=== PATIENT | male | born 1950 | race Caucasian/White ===

== ENCOUNTER → 2017-03-18 07:59 | Outpatient (CLI) | payer OTHER, MEDICARE, SELFPAY ==
[2017-03-18 08:57] LABS: Hemoglobin A1C 7.2 % (0.0-7.0)
[2017-03-18 09:33] LABS: Alanine Aminotransferase 34 U/L (12-78); Albumin/Globulin Ratio 1.6 (1.1-1.8); Alkaline Phosphatase 95 U/L (46-116); Anion Gap 11.9 mEq/L (5-15); Aspartate Amino Transferase 22 U/L (15-37); Bilirubin,Total 0.7 mg/dL (0.2-1.0); Blood Urea Nitrogen 16 mg/dL (7-18); Calcium 8.8 mg/dL (8.5-10.1); Carbon Dioxide 32 mmol/L (21.0-32.0); Chloride 103 mmol/L (98-107); Chol/HDL Ratio 2.4 (1-3.5); Cholesterol 122 mg/dL (140-200); Creatinine,Serum 0.88 mg/dL (0.70-1.30); Estimated Glomerular Filt Rate 86 ml/min (>60); GFR (African American) 105 ML/MIN (>60); Globulin 2.5 gm/dl (1.3-3.2); Glucose 163 mg/dL (74-106); HDL Cholesterol 51 mg/dL (27-67); LDL Cholesterol 60 mg/dL (0-130); Sodium 144 mmol/L (136-145); Total Protein,Serum 6.5 gm/dL (6.4-8.2); Triglycerides 56 mg/dL (30-200); VLDL Cholesterol 11 mg/dL (0-40)
[2017-03-18 09:39] LABS: Potassium 2.9 mmoL/L (3.5-5.1)
[2017-03-19 19:25] LABS: Microalbumin, Urine 32.2 ug/mL (Not Estab.)
== END ==
PROVIDERS: PCP Internal Medicine; Visit Provider Internal Medicine
DX: E11.9 Type 2 diabetes mellitus without complications (principal); I10 Essential (primary) hypertension
CPT/HCPCS: 36415; 80053; 80061; 82043; 83036

== ENCOUNTER → 2017-03-31 16:26 | Outpatient (CLI) | payer OTHER, MEDICARE, SELFPAY ==
[2017-03-31 17:26] LABS: Anion Gap 12.3 mEq/L (5-15); Blood Urea Nitrogen 20 mg/dL (7-18); Carbon Dioxide 31 mmol/L (21.0-32.0); Chloride 101 mmol/L (98-107); Creatinine,Serum 1.11 mg/dL (0.70-1.30); Estimated Glomerular Filt Rate 66 ml/min (>60); GFR (African American) 80 ML/MIN (>60); Glucose 156 mg/dL (74-106); Potassium 3.3 mmoL/L (3.5-5.1); Sodium 141 mmol/L (136-145)
== END ==
PROVIDERS: PCP Internal Medicine; Visit Provider Internal Medicine
DX: E87.6 Hypokalemia (principal)
CPT/HCPCS: 36415; 80048

== ENCOUNTER → 2017-06-27 16:52 | Outpatient (REF) | payer OTHER, MEDICARE, SELFPAY ==
[2017-06-27 18:49] LABS: Potassium 2.8 mmoL/L (3.5-5.1)
== END ==
LOC: LAB 16:52
PROVIDERS: Visit Provider Internal Medicine
DX: E87.6 Hypokalemia (principal)
CPT/HCPCS: 84132

== ENCOUNTER → 2017-07-27 16:29 | Outpatient (REF) | payer OTHER, MEDICARE, SELFPAY ==
[2017-07-27 19:09] LABS: Anion Gap 16.9 mEq/L (5-15); Blood Urea Nitrogen 22 mg/dL (7-18); Calcium 9.7 mg/dL (8.5-10.1); Carbon Dioxide 26 mmol/L (21.0-32.0); Chloride 103 mmol/L (98-107); Estimated Glomerular Filt Rate 55 ml/min (>60); GFR (African American) 67 ML/MIN (>60); Glucose 189 mg/dL (74-106); Potassium 4.9 mmoL/L (3.5-5.1); Sodium 141 mmol/L (136-145)
== END ==
LOC: LAB 16:29
PROVIDERS: Visit Provider Internal Medicine
DX: E87.6 Hypokalemia (principal)
CPT/HCPCS: 80048

== ENCOUNTER → 2019-01-03 10:47 | Outpatient (CLI) | payer MEDICARE, SELFPAY | PROVIDERS: PCP Internal Medicine; Visit Provider Internal Medicine | DX: R55 Syncope and collapse (principal) | CPT/HCPCS: 93225; 93226 ==

== ENCOUNTER → 2020-11-10 14:18 | Outpatient (CLI) | payer MEDICARE, SELFPAY ==
[2020-11-10 15:07] LABS: Hemoglobin A1C 7.5 % (4.0-6.0)
[2020-11-10 15:55] LABS: Alanine Aminotransferase 16 U/L (12-78); Albumin Level 4.2 g/dl (3.5-5.0); Alkaline Phosphatase 71 U/L (38-126); Anion Gap 14.2 mEq/L (5-15); Aspartate Amino Transferase 24 U/L (17-59); Bilirubin,Total 0.9 mg/dl (0.2-1.3); Blood Urea Nitrogen 21 mg/dl (9-20); Calcium 9.1 mg/dl (8.4-10.2); Carbon Dioxide 26 mmol/L (22.0-30.0); Chloride 104 mmol/L (98-107); Chol/HDL Ratio 2.7 (1-3.5); Cholesterol 104 mg/dl (140-200); Estimated Glomerular Filt Rate 55 ml/min (>60); GFR (African American) 66 ML/MIN (>60); Globulin 2.1 g/dL (1.3-3.2); Glucose 139 mg/dl (74-100); HDL Cholesterol 38 mg/dl (40-60); Potassium 5.2 mmoL/L (3.5-5.1); Sodium 139 mmol/L (136-145); Total Protein,Serum 6.3 g/dl (6.3-8.2); Triglycerides 85 mg/dl (30-150); VLDL Cholesterol 17 mg/dL (0-40)
[2020-11-10 16:06] LABS: Direct LDL Cholesterol 51.86 mg/dL (100-129)
[2020-11-10 16:25] LABS: Prostate Specific Ag, Diagnost 1.77 ng/ml (0.0-4.0)
== END ==
PROVIDERS: Visit Provider Internal Medicine
DX: E11.9 Type 2 diabetes mellitus without complications (principal); E78.5 Hyperlipidemia, unspecified; M17.0 Bilateral primary osteoarthritis of knee; R35.0 Frequency of micturition
CPT/HCPCS: 80053; 80061; 83036; 84153

== ENCOUNTER → 2021-03-02 10:09 | Outpatient (CLI) | payer MEDICARE, SELFPAY ==
[2021-03-02 11:22] LABS: Chloride 101 mmol/L (98-107)
[2021-03-02 11:23] LABS: Potassium 4.6 mmoL/L (3.5-5.1); Sodium 136 mmol/L (136-145)
[2021-03-02 11:26] LABS: Anion Gap 11.6 mEq/L (5-15); Blood Urea Nitrogen 24 mg/dl (9-20); Calcium 9.4 mg/dl (8.4-10.2); Carbon Dioxide 28 mmol/L (22.0-30.0); Estimated Glomerular Filt Rate 54 ml/min (>60); GFR (African American) 66 ML/MIN (>60); Glucose 178 mg/dl (74-100)
[2021-03-02 13:04] LABS: Hemoglobin A1C 8.6 % (4.0-6.0)
== END ==
PROVIDERS: Visit Provider Internal Medicine
DX: E11.42 Type 2 diabetes mellitus with diabetic polyneuropathy (principal); I10 Essential (primary) hypertension
CPT/HCPCS: 36415; 80048; 83036

== ENCOUNTER → 2021-06-01 13:09 | Outpatient (CLI) | payer MEDICARE, SELFPAY ==
[2021-06-01 14:31] LABS: Hemoglobin A1C 8.6 % (4.0-6.0)
[2021-06-01 14:47] LABS: Alanine Aminotransferase 22 U/L (12-78); Albumin/Globulin Ratio 1.8 (1.1-1.8); Alkaline Phosphatase 75 U/L (38-126); Anion Gap 12.9 mEq/L (5-15); Aspartate Amino Transferase 27 U/L (17-59); Bilirubin,Total 0.7 mg/dl (0.2-1.3); Blood Urea Nitrogen 21 mg/dl (9-20); Calcium 8.9 mg/dl (8.4-10.2); Carbon Dioxide 26 mmol/L (22.0-30.0); Chloride 105 mmol/L (98-107); Chol/HDL Ratio 3.8 (1-3.5); Cholesterol 145 mg/dl (140-200); Estimated Glomerular Filt Rate 60 ml/min (>60); GFR (African American) 72 ML/MIN (>60); Globulin 2.2 g/dL (1.3-3.2); Glucose 186 mg/dl (74-100); HDL Cholesterol 38 mg/dl (40-60); Potassium 4.9 mmoL/L (3.5-5.1); Sodium 139 mmol/L (136-145); Total Protein,Serum 6.2 g/dl (6.3-8.2); Triglycerides 112 mg/dl (30-150); VLDL Cholesterol 22 mg/dL (0-40)
[2021-06-01 14:58] LABS: Direct LDL Cholesterol 73.37 mg/dL (100-129)
== END ==
PROVIDERS: PCP Internal Medicine; Visit Provider Internal Medicine
DX: E11.42 Type 2 diabetes mellitus with diabetic polyneuropathy (principal); I10 Essential (primary) hypertension; E78.5 Hyperlipidemia, unspecified; G47.33 Obstructive sleep apnea (adult) (pediatric)
CPT/HCPCS: 80053; 80061; 83036

== ENCOUNTER → 2021-09-30 14:46 | Outpatient (CLI) | payer MEDICARE, SELFPAY ==
--- NOTE | 2021-09-30 14:59 | ECG_ITS ---
APPROVED REPORT Exam: Resting ECG HR:82 bpm ECG Measurements Heart Rate 82 AXES NM 316 P 81 QRSd 94 QRS 54 QT 386 T 50 QTc 425 Conclusion ELECTRONIC ATRIAL PACEMAKER LOW QRS VOLTAGE IN PRECORDIAL LEADS [QRS DEFLECTION < 1.0 mV IN CHEST LEADS] ABNORMAL RHYTHM ECG Electronically signed by : Barrett Devlin MD 10/05/2021 12:09:42
== END ==
PROVIDERS: PCP Internal Medicine; Visit Provider Internal Medicine
DX: E11.42 Type 2 diabetes mellitus with diabetic polyneuropathy (principal); I10 Essential (primary) hypertension; G47.33 Obstructive sleep apnea (adult) (pediatric); Z95.0 Presence of cardiac pacemaker
CPT/HCPCS: 93005

== ENCOUNTER → 2021-12-22 12:21 | Outpatient (CLI) | payer MEDICARE, SELFPAY ==
[2021-12-22 15:33] LABS: Basophils # 0.1 K/mm3 (0-0.2); Basophils % 1.1 % (0.1-2.0); Eosinophils # 0.2 K/mm3 (0.0-0.4); Eosinophils % 2.8 % (0.1-12.0); Hematocrit 47.5 % (42.0-52.0); Lymphocytes # 1.5 K/mm3 (0.7-4.5); Mean Corpuscular HGB Conc 31.6 g/dL (31.8-35.4); Mean Corpuscular Hemoglobin 30.8 pg (27.0-31.2); Mean Corpuscular Volume 97.5 fl (80-94); Monocytes # 0.3 K/mm3 (0.1-1.0); Monocytes % 4.5 % (1.7-9.3); Neutrophils # 5.1 K/mm3 (1.8-7.8); Neutrophils % 70.6 % (37.0-80.0); Platelet Count 225 K/mm3 (142-424); Red Blood Count 4.87 M/mm3 (4.60-6.20); Red Cell Distribution Width 13.3 % (11.5-17.5); White Blood Count 7.2 K/mm3 (4.8-10.8)
[2021-12-22 16:31] LABS: Alanine Aminotransferase 20 U/L (12-78); Albumin Level 4.5 g/dl (3.5-5.0); Alkaline Phosphatase 119 U/L (38-126); Anion Gap 17.8 mEq/L (5-15); Aspartate Amino Transferase 30 U/L (17-59); Bilirubin,Total 0.7 mg/dl (0.2-1.3); Blood Urea Nitrogen 26 mg/dl (9-20); Calcium 9.6 mg/dl (8.4-10.2); Carbon Dioxide 26 mmol/L (22.0-30.0); Chloride 98 mmol/L (98-107); Cholesterol 159 mg/dl (140-200); Estimated Glomerular Filt Rate 54 ml/min (>60); GFR (African American) 66 ML/MIN (>60); Globulin 2.3 g/dL (1.3-3.2); Glucose 170 mg/dl (74-100); HDL Cholesterol 40 mg/dl (40-60); Potassium 4.8 mmoL/L (3.5-5.1); Sodium 137 mmol/L (136-145); Total Protein,Serum 6.8 g/dl (6.3-8.2); Triglycerides 177 mg/dl (30-150); VLDL Cholesterol 35 mg/dL (0-40)
[2021-12-22 16:53] LABS: Direct LDL Cholesterol 77.47 mg/dL (100-129)
[2021-12-22 17:01] LABS: Prostate Specific Ag Screen 1.3 ng/ml (0.0-4.0)
[2021-12-22 18:27] LABS: Hemoglobin A1C 8.3 % (4.0-6.0)
== END ==
PROVIDERS: PCP Internal Medicine; Visit Provider Internal Medicine
DX: I49.5 Sick sinus syndrome (principal); E11.9 Type 2 diabetes mellitus without complications; I10 Essential (primary) hypertension; E78.5 Hyperlipidemia, unspecified; Z95.0 Presence of cardiac pacemaker; Z12.5 Encounter for screening for malignant neoplasm of prostate
CPT/HCPCS: 80053; 80061; 83036; 85025; G0103

== ENCOUNTER → 2022-07-05 15:00 | Outpatient (CLI) | payer MEDICARE, SELFPAY ==
[2022-07-05 16:23] LABS: Creatinine,Urine Random 45 mg/dL (Not Estab.)
[2022-07-05 16:25] LABS: Microalbumin < 6.000 mg/L (0-16.7)
[2022-07-05 16:27] LABS: Hemoglobin A1C 8.4 % (4.0-6.0)
[2022-07-05 17:05] LABS: Alanine Aminotransferase 23 U/L (12-78); Albumin Level 4.1 g/dl (3.5-5.0); Albumin/Globulin Ratio 1.9 (1.1-1.8); Alkaline Phosphatase 94 U/L (38-126); Aspartate Amino Transferase 29 U/L (17-59); Bilirubin,Total 0.6 mg/dl (0.2-1.3); Blood Urea Nitrogen 23 mg/dl (9-20); Calcium 8.8 mg/dl (8.4-10.2); Carbon Dioxide 28 mmol/L (22.0-30.0); Chloride 97 mmol/L (98-107); Chol/HDL Ratio 3.5 (1-3.5); Cholesterol 132 mg/dl (140-200); Estimated Glomerular Filt Rate 60 ml/min (>60); GFR (African American) 72 ML/MIN (>60); Globulin 2.2 g/dL (1.3-3.2); Glucose 157 mg/dl (74-100); HDL Cholesterol 38 mg/dl (40-60); Sodium 138 mmol/L (136-145); Total Protein,Serum 6.3 g/dl (6.3-8.2); Triglycerides 186 mg/dl (30-150); VLDL Cholesterol 37 mg/dL (0-40)
[2022-07-05 17:16] LABS: Direct LDL Cholesterol 67.26 mg/dL (100-129)
== END ==
PROVIDERS: PCP Internal Medicine; Visit Provider Internal Medicine
DX: E11.42 Type 2 diabetes mellitus with diabetic polyneuropathy (principal); E78.5 Hyperlipidemia, unspecified; I10 Essential (primary) hypertension; M17.0 Bilateral primary osteoarthritis of knee; G47.33 Obstructive sleep apnea (adult) (pediatric); Z85.820 Personal history of malignant melanoma of skin
CPT/HCPCS: 80053; 80061; 82043; 82570; 83036

== ENCOUNTER → 2023-01-10 13:50 | Outpatient (CLI) | payer MEDICARE, SELFPAY ==
[2023-01-10 14:36] LABS: Basophils % 0.4 % (0.1-2.0); Eosinophils # 0.3 K/mm3 (0.0-0.4); Eosinophils % 3.2 % (0.1-12.0); Hematocrit 47.4 % (42.0-52.0); Hemoglobin 15.8 g/dL (14.1-18.0); Lymphocytes # 1.5 K/mm3 (0.7-4.5); Lymphocytes % 18.9 % (10-50); Mean Corpuscular HGB Conc 33.3 g/dL (31.8-35.4); Mean Corpuscular Hemoglobin 32.1 pg (27.0-31.2); Mean Corpuscular Volume 96.6 fl (80-94); Monocytes # 0.3 K/mm3 (0.1-1.0); Monocytes % 4.2 % (1.7-9.3); Neutrophils # 5.6 K/mm3 (1.8-7.8); Neutrophils % 73.2 % (37.0-80.0); Platelet Count 190 K/mm3 (142-424); Red Cell Distribution Width 13.9 % (11.5-17.5); White Blood Count 7.7 K/mm3 (4.8-10.8)
[2023-01-10 15:07] LABS: Hemoglobin A1C 8.4 % (4.0-6.0)
[2023-01-10 15:34] LABS: Alanine Aminotransferase 24 U/L (12-78); Albumin Level 4.5 g/dl (3.5-5.0); Albumin/Globulin Ratio 1.9 (1.1-1.8); Alkaline Phosphatase 91 U/L (38-126); Anion Gap 14.6 mEq/L (5-15); Aspartate Amino Transferase 33 U/L (17-59); Bilirubin,Total 0.6 mg/dl (0.2-1.3); Blood Urea Nitrogen 22 mg/dl (9-20); Calcium 9.1 mg/dl (8.4-10.2); Carbon Dioxide 27 mmol/L (22.0-30.0); Chloride 98 mmol/L (98-107); Cholesterol 143 mg/dl (140-200); Estimated Glomerular Filt Rate 59 ml/min (>60); GFR (African American) 72 ML/MIN (>60); Globulin 2.4 g/dL (1.3-3.2); Glucose 167 mg/dl (74-100); HDL Cholesterol 36 mg/dl (40-60); Potassium 4.6 mmoL/L (3.5-5.1); Sodium 135 mmol/L (136-145); Total Protein,Serum 6.9 g/dl (6.3-8.2); Triglycerides 153 mg/dl (30-150); VLDL Cholesterol 31 mg/dL (0-40)
[2023-01-10 16:04] LABS: Prostate Specific Ag Screen 1.1 ng/ml (0.0-4.0)
== END ==
PROVIDERS: PCP Internal Medicine; Visit Provider Internal Medicine
DX: I10 Essential (primary) hypertension (principal); I49.5 Sick sinus syndrome; E11.9 Type 2 diabetes mellitus without complications; E78.5 Hyperlipidemia, unspecified; G47.33 Obstructive sleep apnea (adult) (pediatric); M17.0 Bilateral primary osteoarthritis of knee; Z95.0 Presence of cardiac pacemaker; Z12.5 Encounter for screening for malignant neoplasm of prostate
CPT/HCPCS: 80053; 80061; 83036; 85025; G0103

== ENCOUNTER 2023-07-12 13:11 | Outpatient (CLI) | payer MEDICARE, SELFPAY ==
[2023-07-12 15:26] LABS: Alanine Aminotransferase 24 U/L (12-78); Albumin Level 4.5 g/dl (3.5-5.0); Alkaline Phosphatase 101 U/L (38-126); Anion Gap 18.6 mEq/L (5-15); Aspartate Amino Transferase 27 U/L (17-59); Bilirubin,Total 1.2 mg/dl (0.2-1.3); Blood Urea Nitrogen 18 mg/dl (9-20); Calcium 9.7 mg/dl (8.4-10.2); Carbon Dioxide 27 mmol/L (22.0-30.0); Chloride 95 mmol/L (98-107); Chol/HDL Ratio 3.2 (1-3.5); Cholesterol 124 mg/dl (140-200); Estimated Glomerular Filt Rate 59 ml/min (>60); GFR (African American) 72 ML/MIN (>60); Globulin 2.3 g/dL (1.3-3.2); Glucose 137 mg/dl (74-100); HDL Cholesterol 39 mg/dl (40-60); Potassium 4.6 mmoL/L (3.5-5.1); Sodium 136 mmol/L (136-145); Total Protein,Serum 6.8 g/dl (6.3-8.2); Triglycerides 169 mg/dl (30-150); VLDL Cholesterol 34 mg/dL (0-40)
[2023-07-12 15:37] LABS: Direct LDL Cholesterol 59.47 mg/dL (100-129)
[2023-07-12 16:44] LABS: Hemoglobin A1C 7.8 % (4.0-6.0)
== END 2023-07-12 23:59 | disposition home or self-care (01) ==
LOC: LAB.DROPOF 13:12
PROVIDERS: PCP Internal Medicine; Visit Provider Internal Medicine
DX: E11.9 Type 2 diabetes mellitus without complications (principal); I10 Essential (primary) hypertension; E78.5 Hyperlipidemia, unspecified; I49.5 Sick sinus syndrome; N41.0 Acute prostatitis; G47.33 Obstructive sleep apnea (adult) (pediatric); Z95.0 Presence of cardiac pacemaker; Z85.820 Personal history of malignant melanoma of skin; Z79.84 Long term (current) use of oral hypoglycemic drugs
CPT/HCPCS: 80053; 80061; 83036; 87086

== ENCOUNTER 2023-07-22 06:48 | Outpatient (CLI) | payer MEDICARE, SELFPAY ==
--- NOTE | 2023-07-22 07:00 | CT_ITS ---
FINAL REPORT TECHNIQUE: Axial CT images were performed from the lung apices through the upper abdomen. Coronal reformats were submitted. This study was performed with techniques to keep radiation doses as low as reasonably achievable (ALARA). Individualized dose reduction techniques using automated exposure control or adjustment of mA and/or kV according to the patient's size were employed. CLINICAL HISTORY: BACK/NECK PAIN, HX OF MELANOMA FINDINGS: There is no axillary adenopathy. Left subclavian pacer is identified. There is presumed prominent pericardial recess in the upper mediastinum versus a cyst. There is no evidence of adenopathy. Heart size is normal. There is no pericardial or pleural effusion. Limited images of the upper abdomen are unremarkable. There is a calcified granuloma in the right upper lobe. There is mild bibasilar atelectasis or scar. Left lower lobe nodule measures 8 mm, may represent a granuloma versus metastases. Several other less than 5 mm nodules are identified. IMPRESSION: Left lower lobe nodule, may represent granuloma versus metastases. Recommend PET-CT or three-month follow-up chest CT. Reviewed, Interpreted and Dictated by Pedro Bryson III, MD Transcribed by Melida Roberts Authenticated and . [facility]
--- NOTE | 2023-07-22 07:00 | CT_ITS ---
FINAL REPORT TECHNIQUE: Thin section axial CT images with coronal and sagittal reformats were performed through the neck. This study was performed with techniques to keep radiation doses as low as reasonably achievable (ALARA). Individualized dose reduction techniques using automated exposure control or adjustment of mA and/or kV according to the patient''s size were employed. CLINICAL HISTORY: BACK/NECK PAIN, HX MELANOMA FINDINGS: No adenopathy or mass lesion is present . Salivary glands are normal. Larynx is unremarkable. There is mild mucosal thickening in the right maxillary sinus. There are bilateral thyroid masses measuring 2.3 cm on the right and 2.3 cm on the left. There are mild and moderate degenerative changes in the cervical spine. IMPRESSION: Bilateral thyroid nodules. Recommend thyroid ultrasound to further evaluate. Reviewed, Interpreted and Dictated by Pedro Bryson III, MD Transcribed by Melida Roberts Authenticated and . [facility]
== END 2023-07-22 23:59 | disposition home or self-care (01) ==
LOC: RAD 06:50
PROVIDERS: PCP Internal Medicine; Visit Provider Internal Medicine
DX: M54.2 Cervicalgia (principal); M54.9 Dorsalgia, unspecified; Z85.820 Personal history of malignant melanoma of skin
CPT/HCPCS: 70490; 71250

== ENCOUNTER 2023-08-01 10:37 | Outpatient (CLI) | payer MEDICARE, SELFPAY ==
--- NOTE | 2023-08-01 10:41 | US_ITS ---
FINAL REPORT CLINICAL HISTORY: 2 thyroid masses 2.[address] scan of the neck COMPARISON: None FINDINGS: THYROID ULTRASOUND: The right lobe of the thyroid gland measures 5.7 cm in length. The left lobe of the thyroid measures 5.2 cm in length. These measurements are consistent with moderate thyromegaly. There is a dominant hypoechoic right lobe mass measuring 41 x 24 x 19 mm in size, solid, hypoechoic, a TI-RADS category 4 nodule. There is a large left thyroid lobe mass, measuring 32 x 23 x 15 mm in size, solid, hypo and isoechoic. This also is a TI-RADS category 4 nodule. There are small colloid cysts in the inferior left lobe. IMPRESSION: Bilateral dominant nodules as described above, both category 4 nodules. Recommend bilateral fine-needle aspiration of these 2 nodules for further evaluation. Reviewed, Interpreted and Dictated by Kelsey Vila MD Transcribed by Kandy Orantes Authenticated and [facility]
== END 2023-08-01 23:59 | disposition home or self-care (01) ==
LOC: RAD 10:38
PROVIDERS: PCP Internal Medicine; Visit Provider Internal Medicine
DX: E07.9 Disorder of thyroid, unspecified (principal)
CPT/HCPCS: 76536

== ENCOUNTER 2023-09-16 07:32 | Outpatient (CLI) | payer MEDICARE, SELFPAY ==
--- NOTE | 2023-09-16 07:32 | US_ITS ---
FINAL REPORT CLINICAL HISTORY: BILATERAL THYROID NODULES -- BILATERAL THYROID FNA -- MARCO A ANDREW FINDINGS: Ultrasound guided thyroid biopsy. HISTORY: Thyroid mass. PROCEDURE: After informed consent was obtained and a time-out was performed, the patient was prepped and draped in usual sterile fashion over the anterior neck. Utilizing local anesthesia and sterile technique with a 25-gauge needle, access to the bilateral thyroid lesions was obtained. Four passes were made of both right and left thyroid lobe nodules. The patient received no conscious sedation. The patient tolerated procedure well and left the department in good condition. IMPRESSION: Status post ultrasound guided biopsy of bilateral thyroid nodules without immediate complication. Films reviewed , interpreted and dictated by Dr. Villarreal. Transcribed by Marco A Munoz PA-C. Reviewed, Interpreted and Dictated by Fred Villarreal MD Transcribed by LORRIE Angeles Authenticated and [facility]
== END 2023-09-16 23:59 | disposition home or self-care (01) ==
LOC: RAD 07:32
PROVIDERS: PCP Internal Medicine; Visit Provider Nurse Practitioner
DX: E04.2 Nontoxic multinodular goiter (principal)
CPT/HCPCS: 10005

== ENCOUNTER 2023-11-10 09:55 | Outpatient (CLI) | payer MEDICARE, SELFPAY ==
--- NOTE | 2023-11-10 10:00 | CT_ITS ---
FINAL REPORT TECHNIQUE: TECHNIQUE: Axial CT without contrast This study was performed with techniques to keep radiation doses as low as reasonably achievable, (ALARA). Individualized dose reduction techniques using automated exposure control or adjustment of mA and/or kV according to the patient's size were employed. CLINICAL HISTORY: 3-month follow-up on lung nodule on right COMPARISON: 07/22/2023 FINDINGS: CT CHEST without contrast FINDINGS: No acute lung disease is present . There is a stable 8 mm nodule in the left lower lobe best seen on image #57. There are at least 2 small 3 mm or less in size nodules in the lung gutierrez. No pleural or pericardial effusion is seen . No adenopathy or mass lesion is otherwise present . IMPRESSION: Stable 8 mm nodule left lower lobe as described. Recommend a 6-month follow-up chest CT for further evaluation. Reviewed, Interpreted and Dictated by Kelsey Vila MD Transcribed by Kandy Orantes Authenticated and [facility]
== END 2023-11-10 23:59 | disposition home or self-care (01) ==
LOC: RAD 09:58
PROVIDERS: PCP Internal Medicine; Visit Provider Internal Medicine
DX: R91.8 Other nonspecific abnormal finding of lung field (principal)
CPT/HCPCS: 71250

== ENCOUNTER 2024-01-25 14:46 | Outpatient (CLI) | payer MEDICARE, SELFPAY ==
[2024-01-25 13:40] LABS: Basophils # 0.1 K/mm3 (0-0.2); Basophils % 0.9 % (0.1-2.0); Eosinophils # 0.2 K/mm3 (0.0-0.4); Eosinophils % 3.1 % (0.1-12.0); Hemoglobin 14.6 g/dL (14.1-18.0); Lymphocytes # 1.4 K/mm3 (0.7-4.5); Lymphocytes % 21.6 % (10-50); Mean Corpuscular HGB Conc 33.9 g/dL (31.8-35.4); Mean Corpuscular Hemoglobin 32.5 pg (27.0-31.2); Mean Corpuscular Volume 95.8 fl (80-94); Mean Platelet Volume 8.6 fl (7.4-10.4); Monocytes # 0.3 K/mm3 (0.1-1.0); Monocytes % 5.2 % (1.7-9.3); Neutrophils # 4.3 K/mm3 (1.8-7.8); Neutrophils % 69.2 % (37.0-80.0); Platelet Count 198 K/mm3 (142-424); Red Blood Count 4.49 M/mm3 (4.60-6.20); Red Cell Distribution Width 13.7 % (11.5-17.5); White Blood Count 6.3 K/mm3 (4.8-10.8)
[2024-01-25 14:42] LABS: Chloride 103 mmol/L (98-107); Sodium 133 mmol/L (136-145)
[2024-01-25 14:43] LABS: Potassium 4.5 mmoL/L (3.5-5.1)
[2024-01-25 14:45] LABS: Alanine Aminotransferase 24 U/L (12-78); Alkaline Phosphatase 98 U/L (38-126); Anion Gap 7.5 mEq/L (5-15); Aspartate Amino Transferase 34 U/L (17-59); Bilirubin,Total 0.8 mg/dl (0.2-1.3); Blood Urea Nitrogen 25 mg/dl (9-20); Carbon Dioxide 27 mmol/L (22.0-30.0); Estimated Glomerular Filt Rate 59 ml/min (>60); GFR (African American) 72 ML/MIN (>60)
[2024-01-25 14:46] LABS: Calcium 9.2 mg/dl (8.4-10.2); Glucose 153 mg/dl (74-100)
[2024-01-25 15:07] LABS: Creatinine,Urine Random 41 mg/dL (Not Estab.)
[2024-01-25 15:10] LABS: Microalbumin/Creatinine Ratio 22.9
[2024-01-25 16:16] LABS: Prostate Specific Ag Screen 1.1 ng/ml (0.0-4.0)
[2024-01-25 18:06] LABS: Hemoglobin A1C 8.6 % (4.0-6.0)
== END 2024-01-25 23:59 | disposition home or self-care (01) ==
LOC: LAB.DROPOF 14:47
PROVIDERS: PCP Internal Medicine; Visit Provider Internal Medicine
DX: E11.42 Type 2 diabetes mellitus with diabetic polyneuropathy (principal); I10 Essential (primary) hypertension; E78.5 Hyperlipidemia, unspecified; Z12.5 Encounter for screening for malignant neoplasm of prostate
CPT/HCPCS: 80053; 82043; 82570; 83036; 85025; G0103

== ENCOUNTER 2024-08-07 13:07 | Outpatient (CLI) | payer MEDICARE, SELFPAY ==
--- OUTSIDE RECORDS SUMMARY | 2024-05-25 07:00 | XMS_ITS | Encounter Summary ---
Author Organization [employer] Address [address] [place] [address] Care Team Providers Care Railway Traction Line Worker Name Role Phone Barrett Devlin MD Primary Care Provider [phone] Mary Kiran CONTRACTS INTERN Unavailable [phone] Reason for Visit * Reason Comments Pacemaker /ICD Home Monitoring Encounter Details Date Type Department Care Team (Late st Contact Info) Description 05/25/2024 7:00 AM EDT Clinical Support [facility] Electrophysiology [address] [place], [place] [id number] [place] [address] [place] [address] [address] [place] [address] Encounter for checking and testing of cardiac pacemaker pulse generator (battery) (Primary Dx); Atrial fibrillation, persistent (HCC); Presence of cardiac pacemaker Social History Tobacco Use Types Packs/Day Years Used Date Smoking Tobacco: Former Cigarettes Passive Smoke Exposure: Past Smokeless Tobacco: Never Alcohol Use Standard Drinks/Week Comments Not Currently 0 (1 standard drink = 0.6 oz pur e alcohol) Housing Stability Vital Sign Answer Yazan e Recorded In the last 12 months, was t here a time when you were not able to pay the mortgage or rent on time? No 01/26/2022 Number of Places Lived in the Last Year Not on f ile 01/26/2022 In the last 12 months, was t here a time when you did not have a steady place to sleep or slept in a [place] (including now)? No 01/26/2022 Interpersonal Safety Answer Date Record ed Family or friends hurt you Not on file 02/24 Family or friends insult you Not on file 12/2023 Family or friends threaten you Not on file 0 02/24/2023 Family or friends scream or curse at you Not on file 02/24/2023 Housing Stability Answer Date Recorded Living situation today Not on file Living situation problems Not on file 2023 Family and Community Support Answer Yazan e Recorded Help with Day to Day Activities Not on file 02/24/2023 Feeling Lonely or Isolated Not on file 02/24 Educational Attainment Answer Date Harry rded Speak language other than Tunisian at home Not on file 02/24/2023 Want help with school or training Not on file 02/24/2023 Depression Answer Date Recorded PHQ-2 Risk Not on file 02/24/2023 Disabilities Answer Date Recorded Difficulty concentrating Not on file 024 Difficulty doing errands alone Not on file 0 02/24/2023 Substance Use Answer Date Recorded Used prescription meds for non-medical reasons N ot on file 02/24/2023 Used illegal drugs past 12 months Not on file 02/24/2023 Sex and Gender Information Value Date Recorded Sex Assigned at Not on file Legal Sex Male 6:49 PM CDT Gender Identity Not on file Sexual Orientation Not on file Occupation Industry Job Start Date Job End Date Retired Not on file Not on file Not on file documented as of this encounter Plan of Treatment Not on file documented as of this encounter Visit Diagnoses Diagnosis Encounter for checking and testing of cardiac pacemaker pulse generator (battery)- Primary Atrial fibrillation, persistent (HCC) Presence of cardiac pacemaker Cardiac pacemaker in situ documented in this encounter Care Teams Railway Traction Line Worker Relationship Specialty Start Date End Date Barrett Devlin MD [address] [place] [address] PCP - General General Internal Medicine 12/29/21 Mary Kiran, CONTRACTS INTERN [address] [facility] [address] [place] [address] Cardiology 08/23/23 documented as of this encounter
[2024-08-07 12:55] LABS: Creatinine,Urine Random 53 mg/dL (Not Estab.)
[2024-08-07 12:56] LABS: Microalbumin < 6.000 mg/L (0-16.7)
[2024-08-07 13:09] LABS: Hemoglobin A1C 10.9 % (4.0-6.0)
--- OUTSIDE RECORDS SUMMARY | 2024-08-07 13:13 | XMS_ITS | Encounter Summary ---
Author Organization [employer] Address [address] [place] [address] Care Team Providers Care Chute Man Name Role Phone Barrett Devlin MD Primary Care Provider [phone] Mary Kiran APRN Unavailable [phone] Encounter Details Date Type Department Care Team (Late st Contact Info) Description 12/01/2020 Transcribed Document [facility] [place] [address] [place] [address] ProviderAlejandrina MD [address] [place] [address] Social History Tobacco Use Types Packs/Day Years Used Date Smoking Tobacco: Never Assessed Sex and Gender Information Value Date Recorded Sex Assigned at Not on file Legal Sex Male 6:49 PM CDT Gender Identity Not on file Sexual Orientation Not on file documented as of this encounter Miscellaneous Notes * Cerner Conversion Note - Alejandrina ProviderMD - 12/01/2020 1:26 PM CDT Admission History, Adult Entered On: 12/01/2020 15:49 EDT Performed On: 12/01/2020 13:26 EDT by Hayder Patterson Lpn Advance Directive Patient has Advance Directive *Q : Yes, Advance Directive not with the patient Advance Directive Type : Living will Copy Advance Directive Verified/on Chart : No Advance Directive Comment : Pt states he has a living will but does not have it with him to be verified Hayder Patterson Lpn - 12/01/2020 15:42 EDT Anesthesia/Transfusion History Family History of Anesthesia Reaction : No prior transfusion(s) Transfusion History : Prior anesthesia without reaction Family History of Anesthesia Reaction : None Yesenia Mary Singletary - 12/01/2020 15:42 EDT Functional Assessment Living Situation : Home Persons Assisting Patient at Home : Spouse Current Home Treatments : CPAP Hayder Patterson Lpn - 12/01/2020 15:42 EDT General Info Legal Guardian : No Support Person/Pt Rep Name : Tonie radford, spouse Support Person/Pt Rep Contact Information : [phone] Want Family/Rep/Phys Notified of Admit : No Emergency Contact #1 : Tonie Radford Emergency Contact #1 Emergency Contact #1 Relationship : Emergency Contact #2 : Hannah Sumner Emergency Contact #2 Emergency Contact #2 Relationship : Daughter Information Obtained From : Patient Primary Language : Slovenian Preferred Communication Mode : Verbal Communication Barrier : None Homoeopath Needed : No Hayder Patterson Lpn - 12/01/2020 15:42 EDT Fall Risk Scales ABCs Fall Injury Risk Identification : Coagulation ABC Fall Injury Risk : Moderate to high injury risk Injury Moderate to High Risk Interventions : Specialty low bed, Supervise toileting as indicated JEFFERY Hx Falls Immediate/Within 3 Months : No Jeffery Secondary Diagnosis : Yes JEFFERY Use of Ambulatory Aid : None JEFFERY IV Therapy or IV Access : Yes Jeffery Gait/Transferring : Normal, bedrest, immobile Jeffery Mental Status : Oriented to own ability Jeffery Fall Risk Score : 35 JEFFERY Fall Scale Risk Level : 25-45 Medium Risk [place] Fall Interventions : Adequate lighting, Assistive devices within reach, Bed in low position, Call device within reach, Fall prevention handout/education per facility policy, Hourly comfort/safety rounds, Non-slip footwear, Personal items within reach, Reinforced to call for assistance before getting out of bed, Room free of clutter/spills, Upper side-rails up, Wheels locked, Wires/Cords secured Fall Moderate to High Risk Interventions : Supervise toileting as indicated, Transport methods appropriate to patient Hayder Patterson Lpn - 12/01/2020 15:42 EDT Fall Risk Education Grid Alarms : Verbalizes understanding Assistive Equipment Use : Verbalizes understanding Bed Height/Stabilization : Verbalizes understanding Call light use : Verbalizes understanding Door Open : Verbalizes understanding Environmental Management : Verbalizes understanding Eyeglasses Use : Verbalizes understanding Fall Community Resources : Verbalizes understanding Fall Contract/Letter : Verbalizes understanding Fall Prevention in the Home : Verbalizes understanding Fall Prevention Protocol : Verbalizes understanding Hearing Aid Use : Verbalizes understanding Home Risk Assessment : Verbalizes understanding Need Constant Observation : Verbalizes understanding Night Light Use : Verbalizes understanding Nonskid Footwear Use : Verbalizes understanding Notification of Staff When Leaving : Verbalizes understanding Orthostatic Hypotension Precautions : Verbalizes understanding Personal Article Availability : Verbalizes understanding Prevention Responsibility Family : Verbalizes understanding Prevention Responsibility Patient : Verbalizes understanding Risk Alert Methods : Verbalizes understanding Risk Factors : Verbalizes understanding Safety Aids : Verbalizes understanding Siderails use/risks : Verbalizes understanding Special Assistive Devices : Verbalizes understanding Staff Responsiveness : Verbalizes understanding Symptom Identification & Action Plan *Q : Verbalizes understanding Symptom Reporting : Verbalizes understanding Toileting Schedule : Verbalizes understanding Transfer/Mobility Techniques : Verbalizes understanding Urinal/Bedpan Availability : Verbalizes understanding Wait for Assistance : Verbalizes understanding Wheelchair Safety : Verbalizes understanding Hayder Patterson Lpn - 12/01/2020 15:42 EDT Fall Risk Scale Calc Temp : 0 Hayder Patterson Lpn - 12/01/2020 15:42 EDT Health Histories Smoking Status : Former smoker, quit more than 30 days ago Smokeless Tobacco Status : Never Implant/Device Type, Money Market Dealer and Model : Pacemaker Medtronic Hayder Patterson Lpn - 12/01/2020 15:42 EDT Social History (As Of: 12/01/2020 15:49:48 EDT) Tobacco: Never (less than 100 in lifetime) Smoking Status. (Last Updated: 02/12/2019 09:23:29 EST by Cintia Roblero RN-TRAVELER) Alcohol: Alcohol Use History Yes. Use in Last 12 Months: Yes. Alcohol Use Frequency Monthly. (Last Updated: 02/12/2019 09:23:49 EST by Cintia Roblero RN-TRAVELER) Alcohol Use History Yes. Date/Time of Last Drink: Last week. Use in Last 12 Months: Yes. (Last Updated: 12/01/2020 15:46:38 EDT by Hayder Patterson Lpn) Substance Abuse: Drug Use Hx: No. Use in Last 12 Months: No. (Last Updated: 02/12/2019 09:23:54 EST by Cintia Roblero RN-TRAVELER) Nutrition/Health: Diabetic (Last Updated: 02/12/2019 09:23:59 EST by Cintia Roblero RN-TRAVELER) Exercise: Exercise duration: 8. Exercise frequency: 3-4 times/week. Exercise type: Walking. (Last Updated: 02/12/2019 09:24:16 EST by Cintia Roblero RN-TRAVELER) Home/Environment: Lives with Spouse. Home equipment: CPAP/BiPAP, Glucose monitoring. (Last Updated: 02/12/2019 09:24:28 EST by Cintia Roblero RN-TRAVELER) Employment/School: Employed (Last Updated: 02/12/2019 09:24:31 EST by Cintia Roblero RN-TRAVELER) Sexual: Sexually active: Yes. (Last Updated: 02/12/2019 09:24:39 EST by Cintia Roblero RN-TRAVELER) Other: n/a (Last Updated: 02/12/2019 09:24:48 EST by Cintia Roblero RN-TRAVELER) Height and Weight, Clinical Dosing Height Source : Stated Height Entry Format : [place] Height, Feet : 6 ft(Converted to: 183 cm, 72 Inch) Height, Inches : 0 Inch(Converted to: 0 ft 0 Inch, 0.00 cm) Clinical Height : 182.88 cm Weight Source : Bed scale Weight Entry Format : [place] Clinical Dosing Weight : 111.95 kg Weight, Pounds : 246.3 lb Body Surface Area (BSA) : 2.33 m2 Body Mass Index : 33.5 kg/m2 (HI) [place] Body Weight : 77 kg Hayder Patterson Lpn - 12/01/2020 15:42 EDT Infectious Disease History Does patient have symptoms of COVID-19? : No Has the Patient Been Tested for COVID-19 in the last 14 days? : No, Patient stated Does the Patient state known exposure to a COVID-19 positive case in the last 14 days? : No Patient Vaccinated for COVID-19 : Fully vaccinated Hayder Patterson Lpn - 12/01/2020 15:42 EDT Infectious Disease Risk Screening Grid Cough < 2 wks of unknown origin : NO Cough > 2 weeks : NO Blood in Sputum : NO Fever or self-reported Fever : NO Rash of unknown origin : NO Headache : NO Stiff neck : NO Night Sweats : NO Unexplained Weight Loss : NO Diarrhea (3 episode per day) : NO Hayder Patterson Lpn - 12/01/2020 15:42 EDT Physical contact outside [place] in the last 30 days : No Hospitalized in Foreign Country : No Infectious Disease History : Chicken pox/Shingles INF Disease TB Screening Calc : 0 INF Disease Recent Travel Calc : 0 Hayder Patterson Lpn - 12/01/2020 15:42 EDT Influenza Vaccine Asmt, Adult Previous Vaccines from Immunization Schedule : Previous Vaccines and Immunizations pneumococcal 13-valent vaccine: 0.5 mL (02/10/19 11:34:00) Influenza Immunization, Current Season : Yes Influenza Immunization Date : 11/10/2020 EDT Hayder Patterson Lpn - 12/01/2020 15:42 EDT Pneumococcal Vaccine Previous Vaccines from Immunization Schedule : Previous Vaccines and Immunizations pneumococcal 13-valent vaccine: 0.5 mL (02/10/19 11:34:00) Pneumonia Immunization Received : Yes Pneumonia Immunization Comment : 2 years ago Hayder Patterson Lpn - 12/01/2020 15:42 EDT Order Details Order Detail : N/A Patient Needs Meds Crushed/Liquid : No Hayder Patterson Lpn - 12/01/2020 15:42 EDT Nutrition History Adaptive Feeding Equipment : Diabetic Eating Poorly Due to Decreased Appetite : No Unplanned Weight Loss in Past 3-6 Months : No Malnutrition Screening Tool Total(mal) : 0 Malnutrition Screening Tool Risk Level : Patient not at risk Hayder Patterson Lpn - 12/01/2020 15:42 EDT [place] Suicide Severity Rating Scale (C-SSRS) CSSRS Past Month Wish to be : No CSSRS Past Month Suicidal Thoughts : No CSSRS Lifetime Suicide Behavior : No Suicide Severity Rating Score : 0 Suicide Severity Rating : No Additional Care Required at this time Hayder Patterson Lpn - 12/01/2020 15:42 EDT Psychosocial History Currently in Unsafe Situation : No Hayder Patterson Lpn - 12/01/2020 15:42 EDT Sleep Apnea Risk Assmt BiPAP/CPAP Ordered for Home Use : Yes Hx of Obstructive Sleep Apnea Diagnosis : Yes BiPAP/CPAP Used at Home : Yes Age over 50 Years Old : Yes Gender Male : Yes Hayder PattersonMary - 12/01/2020 15:42 EDT Valuables and Belongings Valuables and Belongings : Clothing, Personal devices, Personal items, Respiratory devices Clothing : Common streetwear Clothing Disposition : With patient Personal Device Disposition : With patient Personal Devices : Glasses Personal Items : Cell phone Personal Items Disposition : With patient Respiratory Devices : CPAP Respiratory Device Disposition : With patient Hayder Patterson Lpn - 12/01/2020 15:42 EDT Electronically signed by [facility], [facility] Conversion Patient Ombudsperson Cerner at 06/03/2022 1:07 PM CDT documented in this encounter Plan of Treatment Not on file documented as of this encounter Visit Diagnoses Not on filedocumented in this encounter Care Teams Chute Man Relationship Specialty Start Date End Date Barrett Devlin MD [address] [place] [address] PCP - General General Internal Medicine 12/29/21 Mary Kiran, ENTRY LEVEL SOFTWARE ENGINEER [address] [facility] [address] [place] [address] Cardiology 08/23/23 documented as of this encounter
--- OUTSIDE RECORDS SUMMARY | 2024-08-07 13:13 | XMS_ITS | Encounter Summary ---
Author Organization [employer] Address [address] [place] [address] Care Team Providers Care Printing Shop Supervisor Name Role Phone Barrett Devlin MD Primary Care Provider [phone] Mary Kiran INTEL RECRUITER Unavailable [phone] Encounter Details Date Type Department Care Team (Late st Contact Info) Description 03/27/2019 Transcribed Document [facility] [place] Family Medicine [address] [place] [address] ProviderAlejandrina MD [address] [place] [address] Social History Tobacco Use Types Packs/Day Years Used Date Smoking Tobacco: Never Assessed Sex and Gender Information Value Date Recorded Sex Assigned at Not on file Legal Sex Male 6:49 PM CDT Gender Identity Not on file Sexual Orientation Not on file documented as of this encounter Miscellaneous Notes * Cerner Conversion Note - Alejandrina ProviderMD - 03/27/2019 11:46 AM SCHOOL GUARD Nursing Discharge Summary Entered On: 03/27/2019 11:46 EST Performed On: 03/27/2019 11:46 EST by LAMAR DOWNS, sql analyst Documentation Discharge Date/Time : 03/27/2019 12:52 EST LAMAR DOWNS, RN - 03/27/2019 12:52 EST Patient Disposition, General : Discharge Discharge To : Home with ambulatory/outpatient follow-up Mode Of Departure, General Discharge : Private vehicle Accompanied By, Discharge : Spouse IV Discontinued : Yes Personal Belongings With Patient : Yes Prescriptions Given to Patient : No Discharge Instructions Reviewed With, Opportunity For Questions Given : Patient, Spouse Teaching Method : Demonstration, Explanation Teaching Evaluation : Returns demonstration, Verbalizes understanding LAMAR DOWNS RN - 03/27/2019 11:46 EST Electronically signed by [facility] Conversion Cooling Pipe Inspector Cerner at 06/03/2022 12:50 PM CDT documented in this encounter Plan of Treatment Not on file documented as of this encounter Visit Diagnoses Not on filedocumented in this encounter Care Teams Printing Shop Supervisor Relationship Specialty Start Date End Date Barrett Devlin MD [address] [facility] [address] [place] [address] PCP - General General Internal Medicine 12/29/21 Mary Kiran, INTEL RECRUITER [address] [facility] [address] [place] [address] Cardiology 08/23/23 documented as of this encounter
--- OUTSIDE RECORDS SUMMARY | 2024-08-07 13:13 | XMS_ITS | Encounter Summary ---
Author Organization [employer] Address [address] [place] [address] Care Team Providers Care Blueprint Maker Name Role Phone Barrett Devlin MD Primary Care Provider [phone] Mary Kiran CIGARETTE FILTER INSPECTOR Unavailable [phone] Encounter Details Date Type Department Care Team (Late st Contact Info) Description 03/27/2019 Transcribed Document [facility] [place] Family Medicine [address] [place] [address] Alejandrina Turk MD [address] [place], [place] [address] Social History Tobacco Use Types Packs/Day Years Used Date Smoking Tobacco: Never Assessed Sex and Gender Information Value Date Recorded Sex Assigned at Not on file Legal Sex Male 6:49 PM CDT Gender Identity Not on file Sexual Orientation Not on file documented as of this encounter Miscellaneous Notes * Cerner Conversion Note - Alejandrina Turk MD - 03/27/2019 11:46 AM WILDLIFE BIOSTATION RESEARCH ECOLOGIST Patient Education Materials Follows: Moderate Conscious Sedation, Adult, Care After These instructions provide you with information about caring for yourself after your procedure. Your health care provider may also give you more specific instructions. Your treatment has been planned according to current medical practices, but problems sometimes occur. Call your health care provider if you have any problems or questions after your procedure. What can I expect after the procedure? After your procedure, it is common: ??? To feel sleepy for several hours. ??? To feel clumsy and have poor balance for several hours. ??? To have poor judgment for several hours. ??? To vomit if you eat too soon. Follow these instructions at home: For at least 24 hours after the procedure: ??? Do not: ? Participate in activities where you could fall or become injured. ? Drive. ? Use heavy machinery. ? Drink alcohol. ? Take sleeping pills or medicines that cause drowsiness. ? Make important decisions or sign legal documents. ? Take care of children on your own. ??? Rest. Eating and drinking ??? Follow the diet recommended by your health care provider. ??? If you vomit: ? Drink water, juice, or soup when you can drink without vomiting. ? Make sure you have little or no nausea before eating solid foods. General instructions ??? Have a responsible adult stay with you until you are awake and alert. ??? Take ruki-uag-mlpqntt and prescription medicines only as told by your health care provider. ??? If you smoke, do not smoke without supervision. ??? Keep all follow-up visits as told by your health care provider. This is important. Contact a health care provider if: ??? You keep feeling nauseous or you keep vomiting. ??? You feel light-headed. ??? You develop a rash. ??? You have a fever. Get help right away if: ??? You have trouble breathing. This information is not intended to replace advice given to you by your health care provider. Make sure you discuss any questions you have with your health care provider. Document Released: 11/21/2013 Document Revised: 07/05/2016 Document Reviewed: 05/22/2016 Dakim Interactive Patient Education ? 2019 [employer] Pacemaker Implantation, Adult, Care After This sheet gives you information about how to care for yourself after your procedure. Your health care provider may also give you more specific instructions. If you have problems or questions, contact your health care provider. What can I expect after the procedure? After the procedure, it is common to have: ??? Mild pain. ??? Slight bruising. ??? Some swelling over the incision. ??? A slight bump over the skin where the device was placed. Sometimes, it is possible to feel the device under the skin. This is normal. Follow these instructions at home: Medicines ??? Take vood-xur-qsicazh and prescription medicines only as told by your health care provider. ??? If you were prescribed an antibiotic medicine, take it as told by your health care provider. Do not stop taking the antibiotic even if you start to feel better. Wound care ??? Do not remove the bandage on your chest until directed to do so by your health care provider. ??? After your bandage is removed, you may see pieces of tape called skin adhesive strips over the area where the cut was made (incision site). Let them fall off on their own. ??? Check the incision site every day to make sure it is not infected, bleeding, or starting to pull apart. ??? Do not use lotions or ointments near the incision site unless directed to do so. ??? Keep the incision area clean and dry for 2?3 days after the procedure or as directed by your health care provider. It takes several weeks for the incision site to completely heal. ??? Do not take baths, swim, or use a hot tub for 7?10 days or as otherwise directed by your health care provider. Activity ??? Do not drive or use heavy machinery while taking prescription pain medicine. ??? Do not drive for 24 hours if you were given a medicine to help you relax (sedative). ??? Check with your health care provider before you start to drive or play sports. ??? Avoid sudden jerking, pulling, or chopping movements that pull your upper arm far away from your body. Avoid these movements for at least 6 weeks or as long as told by your health care provider. ??? Do not lift your upper arm above your shoulders for at least 6 weeks or as long as told by your health care provider. This means no tennis, golf, or swimming. ??? You may go back to work when your health care provider says it is okay. Pacemaker care ??? You may be shown how to transfer data from your pacemaker through the phone to your health care provider. ??? Always let all health care providers know about your pacemaker before you have any medical procedures or tests. ??? Wear a medical ID bracelet or necklace stating that you have a pacemaker. Carry a pacemaker ID card with you at all times. ??? Your pacemaker battery will last for 5?15 years. Routine checks by your health care provider will let the health care provider know when the battery is starting to run down. The pacemaker will need to be replaced when the battery starts to run down. ??? Do not use amateur radio equipment or electric welding torches. Other electrical devices are safe to use, including power tools, lawn mowers, and speakers. If you are unsure of whether something is safe to use, ask your health care provider. ??? When using your cell phone, hold it to the ear opposite the pacemaker. Do not leave your cell phone in a pocket over the pacemaker. ??? Avoid places or objects that have a strong electric or magnetic field, including: ? Airport security rivers. When at the airport, let officials know that you have a pacemaker. ? Power plants. ? Large electrical generators. ? Radiofrequency transmission towers, such as cell phone and radio towers. General instructions ??? Weigh yourself every day. If you suddenly gain weight, fluid may be building up in your body. ??? Keep all follow-up visits as told by your health care provider. This is important. Contact a health care provider if: ??? You gain weight suddenly. ??? Your legs or feet swell. ??? It feels like your heart is fluttering or skipping beats (heart palpitations). ??? You have chills or a fever. ??? You have more redness, swelling, or pain around your incisions. ??? You have more fluid or blood coming from your incisions. ??? Your incisions feel warm to the touch. ??? You have pus or a bad smell coming from your incisions. Get help right away if: ??? You have chest pain. ??? You have trouble breathing or are short of breath. ??? You become extremely tired. ??? You are light-headed or you faint. This information is not intended to replace advice given to you by your health care provider. Make sure you discuss any questions you have with your health care provider. Document Released: 08/20/2005 Document Revised: 11/12/2016 Document Reviewed: 11/12/2016 Dakim Interactive Patient Education ? 2019 [employer] documented in this encounter Plan of Treatment Not on file documented as of this encounter Visit Diagnoses Not on filedocumented in this encounter Care Teams Blueprint Maker Relationship Specialty Start Date End Date Barrett Devlin MD [address] [place] [address] PCP - General General Internal Medicine 12/29/21 Mary Kiran, CIGARETTE FILTER INSPECTOR [address] [facility] [address] [place] [address] Cardiology 08/23/23 documented as of this encounter
--- OUTSIDE RECORDS SUMMARY | 2024-08-07 13:13 | XMS_ITS | Encounter Summary ---
Author Organization [id number] Address [address] [place] [address] Care Team Providers Care Currency Examiner Name Role Phone Barrett Devlin MD Primary Care Provider [phone] Mary Kiran PLANT SCIENTIST Unavailable [phone] Encounter Details Date Type Department Care Team (Late st Contact Info) Description 02/16/2019 Transcribed Document [facility] [place] Family Medicine [facility] [place] [address] Alejandrina Turk MD [address] [place] [address] Social History Tobacco Use Types Packs/Day Years Used Date Smoking Tobacco: Never Assessed Sex and Gender Information Value Date Recorded Sex Assigned at Not on file Legal Sex Male 6:49 PM CDT Gender Identity Not on file Sexual Orientation Not on file documented as of this encounter Miscellaneous Notes * Cerner Conversion Note - Alejandrina Turk MD - 02/16/2019 12:04 PM MEDICAL REVIEW COORDINATOR Patient Education Materials Follows: Pacemaker Implantation, Adult, Care After This sheet [...] these instructions at home: Medicines ??? Take qoli-alq-kpfoiaz and prescription medicines only as told by [...] 08/20/2005 Document Revised: 11/12/2016 Document Reviewed: 11/12/2016 [employer]Lenet Interactive Patient Education ? 2019 [employer] Emergency Medicine Atrial Fibrillation Atrial fibrillation is a type of heartbeat that is irregular or fast (rapid). If you have this condition, your heart keeps quivering in a weird (chaotic) way. This condition can make it so your heart cannot pump blood normally. Having this condition gives a person more risk for stroke, heart failure, and other heart problems. There are different types of atrial fibrillation. Talk with your doctor to learn about the type that you have. Follow these instructions at home: ??? Take yvwo-osw-sotydbi and prescription medicines only as told by your doctor. ??? If your doctor prescribed a blood-thinning medicine, take it exactly as told. Taking too much of it can cause bleeding. If you do not take enough of it, you will not have the protection that you need against stroke and other problems. ??? Do not use any tobacco products. These include cigarettes, chewing tobacco, and e-cigarettes. If you need help quitting, ask your doctor. ??? If you have apnea (obstructive sleep apnea), manage it as told by your doctor. ??? Do not drink alcohol. ??? Do not drink beverages that have caffeine. These include coffee, soda, and tea. ??? Maintain a healthy weight. Do not use diet pills unless your doctor says they are safe for you. Diet pills may make heart problems worse. ??? Follow diet instructions as told by your doctor. ??? Exercise regularly as told by your doctor. ??? Keep all follow-up visits as told by your doctor. This is important. Contact a doctor if: ??? You notice a change in the speed, rhythm, or strength of your heartbeat. ??? You are taking a blood-thinning medicine and you notice more bruising. ??? You get tired more easily when you move or exercise. Get help right away if: ??? You have pain in your chest or your belly (abdomen). ??? You have sweating or weakness. ??? You feel sick to your stomach (nauseous). ??? You notice blood in your throw up (vomit), poop (stool), or pee (urine). ??? You are short of breath. ??? You suddenly have swollen feet and ankles. ??? You feel dizzy. ??? Your suddenly get weak or numb in your face, arms, or legs, especially if it happens on one side of your body. ??? You have trouble talking, trouble understanding, or both. ??? Your face or your eyelid droops on one side. These symptoms may be an emergency. Do not wait to see if the symptoms will go away. Get medical help right away. Call your local emergency services (911 in the [place] Do not drive yourself to the hospital. This information is not intended to replace advice given to you by your health care provider. Make sure you discuss any questions you have with your health care provider. Document Released: 11/09/2008 Document Revised: 07/08/2016 Document Reviewed: 05/28/2015 ElseLenet Interactive Patient Education ? 2019 [employer]. documented in this encounter Plan of Treatment Not on file documented as of this encounter Visit Diagnoses Not on filedocumented in this encounter Care Teams Currency Examiner Relationship Specialty Start Date End Date Barrett Devlin MD [address] [place] [address] PCP - General General Internal Medicine 12/29/21 Mary Kiran, MARIBEL [address] [facility] [address] [place] [address] Cardiology 08/23/23 documented as of this encounter
--- OUTSIDE RECORDS SUMMARY | 2024-08-07 13:13 | XMS_ITS | Encounter Summary ---
Author Organization [employer] Address [address] [place] [address] Care Team Providers Care Bullet Swaging Machine Operator Name Role Phone Barrett Devlin MD Primary Care Provider [phone] Mary Kiran TEST RIDER Unavailable [phone] Encounter Details Date Type Department Care Team (Late st Contact Info) Description 03/27/2019 Transcribed Document [facility] [place] Family Medicine [address] [place] [address] ProviderAlejandrina MD [address] [place], [place] [address] Social History Tobacco Use Types Packs/Day Years Used Date Smoking Tobacco: Never Assessed Sex and Gender Information Value Date Recorded Sex Assigned at Not on file Legal Sex Male 6:49 PM CDT Gender Identity Not on file Sexual Orientation Not on file documented as of this encounter Miscellaneous Notes * Cerner Conversion Note - Historical ProviderMD - 03/27/2019 12:54 PM STUDENT DEAN Event Note Entered On: 03/27/2019 12:55 EST Performed On: 03/27/2019 12:54 EST by LAMAR DOWNS, RN Event Note Event Date/Time : 03/27/2019 12:52 EST Description of Event : pt dischaged home in stable condition, pt verbalized understanding of discharge teaching LAMAR DOWNS, RN - 03/27/2019 12:54 EST Electronically signed by Teja [facility] Conversion Display Card Writer Cerner at 06/03/2022 12:58 PM CDT documented in this encounter Plan of Treatment Not on file documented as of this encounter Visit Diagnoses Not on filedocumented in this encounter Care Teams Bullet Swaging Machine Operator Relationship Specialty Start Date End Date Barrett Devlin MD [address] [place] [address] PCP - General General Internal Medicine 12/29/21 Mary Kiran, TEST RIDER [address] [facility] [address] [place] [address] Cardiology 08/23/23 documented as of this encounter
--- OUTSIDE RECORDS SUMMARY | 2024-08-07 13:13 | XMS_ITS | Encounter Summary ---
Author Organization [employer] Address [address] [place] [address] Care Team Providers Care Rn Acute Care Name Role Phone Barrett Devlin MD Primary Care Provider [phone] Mary Kiran FABRIC DESIGNER Unavailable [phone] Encounter Details Date Type Department Care Team (Late st Contact Info) Description 02/16/2019 Transcribed Document [facility] [place] [address] [place] [address] ProviderAlejandrina MD [address] [place], [place] [address] Social History Tobacco Use Types Packs/Day Years Used Date Smoking Tobacco: Never Assessed Sex and Gender Information Value Date Recorded Sex Assigned at Not on file Legal Sex Male 6:49 PM CDT Gender Identity Not on file Sexual Orientation Not on file documented as of this encounter Miscellaneous Notes * Cerner Conversion Note - Alejandrina ProviderMD - 02/16/2019 5:00 AM ENVELOPE FOLDING MACHINE OPERATOR Chart Check - Review Order Profile Entered On: 02/16/2019 3:58 EST Performed On: 02/16/2019 5:00 EST by KRYSTLE JO RN Chart Check Powerplans Initiated/Discontinued as Appropriate : Yes All Active Orders Reviewed : Yes KRYSTLE JO RN - 02/16/2019 3:58 EST documented in this encounter Plan of Treatment Not on file documented as of this encounter Visit Diagnoses Not on filedocumented in this encounter Care Teams Rn Acute Care Relationship Specialty Start Date End Date Barrett Devlin MD [address] [place] [address] PCP - General General Internal Medicine 12/29/21 Mary Kiran, FABRIC DESIGNER [address] [facility] [address] [place] [address] Cardiology 08/23/23 documented as of this encounter
--- OUTSIDE RECORDS SUMMARY | 2024-08-07 13:13 | XMS_ITS | Encounter Summary ---
Author Organization [employer] Address [address] [place] [address] Care Team Providers Care Patient Care Specialist Name Role Phone Barrett Devlin MD Primary Care Provider Mary Kiran GEODETIC SURVEYOR TECHNOLOGIST Unavailable [phone] Encounter Details Date Type Department Care Team (Late st Contact Info) Description 02/16/2019 Transcribed Document [facility] [place] [address] [place] [address] ProviderAlejandrina MD [address] [place], [place] [address] Social History Tobacco Use Types Packs/Day Years Used Date Smoking Tobacco: Never Assessed Sex and Gender Information Value Date Recorded Sex Assigned at Not on file Legal Sex Male 6:49 PM CDT Gender Identity Not on file Sexual Orientation Not on file documented as of this encounter Miscellaneous Notes * Cerner Conversion Note - Alejandrina ProviderMD - 02/16/2019 2:00 AM HAND GLASS CUTTER Yardage Control Operator Forming Details Entered On: 02/16/2019 1:37 EST Performed On: 02/16/2019 2:00 EST by KRYSTLE JO RN Order Details Transport Mode Order Detail : Wheelchair Isolation Precautions Order Detail : Standard Precautions Order Detail : N/A IV Order Detail : 1 Oxygen Order Detail : 0 Nurse Collect Order Detail : 0 Lift/Transfer : Independent Central Line Order Detail : No Room Service : Appropriate Arterial Line : No KRYSTLE JO RN - 02/16/2019 1:37 EST Electronically signed by Teja [facility] Conversion Physician Coding Specialist Cerner at 06/03/2022 12:29 PM CDT documented in this encounter Plan of Treatment Not on file documented as of this encounter Visit Diagnoses Not on filedocumented in this encounter Care Teams Patient Care Specialist Relationship Specialty Start Date End Date Barrett Devlin MD [address] [place] [address] PCP - General General Internal Medicine 12/29/21 Mary Kiran, GEODETIC SURVEYOR TECHNOLOGIST [address] [facility] [address] [place] [address] Cardiology 08/23/23 documented as of this encounter
--- OUTSIDE RECORDS SUMMARY | 2024-08-07 13:13 | XMS_ITS | Encounter Summary ---
Author Organization [employer] Address [address] [place] [address] Care Team Providers Care Rail Splitter Name Role Phone Barrett Devlin MD Primary Care Provider [phone] Mary Kiran RECEIVING TANK OPERATOR Unavailable [phone] Encounter Details Date Type Department Care Team (Late st Contact Info) Description 12/01/2020 Transcribed Document [facility] [place] Family Medicine [address] [place] [address] ProviderAlejandrina MD [address] [place], [place] [address] Social History Tobacco Use Types Packs/Day Years Used Date Smoking Tobacco: Never Assessed Sex and Gender Information Value Date Recorded Sex Assigned at Not on file Legal Sex Male 6:49 PM CDT Gender Identity Not on file Sexual Orientation Not on file documented as of this encounter Miscellaneous Notes * Cerner Conversion Note - Alejandrina ProviderMD - 12/01/2020 1:26 PM CDT Meds to Bed Enrollment Entered On: 2020 11:41 EDT Performed On: 12/01/2020 13:26 EDT by Karson Patel Stack Attendant Cert Lead Meds to Bed Enrollment Patient Enrollment Decision: : Yes/enroll in meds to bed program Karson Patel Stack Attendant Cert Lead - 2020 11:41 EDT documented in this encounter Plan of Treatment Not on file documented as of this encounter Visit Diagnoses Not on filedocumented in this encounter Care Teams Rail Splitter Relationship Specialty Start Date End Date Barrett Devlin MD [address] [place] [address] PCP - General General Internal Medicine 12/29/21 Mary Kiran, RECEIVING TANK OPERATOR [address] [facility] [address] [place] [address] Cardiology 08/23/23 documented as of this encounter
--- OUTSIDE RECORDS SUMMARY | 2024-08-07 13:13 | XMS_ITS | Encounter Summary ---
Author Organization [facility] Address [address] [place] [address] Care Team Providers Care Tapper Shank Name Role Phone Barrett Devlin MD Primary Care Provider [phone] Mary Kiran JAVA APPLICATION ENGINEER Unavailable [phone] Encounter Details Date Type Department Care Team (Late st Contact Info) Description 03/27/2019 Transcribed Document [facility] [place] [address] [place] [address] ProviderAlejandrina MD [address] [place] [address] Social History Tobacco Use Types Packs/Day Years Used Date Smoking Tobacco: Never Assessed Sex and Gender Information Value Date Recorded Sex Assigned at Not on file Legal Sex Male 6:49 PM CDT Gender Identity Not on file Sexual Orientation Not on file documented as of this encounter Miscellaneous Notes * Cerner Conversion Note - Alejandrina ProviderMD - 03/27/2019 7:53 AM SYSTEM SUPPORT ANALYST Pre Procedure Adult Entered On: 03/27/2019 7:57 EST Performed On: 03/27/2019 7:53 EST by LAMAR DOWNS, RN Height and Weight, Clinical Dosing Height Source : Stated Height Entry Format : Jay Height, Feet : 6 ft(Converted to: 183 cm, 72 Inch) Height, Inches : 0 Inch(Converted to: 0 ft 0 Inch, 0.00 cm) Clinical Height : 182.88 cm Weight Source : Standing scale Weight Entry Format : Jay Clinical Dosing Weight : 102.73 kg Weight, Pounds : 226 lb Body Surface Area (BSA) : 2.25 m2 Body Mass Index : 30.7 kg/m2 (HI) Vestal Body Weight : 77 kg LAMAR DOWNS RN - 03/27/2019 7:53 EST Health Histories Smoking Status : Never (less than 100 in lifetime; none in last 30 days) Smokeless Tobacco Status : Never LAMAR DOWNS RN - 03/27/2019 7:53 EST Social History (As Of: 03/27/2019 07:57:45 EST) Tobacco: Never (less than 100 in lifetime) Smoking Status. (Last Updated: 02/12/2019 09:23:29 EST by Cintia Roblero RN-TRAVELER) Alcohol: Alcohol Use History Yes. Use in Last 12 Months: Yes. Alcohol Use Frequency Monthly. (Last Updated: 02/12/2019 09:23:49 EST by Cintia Roblero RN-TRAVELER) Substance Abuse: Drug Use Hx: No. Use [...] 02/12/2019 09:24:48 EST by Cintia Roblero RN-TRAVELER) Infectious Disease History Physical contact outside [place] in the last 30 days : No, Unable to obtain Infectious Disease History : Chicken pox/Shingles Tuberculosis Symptoms : None LAMAR DOWNS RN - 03/27/2019 7:53 EST Anesthesia/Transfusion History Family History of Anesthesia Reaction : No prior transfusion(s) Blood Transfusion Acceptable to Patient : Yes Transfusion History : Prior anesthesia without reaction Family History of Anesthesia Reaction : None LAMAR DOWNS RN - 03/27/2019 7:53 EST Functional Assessment Living Situation : Home Patient Lives With : Spouse Current Home Treatments : CPAP LAMAR DOWNS RN - 03/27/2019 7:53 EST [place] Suicide Severity Rating Scale (C-SSRS) CSSRS Past Month Wish to be : No CSSRS Past Month Suicidal Thoughts : No CSSRS Lifetime Suicide Behavior : No Suicide Severity Rating Score : 0 Suicide Severity Rating : No Additional Care Required at this time LAMAR DOWNS RN - 03/27/2019 7:53 EST Psychosocial History Currently in Unsafe Situation : No LAMAR DOWNS RN - 03/27/2019 7:53 EST Advance Directive Patient has Advance Directive *Q : Yes, Advance Directive not with the patient Advance Directive Type : Living will Copy Advance Directive Verified/on Chart : No LAMAR DOWNS RN - 03/27/2019 7:53 EST Teaching/Learning Assessment Barriers To Learning : None evident Individuals Taught : Patient, Spouse Readiness to Learn : Cooperative Baseline Knowledge of Topic : Limited Readiness to Learn : Demonstration, Explanation Learning Style Preferences Patient : None Learning Style Preferences Family : None LAMAR DOWNS RN - 03/27/2019 7:53 EST Education Topics, Periop Preadmission Perioperative Education Grid Arrival Time/Place : Verbalizes understanding, Returns demonstration CAUTI : Verbalizes understanding, Returns demonstration Central Lines : Verbalizes understanding, Returns demonstration CHG Preoperative Bathing/Cloths : Verbalizes understanding, Returns demonstration Falls : Verbalizes understanding, Returns demonstration Incentive Spirometry : Verbalizes understanding, Returns demonstration Infection Control : Verbalizes understanding, Returns demonstration IV's : Verbalizes understanding, Returns demonstration NPO Status/Directions : Verbalizes understanding, Returns demonstration Pain Management : Verbalizes understanding, Returns demonstration Postoperative Care Preparations : Verbalizes understanding, Returns demonstration Preprocedure Preparations : Verbalizes understanding, Returns demonstration Preprocedure Tests/Labs : Verbalizes understanding, Returns demonstration Remove Body Piercings : Verbalizes understanding, Returns demonstration Responsible Adult : Verbalizes understanding, Returns demonstration Take/Hold Medications Pre-Procedure : Verbalizes understanding, Returns demonstration Other : Verbalizes understanding, Returns demonstration LAMAR DOWNS RN - 03/27/2019 7:53 EST General Info Arrived From : Home Mode of Arrival on Unit : Ambulatory Legal Guardian : Spouse Legal Guardian : No Support Person/Pt Rep Name : Tonie radford, spouse Support Person/Pt Rep Contact Information : [phone] Want Family/Rep/Phys Notified of Admit : No Emergency Contact #1 : see above Emergency Contact #1 Phone Number : na Emergency Contact #1 Relationship : na Emergency Contact #2 : none Emergency Contact #2 Phone Number : na Emergency Contact #2 Relationship : na Primary Language : Mohawk Preferred Communication Mode : Verbal Communication Barrier : None LAMAR DOWNS RN - 03/27/2019 7:53 EST Vital Measurements Temperature Source : Temporal artery scanning Temperature Mode : Fahrenheit Temperature, Fahrenheit : 98.2 Deg F Clinical Temperature, C : 36.8 Deg C Peripheral Pulse Rate : 78 bpm Systolic Blood Pressure : 177 mmHg (HI) Diastolic Blood Pressure : 95 mmHg (HI) Oxygen Saturation : 96 % Oxygen Therapy Mode : Room air LAMAR DOWNS RN - 03/27/2019 7:53 EST Sleep Apnea Risk Assmt BiPAP/CPAP Ordered for Home Use : Yes Hx of Obstructive Sleep Apnea Diagnosis : Yes BiPAP/CPAP Used at Home : Yes Age over 50 Years Old : Yes Gender Male : Yes LAMAR DOWNS RN - 03/27/2019 7:53 EST Edis Scale Edis Sensory Perception : No impairment Edis Moisture : Rarely moist Edis Activity : Walks occasionally Edis Mobility : No limitation Edis Nutrition : Adequate Edis Friction and Shear : No apparent problem Edis Score : 21 LAMAR DOWNS RN - 03/27/2019 7:53 EST Oxygen Therapy Oxygen Therapy Mode : Room air LAMAR DOWNS RN - 03/27/2019 7:53 EST Pain Assessment Pain Assessment : Initial assessment Pain Scale Used : 0-10 Scale LAMAR DOWNS RN - 03/27/2019 7:53 EST Fall Risk Scales ABCs Fall Injury Risk Identification : Coagulation ABC Fall Injury Risk : Moderate to high injury risk JEFFERY Hx Falls Immediate/Within 3 Months : No Jeffery Secondary Diagnosis : Yes JEFFERY Use of Ambulatory Aid : None JEFFERY IV Therapy or IV Access : Yes Jeffery Gait/Transferring : Normal, bedrest, immobile Jeffery Mental Status : Oriented to own ability Jeffery Fall Risk Score : 35 JEFFERY Fall Scale Risk Level : 25-45 Medium Risk Holder Fall Interventions : Adequate lighting, Bed in low position, Call device within reach, Hourly comfort/safety rounds, Non-slip footwear, Personal items within reach, Room free of clutter/spills, Wheels locked, Wires/Cords secured LAMAR DOWNS, RN - 03/27/2019 7:53 EST Valuables and Belongings Valuables and Belongings : Clothing, Jewelry, Personal items, No comfort items, No personal devices, No assistive devices, No respiratory devices, No medications Clothing : Common streetwear Clothing Disposition : Bedside Jewelry : Ring Jewelry Disposition : With patient, Declines to send to security/safe Personal Items : Cell phone, Wallet Personal Items Disposition : Bedside, With family, Declines to send to security/safe Belongings Sent Home With : spouse , Tonie Linds Disposition Comment : pt denies having any valuables that need locked in hospital safe LAMAR DOWNS, RN - 03/27/2019 7:53 EST Pain Scale Intensity : 0 LAMAR DOWNS, RN - 03/27/2019 7:53 EST Image 4 - Images currently included in the form version of this document have not been included in the text rendition version of the form. documented in this encounter Plan of Treatment Not on file documented as of this encounter Visit Diagnoses Not on filedocumented in this encounter Care Teams Tapper Shank Relationship Specialty Start Date End Date Barrett Devlin MD [address] [place] [address] PCP - General General Internal Medicine 12/29/21 Mary Kiran, JAVA APPLICATION ENGINEER [address] [facility] [address] [place] [address] Cardiology 08/23/23 documented as of this encounter
--- OUTSIDE RECORDS SUMMARY | 2024-08-07 13:13 | XMS_ITS | Referral Summary ---
Author Organization [employer] [facility] Address [address] [place] [address] Care Team Providers Care Social Worker Clinical Name Role Phone Barrett Devlin MD Primary Care Provider [phone] Mary Kiran INCIDENT RESPONSE SPECIALIST Unavailable [phone] Encounters Date Type Department Care Team Description 05/25/2024 7:00 AM EDT Clinical Support [facility] Electrophysiology [address] [place] [id number] Chencho Matson MD Encounter for checking and testing of cardiac pacemaker pulse generator (battery) (Primary Dx); Atrial fibrillation, persistent (HCC); Presence of cardiac pacemaker from Last 3 Months Allergies No known active allergies Medications cloNIDine HCL (CATAPRES) 0.2 MG tabletIndications: Benign essential hypertension Take 1 tablet (0.2 mg total) by mouth 2 (two) times daily Take 1 tab in the am, 2 tabs at bedtime. 1 Active lisinopriL (PRINIVIL,ZESTRIL) 20 MG tabletIndications: Benign essential hypertension Take 1 tablet (20 mg total) by mouth 2 (two) times daily. 1 Active lovastatin (MEVACOR) 40 MG tabletIndications: Mixed hyperlipidemia Take 1 tablet (40 mg total) by mouth nightly. 1 Active multivitamin per tabletIndications: Encounter for general adult medical examination without abnormal findings Take 1 tablet by mouth daily. Active spironolactone (ALDACTONE) 25 MG tabletIndications: Benign essential hypertension Take 1 tablet (25 mg total) by mouth daily. Active metFORMIN (GLUCOPHAGE) 500 MG tabletIndications: Type 2 diabetes mellitus without complication, without long-term current use of insulin (HCC) Take 1 tablet (500 mg total) by mouth 2 (two) times daily with breakfast and dinner . Active dwsaemg-dsar-gchcv -oreg-capryl 100 mg-150 mg- 50 mg-150 mg CapIndications:Enc ounter for general adult medical examination without abnormal findings Take 1 capsule by mouth. Active metoprolol tartrate (LOPRESSOR) 100 MG tabletIndications: Essential (primary) hypertension TAKE ONE TABLET BY MOUTH TWICE DAILY 180 tablet 3 3 Active Farxiga 10 mg tablet Take 1 tablet (10 mg total) by mouth daily. 4 Active Rybelsus 7 mg tab Take 1 tablet by mouth daily. 4 Active cinnamon bark 500 mg capsule Take 500 mg by mouth daily. Active aspirin 81 MG EC tablet Take 1 tablet (81 mg total) by mouth daily. Active dofetilide (Tikosyn) 500 MCG capsuleIndications :Paroxysmal atrial fibrillation (HCC),Atrial flutter, unspecified type (HCC) Take 1 capsule (500 mcg total) by mouth 2 (two) times daily. 180 capsule 3 5 Active apixaban (Eliquis) 5 mg tab tabletIndications: Paroxysmal atrial fibrillation (HCC),Unspecified atrial flutter (HCC) Take 1 tablet (5 mg total) by mouth 2 (two) times daily. 180 tablet 3 5 Active Active Problems Problem Noted Date Diagnosed Date Encounter for checking and t esting of cardiac pacemaker pulse generator (battery) 03/17/2024 Coronary artery disease invo lving [place] coronary artery of [place] heart without angina pectoris 03/02/2024 Benign essential hypertension 01/26/2022 History of obstructive sleep apnea 01/26/2022 Low vitamin B12 level 01/26/2022 Type 2 diabetes mellitus 01/26/2022 Atrial fibrillation, persistent 12/11/2020 Hyperlipidemia 11/04/2020 nursing home (current) use of anticoagulants 2020 Presence of cardiac pacemaker 11/04/2020 Erectile dysfunction 08/30/2019 Resolved Problems Problem Noted Date Diagnosed Date Resolved Date Bradycardia 01/26/2022 06/13/2023 Encounter for general adult medical examination without abnormal findings 01/26/2022 H/O syncope 01/26/2022 06/13/2023 Hyperlipidemia 01/26/2022 01/26/2022 Atrial flutter 11/04/2020 06/13/2023 Social History Tobacco Use Types Packs/Day Years Used Date Smoking Tobacco: Former Cigarettes Passive Smoke Exposure: Past Smokeless Tobacco: Never Tobacco Cessation:Counseling Given: Not Answered Alcohol Use Standard Drinks/Week Comments Not Currently [...] place to sleep or slept in a prison (including now)? No 01/26/2022 Interpersonal Safety Answer [...] Date Harry rded Speak language other than Latvian at home Not on file 02/24/2023 Want [...] file Not on file Not on file Last Filed Vital Signs Vital Sign Reading Time Taken Comments Blood Pressure 122/86 03/01/2024 9:26 AM EST Pulse 78 03/01/2024 9:26 AM EST Temperature - - Respiratory Rate - - Oxygen Saturation 98% 02/03/2023 1:58 PM EST Inhaled Oxygen Concentration - - Weight 99.6 kg (219 lb 9.6 oz) 03/01/2024 9:26 A M EST Height 182.9 cm (6') 03/01/2024 9:26 AM EST Body Mass Index 29.78 03/01/2024 9:26 AM EST Plan of Treatment Not on file Medical Devices Implanted Type Area Special Delivery Messenger Device Identifier Shelf Expiration Date Model / Serial / Lot Pacemaker / Medtronic Implanted:02/15 (Quantity not on file) Pacemakers [employer] SALOME XT DR SALAZAR / [id number] / Insurance [facility] [place] Care Teams Social Worker Clinical Relationship Specialty Start Date End Date Barrett Devlin MD [address] [place] [address] PCP - General General Internal Medicine 12/29/21 Mary Kiran, INCIDENT RESPONSE SPECIALIST [address] [facility] [address] [place] [address] Cardiology 08/23/23
--- OUTSIDE RECORDS SUMMARY | 2024-08-07 13:13 | XMS_ITS | Encounter Summary ---
Author Organization [employer] [facility] Address [address] [place] [address] Care Team Providers Care Uke Driver Name Role Phone Barrett Devlin MD Primary Care Provider [phone] Mary Kiran OILSEED MEAT PRESSER Unavailable [phone] Encounter Details Date Type Department Care Team (Late st Contact Info) Description 02/16/[address] [facility] [place] [address] [place] [address] ProviderAlejandrina MD [address] [place] [address] Social History Tobacco Use Types Packs/Day Years Used Date Smoking Tobacco: Never Assessed Sex and Gender Information Value Date Recorded Sex Assigned at Not on file Legal Sex Male 6:49 PM CDT Gender Identity Not on file Sexual Orientation Not on file documented as of this encounter Miscellaneous Notes * Cerner Conversion Note - Alejandrina ProviderMD - 02/16/2019 10:34 AM ASSOCIATE BIOLOGICAL SALES Final Discharge Planning Entered On: 02/16/2019 10:39 EST Performed On: 02/16/2019 10:34 EST by SAMANTHA IRVING, Training And Development Professional Final Discharge Planning Discharge Arrangements : Patient Post-Acute Information Patient Name: ESAU RADFORD Gender: Male : 48 Age: 68 Years No Post-Acute Placement(s) Listed No Post-Acute Service(s) Listed No [place] Referral(s) Listed Important Medicare Message Reviewed With : Patient Important Medicare Message Reviewed D/T : 02/16/2019 10:02 EST Transportation Needs : Family/Friend Is Patient Ready for Discharge? : Yes Physician Notified Patient is Ready for Discharge? : Yes Discharge To Care Management : Home/Residential/Fpc or Self Care -01 SAMANTHA IRVING, Training And Development Professional - 02/16/2019 10:34 EST Final Narrative Note Final Narrative Note : Covering today for D/C planning. Pt had PPM placed yesterday, ready for D/c home today. 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 Sp[facility] will transport[facility] Pt D/C home w/ spouse today. SAMANTHA IRVING, Training And Development Professional - 02/16/2019 10:34 EST Electronically signed by Teja, [facility] Conversion Squeak Rattle And Leak Repairer Cerner at 06/03/2022 12:42 PM CDT documented in this encounter Plan of Treatment Not on file documented as of this encounter Visit Diagnoses Not on filedocumented in this encounter Care Teams Uke Driver Relationship Specialty Start Date End Date Barrett Devlin MD [address] [place] [address] PCP - General General Internal Medicine 12/29/21 Mary Kiran, OILSEED MEAT PRESSER [address] [facility] [address] [place] [address] Cardiology 08/23/23 documented as of this encounter
--- OUTSIDE RECORDS SUMMARY | 2024-08-07 13:13 | XMS_ITS | Encounter Summary ---
Author Organization [facility] [facility] Address [address] [place] [address] Care Team Providers Care Chief Customer Officer Name Role Phone Barrett Devlin MD Primary Care Provider [phone] Mary Kiran POLYSOMNOGRAPHIC TECHNICIAN Unavailable [phone] Encounter Details Date Type Department Care Team (Late st Contact Info) Description 12/01/2020 Transcribed Document [facility] [place] [address] [place] [address] ProviderAlejandrina MD [address] [place] [address] Social History Tobacco Use Types Packs/Day Years Used Date Smoking Tobacco: Never Assessed Sex and Gender Information Value Date Recorded Sex Assigned at Not on file Legal Sex Male 6:49 PM CDT Gender Identity Not on file Sexual Orientation Not on file documented as of this encounter Miscellaneous Notes * Cerner Conversion Note - Alejandrina ProviderMD - 12/01/2020 3:09 PM CDT Pain Assessment Entered On: 12/03/2020 23:31 EDT Performed On: 12/03/2020 21:47 EDT by Marilee Soto Rn-Traveler Intervention Information: oxyCODONE Performed by Marilee Soto Rn-Traveler on 12/03/2020 20:47:00 EDT oxyCODONE,5mg Oral,Pain (Moderate 4-6) Pain Assessment Pain Assessment : Follow-up assessment Pain Scale Goal : 3 Pain Scale Used : 0-10 Scale Marilee Soto Rn-Traveler - 12/03/2020 23:31 EDT Pain Scale Intensity : 4 Marilee Soto Rn-Traveler - 12/03/2020 23:31 EDT Image 4 - Images currently included in the form version of this document have not been included in the text rendition version of the form. Electronically signed by Teja [facility] Conversion Ultrasound Technologist Cerner at 06/03/2022 1:06 PM CDT documented in this encounter Plan of Treatment Not on file documented as of this encounter Visit Diagnoses Not on filedocumented in this encounter Care Teams Chief Customer Officer Relationship Specialty Start Date End Date Barrett Devlin MD [address] [place] [address] PCP - General General Internal Medicine 12/29/21 Mary Kiran, POLYSOMNOGRAPHIC TECHNICIAN [address] [facility] [address] [place] [address] Cardiology 08/23/23 documented as of this encounter
--- OUTSIDE RECORDS SUMMARY | 2024-08-07 13:13 | XMS_ITS | Encounter Summary ---
Author Organization [employer] [facility] Address [address] [place] [address] Care Team Providers Care Spanish Teacher Name Role Phone Barrett Devlin MD Primary Care Provider [phone] Mary Kiran MANPOWER DEVELOPMENT SPECIALIST Unavailable [phone] Encounter Details Date Type Department Care Team (Late st Contact Info) Description 02/15/2019 Transcribed Document [facility] [place] [address] [place] [address] ProviderAlejandrina MD [address] [place], [place] [id number] Social History Tobacco Use Types Packs/Day Years Used Date Smoking Tobacco: Never Assessed Sex and Gender Information Value Date Recorded Sex Assigned at Not on file Legal Sex Male 6:49 PM CDT Gender Identity Not on file Sexual Orientation Not on file documented as of this encounter Miscellaneous Notes * Cerner Conversion Note - Alejandrina ProviderMD - 02/15/2019 5:00 AM ASSISTANT PURCHASING MANAGER Chart Check - Review Order Profile Entered On: 02/15/2019 3:34 EST Performed On: 02/15/2019 5:00 EST by KRYSTLE JO RN Chart Check Powerplans Initiated/Discontinued as Appropriate : Yes All Active Orders Reviewed : Yes KRYSTLE JO RN - 02/15/2019 3:33 EST documented in this encounter Plan of Treatment Not on file documented as of this encounter Visit Diagnoses Not on filedocumented in this encounter Care Teams Spanish Teacher Relationship Specialty Start Date End Date Barrett Devlin MD [address] [place] [address] PCP - General General Internal Medicine 12/29/21 Mary Kiran, MANPOWER DEVELOPMENT SPECIALIST [address] [facility] [address] [place] [address] Cardiology 08/23/23 documented as of this encounter
--- OUTSIDE RECORDS SUMMARY | 2024-08-07 13:13 | XMS_ITS | Encounter Summary ---
Author Organization [employer] [facility] Address [address] [place] [address] Care Team Providers Care Tie Tamper Name Role Phone Barrett Devlin MD Primary Care Provider [phone] Mary Kiran SENIOR LABORATORY TECHNICIAN Unavailable [phone] Encounter Details Date Type Department Care Team (Late st Contact Info) Description 02/16/2019 Transcribed Document [facility] [place] [address] [place] [address] ProviderAlejandrina MD [address] [place], [place] [address] Social History Tobacco Use Types Packs/Day Years Used Date Smoking Tobacco: Never Assessed Sex and Gender Information Value Date Recorded Sex Assigned at Not on file Legal Sex Male 6:49 PM CDT Gender Identity Not on file Sexual Orientation Not on file documented as of this encounter Miscellaneous Notes * Cerner Conversion Note - Historical ProviderMD - 02/16/2019 12:05 PM POWER SHOVEL OPERATOR Stroke/Warfarin Instructions Entered On: 02/16/2019 12:05 EST Performed On: 02/16/2019 12:05 EST by Cuca Franco RN Stroke/Warfarin Instructions Stroke/TIA Discharge Ins : N/A Warfarin Discharge Ins : N/A Cuca Franco RN - 02/16/2019 12:05 EST documented in this encounter Plan of Treatment Not on file documented as of this encounter Visit Diagnoses Not on filedocumented in this encounter Care Teams Tie Tamper Relationship Specialty Start Date End Date Barrett Devlin MD [address] [place] [address] PCP - General General Internal Medicine 12/29/21 Mary Kiran, SENIOR LABORATORY TECHNICIAN [address] [facility] [address] [place] [address] Cardiology 08/23/23 documented as of this encounter
--- OUTSIDE RECORDS SUMMARY | 2024-08-07 13:13 | XMS_ITS | Encounter Summary ---
Author Organization [employer] Address [address] [place] [address] Care Team Providers Care Transcribing Machine Operator Name Role Phone Barrett Devlin MD Primary Care Provider [phone] Mary Kiran APRN Unavailable [phone] Encounter Details Date Type Department Care Team (Late st Contact Info) Description 12/01/2020 Transcribed Document [facility] [place] [address] [place] [address] ProviderAlejandrina MD [address] [place] [address] Social History Tobacco Use Types Packs/Day Years Used Date Smoking Tobacco: Never Assessed Sex and Gender Information Value Date Recorded Sex Assigned at Not on file Legal Sex Male 6:49 PM CDT Gender Identity Not on file Sexual Orientation Not on file documented as of this encounter Miscellaneous Notes * Cerner Conversion Note - Alejandrina Turk MD - 12/01/2020 2:55 PM CDT Patient: ESAU RADFORD Age: 69 Years Sex: Male : 1950 Chief Complaint Shortens of breath Primary Care Provider BARRETT DEVLIN MD History of Present Illness This is a 69 YO male with past medical history of HTN, HLD, DMII, History of A fib S/P cardioversion, on Eliquis, S/P pacemaker, he was admitted for initiation of Takyon. He reports he have History of A fib, S/P cardioversion in the past, on Eliquis, he said he have on and off shortness of breath, palpations, denies chest pain, or dizziness. Review of Systems Constitutional: [No fevers, chills, sweats] Eye: [No recent visual problems, eye discharge, eye pain, redness] HEENT: [No ear pain, nasal congestion, sore throat, voice changes] Respiratory: [No cough, pain on breathing, sputum production] Cardiovascular: [No Chest pain, palpitations, syncope, shortness of breath while laying flat] Gastrointestinal: [No nausea, vomiting, diarrhea, constipation] Genitourinary: [No hematuria, dysuria, incontinence] Juan/Lymph: [Negative for bruising tendency, swollen lymph glands, nosebleeds, history of anticoagulation] Endocrine: [Negative for excessive thirst, excessive hunger, excessive urination, heat or cold intolerance] Musculoskeletal: [No back pain, neck pain, joint pain, muscle pain, decreased range of motion] Integumentary: [No rash, pruritus, abrasions, lesions] Neurologic: [No weakness, numbness, frequent headaches, tremors, blackouts] Psychiatric: [No anxiety, depression, mood changes, hallucinations] Vital Signs T: 35.9 ??C HR: 78 RR: 18 BP: 184/133 SpO2: 96% HT: 182.88 cm WT: 111.95 kg BMI: 33.5 Oxygen Settings (Last) Oxygen Therapy Mode: Room air (12/01/20 18:27:00) Physical Exam General: [Alert and oriented, well nourished, no acute distress]. Neurologic: [Awake, alert, and oriented X3, CN II-XII intact]. Eye: [EOMI, normal conjuctiva]. HENT: [Normocephalic, clear tympanic membranes, normal hearing, moist oral mucosa, no scleral icterus, no sinus tenderness]. Neck: [Supple, non-tender, no carotid bruits, no JVD, no lymphadenopathy]. Lungs: [Clear to auscultation and percussion, non-labored respiration]. Heart: [Normal rate, regular rhythm, no murmur, gallop or edema]. Abdomen: [Soft, non-tender, non-distended, normal bowel sounds, no masses]. Musculoskeletal: [Normal range of motion and strength, no tenderness or swelling]. Skin: [Skin is warm, dry and pink, no rashes or lesions]. Psychiatric: [Cooperative, appropriate mood and affect]. Assessment/Plan #A Fib Telemetry Monitoring keep potassium > 4, magnesium >2 Tikosyn per EP cardiology Eliquis for DVT prophylaxis #DMII hold oral hypoglycemic agents SSI Monitor #Hypokalemia replace KCL check in am #Hypomagnesemia Replace mag Sulphate IV check in am #HTN IV hydrazine PRN Monitor DVT prophylaxis Eliquis Full code Labs, PMH, medications reviewed Discussed with patient, RN Time spent 55 min Disposition: start Tikosyn Dictated using Xockets Speech Recognition software - unidentified line installer trolley errors may be present. VTE Prophylaxis - Medical Apixaban 5 mg, Oral, Tab, [id number], Routine, Start 12/01/20 15:00:00 EDT, 12/01/20 14:21:00 EDT (CLARE MORA) Problem List/Past Medical History Ongoing Atrial fibrillation Bradycardia H/O syncope History of obstructive sleep apnea HTN - Hypertension Hyperlipidemia Low vitamin B12 level Type 2 diabetes mellitus Historical No qualifying data Procedure/Surgical History INSERT PACE. DUAL CK IN CHEST SUBCU/FASCIA, OPEN (02/15/2019), INSERTION OF PACEMAKER LEAD INTO R VENTRICLE, PERC APPROACH (02/15/2019), INSERTION OF PACEMAKER LEAD INTO RIGHT ATRIUM, PERC APPROACH (02/15/2019), INTRODUCTION OF SERUM/TOX/VACCINE INTO MUSCLE, PERC APPROACH (02/15/2019), INTRODUCTION OF INFLUENZA VACCINE INTO MUSCLE, PERC APPROACH (02/10/2019), FLUOROSCOPY OF LEFT HEART USING LOW OSMOLAR CONTRAST (02/08/2019), FLUOROSCOPY OF MULT COR ART USING L OSM CONTRAST (02/08/2019), MEASURE OF CARDIAC SAMPL & PRESSURE, L HEART, PERC APPROACH (02/08/2019), APPENDECTOMY, cardiac catheterization without pci, colonoscopy, excision melanoma, Hernia repair, pacemaker implant. Home Medications (13) Active aspirin 81 mg oral delayed release tablet 81 mg = 1 Tab, Oral, Daily cloNIDine 0.2 mg, Oral, TID Eliquis 5 mg oral tablet 5 mg = 1 Tab, Oral, BID Invokana 300 mg oral tablet 300 mg = 1 Tab, Oral, Daily Klor-Con 10 mEq oral tablet, extended release 10 mEq = 1 Tab, Oral, BID labetalol 100 mg, Oral, Daily lisinopril 40 mg oral tablet 40 mg = 1 Tab, Oral, BID lovastatin 40 mg, Oral, At Bedtime metFORMIN 1000 mg oral tablet 2,000 mg = 2 Tab, Oral, BID Metoprolol Tartrate 25 mg oral tablet 25 mg = 1 Tab, Oral, BID multivitamin , Daily sildenafil 20 mg oral tablet 60 mg = 3 Tab, PRN, Oral, Daily spironolactone 25 mg oral tablet 25 mg = 1 Tab, Oral, Daily Allergies No Known Medication Allergies Social History Alcohol Alcohol Use History Yes. Date/Time of Last Drink: Last week. Use in Last 12 Months: Yes. Alcohol Use History Yes. Use in Last 12 Months: Yes. Alcohol Use Frequency Monthly. Employment/School Employed Exercise Exercise duration: 8. Exercise frequency: 3-4 times/week. Exercise type: Walking. Home/Environment Lives with Spouse. Home equipment: CPAP/BiPAP, Glucose monitoring. Nutrition/Health Diabetic Other n/a Sexual Sexually active: Yes. Substance Abuse Drug Use Hx: No. Use in Last 12 Months: No. Tobacco Never (less than 100 in lifetime) Smoking Status. Family History Family history reviewed, no family history of CAD Lab Results Test Name Test Result Date/Time Sodium Level 145 mmol/L 12/01/2020 13:53 EDT Potassium Level 3.4 mmol/L (Low) 12/01/2020 13:53 EDT Chloride Level 116 mmol/L (High) 12/01/2020 13:53 EDT Carbon Dioxide Level 22 mmol/L 12/01/2020 13:53 EDT Anion Gap 10 12/01/2020 13:53 EDT Glucose Level 135 mg/dL (High) 12/01/2020 13:53 EDT Blood Urea Nitrogen 18 mg/dL 12/01/2020 13:53 EDT Creatinine Level 1.20 mg/dL 12/01/2020 13:53 EDT eGFR >60 mL/min/1.73m2 12/01/2020 13:53 EDT eGFR NonAfrican 60 mL/min/1.73m2 12/01/2020 13:53 EDT Bun/Creatinine 15.0 12/01/2020 13:53 EDT Calcium Level 7.3 mg/dL (Low) 12/01/2020 13:53 EDT Magnesium Level 1.6 mg/dL 12/01/2020 13:53 EDT Device Comment 1 Notified Nurse RBV 12/01/2020 16:25 EDT Glucose POC2 120 mg/dL (High) 12/01/2020 16:25 EDT Additional Documentation Code Status Start: 12/01/20 14:39:00 EDT, Full Code, Continuous Order Electronically signed by Interface, [facility] Conversion Construction Helper Cerner at 06/03/2022 1:11 PM CDT documented in this encounter Plan of Treatment Not on file documented as of this encounter Visit Diagnoses Not on filedocumented in this encounter Care Teams Transcribing Machine Operator Relationship Specialty Start Date End Date Barrett Devlin MD [address] [place] [address] PCP - General General Internal Medicine 12/29/21 Mary Kiran, PRODUCTION PLANNER [address] [facility] [address] [place] [address] Cardiology 08/23/23 documented as of this encounter
--- OUTSIDE RECORDS SUMMARY | 2024-08-07 13:13 | XMS_ITS | Encounter Summary ---
Author Organization [employer] Address [address] [place] [address] Care Team Providers Care Pantomimist Name Role Phone Barrett Devlin MD Primary Care Provider [phone] Mary Kiran ELECTRICIAN TELEPHONE Unavailable [phone] Encounter Details Date Type Department Care Team (Late st Contact Info) Description 02/15/2019 Transcribed Document [facility] [place] [address] [place] [address] ProviderAlejandrina MD [address] [place] [address] Social History Tobacco Use Types Packs/Day Years Used Date Smoking Tobacco: Never Assessed Sex and Gender Information Value Date Recorded Sex Assigned at Not on file Legal Sex Male 6:49 PM CDT Gender Identity Not on file Sexual Orientation Not on file documented as of this encounter Miscellaneous Notes * Cerner Conversion Note - Alejandrina Turk MD - 02/15/2019 12:24 PM MARKETING AUTOMATION SPECIALIST Patient: ESAU RADFORD Age: 68 years Sex: Male : 1950 Associated Diagnoses: None Author: JULIO C ROBLERO MD-CAR CARDIOLOGY NOTE: The patient underwent successful uncomplicated implantation of Medtronic MRI safe DDDR pacemaker. He is to be followed in Dr. Bonner's office but will have a wound check with me in 1-2 weeks. From pacemaker standpoint, may be discharged any time if chest x-ray okay. Would recommend waiting 2-3 days before restarting Eliquis.Thank you for asking me to assist in this patient's care. documented in this encounter Plan of Treatment Not on file documented as of this encounter Visit Diagnoses Not on filedocumented in this encounter Care Teams Pantomimist Relationship Specialty Start Date End Date Barrett Devlin MD [address] [place] [address] PCP - General General Internal Medicine 12/29/21 Mary Kiran, ELECTRICIAN TELEPHONE [address] [facility] [address] [place] [address] Cardiology 08/23/23 documented as of this encounter
--- OUTSIDE RECORDS SUMMARY | 2024-08-07 13:13 | XMS_ITS | Encounter Summary ---
Author Organization [employer] Address [address] [place] [address] Care Team Providers Care Store Sales Consultant Name Role Phone Barrett Devlin MD Primary Care Provider [phone] Mary Kiran APRN Unavailable [phone] Encounter Details Date Type Department Care Team (Late st Contact Info) Description 12/01/2020 Transcribed Document [facility] [place] [facility] [place] [address] ProviderAlejandrina MD [address] [place] [address] Social History Tobacco Use Types Packs/Day Years Used Date Smoking Tobacco: Never Assessed Sex and Gender Information Value Date Recorded Sex Assigned at Not on file Legal Sex Male 6:49 PM CDT Gender Identity Not on file Sexual Orientation Not on file documented as of this encounter Miscellaneous Notes * Cerner Conversion Note - Alejandrina Turk MD - 12/01/2020 1:38 PM CDT Patient: ESAU RADFORD Age: 69 years Sex: Male : 1950 Associated Diagnoses: None Author: CLARE MORA MD-CAR Basic Information PCP: Barrett Devlin Pipe Maker: Bill Solis NP Chief Complaint TIKOSYN admission for Atrial fibrillation History of Present Illness 69-year-old gentleman with PMH significant for SSS with Medtronic PPM in situ, chronic OAC with Eliquis, HTN, HLD, DM type II and ED. The patient was seen by Bill Solis recently when PPM interrogation showed that the patient was in atrial tach/atrial fibrillation 63% of the time which was noted to be a significant increase from the previous interrogation. Metoprolol was increased from 12.5 to 25 mg twice daily and the patient was sent for EP consultation today. His story started in 2018 where he passed out and got the pacemaker implanted by Dr. Meneses. No passing out since that time. However he has been in A. fib since end of March 2020. He cannot do much on exertion and his say that he takes more naps than before. Patient presented 09/09/2020 following DCCV on 08/13/2020. Patient states he feels much better since cardioversion, no sleepiness. has no complaints today. Patient admitted today for TIKOSYN initiation to begin tonight and plan for EPS/atrial flutter ablation on Tuesday12/03/2020. Review of Systems Constitutional: Negative except as documented in history of present illness. Eye: Negative except as documented in history of present illness. Ear/Nose/Mouth/Throat: Negative except as documented in history of present illness. Respiratory: Negative except as documented in history of present illness. Cardiovascular: Negative except as documented in history of present illness. Gastrointestinal: Negative except as documented in history of present illness. Genitourinary: Negative except as documented in history of present illness. Hematology/Lymphatics: Negative except as documented in history of present illness. Endocrine: Negative except as documented in history of present illness. Immunologic: Negative except as documented in history of present illness. Musculoskeletal: Negative except as documented in history of present illness. Integumentary: Negative except as documented in history of present illness. Neurologic: Negative except as documented in history of present illness. Psychiatric: Negative except as documented in history of present illness. Health Status Allergies (1) Active Reaction No Known Medication Allergies None Documented Home Medications (13) Active aspirin 81 mg oral delayed release tablet 81 mg = 1 Tab, Oral, Daily cloNIDine 0.2 mg, Oral, TID Eliquis 5 mg oral tablet 5 mg = 1 Tab, Oral, BID Invokana 300 mg oral tablet 300 mg = 1 Tab, Oral, Daily Klor-Con 10 mEq oral tablet, extended release 20 mEq = 2 Tab, Oral, BID labetalol 100 mg, Oral, [...] 25 mg = 1 Tab, Oral, Daily Allergies: Allergic Reactions (Selected) No Known Medication Allergies, Allergies (1) Active Reaction No Known Medication Allergies None Documented Current medications: (Selected) Inpatient Medications Ordered Tikosyn: 500 mcg, Oral, BID Documented Medications Documented Eliquis 5 mg oral tablet: 1 Tab, Oral, BID, 60 Tab, 0 Refill(s) Invokana 300 mg oral tablet: 1 Tab, Oral, Daily, 0 Refill(s) Klor-Con 10 mEq oral tablet, extended release: 2 Tab, Oral, BID, 0 Refill(s) Metoprolol Tartrate 25 mg oral tablet: 1 Tab, Oral, BID, 90 Tab, 0 Refill(s) aspirin 81 mg oral delayed release tablet: 1 Tab, Oral, Daily, 30 Tab, 0 Refill(s) cloNIDine: 0.2 mg, Oral, TID, 0 Refill(s) labetalol: 100 mg, Oral, Daily, 0 Refill(s) lisinopril 40 mg oral tablet: 1 Tab, Oral, BID, 0 Refill(s) lovastatin: 40 mg, Oral, At Bedtime, 0 Refill(s) metFORMIN 1000 mg oral tablet: 2 Tab, Oral, BID, 0 Refill(s) multivitamin: Daily, 0 Refill(s) sildenafil 20 mg oral tablet: 3 Tab, Oral, Daily, use as directed, PRN: Other (See Comment) spironolactone 25 mg oral tablet: 1 Tab, Oral, Daily, 30 Tab, 0 Refill(s), Medications (1) Active Scheduled: (1) dofetilide 500 mcg cap 500 mcg 1 Cap, Oral, BID Continuous: (0) PRN: (0) Problem list: All Problems Atrial fibrillation / SNOMED CT 15096121 / Confirmed Bradycardia / SNOMED CT 72899262 / Confirmed Low vitamin B12 level / SNOMED CT 652631933 / Confirmed History of obstructive sleep apnea / IMO 30708276 / Confirmed H/O syncope / SNOMED CT 5436067257 / Confirmed HTN - Hypertension / SNOMED CT 4716359423 / Confirmed Hyperlipidemia / SNOMED CT 36718537 / Confirmed Type 2 diabetes mellitus / SNOMED CT 354860453 / Confirmed, Active Problems (8) Atrial fibrillation Bradycardia H/O syncope History of obstructive sleep apnea HTN - Hypertension Hyperlipidemia Low vitamin B12 level Type 2 diabetes mellitus Histories No education data available. Social & Psychosocial Habits Alcohol 02/12/2019 Alcohol Use History, Social Habits Yes Alcohol Use in Last Twelve Months Yes Alcohol Use Frequency Monthly Employment/School 02/12/2019 Status: Employed Exercise 02/12/2019 Duration (average number of minutes): 8 Times per week: 3-4 times/week Exercise type: Walking Home/Environment 02/12/2019 Lives with: Spouse Home equipment: CPAP/BiPAP, Glucose monitoring Nutrition/Health 02/12/2019 Type of diet: Diabetic Other 02/12/2019 Name: n/a Sexual 02/12/2019 Sexually active: Yes Substance Abuse 02/12/2019 Recreational Drug Use History No Recreational Drug Use Last 12 Months No Tobacco 02/12/2019 Smoking Status Never (less than 100 in l Past Medical History: Active Atrial fibrillation (34063313) HTN - Hypertension (9685152813) Type 2 diabetes mellitus (873358454) Family History: No family history items have been selected or recorded., No family history of sudden cardiac Procedure history: APPENDECTOMY (37970). Hernia repair. cardiac catheterization without pci. pacemaker implant. colonoscopy. excision melanoma. Social History Social & Psychosocial Habits Alcohol 02/12/2019 Alcohol Use History, Social Habits Yes Alcohol Use in Last Twelve Months Yes Alcohol Use Frequency Monthly Employment/School 02/12/2019 Status: Employed Exercise 02/12/2019 Duration (average number of minutes): 8 Times per week: 3-4 times/week Exercise type: Walking Home/Environment 02/12/2019 Lives with: Spouse Home equipment: CPAP/BiPAP, Glucose monitoring Nutrition/Health 02/12/2019 Type of diet: Diabetic Other 02/12/2019 Name: n/a Sexual 02/12/2019 Sexually active: Yes Substance Abuse 02/12/2019 Recreational Drug Use History No Recreational Drug Use Last 12 Months No Tobacco 02/12/2019 Smoking Status Never (less than 100 in l . Physical Examination VS/Measurements No qualifying data available General: Alert and oriented. Eye: Pupils are equal, round and reactive to light. HENT: Normocephalic. Neck: Supple, Non-tender, No carotid bruit, No jugular venous distention. Respiratory: Lungs are clear to auscultation, Respirations are non-labored. Cardiovascular: No murmur, Good pulses equal in all extremities, Heart rate irregularly irregular. Jugular Veins: Not distended. Gastrointestinal: Soft, Non-tender, Non-distended, Normal bowel sounds. Musculoskeletal: Normal range of motion. Integumentary: Warm, Dry, Cornell. Neurologic: Alert, Oriented. Psychiatric: Cooperative, Appropriate mood & affect. Review / Management No qualifying data available Telemetry/ECG I personally reviewed the last 24 hour telemetry that show atrial fibrillation Cardiac echo 07/29/2020 Impression: Normal sized left ventricle. Mild left ventricular hypertrophy. Visually estimated ejection fraction 55% +/- 5%. Abnormal strain pattern. Restrictive filling pattern consistent with severely increased LV filling pressure (Grade III Diastolic dysfunction). Abnormal left atrial volume index 36.29 ml/m2. Abnormal right atrial size. Mild to moderate mitral regurgitation. Mildly dilated aortic root. 3.9 cm No masses or thrombi are seen. Measurements Summary: LVEDd: 3.61 cm LVESd: 2.51 cm IVSEd: 1.24 cm AO Root:3.14 cm LVPWd: 1.26 cm Results review: No qualifying data available. Impression and Plan IMPRESSION: *Atrial fibrillation - CHADS VASC -3 *hx SSS s/p PPM (MEDTRONIC) *HTN *DM II *HLD PLAN: Labs and telemetry will be reviewed. Recommend keeping K+>4.0 and Magnesium >2.0. We along with pharmacy will manage his TIKOSYN and Eliquis dosing. We have asked [facility] physician group (Dr. Kayla Devlin) to admit for all medical management. If any questions regarding cardiac medications arise please do not hesitate to call us. Our plan is to initiate TIKOSYN this evening and plan for a EPS/Atrial flutter ablation on Tuesday12/03/2020. documented in this encounter Plan of Treatment Not on file documented as of this encounter Visit Diagnoses Not on filedocumented in this encounter Care Teams Store Sales Consultant Relationship Specialty Start Date End Date Barrett Devlin MD [address] [place] [address] PCP - General General Internal Medicine 12/29/21 Mary Kiran, PECAN HULLER [address] [facility] [address] [place] [address] Cardiology 08/23/23 documented as of this encounter
--- OUTSIDE RECORDS SUMMARY | 2024-08-07 13:13 | XMS_ITS | Encounter Summary ---
Author Organization [employer] Address [address] [place] [address] Care Team Providers Care Learning And Development Coordinator Name Role Phone Barrett Devlin MD Primary Care Provider Mary Kiran SPECIAL EVENTS DRIVER Unavailable [phone] Encounter Details Date Type Department Care Team (Late st Contact Info) Description 02/16/2019 Transcribed Document [facility] [place] [address] [place] [address] ProviderAlejandrina MD [address] [place] [address] Social History Tobacco Use Types Packs/Day Years Used Date Smoking Tobacco: Never Assessed Sex and Gender Information Value Date Recorded Sex Assigned at Not on file Legal Sex Male 6:49 PM CDT Gender Identity Not on file Sexual Orientation Not on file documented as of this encounter Miscellaneous Notes * Cerner Conversion Note - Alejandrina ProviderMD - 02/16/2019 12:05 PM OFFICE SWEEPER Nursing Discharge Summary Entered On: 02/16/2019 12:06 EST Performed On: 02/16/2019 12:05 EST by Cuca Franco RN Discharge Documentation Discharge Date/Time : 02/16/2019 12:05 EST Patient Disposition, General : Discharge Discharge To : Home with ambulatory/outpatient follow-up Accompanied By, Discharge : Spouse IV Discontinued : Yes Medications Given to Patient : Yes Personal Belongings With Patient : Yes Pt's Own Supply of Medications Returned : Yes Cuca Franco RN - 02/16/2019 12:05 EST documented in this encounter Plan of Treatment Not on file documented as of this encounter Visit Diagnoses Not on filedocumented in this encounter Care Teams Learning And Development Coordinator Relationship Specialty Start Date End Date Barrett Devlin MD [address] [place] [address] PCP - General General Internal Medicine 12/29/21 Mary Kiran, SPECIAL EVENTS DRIVER [address] [facility] [address] [place] [address] Cardiology 08/23/23 documented as of this encounter
--- OUTSIDE RECORDS SUMMARY | 2024-08-07 13:13 | XMS_ITS | Encounter Summary ---
Author Organization [employer] Address [address] [place] [address] Care Team Providers Care Cloud Engineer Name Role Phone Barrett Devlin MD Primary Care Provider [phone] Mary Kiran TARPER Unavailable [phone] Encounter Details Date Type Department Care Team (Late st Contact Info) Description 02/15/2019 Transcribed Document [facility] [place] [facility] [place] [address] ProviderAlejandrina MD [address] [place] [address] Social History Tobacco Use Types Packs/Day Years Used Date Smoking Tobacco: Never Assessed Sex and Gender Information Value Date Recorded Sex Assigned at Not on file Legal Sex Male 6:49 PM CDT Gender Identity Not on file Sexual Orientation Not on file documented as of this encounter Miscellaneous Notes * Cerner Conversion Note - Alejandrina ProviderMD - 02/15/2019 10:26 AM EDUCATIONAL/DEVELOPMENT ASSISTANT On Going Discharge Planning Entered On: 02/15/2019 10:51 EST Performed On: 02/15/2019 10:26 EST by INEZ LYN, RN-Customs Appraiser ED Care Management Progress Note Discharge Arrangements : Patient Post-Acute Information Patient Name: ESAU RADFORD Gender: Male : [birth year] Age: 68 Years No Post-Acute Placement(s) Listed No Post-Acute Service(s) Listed No [place] Referral(s) Listed INEZ LYN, RN-Customs Appraiser ED - 02/15/2019 10:26 EST Narrative Progress Note Narrative Progress Note : Discussed with BS RN, Laura and pt is going for PPM placment today with EPS. CM met with pt briefly as he was leaving floor with procedure to inform him that CM was still following for DCP. PT is amb independently per BS RN. No anticipated CM needs at this time, but CM will cont to follow. Historical Progress Note : CM met w/pt @ BS. He lives home w/, works PT @ [employer]. uses CPAP nightly. informed him of CM services. Will continue to follow MORGAN CHOW, RN-Customs Appraiser - 02/13/19 12:06:29 INEZ LYN, RN-Customs Appraiser ED - 02/15/2019 10:26 EST Electronically signed by Teja, [facility] Conversion Pottery Machine Operator Cerner at 06/03/2022 12:41 PM CDT documented in this encounter Plan of Treatment Not on file documented as of this encounter Visit Diagnoses Not on filedocumented in this encounter Care Teams Cloud Engineer Relationship Specialty Start Date End Date Barrett Devlin MD [address] [place] [address] PCP - General General Internal Medicine 12/29/21 Mary Kiran, TARPER [address] [facility] [address] [place] [address] Cardiology 08/23/23 documented as of this encounter
--- OUTSIDE RECORDS SUMMARY | 2024-08-07 13:13 | XMS_ITS | Encounter Summary ---
Author Organization [employer] Address [address] [place] [address] Care Team Providers Care Pairer Substandard Name Role Phone Barrett Devlin MD Primary Care Provider [phone] Mary Kiran APRN Unavailable [phone] Encounter Details Date Type Department Care Team (Late st Contact Info) Description 12/01/2020 Transcribed Document [facility] [address] [place] [address] ProviderAlejandrina MD [address] [place], [place] [address] Social History Tobacco Use Types Packs/Day Years Used Date Smoking Tobacco: Never Assessed Sex and Gender Information Value Date Recorded Sex Assigned at Not on file Legal Sex Male 6:49 PM CDT Gender Identity Not on file Sexual Orientation Not on file documented as of this encounter Miscellaneous Notes * Cerner Conversion Note - Historical ProviderMD - 12/01/2020 1:32 PM CDT Primer Charger Details Entered On: 12/01/2020 15:52 EDT Performed On: 12/01/2020 13:32 EDT by Hayder Patterson Lpn Order Details Order Detail : N/A Patient Needs Meds Crushed/Liquid : No Hayder Patterson Lpn - 12/01/2020 15:52 EDT documented in this encounter Plan of Treatment Not on file documented as of this encounter Visit Diagnoses Not on filedocumented in this encounter Care Teams Pairer Substandard Relationship Specialty Start Date End Date Barrett Devlin MD [address] [place] [address] PCP - General General Internal Medicine 12/29/21 Mary Kiran, ROUTEMAN [address] [facility] [address] [place] [address] Cardiology 08/23/23 documented as of this encounter
--- OUTSIDE RECORDS SUMMARY | 2024-08-07 13:13 | XMS_ITS | Encounter Summary ---
Author Organization [employer] Address [address] [place] [address] Care Team Providers Care Milk Pickup Driver Name Role Phone Barrett Devlin MD Primary Care Provider [phone] Mary Kiran OFFICE MANAGER EXECUTIVE ASSISTANT Unavailable [phone] Encounter Details Date Type Department Care Team (Late st Contact Info) Description 03/27/2019 Transcribed Document [place] Family [facility] [place] [address] ProviderAlejandrina MD [address] [place] [address] Social History Tobacco Use Types Packs/Day Years Used Date Smoking Tobacco: Never Assessed Sex and Gender Information Value Date Recorded Sex Assigned at Not on file Legal Sex Male 6:49 PM CDT Gender Identity Not on file Sexual Orientation Not on file documented as of this encounter Miscellaneous Notes * Cerner Conversion Note - Alejandrina Turk MD - 03/27/2019 12:27 PM ADVISORY SERVICES ASSOCIATE [facility] [address] [place] [id number] AMY ESAU P :1950 Visit Time:03/27/2019 Your Visit Summary Your Care Team Admitting Physician - CAROLIN HARRELL MD-CAR Attending Physician - CAROLIN HARRELL MD-CAR Primary Care Physician - BARRETT DEVLIN (REF), -INT Referring Physician - CAROLIN HARRELL MD-CAR Your Diagnosis Atrial pacemaker lead displacement, Displacement of cardiac electrode, initial encounter, Displacement of cardiac electrode, initial encounter Discharge Vitals Temperature 36.8 ??C Heart Rate (Monitored) 72 Respiratory Rate 20 Blood Pressure 176/92 What to do next Instructions From Your Care Team Follow a heart healthy and low sodium diet. Minimize use of left arm and no heavy lifting of more than 10lbs for the next 7 days. Aqua-carie dressing info sheet given to patient. Monitor chest site for any signs or symptoms of infection, if noted, call your doctor. Monitor chest site for any signs of bleeding, if noted apply manual pressure to chest site, if bleeding persists seek medical attention. Resume Eliquis on 03-28-2019 if no bleeding or hematoma noted at site. Follow-Up Appointments Follow Up with JULIO C ROBLERO When 04/05/2019 02:45 PM EST Comments Return for wound check with [employer] check. May restart Eliquis in 03/28/19 if no bleeding or swelling Where: [address] [employer] [address] [facility] (1) Medications What How Much When Instructions Next Dose cloNIDine 0.1 Milligram(s) Oral Three Times A Day 03-27-19 apixaban (Eliquis 5 mg oral tablet) 1 Tablet(s) Oral Two Times A Day 03-28-19 aspirin (aspirin 81 mg oral delayed release tablet) 1 Tablet(s) Oral Every Day canagliflozin (Invokana 300 mg oral tablet) 1 Tablet(s) Oral Every Day cyanocobalamin (Vitamin B12 1000 mcg oral tablet) 1 Tablet(s) Oral Every Day labetalol 100 Milligram(s) Oral Every Day lisinopril (lisinopril 40 mg oral tablet) 1 Tablet(s) Oral Every Day lovastatin 20 Milligram(s) Oral At Bedtime metFORMIN (metFORMIN 1000 mg oral tablet) 1 Tablet(s) Oral Two Times A Day metoprolol (Metoprolol Tartrate 25 mg oral tablet) 0.5 Tablet(s) Oral Two Times A Day sildenafil (sildenafil 20 mg oral tablet) 3 Tablet(s) Oral Every Day as needed for Other (See Comment) use as directed spironolactone (spironolactone 25 mg oral tablet) 1 Tablet(s) Oral Every Day Take your medications faithfully. Do NOT skip medication. Do NOT stop taking medications without the direction of a physician. Carry a list of your medications with you at all times, and take this medication list with you to your first follow up visit. Report any side effects. Avoid herbal remedies unless discussed with your physician. As part of your treatment plan, your physician may have prescribed a limited course of a controlled substance. This medication may be given to help people with moderate or severe pain or for other medical conditions, but there are risks involved with treatment. Common side effects may include nausea, constipation, drowsiness, sweating, itching, dry mouth, and rash. More serious side effects may include cognitive and motor impairment, like problems with thinking, concentrating, alertness, and movement (e.g. slowed reflexes), and driving and operating heavy machinery can be dangerous. It is important for you to talk to your physician if you have these side effects or questions. These controlled substances can produce physical dependence and be habit-forming if taken for an extended period of time, which means that the body has gotten used to them and may experience withdrawal symptoms if they are abruptly stopped. Withdrawal symptoms can include runny nose, sweating, goose bumps, diarrhea, abdominal cramping, rapid heartbeat, difficulty sleeping, and nervousness. Please dispose of unused and medications per your retail pharmacy guidance. Allergies No Known Medication Allergies Immunizations This Visit No Immunizations Found Education Materials Moderate Conscious Sedation, Adult, Care After These [...] you are awake and alert. ??? Take [id number] and prescription medicines only as told by [...] 11/21/2013 Document Revised: 07/05/2016 Document Reviewed: 05/22/2016 [employer] Interactive Patient Education ?? 2019 [employer] Pacemaker Implantation, Adult, Care After This [...] these instructions at home: Medicines ??? Take [id number] and prescription medicines only as told by [...] the incision area clean and dry for 2???3 days after the procedure or as directed by your health care provider. It takes several weeks for the incision site to completely heal. ??? Do not take baths, swim, or use a hot tub for 7???10 days or as otherwise directed by your [...] ??? Your pacemaker battery will last for 5???15 years. Routine checks by your health care [...] 08/20/2005 Document Revised: 11/12/2016 Document Reviewed: 11/12/2016 [employer] Interactive Patient Education ?? 2019 [employer] Emergency Awareness and Preventative Care STROKE is an EMERGENCY Every Minute Counts Act FAST and Check for these signs: FACE Does the face look uneven? ARM Does one arm drift down? SPEECH Does their speech sound strange? TIME Call at any sign of stroke Stroke Risk Factors Atrial Fibrillation (irregular heartbeat) Diabetes Family history of stroke Heart Disease Heavy alcohol use High Blood Pressure High Cholesterol Physical inactivity and obesity Smoking Cigarette Smoking The facts are clear, cigarette smoking will shorten your life. Smoking can cause many illnesses along the way. As a healthcare provider, we recommend that you stop smoking. Assistance with quitting is available by contacting 9-645-WPCNNOW. This is a free resource providing counseling, support, and referral. Or you may contact your personal physician. National Suicide Prevention Lifeline: The National Suicide Prevention Lifeline is a national network of local crisis centers that provides free and confidential emotional support to people in suicidal crisis or emotional distress 24 hours a day, 7 days a week. Don't Wait! Stop a Heart Attack Before it Starts What is a heart attack? A heart attack is damage or to a part of the heart from severely decreased or lack of blood flow to the heart. Over time, arteries can become narrow from the buildup of fat and cholesterol, which is called plaque. The plaque can rupture causing a blood clot to form. When the blood clot forms, the artery can become severely narrowed or completely blocked, causing a heart attack. Heart attack is the leading cause of in the [place]. 85% of muscle damage occurs within the first 2 hours. Delay in the recognition of heart attack symptoms increases the chances of . Know the early symptoms of a heart attack: Nausea Feeling of fullness in chest Jaw Pain Pain that travels down one or both arms Fatigue/being tired Anxiety Back Pain Chest pressure, squeezing, or discomfort Shortness of breath Sweating, or a cold sweat Feeling of impending doom There are unusual signs of a heart attack, too! Women, the elderly, and diabetics may present with atypical symptoms: Fainting/dizziness Weakness Confusion Risk Factors for a Heart Attack Some heart disease risk factors, such as age and family history, cannot be changed. Others, like smoking and lack of exercise, can be changed. Smoking High Cholesterol High Blood Pressure Family History Obesity Age Gender (Males are at higher risk) Lack of Exercise Diabetes Diet Stress Excessive Alcohol Intake If you or someone you know is experiencing the signs and symptoms of a heart attack, DON???T DELAY. Call immediately and seek help. If someone collapses, perform CPR! Do not attempt to drive if you are having symptoms of heart attack. Hands-Only CPR Why Hands-Only CPR? Hands-Only CPR has been shown to be as effective as conventional CPR for cardiac arrests that occur outside of a hospital. Survival depends on immediately receiving CPR from someone nearby. How do you perform Hands-Only CPR? There are two easy steps: Call 9-1-1 if you see a teen or adult collapse Push hard and fast in the center of the chest at a beat of 100 beats per minute. Save a life! 4 WAYS TO GET AHEAD OF SEPSIS SEPSIS is a MEDICAL EMERGENCY. Time matters! Infections put you and your family at risk for a life-threatening condition called sepsis. Sepsis is the body's extreme response to an infection. It is life-threatening, and without timely treatment, sepsis can rapidly lead to tissue damage, organ failure, and . Sepsis happens when an infection you already have-in your skin, lungs, urinary tract or somewhere else-triggers a chain reaction throughout your body. 1 PREVENT INFECTIONS Take good care of chronic conditions. Talk to your doctor about getting the recommended vaccines. 2 PRACTICE GOOD HYGIENE Wash your hands frequently. Keep cuts or open sores clean and covered until they are healed. 3 KNOW THE SYMPTOMS Confusion or disorientation Shortness of breath High heart rate Fever, shivering, or feeling very cold Extreme pain or discomfort Clammy or sweaty skin 4 ACT FAST Get medical care IMMEDIATELY if you suspect sepsis or if you have an infection that is not getting better or is getting worse. To learn more about sepsis and how to prevent infections, visit www.cdc.gov/sepsis. Test Results Laboratory or Other Results This Visit (last charted value for your 03/27/2019 visit) Hematology 03/27/2019 7:34 AM Platelet Count: 284 K/uL -- Normal range between ( 163 and 369 ) Patient Name:ESAU RADFORD I have received and understand this information and was given the opportunity to ask questions. Patient/Technology Applications Teacher Name: Patient/Technology Applications Teacher Signature: Relationship to Patient: Clinician/Hospital Technology Applications Teacher Signature: Date: Electronically signed by Teja, [facility] Conversion Dull Coat Mill Operator Cerner at 06/03/2022 1:14 PM CDT documented in this encounter Plan of Treatment Not on file documented as of this encounter Visit Diagnoses Not on filedocumented in this encounter Care Teams Milk Pickup Driver Relationship Specialty Start Date End Date Barrett Devlin MD [address] [place] [address] PCP - General General Internal Medicine 12/29/21 Mary Kiran APRN [address] [facility] [address] [place] [address] Cardiology 08/23/23 documented as of this encounter
--- OUTSIDE RECORDS SUMMARY | 2024-08-07 13:13 | XMS_ITS | Encounter Summary ---
Author Organization [employer] Address [address] [place] [address] Care Team Providers Care Liner Checker Name Role Phone Barrett Devlin MD Primary Care Provider [phone] Mary Kiran CELL COVERER Unavailable [phone] Encounter Details Date Type Department Care Team (Late st Contact Info) Description 03/27/2019 Transcribed Document [facility] [place] Family [facility] [place] [address] Alejandrina Turk MD [address] [place] [address] Social History Tobacco Use Types Packs/Day Years Used Date Smoking Tobacco: Never Assessed Sex and Gender Information Value Date Recorded Sex Assigned at Not on file Legal Sex Male 6:49 PM CDT Gender Identity Not on file Sexual Orientation Not on file documented as of this encounter Miscellaneous Notes * Cerner Conversion Note - Alejandrina Turk MD - 03/27/2019 11:31 AM HEALTH CLUB MANAGER DATE OF PROCEDURE: 03/27/2019 SURGEON: Herbert Meneses MD PROCEDURE PERFORMED: Revision of atrial lead. PRE-PROCEDURE DIAGNOSIS: Sick sinus syndrome. POST-PROCEDURE DIAGNOSIS: Sick sinus syndrome. INDICATIONS: The patient was previously implanted Medtronic MRI safe DDDR pacemaker. Atrial activity was noted to be nonfunctional. Fluoroscopy revealed displacement of the atrial lead. PROCEDURE IN DETAIL: After obtaining informed consent, patient was prepped and draped in usual sterile fashion. Under 1% local Xylocaine anesthesia, incision was made over the prior site. Utilizing blunt and sharp dissection, the atrial lead was freed. Fluoroscopically repositioned with good parameters. The lead was then sutured in place. Antibiotic wash administered. Device was placed back in the pocket, which was closed with a deep layer of silk and two layers of 4-0 Vicryl, the last layer of subcuticular. Dermal adhesive was then applied along with an Aquacel patch. Adverse events, none. No significant blood loss. IMPLANT DATA: The revised lead had P-wave sensing of 1.6 mV, impedance of 380 ohms, capture threshold 1.2 V at 0.5 milliseconds. It was noted prior to the lead revision that the patient was in atrial fibrillation alternating with flutter. Pacing was applied, which restored normal sinus rhythm. Needle and sponge count correct. Adverse events, none. Fluoroscopy at the end of procedure revealed good lead position. /[id number] Herbert Meneses MD JCS/AQ / JCS / MODL /[id number] CC: MD Herbert Cummings MD Electronically signed by [facility] Conversion Repairer Typewriter Cerner at 06/03/2022 1:15 PM CDT documented in this encounter Plan of Treatment Not on file documented as of this encounter Visit Diagnoses Not on filedocumented in this encounter Care Teams Liner Checker Relationship Specialty Start Date End Date Barrett Devlin MD [address] [place] [address] PCP - General General Internal Medicine 12/29/21 Mary Kiran, CELL COVERER [address] [facility] [address] [place] [address] Cardiology 08/23/23 documented as of this encounter
--- OUTSIDE RECORDS SUMMARY | 2024-08-07 13:13 | XMS_ITS | Encounter Summary ---
Author Organization [employer] Address [address] [place] [address] Care Team Providers Care Musical Instrument Supervisor Name Role Phone Barrett Devlin MD Primary Care Provider [phone] Mary Kiran APRN Unavailable [phone] Encounter Details Date Type Department Care Team (Late st Contact Info) Description 12/01/2020 Transcribed Document [facility] [place] Family Medicine [address] [place] [address] ProviderAlejandrina MD [address] [place] [address] Social History Tobacco Use Types Packs/Day Years Used Date Smoking Tobacco: Never Assessed Sex and Gender Information Value Date Recorded Sex Assigned at Not on file Legal Sex Male 6:49 PM CDT Gender Identity Not on file Sexual Orientation Not on file documented as of this encounter Miscellaneous Notes * Cerner Conversion Note - Alejandrina ProviderMD - 12/01/2020 1:36 PM CDT Consult Phone Call Documentation Entered On: 2020 8:27 EDT Performed On: 12/01/2020 13:36 EDT by Jc Brooke Phone Call for Consults Consult Phone Call/Page Attempt : First call Consult Reason : tikosyn admission Physician Requesting Consult : CLARE MORA MD-CAR Physician Requested for Consult : SHU VARELA MD Consult, Additional Information : Spoke with Dr. Walton on 2020 @0823 Jc Brooke - 2020 8:26 EDT Electronically signed by Aniket Lezama Conversion Acute Care Certified Nursing Assistant Cerner at 06/03/2022 1:02 PM CDT documented in this encounter Plan of Treatment Not on file documented as of this encounter Visit Diagnoses Not on filedocumented in this encounter Care Teams Musical Instrument Supervisor Relationship Specialty Start Date End Date Barrett Devlin MD [address] [place] [address] PCP - General General Internal Medicine 12/29/21 Mary Kiran, POST SPLITTER [address] [facility] [address] [place] [address] Cardiology 08/23/23 documented as of this encounter
--- OUTSIDE RECORDS SUMMARY | 2024-08-07 13:13 | XMS_ITS | Encounter Summary ---
Author Organization [employer] i[employer] Address [address] [place] [address] Care Team Providers Care Quarryman Name Role Phone Barrett Devlin MD Primary Care Provider [phone] Mary Kiran SOLICITOR PATENT Unavailable [phone] Encounter Details Date Type Department Care Team (Late st Contact Info) Description 02/16/2019 Transcribed Document [facility] [place] Family Medicine [address] [place] [address] ProviderAlejandrina MD [address] [place] [address] Social History Tobacco Use Types Packs/Day Years Used Date Smoking Tobacco: Never Assessed Sex and Gender Information Value Date Recorded Sex Assigned at Not on file Legal Sex Male 6:49 PM CDT Gender Identity Not on file Sexual Orientation Not on file documented as of this encounter Miscellaneous Notes * Cerner Conversion Note - Alejandrina Turk MD - 02/16/2019 12:06 PM ASSET PROTECTION GREETER [facility] [address] [id number] ESAU RADFORD :1950 Visit Time:02/12/2019 Your Visit Summary Your Care Team Admitting Physician - HUBER CORRAL MD PHY, UNKNOWN JUAN C LLANES MD ZOHARY, YASSER, MD-FAM Attending Physician - HUBER CORRAL MD WALKER, FOREST, MD ZOHARY, YASSER, MD-FAM Primary Care Physician - BARRETT DEVLIN (REF)MD-INT Referring Physician - HUBER CORRAL MD WALKER, FOREST, MD Your Diagnosis Arrhythmia Syncope, Syncope and collapse, Syncope and collapse Syncope/Near syncope, Syncope/Near syncope Discharge Vitals Heart Rate 75 What to do next Instructions From Your Care Team Please STOP taking these home medications: 1. Diltiazem 2. 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 Where: [address] [facility] [address] [place] [id number] [facility] (1) Medications What How Much When Instructions Next Dose apixaban (Eliquis 5 mg oral tablet) 1 Tablet(s) Oral Two Times A Day restart on 2019 atorvastatin (Lipitor 10 mg oral tablet) 0.5 Tablet(s) Oral Every Day cloNIDine (clonidine 0.1 mg oral tablet) 1 Tablet(s) Oral Three Times A Day Pickup at [facility] [place] [place] cyanocobalamin (Vitamin B12 1000 mcg oral tablet) 1 Tablet(s) Oral Every Day metoprolol (Metoprolol Tartrate 25 mg oral tablet) 0.5 Tablet(s) Oral Two Times A Day aspirin (aspirin 81 mg oral delayed release tablet) 1 Tablet(s) Oral Every Day canagliflozin (Invokana 300 mg oral tablet) 1 Tablet(s) Oral Every Day lisinopril (lisinopril 40 mg oral tablet) 1 Tablet(s) Oral Every Day metFORMIN (metFORMIN 1000 mg oral tablet) 1 Tablet(s) Oral Two Times A Day sildenafil (sildenafil 20 mg oral tablet) 3 Tablet(s) Oral Every Day as needed for Other (See Comment) use as directed spironolactone (spironolactone 25 mg oral tablet) 1 Tablet(s) Oral Every Day Pharmacy Information [facility] [place]: [address] [place] [address] [place] [phone] Take your medications faithfully. Do NOT skip [...] This Visit No Immunizations Found Education Materials Pacemaker Implantation, Adult, Care After This sheet [...] these instructions at home: Medicines ??? Take xnpj-pfm-dxqlxza and prescription medicines only as told by [...] 08/20/2005 Document Revised: 11/12/2016 Document Reviewed: 11/12/2016 [employer] Patient Education ?? 2019 [employer] Atrial Fibrillation Atrial fibrillation is a type [...] Follow these instructions at home: ??? Take wbqc-ddw-kxebcql and prescription medicines only as told by [...] 11/09/2008 Document Revised: 07/08/2016 Document Reviewed: 05/28/2015 [employer] Interactive Patient Education ?? 2019 [employer]. Emergency Awareness and Preventative Care STROKE is [...] Assistance with quitting is available by contacting 3-137-YGWB-NOW. This is a free resource providing counseling, [...] CPR? There are two easy steps: Call if you see a teen or adult [...] This Visit (last charted value for your 02/12/2019 visit) Hematology 02/16/2019 4:50 AM WBC: 5.5 K/uL -- Normal range between ( 3.6 and 9.5 ) RBC: 4.60 Million/uL -- Normal range between ( 4.20 and 5.70 ) Hct: 43.0 % -- Normal range between ( 40.1 and 51.0 ) Hgb: 14.2 g/dL -- Normal range between ( 13.5 and 17.3 ) Platelet Count: 170 K/uL -- Normal range between ( 163 and 369 ) MCH: 30.9 pg -- Normal range between ( 25.6 and 32.2 ) MCHC: 33.0 Gram/dL -- Normal range between ( 32.2 and 36.5 ) MCV: 93.5 fL -- Normal range between ( 79.0 and 94.8 ) Slide Review: No Eos %: 2.0 % -- Normal range between ( 0.0 and 7.0 ) [place] #: 0.67 K/uL -- Normal range between ( 0.16 and 1.00 ) Eos #: 0.11 x10(3)/uL -- Normal range between ( 0.00 and 0.80 ) [place] %: 12.1 % -- Normal range between ( 3.0 and 9.0 ) Baso %: 0.4 % -- Normal range between ( 0.0 and 1.5 ) Baso #: 0.02 x10(3)/uL -- Normal range between ( 0.00 and 0.20 ) RDW: 12.6 % -- Normal range between ( 11.7 and 14.9 ) Neut %: 60.1 % -- Normal range between ( 34.0 and 71.0 ) Neut #: 3.33 K/uL -- Normal range between ( 1.56 and 6.13 ) Lymph %: 25.0 % -- Normal range between ( 19.3 and 53.1 ) Lymph #: 1.38 x10(3)/uL -- Normal range between ( 1.00 and 3.90 ) MPV: 10.6 fL -- Normal range between ( 9.4 and 12.4 ) IG#: 0.02 x10(3)/uL -- Normal range between ( 0.00 and 0.05 ) IG%: 0.40 % -- Normal range between ( 0.00 and 0.60 ) General Chemistry 02/16/2019 10:44 AM Glucose POC2: 176 mg/dL -- Normal range between ( 70 and 110 ) Device Comment 1: Device Comment 1 02/13/2019 5:19 AM Creatinine Level: 1.20 mg/dL -- Normal range between ( 0.70 and 1.30 ) Sodium Level: 136 mmol/L -- Normal range between ( 136 and 146 ) Potassium Level: 4.1 mmol/L -- Normal range between ( 3.5 and 5.1 ) Chloride Level: 105 mmol/L -- Normal range between ( 102 and 112 ) Carbon Dioxide Level: 21 mmol/L -- Normal range between ( 21 and 32 ) Anion Gap: 14 -- Normal range between ( 9 and 20 ) Bun/Creatinine: 18.3 -- Normal range between ( 8.0 and 20.0 ) Calcium Level: 8.8 mg/dL -- Normal range between ( 8.4 and 10.1 ) eGFR : >60 mL/min/1.73m2 eGFR NonAfrican: 60 mL/min/1.73m2 Glucose Level: 147 mg/dL -- Normal range between ( 74 and 106 ) Blood Urea Nitrogen: 22 mg/dL -- Normal range between ( 7 and 22 ) 02/12/2019 3:52 AM Bilirubin Total: 0.2 mg/dL -- Normal range between ( 0.2 and 1.2 ) A/G Ratio: 1.0 -- Normal range between ( 1.1 and 2.5 ) ALT: 23 Units/Liter -- Normal range between ( 16 and 61 ) AST: 22 Units/Liter -- Normal range between ( 5 and 37 ) Globulin: 3.5 Gram/dL -- Normal range between ( 1.5 and 4.5 ) Alk Phos: 104 Units/Liter -- Normal range between ( 27 and 136 ) Protein Total: 7.0 Gram/dL -- Normal range between ( 6.4 and 8.2 ) Albumin Level: 3.5 Gram/dL -- Normal range between ( 3.4 and 5.0 ) Lipase Level: 96 Units/Liter -- Normal range between ( 73 and 393 ) Cardiac Specific Markers 02/12/2019 3:52 AM Troponin I Ultra: <0.015 ng/mL -- Normal range between ( 0.015 and 0.045 ) Coagulation 02/16/2019 4:50 AM PTT Heparin: 31.0 Second(s) -- Normal range between ( 50.0 and 75.0 ) 02/12/2019 3:33 PM PTT: 60.1 Second(s) -- Normal range between ( 24.0 and 34.0 ) 02/12/2019 6:57 AM INR: 1.0 -- Normal range between ( 0.9 and 1.1 ) PT: 10.6 Second(s) -- Normal range between ( 9.6 and 12.0 ) Computed Tomography 02/12/2019 3:[address] Head WO: CT Head WO Diagnostic Radiology 02/15/2019 12:06 PM CR Chest 1 Vw Portable: CR Chest 1 Vw Portable Patient Name:ESAU RADFORD I have received and understand this information and was given the opportunity to ask questions. Patient/Squirrel Man Name: Patient/Squirrel Man Signature: Relationship to Patient: Clinician/Hospital Squirrel Man Signature: Date: Electronically signed by Teja, [facility] Conversion Rfid Strategist Cerner at 06/03/2022 12:11 PM CDT documented in this encounter Plan of Treatment Not on file documented as of this encounter Visit Diagnoses Not on filedocumented in this encounter Care Teams Quarryman Relationship Specialty Start Date End Date Barrett Devlin MD [address] [place] [address] PCP - General General Internal Medicine 12/29/21 Mary Kiran, SOLICITOR PATENT [address] [facility] [address] [place] [address] Cardiology 08/23/23 documented as of this encounter
--- OUTSIDE RECORDS SUMMARY | 2024-08-07 13:13 | XMS_ITS | Clinical Summary ---
Author Organization [employer] Address [address] [place] [address] Care Team Providers Care Post Office Manager Name Role Phone Barrett Devlin MD Primary Care Provider Mary Kiran PAINTING INSTRUCTOR Unavailable [phone] Allergies No known active allergies Medications cloNIDine [...] daily with breakfast and dinner . Active irmlfum-budb-qsnvs -oreg-capryl 100 mg-150 mg- 50 mg-150 mg [...] (battery) 03/17/2024 Coronary artery disease invo lving alatna coronary artery of alat[place] heart without angina pectoris 03/02/2024 Benign essential hypertension 01/26/2022 History of obstructive sleep apnea 01/26/2022 Low vitamin B12 level 01/26/2022 Type 2 diabetes mellitus 01/26/2022 Atrial fibrillation, persistent 12/11/2020 Hyperlipidemia 11/04/2020 terminal gauger (current) use of anticoagulants 2020 Presence of cardiac pacemaker 11/04/2020 Erectile dysfunction 08/30/2019 Resolved Problems Problem Noted Date Diagnosed Date Resolved Date Bradycardia 01/26/2022 06/13/2023 Encounter for general adult medical examination without abnormal findings 01/26/2022 H/O syncope 01/26/2022 06/13/2023 Hyperlipidemia 01/26/2022 01/26/2022 Atrial flutter 11/04/2020 06/13/2023 Encounters Date Type Department Care Team Description 05/25/2024 7:00 AM EDT Clinical Support [facility] Electrophysiology [address] [place] [address] Chencho Matson MD Encounter for checking and testing of cardiac pacemaker pulse generator (battery) (Primary Dx); Atrial fibrillation, persistent (HCC); Presence of cardiac pacemaker from Last 3 Months Family History Medical History Relation Name Comments No Known Problem Father No Known Problem Mother Relation Name Status Comments Father Mother Social History Tobacco Use Types Packs/Day Years [...] place to sleep or slept in a fdc (including now)? No 01/26/2022 Interpersonal Safety Answer [...] Date Harry rded Speak language other than Spanish at home Not on file 02/24/2023 Want [...] 03/01/2024 9:26 AM EST Plan of Treatment Health Maintenance Due Date Last Done Comments CT Colonography 1950 Colonoscopy 1950 Colorectal Cancer Screening 1950 Diabetic Kidney Health Evalu ation (KED) 1950 FOBT/FIT 1950 Fit-DNA (Cologuard) 1950 Sigmoidoscopy 1950 Diabetic Eye Exam 12/03/1959 Diabetic foot exam 12/03/1959 Depression Screening (12+) 1961 Hepatitis C Screening 12/03/1967 DTAP/TDAP/TD VACCINES (1 - Tdap) 1968 Shingles Vaccine (Zoster) (1 of 2) 12/03/1999 Respiratory Syncytial Virus (RSV) Adult or (1 - Risk 60-74 years 1-dose series) 2009 Abdominal Aortic Aneurysm (A AA) Screen 2014 Pneumococcal 50+ years (2 of 2 - PPSV23) 04/07/2019 02/10/2019 Hemoglobin A1C 01/26/2022 COVID-19 VACCINE ( - season) 2023 03/13/2021, 04/25/2020, 03/28/2020 Falls Risk Screening 02/15/2024 Medicare Initial AWV [id number] 02/15/2024 Tobacco Cessation Counseling and Screening (12+) 04/03/2025 04/03/2024 Influenza Vaccine Completed 01/25/2024 Medical Devices Implanted Type Area Siding Coreboard Inspector Device Identifier Shelf Expiration Date Model / Serial / Lot Pacemaker / Medtronic Implanted:02/15 (Quantity not on file) Pacemakers [employer]TRONIC SALOME XT DR SALAZAR / [id number] / Insurance [facility] [employer] Accelerator O MAP Care Teams Post Office Manager Relationship Specialty Start Date End Date Barrett Devlin MD [address] [place] [address] PCP - General General Internal Medicine 12/29/21 Mary Kiran, PAINTING INSTRUCTOR [address] [facility] [address] [place] [address] Cardiology 08/23/23
--- OUTSIDE RECORDS SUMMARY | 2024-08-07 13:13 | XMS_ITS | Encounter Summary ---
Author Organization [employer] Address [address] [place] [address] Care Team Providers Care Pss Delivery Professional Name Role Phone Barrett Devlin MD Primary Care Provider Mary Kiran COTTON GINNER Unavailable [phone] Encounter Details Date Type Department Care Team (Late st Contact Info) Description 02/15/2019 Transcribed Document [facility] [place] [address] [place] [address] ProviderAlejandrina MD [address] [place], [place] [address] Social History Tobacco Use Types Packs/Day Years Used Date Smoking Tobacco: Never Assessed Sex and Gender Information Value Date Recorded Sex Assigned at Not on file Legal Sex Male 6:49 PM CDT Gender Identity Not on file Sexual Orientation Not on file documented as of this encounter Miscellaneous Notes * Cerner Conversion Note - Alejandrina ProviderMD - 02/15/2019 2:00 AM HARNESS FITTER Business Services Sales Agent Details Entered On: 02/15/2019 0:49 EST Performed On: 02/15/2019 2:00 EST by KRYSTLE JO RN Order Details Transport Mode Order Detail : Wheelchair Isolation Precautions Order Detail : Standard Precautions Order Detail : N/A IV Order Detail : 1 Oxygen Order Detail : 0 Nurse Collect Order Detail : 0 Lift/Transfer : Independent Central Line Order Detail : No Room Service : Appropriate Arterial Line : No KRYSTLE JO RN - 02/15/2019 0:49 EST Electronically signed by Teja [facility] Conversion Laundry Manager Cerner at 06/03/2022 12:43 PM CDT documented in this encounter Plan of Treatment Not on file documented as of this encounter Visit Diagnoses Not on filedocumented in this encounter Care Teams Pss Delivery Professional Relationship Specialty Start Date End Date Barrett Devlin MD [address] [place] [address] PCP - General General Internal Medicine 12/29/21 Mary Kiran, COTTON GINNER [address] [facility] [address] [place] [address] Cardiology 08/23/23 documented as of this encounter
--- OUTSIDE RECORDS SUMMARY | 2024-08-07 13:14 | XMS_ITS | Encounter Summary ---
Author Organization [employer] Address [address] [place] [address] Care Team Providers Care Interior Specialist Name Role Phone Barrett Devlin MD Primary Care Provider [phone] Mary Kiran SAMPLE CUTTER Unavailable [phone] Encounter Details Date Type Department Care Team (Late st Contact Info) Description 12/04/2020 Transcribed Document [facility] [place] Medicine [address] [place] [address] ProviderAlejandrina MD [address] [place] [address] Social History Tobacco Use Types Packs/Day Years Used Date Smoking Tobacco: Never Assessed Sex and Gender Information Value Date Recorded Sex Assigned at Not on file Legal Sex Male 6:49 PM CDT Gender Identity Not on file Sexual Orientation Not on file documented as of this encounter Miscellaneous Notes * Cerner Conversion Note - Alejandrina ProviderMD - 12/04/2020 5:00 AM CDT Chart Check - Review Order Profile Entered On: 12/04/2020 4:46 EDT Performed On: 12/04/2020 5:00 EDT by Marilee Soto Rn-Travelevelyn Chart Check Powerplans Initiated/Discontinued as Appropriate : Yes All Active Orders Reviewed : Yes Marilee Soto Rn-Traveler - 12/04/2020 4:46 EDT documented in this encounter Plan of Treatment Not on file documented as of this encounter Visit Diagnoses Not on filedocumented in this encounter Care Teams Interior Specialist Relationship Specialty Start Date End Date Barrett Devlin MD [address] [place] [address] PCP - General General Internal Medicine 12/29/21 Mary Kiran, SAMPLE CUTTER [address] [facility] [address] [place] [address] Cardiology 08/23/23 documented as of this encounter
--- OUTSIDE RECORDS SUMMARY | 2024-08-07 13:14 | XMS_ITS | Encounter Summary ---
Author Organization [employer] Address [address] [place] [address] Care Team Providers Care Sensitized Paper Tester Name Role Phone Barrett Devlin MD Primary Care Provider [phone] Mary Kiran CORRESPONDENCE REVIEW CLERK Unavailable [phone] Encounter Details Date Type Department Care Team (Late st Contact Info) Description 02/09/2019 Transcribed Document [facility] [place] [facility] [place] [address] Alejandrina Turk MD [address] [place] [address] Social History Tobacco Use Types Packs/Day Years Used Date Smoking Tobacco: Never Assessed Sex and Gender Information Value Date Recorded Sex Assigned at Not on file Legal Sex Male 6:49 PM CDT Gender Identity Not on file Sexual Orientation Not on file documented as of this encounter Miscellaneous Notes * Cerner Conversion Note - Alejandrina Turk MD - 02/09/2019 2:07 PM HOTEL MAID Patient: ESAU RADFORD Age: 68 Years Sex: Male : 1950 Subjective Patient seen and examined at bedside this AM. No acute events overnight. Multiple family members at bedside. Discussed w/ cardiology. Denies fevers and chills, no nausea or vomiting. No syncopal episodes. HR fast overnight. Vital Signs T: 37 ??C TMIN: 36.5 ??C TMAX: 37 ??C HR: 105(Monitored) RR: 15 BP: 118/74 SpO2: 96% Oxygen Settings (Last) Oxygen Therapy Mode: Room air (02/09/19 06:00:00) Intake & Output Totals Last 24 Hours (7a-7a) Input Total: 160.5 mL Output Total: 2075 mL Balance: -1914.5 mL Physical Exam General: Awake, alert, oriented. No acute distress. Head: Atraumatic, normocephalic Eyes: PERRL, EOMI, Anicteric sclera, [place] conjunctiva Neck: Supple, no mass palpable, no bruits heard bilaterally Heart: S1S2, regular rate and rhythm, no murmurs, clicks, or gallops heard Lungs: Clear to auscultation bilaterally, no rales, rhonchi or wheezes Abdomen: Soft, non tender, normal bowel sounds heard Extremities: No clubbing, cyanosis or edema. 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 Neurology consulted, CT brain pending. B12 checked. Acute kidney injury???secondary to volume depletion. Resolved. Discontinue IV fluids Type 2 diabetes???continue sliding scale insulin, hemoglobin A1c is 7.3 Leukocytosis??? no evidence of infectious etiology. Check PCT in AM, monitor off abx. History of hypertension???resume clonidine, spironolactone Hyperlipidemia???continue statin DVT ppx: eliquis resumed Patient is a full code VTE Prophylaxis - Medical Apixaban 5 mg, Oral, Tab, [id number], Routine, Start 02/08/19 11:00:00 EST (CHRISTIN STONE, CORRESPONDENCE REVIEW CLERK-INT) Sequential Compression Device Start: 02/07/19 16:57:00 EST, Bilateral, Length: Knee High, While patient is in bed, Continuous Order (DARIUSZ CABRERA) Medications acetaminophen-HYDROcodone 325 mg-5 mg oral tablet, 1 Tab, Oral, Q6H, PRN apixaban, 5 mg= 1 Tab, Oral, [id number] aspirin, 81 mg= 1 Tab, Oral, Daily cloNIDine, 0.1 mg= 1 Tab, Oral, BID dilTIAZem, 240 mg= 1 Cap, Oral, Daily hydrALAZINE, 10 mg= 0.5 mL, IV Push, Q4H, PRN insulin lispro greater than 101 kg, greater than 101 kg scale, SubCutaneous, AC and at Bedtime Lipitor, 5 mg= 0.5 Tab, Oral, At Bedtime metoprolol tartrate, 25 mg= 1 Tab, Oral, BID Normal Saline Flush, 10 mL, IV Push, Q12H Normal Saline Flush, 10 mL, IV Push, See Comment, PRN Normal Saline Flush, 10 mL, IV Push, Q12H Normal Saline Flush, 10 mL, IV Push, See Comment, PRN Prevnar 13, 0.5 mL, IntraMuscular, 1-Time spironolactone, 25 mg= 1 Tab, Oral, Daily Tylenol, 650 mg= 2 Tab, Oral, Q4H, PRN Zofran, 4 mg= 2 mL, IV Push, Q4H, PRN Lab Results Test Name Test Result Date/Time Device Comment 1 Notified Nurse RBV 02/09/2019 11:52 EST Device Comment 1 Notified Nurse RBV 02/09/2019 05:56 EST Device Comment 1 Notified Nurse RBV 02/08/2019 21:19 EST Device Comment 1 Notified Nurse RBV 02/08/2019 15:53 EST Glucose POC2 298 mg/dL (High) 02/09/2019 11:52 EST Glucose POC2 135 mg/dL (High) 02/09/2019 05:56 EST Glucose POC2 159 mg/dL (High) 02/08/2019 21:19 EST Glucose POC2 166 mg/dL (High) 02/08/2019 15:53 EST Vitamin B12 Level 181 pg/mL (Low) 02/09/2019 03:18 EST WBC 12.1 K/uL (High) 02/09/2019 03:18 EST WBC 13.9 K/uL (High) 02/08/2019 14:34 EST RBC 4.85 Million/uL 02/09/2019 03:18 EST RBC 4.96 Million/uL 02/08/2019 14:34 EST Hgb 15.2 g/dL 02/09/2019 03:18 EST Hgb 15.3 g/dL 02/08/2019 14:34 EST Hct 44.8 % 02/09/2019 03:18 EST Hct 45.3 % 02/08/2019 14:34 EST MCV 92.4 fL 02/09/2019 03:18 EST MCV 91.3 fL 02/08/2019 14:34 EST MCH 31.3 pg 02/09/2019 03:18 EST MCH 30.8 pg 02/08/2019 14:34 EST MCHC 33.9 Gram/dL 02/09/2019 03:18 EST MCHC 33.8 Gram/dL 02/08/2019 14:34 EST Platelet Count 300 K/uL 02/09/2019 03:18 EST Platelet Count 303 K/uL 02/08/2019 14:34 EST MPV 10.3 fL 02/09/2019 03:18 EST MPV 10.2 fL 02/08/2019 14:34 EST RDW 12.4 % 02/09/2019 03:18 EST RDW 13.2 % 02/08/2019 14:34 EST Neut % 71.0 % 02/09/2019 03:18 EST Neut # 8.58 K/uL (High) 02/09/2019 03:18 EST Lymph % 19.6 % 02/09/2019 03:18 EST Lymph # 2.36 x10(3)/uL 02/09/2019 03:18 EST [place]ann[place] % 7.4 % 02/09/2019 03:18 EST Fannin # 0.89 K/uL 02/09/2019 03:18 EST Eos % 1.0 % 02/09/2019 03:18 EST Eos # 0.12 x10(3)/uL 02/09/2019 03:18 EST Baso % 0.6 % 02/09/2019 03:18 EST Baso # 0.07 x10(3)/uL 02/09/2019 03:18 EST Slide Review No 02/09/2019 03:18 EST Slide Review No 02/08/2019 14:34 EST IG# 0.05 x10(3)/uL 02/09/2019 03:18 EST IG% 0.40 % 02/09/2019 03:18 EST ABO/Rh (ECHO) O POS 02/08/2019 14:34 EST Antibody Screen Negative ABSC 02/08/2019 14:34 EST documented in this encounter Plan of Treatment Not on file documented as of this encounter Visit Diagnoses Not on filedocumented in this encounter Care Teams Sensitized Paper Tester Relationship Specialty Start Date End Date Barrett Devlin MD [address] [place] [address] PCP - General General Internal Medicine 12/29/21 Mary Kiran, CORRESPONDENCE REVIEW CLERK [address] [facility] [address] [place] [address] Cardiology 08/23/23 documented as of this encounter
--- OUTSIDE RECORDS SUMMARY | 2024-08-07 13:14 | XMS_ITS | Encounter Summary ---
Author Organization [employer] Address [address] [place] [address] Care Team Providers Care Manager Bilingual Name Role Phone Barrett Devlin MD Primary Care Provider [phone] Mary Kiran APRN Unavailable [phone] Encounter Details Date Type Department Care Team (Late st Contact Info) Description 12/01/2020 Transcribed Document [facility] [place] Family Medicine [address] [place] [address] ProviderAlejandrina MD [address] [place], [place] [id number] Social History Tobacco Use Types Packs/Day Years Used Date Smoking Tobacco: Never Assessed Sex and Gender Information Value Date Recorded Sex Assigned at Not on file Legal Sex Male 6:49 PM CDT Gender Identity Not on file Sexual Orientation Not on file documented as of this encounter Miscellaneous Notes * Cerner Conversion Note - Alejandrina ProviderMD - 12/01/2020 2:23 PM CDT Patient: ESAU RADFORD Age: 69 years Sex: Male : 1950 Associated Diagnoses: None Author: Joaquin Bennett, Pharmacist-Resident 69 y/o M admitted for tikosyn initiation with ablation scheduled 12/03 Consult: Tikosyn initiation Consulting: Dr. Matson Indication: afib Labs: Labs (Last four charted values) Na 145 (DEC 01) K L 3.4 (DEC 01) Cl H 116 (DEC 01) CO2 22 (DEC 01) BUN 18 (DEC 01) Cr 1.20 (DEC 01) Glu R H 135 (DEC 01) Ca L 7.3 (DEC 01) Mag 1.6 (12/01) Est Crcl: 65-80ml/min Drug interactions: No major interactions noted with documented home medications Date 12/01 Baseline 443 QTc- AM QTc- PM A/P: 1. Tikosyn 500mcg BID pending initial Crcl and baseline EKG -EKG ordered 2 hours after each dose to begin 12/02 AM -Rec dose reduction if QTc increases by 15% or greater 2. No significant DDI noted 3. K>4, mag >2 per cardiology 4. Ablation planned 12/03 Thank you for this consult. Juan José Bennett PharmD [phone] documented in this encounter Plan of Treatment Not on file documented as of this encounter Visit Diagnoses Not on filedocumented in this encounter Care Teams Manager Bilingual Relationship Specialty Start Date End Date Barrett Devlin MD [address] [place] [address] PCP - General General Internal Medicine 12/29/21 Mary Kiran, MARIBEL [address] [facility] [address] [place] [address] Cardiology 08/23/23 documented as of this encounter
--- OUTSIDE RECORDS SUMMARY | 2024-08-07 13:14 | XMS_ITS | Encounter Summary ---
Author Organization [employer] Address [address] [place] [address] Care Team Providers Care Experimental Rocket Sled Mechanic Name Role Phone Barrett Devlin MD Primary Care Provider [phone] Mary Kiran DIRECTOR CENTER Unavailable [phone] Encounter Details Date Type Department Care Team (Late st Contact Info) Description 02/09/2019 Transcribed Document [facility] [place] Medicine [address] [place] [address] ProviderAlejandrina MD [address] [place] [address] Social History Tobacco Use Types Packs/Day Years Used Date Smoking Tobacco: Never Assessed Sex and Gender Information Value Date Recorded Sex Assigned at Not on file Legal Sex Male 6:49 PM CDT Gender Identity Not on file Sexual Orientation Not on file documented as of this encounter Miscellaneous Notes * Cerner Conversion Note - Alejandrina ProviderMD - 02/09/2019 8:40 AM SILK BLOCKER [facility] Authorization Entered On: 02/09/2019 8:40 EST Performed On: 02/09/2019 8:40 EST by SARITA BARAJAS, Metallography Teacher Primary Insurance Authorization Authorization and Policy Numbers : Insurance 1 Health Plan: [employer] P[employer] Policy Number: [id number] Authorization Number: Insurance Primary Name : [employer] P[employer] Policy Number: [id number] Authorization Status-Primary : Notification only Auth/Referral Contact Name-Primary : Shaka Authorization Number-Primary : [id number] Authorized Service Begin Date-Primary : 02/08/2019 EST Authorization Comments-Primary : inpt approved per email from Shaka with [employer] Historical Authorization Comments-Primary : Comment 1: Submitted Inpt Auth on Availity. ERagland/SGreene to review. (ZACK HANSON, Rn-Utilization Review 02/08/2019 12:53) SARITA BARAJAS, Metallography Teacher - 02/09/2019 8:40 EST Electronically signed by [facility], [facility] Conversion Base Br[employer] Cerner at 06/03/2022 12:18 PM CDT documented in this encounter Plan of Treatment Not on file documented as of this encounter Visit Diagnoses Not on filedocumented in this encounter Care Teams Experimental Rocket Sled Mechanic Relationship Specialty Start Date End Date Barrett Devlin MD [address] [place] [address] PCP - General General Internal Medicine 12/29/21 Mary Kiran, DIRECTOR CENTER [address] [facility] [address] [place] [address] Cardiology 08/23/23 documented as of this encounter
--- OUTSIDE RECORDS SUMMARY | 2024-08-07 13:14 | XMS_ITS | Encounter Summary ---
Author Organization [employer] Address [address] [place] [address] Care Team Providers Care Pipe Wrapping Machine Operator Name Role Phone Barrett Devlin MD Primary Care Provider [phone] Mary Kiran XM1 TANK DRIVER Unavailable [phone] Encounter Details Date Type Department Care Team (Late st Contact Info) Description 08/13/2020 Transcribed Document [facility] [place] Family Medicine [address] [place] [address] ProviderAlejandrina MD [address] [place] [address] Social History Tobacco Use Types Packs/Day Years Used Date Smoking Tobacco: Never Assessed Sex and Gender Information Value Date Recorded Sex Assigned at Not on file Legal Sex Male 6:49 PM CDT Gender Identity Not on file Sexual Orientation Not on file documented as of this encounter Miscellaneous Notes * Cerner Conversion Note - Alejandrina ProviderMD - 08/13/2020 10:28 AM CDT Nursing Discharge Summary Entered On: 08/13/2020 10:28 EDT Performed On: 08/13/2020 10:28 EDT by JASON KEENE RN Discharge Documentation Discharge Date/Time : 08/13/2020 11:00 EDT Transporter Signature : JASON KEENE RN TOWLES, TAMMY L, RN - 08/13/2020 11:03 EDT Patient Disposition, General : Discharge Discharge To : Home with ambulatory/outpatient follow-up Mode Of Departure, General Discharge : Private vehicle Accompanied By, Discharge : Spouse IV Discontinued : Yes Personal Belongings With Patient : Yes Discharge Instructions Reviewed With, Opportunity For Questions Given : Patient, Spouse Patient Education Completed : Yes Teaching Method : Demonstration, Explanation Teaching Evaluation : Returns demonstration, Verbalizes understanding JASON KEENE RN - 08/13/2020 10:28 EDT Electronically signed by [facility], [facility] Conversion Ultimate [employer]ops Referee Cerner at 06/03/2022 12:47 PM CDT documented in this encounter Plan of Treatment Not on file documented as of this encounter Visit Diagnoses Not on filedocumented in this encounter Care Teams Pipe Wrapping Machine Operator Relationship Specialty Start Date End Date Barrett Devlin MD [address] [place] [address] PCP - General General Internal Medicine 12/29/21 Mary Kiran, XM1 TANK DRIVER [address] [facility] [address] [place] [address] Cardiology 08/23/23 documented as of this encounter
--- OUTSIDE RECORDS SUMMARY | 2024-08-07 13:14 | XMS_ITS | Encounter Summary ---
Author Organization [employer] Address [address] [place] [address] Care Team Providers Care Button Tacker Name Role Phone Barrett Devlin MD Primary Care Provider [phone] Mary Kiran DONKEY RIDE OPERATOR Unavailable [phone] Encounter Details Date Type Department Care Team (Late st Contact Info) Description 12/04/[address] [facility] [address] [place] [address] ProviderAlejandrina MD [address] [place] [address] Social History Tobacco Use Types Packs/Day Years Used Date Smoking Tobacco: Never Assessed Sex and Gender Information Value Date Recorded Sex Assigned at Not on file Legal Sex Male 6:49 PM CDT Gender Identity Not on file Sexual Orientation Not on file documented as of this encounter Miscellaneous Notes * Cerner Conversion Note - Alejandrina Turk MD - 12/04/2020 3:02 PM CDT [facility] [place] [address] AMYESAU Esme :1950 Visit Time:12/01/2020 Your Visit Summary Your Care Team Admitting Physician - CLARE MORA MD-CAR Attending Physician - CLARE MORA MD-CAR Primary Care Physician - BARRETT DEVLIN (REF)MD-INT Referring Physician - ELAYI, CLARE C, MD-CAR Your Diagnosis HTN (hypertension) Typical atrial flutter, Typical atrial flutter These Are Your Goals Patient Discharge Goal Patient Discharge Goal: Home Discharge Vitals Heart Rate (Monitored) 81 Heart Rate 81 Blood Pressure 122/77 What to do next Instructions From Your Care Team Please STOP taking the following medications: 1. Aspirin 2. Metformin 3. Potassium chloride Discharge Activity: Discharge Activity: Activity as tolerated Diet: Discharge Diet: Resume usual diet as tolerated Follow-Up Appointments Follow Up with CLARE MORA When 12/11/2020 03:15 PM EDT Comments Appointment has been made Where: [address] [facility] [address] [place] [address]- Business (1) Follow Up with Follow up with primary care provider When Within 2 to 3 days Comments Recomend BMP Follow Up with BARRETT DEVLIN MD When Within 5 to 7 days Comments PCP follow up Where: [address] [facility] [address] [place] [address]- Medications What How Much When Instructions Next Dose dofetilide (Tikosyn 500 mcg oral capsule) 1 Capsule(s) Oral Two Times A Day Duration: 30 Day(s) Pickup at [facility] lisinopril (lisinopril 20 mg oral tablet) 1 Tablet(s) Oral Two Times A Day Duration: 30 Day(s) Pickup at [facility] multivitamin 1 Tablet(s) Oral Every Day apixaban (Eliquis 5 mg oral tablet) 1 Tablet(s) Oral Two Times A Day canagliflozin (Invokana 300 mg oral tablet) 1 Tablet(s) Oral Every Day cloNIDine (clonidine 0.2 mg oral tablet) 1 Tablet(s) Oral Three Times A Day lovastatin (lovastatin 40 mg oral tablet) 1 Tablet(s) Oral At Bedtime metoprolol (Metoprolol Tartrate 25 mg oral tablet) 1 Tablet(s) Oral Two Times A Day this has replaced labetalol; do NOT take both medications together sildenafil (sildenafil 20 mg oral tablet) 1 Tablet(s) Oral Every Day as needed for Other (See Comment) may take 1-3 tablets as directed spironolactone (spironolactone 25 mg oral tablet) 1 Tablet(s) Oral Every Day Pharmacy Information [facility] [place]: [address] [facility] [address] [place], [place] [id number] [phone] Take your medications faithfully. Do NOT skip [...] This Visit No Immunizations Found Education Materials Cardiac Ablation, Care After This sheet gives you information about how to care for yourself after your procedure. Your health care provider may also give you more specific instructions. If you have problems or questions, contact your health care provider. What can I expect after the procedure? After the procedure, it is common to have: ??? Bruising around the insertion site. ??? Tenderness around the insertion site. ??? Skipped heartbeats. ??? Tiredness (fatigue). Follow these instructions at home: Insertion site care ??? Follow instructions from your health care provider about how to take care of your insertion site. Make sure you: ? Wash your hands with soap and water for at least 20 seconds before and after you change your bandage (dressing). If soap and water are not available, use hand tabular typist. ? Change your dressing as told by your health care provider. ? Leave stitches (sutures), skin glue, or adhesive strips in place. These skin closures may need to stay in place for up to 2 weeks. If adhesive strip edges start to loosen and curl up, you may trim the loose edges. Do not remove adhesive strips completely unless your health care provider tells you to do that. ??? Check your insertion site every day for signs of infection. Check for: ? More redness, swelling, or pain. ? Fluid or blood. ? Warmth. ? Pus or a bad smell. ??? If your insertion site starts to bleed, lie down on your back, apply firm pressure to the area, and contact your health care provider. Driving ??? If you were given a sedative during the procedure, it can affect you for several hours. Do not drive or operate machinery until your health care provider says that it is safe. ??? Ask your health care provider when it is safe for you to drive again after the procedure. Activity ??? Avoid activities that take a lot of effort for at least 3 days after your procedure. ??? Do not lift anything that is heavier than 10 lb (4.5 kg), or the limit that you are told, until your health care provider says that it is safe. ??? Return to your normal activities as told by your health care provider. Ask your health care provider what activities are safe for you. General instructions ??? Take byfb-hrn-tyexdso and prescription medicines only as told by your health care provider. ??? Do not use any products that contain nicotine or tobacco, such as cigarettes, e-cigarettes, and chewing tobacco. If you need help quitting, ask your health care provider. ??? Do not take baths, swim, or use a hot tub until your health care provider approves. Ask your health care provider if you may take showers. You may only be allowed to take sponge baths. ??? Do not drink alcohol for 24 hours after your procedure. ??? Keep all follow-up visits as told by your health care provider. This is important. Contact a health care provider if you: ??? Notice these things around the catheter insertion site: ? More redness, swelling, or pain. ? Fluid or blood that stops after applying firm pressure to the area. ? Warmth when you touch the area. ? Pus or a bad smell. ??? Have a fever. ??? Are sweating a lot. ??? Feel nauseous. ??? Have pain or numbness in the arm or leg closest to your insertion site. Get help right away if: ??? Your insertion site suddenly swells. ??? Your insertion site is bleeding and the bleeding does not stop after applying firm pressure to the area. ??? You have chest pain or discomfort that spreads to your neck, jaw, or arm. ??? You have a fast or irregular heartbeat. ??? You have shortness of breath. ??? You are dizzy or light-headed and feel the need to lie down. These symptoms may represent a serious problem that is an emergency. Do not wait to see if the symptoms will go away. Get medical help right away. Call your local emergency services (911 in the [place] Do not drive yourself to the hospital. Summary ??? After the procedure, it is common to have bruising and tenderness at the insertion site in your groin or your neck. ??? Check your insertion site every day for more redness, swelling, or pain. These are signs of infection. ??? Contact a health care provider if you notice any signs of infection. Also, contact a health care provider if you start sweating a lot, feel nauseous, or have pain or numbness in the arm or leg closest to your insertion site. ??? Get help right away if your puncture site is bleeding and the bleeding does not stop after applying firm pressure to the area. This is a medical emergency. This information is not intended to replace advice given to you by your health care provider. Make sure you discuss any questions you have with your health care provider. Document Revised: 12/10/2019 Document Reviewed: 12/10/2019 Elsevier Patient Education ?? 2020 [employer] Cardiac Ablation Cardiac ablation is a procedure to destroy, or ablate, a small amount of heart tissue in very specific places. The heart has many electrical connections. Sometimes these connections are abnormal and can cause the heart to beat very fast or irregularly. Ablating some of the areas that cause problems can improve the heart's rhythm or return it to normal. Ablation may be done for people who: ??? Have Santino???Parkinson???White syndrome. ??? Have fast heart rhythms (tachycardia). ??? Have taken medicines for an abnormal heart rhythm (arrhythmia) that were not effective or caused side effects. ??? Have a high-risk heartbeat that may be life-threatening. During the procedure, a small incision is made in the neck or the groin, and a long, thin tube (catheter) is inserted into the incision and moved to the heart. Small devices (electrodes) on the tip of the catheter will send out electrical currents. A type of X-ray (fluoroscopy) will be used to help guide the catheter and to provide images of the heart. Tell a health care provider about: ??? Any allergies you have. ??? All medicines you are taking, including vitamins, herbs, eye drops, creams, and meob-dhl-lsbborv medicines. ??? Any problems you or family members have had with anesthetic medicines. ??? Any blood disorders you have. ??? Any surgeries you have had. ??? Any medical conditions you have, such as kidney failure. ??? Whether you are or may be . What are the risks? Generally, this is a safe procedure. However, problems may occur, including: ??? Infection. ??? Bruising and bleeding at the catheter insertion site. ??? Bleeding into the chest, especially into the sac that surrounds the heart. This is a serious complication. ??? Stroke or blood clots. ??? Damage to nearby structures or organs. ??? Allergic reaction to medicines or dyes. ??? Need for a permanent pacemaker if the normal electrical system is damaged. A pacemaker is a small computer that sends electrical signals to the heart and helps your heart beat normally. ??? The procedure not being fully effective. This may not be recognized until months later. Repeat ablation procedures are sometimes done. What happens before the procedure? Medicines Ask your health care provider about: ??? Changing or stopping your regular medicines. This is especially important if you are taking diabetes medicines or blood thinners. ??? Taking medicines such as aspirin and ibuprofen. These medicines can thin your blood. Do not take these medicines unless your health care provider tells you to take them. ??? Taking zscm-wji-bkkzbwe medicines, vitamins, herbs, and supplements. General instructions ??? Follow instructions from your health care provider about eating or drinking restrictions. ??? Plan to have someone take you home from the hospital or clinic. ??? If you will be going home right after the procedure, plan to have someone with you for 24 hours. ??? Ask your health care provider what steps will be taken to prevent infection. What happens during the procedure? An IV will be inserted into one of your veins. ??? You will be given a medicine to help you relax (sedative). ??? The skin on your neck or groin will be numbed. ??? An incision will be made in your neck or your groin. ??? A needle will be inserted through the incision and into a large vein in your neck or groin. ??? A catheter will be inserted into the needle and moved to your heart. ??? Dye may be injected through the catheter to help your surgeon see the area of the heart that needs treatment. ??? Electrical currents will be sent from the catheter to ablate heart tissue in desired areas. There are three types of energy that may be used to do this: ? Heat (radiofrequency energy). ? Laser energy. ? Extreme cold (cryoablation). ??? When the tissue has been ablated, the catheter will be removed. ??? Pressure will be held on the insertion area to prevent a lot of bleeding. ??? A bandage (dressing) will be placed over the insertion area. The exact procedure may vary among health care providers and hospitals. What happens after the procedure? Your blood pressure, heart rate, breathing rate, and blood oxygen level will be monitored until you leave the hospital or clinic. ??? Your insertion area will be monitored for bleeding. You will need to lie still for a few hours to ensure that you do not bleed from the insertion area. ??? Do not drive for 24 hours or as long as told by your health care provider. Summary ??? Cardiac ablation is a procedure to destroy, or ablate, a small amount of heart tissue using an electrical current. This procedure can improve the heart rhythm or return it to normal. ??? Tell your health care provider about any medical conditions you may have and all medicines you are taking to treat them. ??? This is a safe procedure, but problems may occur. Problems may include infection, bruising, damage to nearby organs or structures, or allergic reactions to medicines. ??? Follow your health care provider's instructions about eating and drinking before the procedure. You may also be told to change or stop some of your medicines. ??? After the procedure, do not drive for 24 hours or as long as told by your health care provider. This information is not intended to replace advice given to you by your health care provider. Make sure you discuss any questions you have with your health care provider. Document Revised: 12/10/2019 Document Reviewed: 12/10/2019 [employer] Patient Education ?? 2020 [employer]. Atrial Fibrillation Atrial fibrillation is a type of heartbeat that is irregular or fast. If you have this condition, your heart beats without any order. This makes it hard for your heart to pump blood in a normal way. Atrial fibrillation may come and go, or it may become a long-lasting problem. If this condition is not treated, it can put you at higher risk for stroke, heart failure, and other heart problems. What are the causes? This condition may be caused by diseases that damage the heart. They include: ??? High blood pressure. ??? Heart failure. ??? Heart valve disease. ??? Heart surgery. Other causes include: ??? Diabetes. ??? Thyroid disease. ??? Being overweight. ??? Kidney disease. Sometimes the cause is not known. What increases the risk? You are more likely to develop this condition if: ??? You are older. ??? You smoke. ??? You exercise often and very hard. ??? You have a family history of this condition. ??? You are a man. ??? You use drugs. ??? You drink a lot of alcohol. ??? You have lung conditions, such as emphysema, pneumonia, or COPD. ??? You have sleep apnea. What are the signs or symptoms? Common symptoms of this condition include: ??? A feeling that your heart is beating very fast. ??? Chest pain or discomfort. ??? Feeling short of breath. ??? Suddenly feeling light-headed or weak. ??? Getting tired easily during activity. ??? Fainting. ??? Sweating. In some cases, there are no symptoms. How is this treated? Treatment for this condition depends on underlying conditions and how you feel when you have atrial fibrillation. They include: ??? Medicines to: ? Prevent blood clots. ? Treat heart rate or heart rhythm problems. ??? Using devices, such as a pacemaker, to correct heart rhythm problems. ??? Doing surgery to remove the part of the heart that sends bad signals. ??? Closing an area where clots can form in the heart (left atrial appendage). In some cases, your doctor will treat other underlying conditions. Follow these instructions at home: Medicines ??? Take mbkh-lna-yjyuikr and prescription medicines only as told by your doctor. ??? Do not take any new medicines without first talking to your doctor. ??? If you are taking blood thinners: ? Talk with your doctor before you take any medicines that have aspirin or NSAIDs, such as ibuprofen, in them. ? Take your medicine exactly as told by your doctor. Take it at the same time each day. ? Avoid activities that could hurt or bruise you. Follow instructions about how to prevent falls. ? Wear a bracelet that says you are taking blood thinners. Or, carry a card that lists what medicines you take. Lifestyle ??? Do not use any products that have nicotine or tobacco in them. These include cigarettes, e-cigarettes, and chewing tobacco. If you need help quitting, ask your doctor. ??? Eat heart-healthy foods. Talk with your doctor about the right eating plan for you. ??? Exercise regularly as told by your doctor. ??? Do not drink alcohol. ??? Lose weight if you are overweight. ??? Do not use drugs, including cannabis. General instructions ??? If you have a condition that causes breathing to stop for a short period of time (apnea), treat it as told by your doctor. ??? Keep a healthy weight. Do not use diet pills unless your doctor says they are safe for you. Diet pills may make heart problems worse. ??? Keep all follow-up visits as told by your doctor. This is important. Contact a doctor if: ??? You notice a change in the speed, rhythm, or strength of your heartbeat. ??? You are taking a blood-thinning medicine and you get more bruising. ??? You get tired more easily when you move or exercise. ??? You have a sudden change in weight. Get help right away if: ??? You have pain in your chest or your belly (abdomen). ??? You have trouble breathing. ??? You have side effects of blood thinners, such as blood in your vomit, poop (stool), or pee (urine), or bleeding that cannot stop. ??? You have any signs of a stroke. BE FAST is an easy way to remember the main warning signs: ? B - Balance. Signs are dizziness, sudden trouble walking, or loss of balance. ? E - Eyes. Signs are trouble seeing or a change in how you see. ? F - Face. Signs are sudden weakness or loss of feeling in the face, or the face or eyelid drooping on one side. ? A - Arms. Signs are weakness or loss of feeling in an arm. This happens suddenly and usually on one side of the body. ? S - Speech. Signs are sudden trouble speaking, slurred speech, or trouble understanding what people say. ? T - Time. Time to call emergency services. Write down what time symptoms started. ??? You have other signs of a stroke, such as: ? A sudden, very bad headache with no known cause. ? Feeling like you may vomit (nausea). ? Vomiting. ? A seizure. These symptoms may be an emergency. Do not wait to see if the symptoms will go away. Get medical help right away. Call your local emergency services (911 in the [place] Do not drive yourself to the hospital. Summary ??? Atrial fibrillation is a type of heartbeat that is irregular or fast. ??? You are at higher risk of this condition if you smoke, are older, have diabetes, or are overweight. ??? Follow your doctor's instructions about medicines, diet, exercise, and follow-up visits. ??? Get help right away if you have signs or symptoms of a stroke. ??? Get help right away if you cannot catch your breath, or you have chest pain or discomfort. This information is not intended to replace advice given to you by your health care provider. Make sure you discuss any questions you have with your health care provider. Document Revised: 07/25/2019 Document Reviewed: 07/25/2019 [employer] Patient Education ?? 2020 [employer]. lisinopril (lyse [place] pril) Amadou Bustillo Zestril What is the most important information I should know about lisinopril? Do not use if you are , and tell your doctor right away if you become . If you have diabetes, do not use lisinopril together with any medication that contains aliskiren (a blood pressure medicine). Do not take lisinopril within 36 hours before or after taking medicine that contains sacubitril (such as Entresto). What is lisinopril? Lisinopril is an YIN inhibitor that is used to treat high blood pressure (hypertension) in adults and children who are at least 6 years old. Lisinopril is also used to treat congestive heart failure in adults, or to improve survival after a heart attack. Lisinopril may also be used for purposes not listed in this medication guide. What should I discuss with my healthcare provider before taking lisinopril? You should not use lisinopril if you are allergic to it, or if you: ?? have a history of angioedema; ?? recently took a heart medicine called sacubitril; or ?? are allergic to any other YIN inhibitor, such as benazepril, captopril, enalapril, fosinopril, moexipril, perindopril, quinapril, ramipril, or trandolapril. Do not take lisinopril within 36 hours before or after taking medicine that contains sacubitril (such as Entresto). If you have diabetes, do not use lisinopril together with any medication that contains aliskiren (a blood pressure medicine). You may also need to avoid taking lisinopril with aliskiren if you have kidney disease. Tell your doctor if you have ever had: ?? kidney disease (or if you are on dialysis); ?? liver disease; or ?? high levels of potassium in your blood. Do not use if you are , and tell your doctor right away if you become . Lisinopril can cause injury or to the unborn baby if you take the medicine during your second or third trimester. You should not breastfeed while using this medicine. How should I take lisinopril? Follow all directions on your prescription label and read all medication guides or instruction sheets. Your doctor may occasionally change your dose. Use the medicine exactly as directed. Drink plenty of water each day while you are taking this medicine. Lisinopril can be taken with or without food. Measure liquid medicine carefully. Use the dosing syringe provided, or use a medicine dose-measuring device (not a kitchen spoon). Your blood pressure will need to be checked often. Your kidney function and electrolytes may also need to be checked. Call your doctor if you are sick with vomiting or diarrhea, or if you are sweating more than usual. You can easily become dehydrated while taking lisinopril. This can lead to very low blood pressure, a serious electrolyte imbalance, or kidney failure. If you need surgery, tell the surgeon ahead of time that you are using lisinopril. If you have high blood pressure, keep using this medicine even if you feel well. High blood pressure often has no symptoms. You may need to use blood pressure medicine for the rest of your life. Store at room temperature away from moisture and heat. Do not freeze the oral liquid. What happens if I miss a dose? Take the medicine as soon as you can, but skip the missed dose if it is almost time for your next dose. Do not take two doses at one time. What happens if I overdose? Seek emergency medical attention or call the Poison Help line at . What should I avoid while taking lisinopril? Drinking alcohol can further lower your blood pressure and may increase certain side effects of lisinopril. Avoid becoming overheated or dehydrated during exercise, in hot weather, or by not drinking enough fluids. Lisinopril can decrease sweating and you may be more prone to heat stroke. Do not use potassium supplements or salt substitutes, unless your doctor has told you to. Avoid getting up too fast from a sitting or lying position, or you may feel dizzy. What are the possible side effects of lisinopril? Get emergency medical help if you have signs of an allergic reaction: hives; severe stomach pain; difficulty breathing; swelling of your face, lips, tongue, or throat. You may be more likely to have an allergic reaction if you are -Spanish. Call your doctor at once if you have: ?? a light-headed feeling, like you might pass out; ?? fever, sore throat; ?? high potassium--nausea, weakness, tingly feeling, chest pain, irregular heartbeats, loss of movement; ?? kidney problems--little or no urination, swelling in your feet or ankles, feeling tired or short of breath; or ?? liver problems--nausea, upper stomach pain, itching, tired feeling, loss of appetite, dark urine, vicente-colored stools, jaundice (yellowing of the skin or eyes). Common side effects may include: ?? headache, dizziness; ?? cough; or ?? chest pain. This is not a complete list of side effects and others may occur. Call your doctor for medical advice about side effects. You may report side effects to FDA at 4-229-KHT-9610. What other drugs will affect lisinopril? Tell your doctor about all your other medicines, especially: ?? a diuretic or 'water pill'; ?? lithium; ?? gold injections to treat arthritis; ?? insulin or oral diabetes medicine; ?? a potassium supplement; ?? medicine to prevent organ transplant rejection--everolimus, sirolimus, tacrolimus, temsirolimus; or ?? NSAIDs (nonsteroidal anti-inflammatory drugs)--aspirin, ibuprofen (Advil, Motrin), naproxen (Aleve), celecoxib, diclofenac, indomethacin, meloxicam, and others. This list is not complete. Other drugs may affect lisinopril, including prescription and vnrz-bps-[id number] medicines, vitamins, and herbal products. Not all possible drug interactions are listed here. Where can I get more information? Your pharmacist can provide more information about lisinopril. Remember, keep this and all other medicines out of the reach of children, never share your medicines with others, and use this medication only for the indication prescribed. Every effort has been made to ensure that the information provided by [employer]. [employer]') is accurate, up-to-date, and complete, but no guarantee is made to that effect. Drug information contained herein may be time sensitive. [employer] information has been compiled for use by healthcare practitioners and consumers in the [place] and therefore [employer] does not warrant that uses outside of the [place] are appropriate, unless specifically indicated otherwise. [employer]'s drug information does not endorse drugs, diagnose patients or recommend therapy. [facility] information is an informational resource designed to assist licensed healthcare practitioners in caring for their patients and/or to serve consumers viewing this service as a supplement to, and not a substitute for, the expertise, skill, knowledge and judgment of healthcare practitioners. The absence of a warning for a given drug or drug combination in no way should be construed to indicate that the drug or drug combination is safe, effective or appropriate for any given patient. [facility] does not assume any responsibility for any aspect of healthcare administered with the aid of information [facility] provides. The information contained herein is not intended to cover all possible uses, directions, precautions, warnings, drug interactions, allergic reactions, or adverse effects. If you have questions about the drugs you are taking, check with your doctor, nurse or pharmacist. Copyright 7320-3792 [employer] [facility]. Version: 15.03. Revision Date: 12/05/2018. dofetilide (romero FET i lide) [place]onte What is the most important information I should know about dofetilide? You should not take dofetilide if you have severe kidney disease or a history of Long QT syndrome. Serious drug interactions can occur when certain medicines are used together with dofetilide. Tell each of your healthcare providers about all medicines you use now, and any medicine you start or stop using. You will need to spend at least 3 days in a hospital setting when you first start taking dofetilide. This is so your heart rhythm and kidney function can be monitored in case the medicine causes serious side effects. What is dofetilide? Dofetilide is a heart rhythm medicine, also called an antiarrhythmic. Dofetilide is used to help keep the heart beating normally in people with certain heart rhythm disorders of the atrium (the upper chambers of the heart that allow blood to flow into the heart). Dofetilide is used in people with atrial fibrillation or atrial flutter. Dofetilide may also be used for purposes not listed in this medication guide. What should I discuss with my health care provider before taking dofetilide? You should not take dofetilide if you are allergic to it, or if you have: ?? severe kidney disease (or if you are on dialysis); or ?? a history of Long QT syndrome. Some medicines can cause unwanted or dangerous effects when used with dofetilide, and should not be used at the same time. Your doctor may need to change your treatment plan if you use any of the following drugs: ?? cimetidine; ?? dolutegravir; ?? ketoconazole; ?? megestrol; ?? prochlorperazine; ?? trimethoprim (Proloprim, Trimpex, Bactrim, Septra); ?? verapamil; or ?? a diuretic (water pill) that contains hydrochlorothiazide (HCTZ), such as Accuretic, Aldactazide, Atacand HCT, Benicar HCT, Diovan HCT, Dyazide, Exforge HCT, Hyzaar, Lopressor HCT, Maxzide, Micardis HCT, Monopril HCT, Prinzide, Tekturna HCT, Vaseretic, and others. To make sure dofetilide is safe for you, tell your doctor if you have: ?? heart disease, high blood pressure; ?? liver or kidney disease; ?? depression, mental illness; ?? asthma or allergies; ?? any active infection; ?? skin problems; or ?? an electrolyte imbalance (such as low levels of potassium or magnesium in your blood). It is not known whether this medicine will harm an unborn baby. Tell your doctor if you are or plan to become while using this medicine. It is not known whether dofetilide passes into breast milk or if it could harm a nursing baby. You should not breast-feed while you are using dofetilide. How should I take dofetilide? Dofetilide is available only from a hospital or specialty pharmacy. You will need to spend at least 3 days in a hospital setting when you first start taking dofetilide. This is so your heart rhythm and kidney function can be monitored in case the medicine causes serious side effects. Follow all directions on your prescription label. Do not take this medicine in larger or smaller amounts or for longer than recommended. You may take dofetilide with or without food. You should not skip doses or stop using dofetilide suddenly. Stopping suddenly may make your condition worse. Follow your doctor's instructions about tapering your dose. Tell your doctor if you have a prolonged illness that causes severe diarrhea, vomiting, or heavy sweating. These conditions can cause an electrolyte imbalance, making it dangerous for you to use dofetilide. Your blood pressure will need to be checked often. Your kidney function may also need to be checked with frequent blood tests. Store at room temperature away from moisture and heat. What happens if I miss a dose? Skip the missed dose and take your next dose at the usual time to stay on schedule. Do not take extra medicine to make up the missed dose. What happens if I overdose? Seek emergency medical attention or call the Poison Help line at . What should I avoid while taking dofetilide? Grapefruit and grapefruit juice may interact with dofetilide and lead to unwanted side effects. Discuss the use of grapefruit products with your doctor. What are the possible side effects of dofetilide? Get emergency medical help if you have any of these signs of an allergic reaction: hives; difficult breathing; swelling of your face, lips, tongue, or throat. Call your doctor at once if you have: ?? headache with chest pain and severe dizziness, fainting, fast or pounding heartbeats; ?? loss of appetite, vomiting or severe diarrhea; or ?? low magnesium or potassium--confusion, uneven heart rate, increased thirst or urination, sweating, jerking muscle movements, leg discomfort, muscle weakness or limp feeling. Common side effects may include: ?? mild headache; ?? mild dizziness; or ?? cold symptoms such as stuffy nose, sneezing, sore throat. This is not a complete list of side effects and others may occur. Call your doctor for medical advice about side effects. You may report side effects to FDA at 5-248-YMY-1203. What other drugs will affect dofetilide? Other drugs may interact with dofetilide, including prescription and bjff-ybe-cajsnwj medicines, vitamins, and herbal products. Tell each of your health care providers about all medicines you use now and any medicine you start or stop using. Where can I get more information? Your doctor or pharmacist can provide more information about dofetilide. Remember, keep this and all other medicines out of the reach of children, never share your medicines with others, and use this medication only for the indication prescribed. Every effort has been made to ensure that the information provided by [employer]') is accurate, up-to-date, and complete, but no guarantee is made to that effect. Drug information contained herein may be time sensitive. [employer] information has been compiled for use by healthcare practitioners and consumers in the [place] and therefore [employer] does not warrant that uses outside of the [place] are appropriate, unless specifically indicated otherwise. [employer] drug information does not endorse drugs, diagnose patients or recommend therapy. [employer] drug information is an informational resource designed to assist licensed healthcare practitioners in caring for their patients and/or to serve consumers viewing this service as a supplement to, and not a substitute for, the expertise, skill, knowledge and judgment of healthcare practitioners. The absence of a warning for a given drug or drug combination in no way should be construed to indicate that the drug or drug combination is safe, effective or appropriate for any given patient. [employer] does not assume any responsibility for any aspect of healthcare administered with the aid of information [employer] provides. The information contained herein is not intended to cover all possible uses, directions, precautions, warnings, drug interactions, allergic reactions, or adverse effects. If you have questions about the drugs you are taking, check with your doctor, nurse or pharmacist. Copyright 2563-0437 [employer]. Version: 4.01. Revision Date: 05/28/2015. Emergency Awareness and Preventative Care STROKE is [...] Assistance with quitting is available by contacting 1-424-XBJR-NOW. This is a free resource providing counseling, [...] This Visit (last charted value for your 12/01/2020 visit) Hematology 12/03/2020 6:32 AM WBC: 10.1 K/uL -- Normal range between ( 3.6 and 9.5 ) RBC: 4.97 Million/uL -- Normal range between ( 4.20 and 5.70 ) Hct: 47.1 % -- Normal range between ( 40.1 and 51.0 ) Hgb: 15.3 g/dL -- Normal range between ( 13.5 and 17.3 ) Platelet Count: 203 K/uL -- Normal range between ( 163 and 369 ) MCH: 30.8 pg -- Normal range between ( 25.6 and 32.2 ) MCHC: 32.5 Gram/dL -- Normal range between ( 32.2 and 36.5 ) MCV: 94.8 fL -- Normal range between ( 79.0 and 94.8 ) Slide Review: No Eos %: 1.6 % -- Normal range between ( 0.0 and 7.0 ) Broome #: 0.62 K/uL -- Normal range between ( 0.16 and 1.00 ) Eos #: 0.16 x10(3)/uL -- Normal range between ( 0.00 and 0.80 ) Broome %: 6.1 % -- Normal range between ( 3.0 and 9.0 ) Baso %: 0.7 % -- Normal range between ( 0.0 and 1.5 ) Baso #: 0.07 x10(3)/uL -- Normal range between ( 0.00 and 0.20 ) RDW: 13.6 % -- Normal range between ( 11.7 and 14.9 ) Neut %: 81.2 % -- Normal range between ( 34.0 and 71.0 ) Neut #: 8.20 K/uL -- Normal range between ( 1.56 and 6.13 ) Lymph %: 9.9 % -- Normal range between ( 19.3 and 53.1 ) Lymph #: 1.00 x10(3)/uL -- Normal range between ( 1.00 and 3.90 ) MPV: 10.6 fL -- Normal range between ( 9.4 and 12.4 ) IG#: 0.05 x10(3)/uL -- Normal range between ( 0.00 and 0.05 ) IG%: 0.50 % -- Normal range between ( 0.00 and 0.60 ) Microbiology 12/01/2020 1:51 PM SARS-CoV-2 (COVID19 PCR): Negative General Chemistry 12/04/2020 11:53 AM Glucose POC2: 152 mg/dL -- Normal range between ( 70 and 110 ) Device Comment 1: Device Comment 1 12/04/2020 11:45 AM Creatinine Level: 1.40 mg/dL -- Normal range between ( 0.70 and 1.30 ) Sodium Level: 139 mmol/L -- Normal range between ( 136 and 146 ) Potassium Level: 4.4 mmol/L -- Normal range between ( 3.5 and 5.1 ) Chloride Level: 107 mmol/L -- Normal range between ( 102 and 112 ) Carbon Dioxide Level: 24 mmol/L -- Normal range between ( 21 and 32 ) Anion Gap: 12 -- Normal range between ( 9 and 20 ) Bun/Creatinine: 19.3 -- Normal range between ( 8.0 and 20.0 ) Calcium Level: 8.9 mg/dL -- Normal range between ( 8.4 and 10.1 ) eGFR : >60 mL/min/1.73m2 eGFR NonAfrican: 50 mL/min/1.73m2 Glucose Level: 170 mg/dL -- Normal range between ( 74 and 106 ) Blood Urea Nitrogen: 27 mg/dL -- Normal range between ( 7 and 22 ) 12/04/2020 6:27 AM Magnesium Level: 2.3 mg/dL -- Normal range between ( 1.5 and 2.4 ) 12/03/2020 10:14 AM Device Comment 2: Device Comment 2 Coagulation 12/03/2020 9:23 AM ACT POC: 241 Second(s) -- Normal range between ( 74 and 137 ) Vascular Ultrasound 12/03/2020 8:05 AM VL Vascular Access: VL Vascular Access Patient Name:ESAU RADFORD I have received and understand this information and was given the opportunity to ask questions. Patient/Knife Setter Name: Patient/Knife Setter Signature: Relationship to Patient: Clinician/Hospital Knife Setter Signature: Date: documented in this encounter Plan of Treatment Not on file documented as of this encounter Visit Diagnoses Not on filedocumented in this encounter Care Teams Button Tacker Relationship Specialty Start Date End Date Barrett Devlin MD [address] [place] [address] PCP - General General Internal Medicine 11/15/22 Mary Kiran, DONKEY RIDE OPERATOR [address] [facility] [place] [address] Cardiology 08/23/23 documented as of this encounter
--- OUTSIDE RECORDS SUMMARY | 2024-08-07 13:14 | XMS_ITS | Encounter Summary ---
Author Organization [employer] Address [address] [place] [address] Care Team Providers Care Fur Weigher Name Role Phone Barrett Devlin MD Primary Care Provider [phone] Mary Kiran ENTER[employer]ISE SYSTEMS MANAGER Unavailable [phone] Encounter Details Date Type Department Care Team (Late st Contact Info) Description 12/01/2020 Transcribed Document [facility] [place] [facility] [address] [place] [address] ProviderAlejandrina MD [address] [place] [address] Social History Tobacco Use Types Packs/Day Years Used Date Smoking Tobacco: Never Assessed Sex and Gender Information Value Date Recorded Sex Assigned at Not on file Legal Sex Male 6:49 PM CDT Gender Identity Not on file Sexual Orientation Not on file documented as of this encounter Miscellaneous Notes * [employer] Conversion Note - Alejandrina ProviderMD - 12/01/2020 2:39 PM CDT Evaluation, Physical Therapy Entered On: 2020 11:06 EDT Performed On: 2020 10:42 EDT by VICKI SAMAOYA PT Student General Information, PT Visit Type, PT : Initial evaluation Patient Orders : Order Date Order Ordering 12/01/2020 14:39 PT Evaluation and Treatment Ordered By: JORDEN SALDANA MD Active Diagnoses : No Qualifying Diagnoses Therapy Diagnosis, PT : Impaired mobility secondary to AFIB and HTN. Onset of Problem, PT : 12/01/2020 EDT Admission Date : 12/01/2020 13:25 Co-treated by, PT : Physical Therapist Personal Devices : Personal Devices Glasses Assistive Devices : Assistive Devices No Devices Recorded General Information Comment, PT : Dx: AFIB Hx: HTN, HLD, DM II, Hx of Pacemaker, Hx of syncope. VICKI SAMAYOA PT Student - 2020 10:42 EDT General Status Patient Received Status : Sitting edge of bed Treatment Start Time : 2020 9:57 EDT Patient Left Status : Sitting edge of bed, RN/PCT informed, Communication board completed, All needs met and within reach RN/PCT Informed Comment : Nsg Hayder Ok'd. PT informed NSG Hayder that we did not walk patient due to high blood pressure, but is safe to ambulate without assistance. Treatment End Time : 2020 10:16 EDT Treatment Time : 19 Minute(s) VICKI SAMAYOA PT Student - 2020 10:42 EDT History and Environment Living Situation, Therapy : Home Patient Lives With : Spouse Persons Assisting Patient at Home : Alone, Spouse Professional Skilled Services : None Persons Providing Information : Patient Home Equipment Therapy, PT : None Home Setup : One story Stairs : No VICKI SAMAYOA PT Student - 2020 10:42 EDT Prior Level of Function PT GRID Prior LOF Ambulation, Household : Independent Prior LOF Ambulation, Community : Independent Prior LOF Bed Mobility : Independent Prior LOF Toileting : Independent Prior LOF Transfer : Independent VICKI SAMAYOA PT Student - 2020 10:42 EDT Intervention Summary BP Systolic Pre-intervention : 183 mmHg BP Diastolic Pre-intervention : 122 mmHg O2 Pre-Intervention : Room Air Heart Rate/Pulse During Intervention : 107 bpm O2 During Intervention : Room Air SpO2 During Intervention : 95 % Therapist Assessment During Intervention : Portable SPO2 unit was placed on pt during activity. Heart Rate/Pulse Post-intervention : 86 bpm BP Systolic Post-intervention : 197 mmHg BP Diastolic Post-intervention : 134 mmHg O2 Post-Intervention : Room Air SpO2 Post-Intervention : 94 % Therapist Assessment Post-intervention : Patient was not ambulated due to high BP. VICKI SAMAYOA PT Student - 2020 10:42 EDT Lower Extremity RLE Active ROM : WFL Right LE Strength : WFL LLE Active ROM : WFL Left LE Strength : WFL VICKI SAMAYOA PT Student - 2020 10:42 EDT Right Lower Extremity MMT Hip Flexion (0-125) : 5/normal Knee Flexion (0-140) : 5/normal Knee Extension (0-0) : 5/normal Ankle Dorsiflexion (0-20) : 5/normal Ankle Plantarflexion (0-45) : 5/normal VICKI SAMAYOA PT Student - 2020 10:42 EDT Left Lower Extremity MMT Hip Flexion (0-125) : 5/normal Knee Flexion (0-140) : 5/normal Knee Extension (0-0) : 5/normal Ankle Dorsiflexion (0-20) : 5/normal Ankle Plantarflexion (0-45) : 5/normal VICKI SAMAYOA PT Student - 2020 10:42 EDT Functional Mobility Mobility Grid Bed Scooting : Rehab Modified independence Sit to Stand : Rehab Modified independence Stand to Sit : Rehab Modified independence VICKI SAMAYOA PT Student - 2020 10:42 EDT Sit to Stand Device : None, Belt, gait Stand to Sit Device : None, Belt, gait VICKI SAMAYOA PT Student - 2020 10:42 EDT Gait Training/Assessment, PT Weight Bearing Status : Full Gait Assistance Level : Unable to assess/activity not appropriate VICKI SAMAYOA PT Student - 2020 10:42 EDT Gait Training Comment : Unable to assess Gait due to HTN and unsafe BP levels. Patient demonstrated sufficient strength, coordination, and proprioception to ambulate at OF. Just limited due to unsteady vitals. Patient states he has been walking to commode IND with no issue. PEGGY SIMPSON, PT - 2020 15:23 EDT Stair Assist : Unable to assess/activity not appropriate VICKI SAMAYOA PT Student - 2020 10:42 EDT Wheelchair Mobility Wheelchair Mobility : Unable to assess/activity not appropriate VICKI SAMAYOA PT Student - 2020 10:42 EDT Cognition Assessment, PT Orientation : Oriented x 4 Cognition Assessment Comment : No cognitive concerns. Cooperative and motivated to go home. Attention Assessment : Present VICKI SAMAYOA PT Student - 2020 10:42 EDT Edu Topics Physical Therapy Education Grid Role of Physical Therapy : Verbalizes understanding Therapeutic Exercises : Verbalizes understanding Transfer Training : Verbalizes understanding VICKI SAMAYOA PT Student - 2020 10:42 EDT Indication Assesessment, PT Physical Therapy Indicated : No Physical Therapy Not Indicated : Independent, complete Rehabilitation Potential : At prior level of function VICKI SAMAYOA PT Student - 2020 10:42 EDT Plan of Care, PT PT Frequency Rehab : Discontinue PEGGY SIMPSON, PT - 2020 15:23 EDT PT Tx Plan/Goals Established w Patient : No Reason Tx/Plan Not Established W/ Pt PT : Patient IND and able to ambulate without assistance. VICKI SAMAYOA PT Student - 2020 10:42 EDT Treatment Note Subjective Comment : Patient is agreeable to PT Eval. Patient's goal is to return to work. PEGGY SIMPSON, PT - 2020 15:23 EDT Additional Objective Information : Patient BP before activity was 183/22 and this was consistent with prior BP readings listed on BP machine. Before ambulating PT placed portable SPO2 monitor to monitor HR and SPO2%. LE MMT: B Hip flexion, Knee ext/flex, Ankle DF/PF all 5/5. Sitting EOB LAQ: x10 total, IND sitting balance. Sit to stand x5: Mod IND, w/ gait belt and no equipment. Blood pressure was taken again and it read 197/134. Patient did not display any s/s of distress and verbalized he felt ok. At this time it was determined that ambulation was contraindicated. Based off pt strength, coordination, and ability to sit to stand with mod IND, Nsg was advised that pt is safe to ambulate without assistance. Assessment : Patient presents today with no observable strength deficits and impaired mobility secondary to AFIB and HTN. He demonstrated LE strength and mobility at the level of his PLOF, but has unsafe BP levels at this time. Patient is not an appropriate candidate for skilled acute care therapy due to being IND and at PLOF. VICKI SAMAYOA PT Student - 2020 10:42 EDT Plan for Treatment : D/C due to IND and at PLOF. PT has reviewed and agrees with note. SIMPSONPEGGY Conklin, PT - 2020 15:23 EDT Pain Assessment Pain Comment : Patient did not state he was having any pain. VICKI SAMAYOA PT Student - 2020 10:42 EDT Image 1 - Images currently included in the form version of this document have not been included in the text rendition version of the form. Anticipated Discharge Needs, OT/PT Anticipated Discharge to : Home, independently Anticipated Home Equipment : None Recommend Continued Therapy at Discharge : No VICKI SAMAYOA PT Student - 2020 10:42 EDT [place] [facility] Charges PT Therap. Exercise 15 min : 1 PT Eval Low Complexity : 1 VICKI SAMAYOA PT Student - 2020 10:42 EDT Electronically signed by Teja [facility] Conversion Client Evaluator [employer]ner at 06/03/2022 12:48 PM CDT documented in this encounter Plan of Treatment Not on file documented as of this encounter Visit Diagnoses Not on filedocumented in this encounter Care Teams Fur Weigher Relationship Specialty Start Date End Date Barrett Devlin MD [address] [place] [address] PCP - General General Internal Medicine 12/29/21 Mary Kiran, [employer] MANAGER [address] [facility] [address] [place] [address] Cardiology 08/23/23 documented as of this encounter
--- OUTSIDE RECORDS SUMMARY | 2024-08-07 13:14 | XMS_ITS | Encounter Summary ---
Author Organization [facility] [employer] Address [address] [place] [address] Care Team Providers Care Business Affairs Manager Name Role Phone Barrett Devlin MD Primary Care Provider [phone] Mary Kiran RECOVERY ROOM NURSE Unavailable [phone] Encounter Details Date Type Department Care Team (Late st Contact Info) Description 12/04/[address] [facility] [place] Family Medicine [address] [place] [address] Alejandrina Turk MD [address] [place] [address] Social History Tobacco Use Types Packs/Day Years Used Date Smoking Tobacco: Never Assessed Sex and Gender Information Value Date Recorded Sex Assigned at Not on file Legal Sex Male 6:49 PM CDT Gender Identity Not on file Sexual Orientation Not on file documented as of this encounter Miscellaneous Notes * Cerner Conversion Note - Alejandrina Turk MD - 12/04/2020 9:10 AM CDT Patient: ESAU RADFORD Age: 70 years Sex: Male : 1950 Associated Diagnoses: None Author: CLARE MORA MD-CAR Health Status Allergies: Allergic Reactions (Selected) No Known Medication Allergies, Allergies (1) Active Reaction No Known Medication Allergies None Documented Current medications: (Selected) Inpatient Medications Ordered Dextrose 50% injection: 12.5 Gram, IV Push, Q15Min, PRN: Other (See Comment) Dextrose 50% injection: 25 Gram, IV Push, Q15Min, PRN: Other (See Comment) Dextrose 50% injection: 25 Gram, IV Push, Q15Min, PRN: Other (See Comment) Dextrose 50% injection: 25 Gram, IV Push, Q15Min, PRN: Other (See Comment) Dulcolax Laxative: 5 mg, Oral, Daily, PRN: Constipation DuoNeb 0.5 mg-2.5 mg/3 mL inhalation solution: 3 mL, Nebulized Inhalation, RT_Q6H, PRN: Shortness of Breath Eliquis: 5 mg, Oral, [id number] Milk of Magnesia 8% oral suspension: 30 mL, Oral, Daily, PRN: Constipation Norvasc: 5 mg, Oral, 1-Time Pepcid: 20 mg, Oral, Q12H Phenergan: 6.25 mg, IntraVENous, Q6H, PRN: Nausea Roxicodone: 5 mg, Oral, Q4H, PRN: Pain (Moderate 4-6) Tikosyn: 500 mcg, Oral, BID Tylenol: 650 mg, Oral, Q4H, PRN: Pain (Mild 1-3) cloNIDine: 0.2 mg, Oral, TID glucagon: 1 mg, IntraMuscular, Q15Min, PRN: Other (See Comment) glucose 4 g oral tablet, chewable: 16 Gram, 4 Tab, Chew, Q15Min, PRN: Other (See Comment) glucose 40% oral gel: 15 Gram, 37.5 mL, Oral, Q15Min, PRN: Other (See Comment) hydrALAZINE: 10 mg, IV Push, Q6H, PRN: Hypertension insulin lispro sliding scale: Scale A:, SubCutaneous, AC and at Bedtime lisinopril: 20 mg, Oral, BID Documented Medications Documented Eliquis 5 mg oral tablet: 1 Tab, Oral, BID, 60 Tab, 0 Refill(s) Invokana 300 mg oral tablet: 1 Tab, Oral, Daily, 0 Refill(s) Klor-Con 10 mEq oral tablet, extended release: 2 Tab, Oral, Daily, 0 Refill(s) Metoprolol Tartrate 25 mg oral tablet: 1 Tab, Oral, BID, this has replaced labetalol; do NOT take both medications together, 180 Tab, 0 Refill(s) aspirin 81 mg oral delayed release tablet: 1 Tab, Oral, Daily, 30 Tab, 0 Refill(s) clonidine 0.2 mg oral tablet: 1 Tab, Oral, TID, 0 Refill(s) lisinopril 40 mg oral tablet: 1 Tab, Oral, BID, 0 Refill(s) lovastatin 40 mg oral tablet: 1 Tab, Oral, At Bedtime, 0 Refill(s) metFORMIN 1000 mg oral tablet: 1 Tab, Oral, BID, 0 Refill(s) multivitamin: 1 Tab, Oral, Daily, 0 Refill(s) sildenafil 20 mg oral tablet: 1 Tab, Oral, Daily, may take 1-3 tablets as directed, PRN: Other (See Comment), 0 Refill(s) spironolactone 25 mg oral tablet: 1 Tab, Oral, Daily, 30 Tab, 0 Refill(s), Home Medications (12) Active aspirin 81 mg oral delayed release tablet 81 mg = 1 Tab, Oral, Daily clonidine 0.2 mg oral tablet 0.2 mg = 1 Tab, Oral, TID Eliquis 5 mg oral tablet 5 mg = 1 Tab, Oral, BID Invokana 300 mg oral tablet 300 mg = 1 Tab, Oral, Daily Klor-Con 10 mEq oral tablet, extended release 20 mEq = 2 Tab, Oral, Daily lisinopril 40 mg oral tablet 40 mg = 1 Tab, Oral, BID lovastatin 40 mg oral tablet 40 mg = 1 Tab, Oral, At Bedtime metFORMIN 1000 mg oral tablet 1,000 mg = 1 Tab, Oral, BID Metoprolol Tartrate 25 mg oral tablet 25 mg = 1 Tab, Oral, BID multivitamin 1 Tab, Oral, Daily sildenafil 20 mg oral tablet 20 mg = 1 Tab, PRN, Oral, Daily spironolactone 25 mg oral tablet 25 mg = 1 Tab, Oral, Daily , Medications (21) Active Scheduled: (7) amLODIPine 5 mg tab 5 mg 1 Tab, Oral, 1-Time apixaban 5 mg tab 5 mg 1 Tab, Oral, [id number] cloNIDine 0.2 mg tab 0.2 mg 1 Tab, Oral, TID dofetilide 500 mcg cap 500 mcg 1 Cap, Oral, BID famotidine 20 mg tab 20 mg 1 Tab, Oral, Q12H insulin lispro 1 unit/0.01 mL inj Scale A:, SubCutaneous, AC and at Bedtime lisinopril 20 mg tab 20 mg 1 Tab, Oral, BID Continuous: (0) PRN: (14) acetaminophen 325 mg tab 650 mg 2 Tab, Oral, Q4H albuterol-ipratropium inh 3 mL 3 mL, Nebulized Inhalation, RT_Q6H bisacodyl EC 5 mg tab 5 mg 1 Tab, Oral, Daily dextrose 50% 25 g/50 mL inj syr 25 Gram 50 mL, IV Push, Q15Min dextrose 50% 25 g/50 mL inj syr 25 Gram 50 mL, IV Push, Q15Min dextrose 50% 25 g/50 mL inj syr 25 Gram 50 mL, IV Push, Q15Min dextrose 50% 25 g/50 mL inj syr 12.5 Gram 25 mL, IV Push, Q15Min glucagon 1 mg/1 mL inj 1 mg 1 mL, IntraMuscular, Q15Min glucose 4 g tab 16 Gram 4 Tab, Chew, Q15Min glucose 40% gel 15 g 15 Gram 37.5 mL, Oral, Q15Min hydrALAZINE 20 mg/1 mL inj 10 mg 0.5 mL, IV Push, Q6H magnesium hydroxide 8% liq 30 mL 30 mL, Oral, Daily oxyCODONE 5 mg tab 5 mg 1 Tab, Oral, Q4H promethazine 25 mg/1 mL inj 6.25 mg 0.25 mL, IntraVENous, Q6H Problem list: All Problems Atrial fibrillation / SNOMED CT 79350910 / Confirmed Bradycardia / SNOMED CT 90092059 / Confirmed Low vitamin B12 level / SNOMED CT 251674514 / Confirmed History of obstructive sleep apnea / IMO 82323175 / Confirmed H/O syncope / SNOMED CT 0423785439 / Confirmed HTN - Hypertension / SNOMED CT 4099749603 / Confirmed Hyperlipidemia / SNOMED CT 38899259 / Confirmed Type 2 diabetes mellitus / SNOMED CT 490548875 / Confirmed, Active Problems (8) Atrial fibrillation Bradycardia H/O syncope History of obstructive sleep apnea HTN - Hypertension Hyperlipidemia Low vitamin B12 level Type 2 diabetes mellitus Objective Intake and Output 24 hour intake, 24 hour output VS/Measurements Vital Signs/Vital Measures 12/04/2020 8:06 EDT Heart Rate, Apical 78 bpm Heart Rate, Apical 78 bpm 12/04/2020 6:00 EDT Systolic Blood Pressure 139 mmHg Diastolic Blood Pressure 90 mmHg Mean Arterial Pressure (MAP)-BMDI 108 Heart Rate Monitored 75 bpm 12/04/2020 5:33 EDT Systolic Blood Pressure 135 mmHg Diastolic Blood Pressure 84 mmHg Mean Arterial Pressure (MAP)-BMDI 100 Heart Rate Monitored 80 bpm 12/04/2020 5:29 EDT Systolic Blood Pressure 169 mmHg HI Diastolic Blood Pressure 108 mmHg HI Mean Arterial Pressure (MAP)-BMDI 126 Temperature, Fahrenheit 98.9 Deg F Clinical Temperature, C 37.2 Deg C Heart Rate Monitored 87 bpm Respiratory Rate 18 Breaths/Min Oxygen Saturation 96 % Oxygen Therapy Mode Nasal cannula Oxygen Flow Rate 2 Liter/Min 12/04/2020 2:01 EDT Systolic Blood Pressure 126 mmHg Diastolic Blood Pressure 83 mmHg Mean Arterial Pressure (MAP)-BMDI 96 Heart Rate Monitored 75 bpm 12/04/2020 2:00 EDT Respiratory Rate 18 Breaths/Min 12/04/2020 1:00 EDT Temperature, Fahrenheit 98.1 Deg F Clinical Temperature, C 36.7 Deg C 12/04/2020 0:47 EDT Systolic Blood Pressure 138 mmHg Diastolic Blood Pressure 89 mmHg Mean Arterial Pressure (MAP)-BMDI 106 Heart Rate Monitored 84 bpm 12/04/2020 0:00 EDT Respiratory Rate 18 Breaths/Min 12/03/2020 22:02 EDT Systolic Blood Pressure 105 mmHg Diastolic Blood Pressure 72 mmHg Mean Arterial Pressure (MAP)-BMDI 86 Heart Rate, Apical 81 bpm Heart Rate Monitored 80 bpm 12/03/2020 21:45 EDT Systolic Blood Pressure 105 mmHg Diastolic Blood Pressure 71 mmHg Mean Arterial Pressure (MAP)-BMDI 83 Heart Rate Monitored 81 bpm 12/03/2020 21:30 EDT Systolic Blood Pressure 105 mmHg Diastolic Blood Pressure 71 mmHg Mean Arterial Pressure (MAP)-BMDI 83 Heart Rate Monitored 81 bpm 12/03/2020 21:15 EDT Systolic Blood Pressure 124 mmHg Diastolic Blood Pressure 76 mmHg Mean Arterial Pressure (MAP)-BMDI 91 Heart Rate Monitored 91 bpm 12/03/2020 21:00 EDT Systolic Blood Pressure 124 mmHg Diastolic Blood Pressure 76 mmHg Mean Arterial Pressure (MAP)-BMDI 91 Heart Rate Monitored 91 bpm 12/03/2020 20:47 EDT Heart Rate, Apical 90 bpm 12/03/2020 20:30 EDT Systolic Blood Pressure 130 mmHg Diastolic Blood Pressure 86 mmHg Mean Arterial Pressure (MAP)-BMDI 100 Heart Rate Monitored 83 bpm 12/03/2020 20:15 EDT Systolic Blood Pressure 199 mmHg HI Diastolic Blood Pressure 133 mmHg HI Mean Arterial Pressure (MAP)-BMDI 174 Heart Rate Monitored 98 bpm 12/03/2020 20:00 EDT Systolic Blood Pressure 199 mmHg HI Diastolic Blood Pressure 133 mmHg HI Mean Arterial Pressure (MAP)-BMDI 174 Heart Rate Monitored 98 bpm 12/03/2020 19:45 EDT Systolic Blood Pressure 162 mmHg HI Diastolic Blood Pressure 101 mmHg HI Mean Arterial Pressure (MAP)-BMDI 119 Heart Rate Monitored 88 bpm 12/03/2020 19:30 EDT Systolic Blood Pressure 162 mmHg HI Diastolic Blood Pressure 101 mmHg HI Mean Arterial Pressure (MAP)-BMDI 119 Heart Rate Monitored 88 bpm 12/03/2020 19:15 EDT Systolic Blood Pressure 180 mmHg HI Diastolic Blood Pressure 114 mmHg HI Mean Arterial Pressure (MAP)-BMDI 132 Heart Rate Monitored 94 bpm 12/03/2020 16:00 EDT Heart Rate, Apical 100 bpm 12/03/2020 15:20 EDT Systolic Blood Pressure 168 mmHg HI Diastolic Blood Pressure 110 mmHg HI Mean Arterial Pressure (MAP)-BMDI 136 Temperature Source Oral Temperature Mode Fahrenheit Temperature, Fahrenheit 98.2 Deg F Clinical Temperature, C 36.8 Deg C Heart Rate Monitored 93 bpm Oxygen Saturation 97 % 12/03/2020 15:00 EDT Respiratory Rate 16 Breaths/Min 12/03/2020 13:46 EDT Heart Rate, Apical 90 bpm 12/03/2020 11:57 EDT Systolic Blood Pressure 170 mmHg HI Diastolic Blood Pressure 116 mmHg HI Heart Rate, Apical 90 bpm Heart Rate, Apical 90 bpm Heart Rate Monitored 90 bpm 12/03/2020 11:30 EDT Systolic Blood Pressure 162 mmHg HI Diastolic Blood Pressure 110 mmHg HI Mean Arterial Pressure (MAP)-BMDI 129 12/03/2020 11:10 EDT Systolic Blood Pressure 157 mmHg HI Diastolic Blood Pressure 98 mmHg HI Mean Arterial Pressure (MAP)-BMDI 122 Heart Rate Monitored 87 bpm Respiratory Rate 16 Breaths/Min Oxygen Saturation 97 % 12/03/2020 11:00 EDT Systolic Blood Pressure 149 mmHg HI Diastolic Blood Pressure 94 mmHg HI Mean Arterial Pressure (MAP)-BMDI 117 Heart Rate Monitored 87 bpm Respiratory Rate 20 Breaths/Min Oxygen Saturation 96 % 12/03/2020 10:50 EDT Systolic Blood Pressure 137 mmHg Diastolic Blood Pressure 83 mmHg Mean Arterial Pressure (MAP)-BMDI 105 Temperature Source Temporal artery scanning Temperature Mode Fahrenheit Temperature, Fahrenheit 99 Deg F Clinical Temperature, C 37.2 Deg C Heart Rate Monitored 86 bpm Oxygen Saturation 96 % 12/03/2020 10:45 EDT Systolic Blood Pressure 134 mmHg Diastolic Blood Pressure 79 mmHg Mean Arterial Pressure (MAP)-BMDI 101 Heart Rate Monitored 86 bpm Respiratory Rate 20 Breaths/Min Oxygen Saturation 96 % 12/03/2020 10:40 EDT Systolic Blood Pressure 133 mmHg Diastolic Blood Pressure 78 mmHg Mean Arterial Pressure (MAP)-BMDI 101 Heart Rate Monitored 86 bpm Oxygen Saturation 97 % 12/03/2020 10:35 EDT Systolic Blood Pressure 130 mmHg Diastolic Blood Pressure 79 mmHg Mean Arterial Pressure (MAP)-BMDI 99 Heart Rate Monitored 85 bpm Oxygen Saturation 96 % 12/03/2020 10:30 EDT Systolic Blood Pressure 121 mmHg Diastolic Blood Pressure 76 mmHg Mean Arterial Pressure (MAP)-BMDI 94 Heart Rate Monitored 85 bpm Respiratory Rate 20 Breaths/Min Oxygen Saturation 96 % 12/03/2020 10:25 EDT Systolic Blood Pressure 117 mmHg Diastolic Blood Pressure 72 mmHg Mean Arterial Pressure (MAP)-BMDI 90 Heart Rate Monitored 85 bpm Oxygen Saturation 96 % Oxygen Therapy Mode Nasal cannula Oxygen Flow Rate 2 Liter/Min 12/03/2020 10:20 EDT Systolic Blood Pressure 115 mmHg Diastolic Blood Pressure 69 mmHg Mean Arterial Pressure (MAP)-BMDI 86 Heart Rate Monitored 88 bpm Respiratory Rate 16 Breaths/Min Oxygen Saturation 91 % LOW 12/03/2020 10:15 EDT Systolic Blood Pressure 121 mmHg Diastolic Blood Pressure 72 mmHg Mean Arterial Pressure (MAP)-BMDI 92 Heart Rate Monitored 85 bpm Oxygen Saturation 95 % 12/03/2020 10:10 EDT Systolic Blood Pressure 118 mmHg Diastolic Blood Pressure 71 mmHg Mean Arterial Pressure (MAP)-BMDI 87 Heart Rate Monitored 85 bpm Respiratory Rate 20 Breaths/Min Oxygen Saturation 97 % 12/03/2020 10:06 EDT Systolic Blood Pressure 123 mmHg Diastolic Blood Pressure 74 mmHg Mean Arterial Pressure (MAP)-BMDI 93 Temperature Source Temporal artery scanning Temperature Mode Fahrenheit Temperature, Fahrenheit 97.4 Deg F Clinical Temperature, C 36.3 Deg C Heart Rate Monitored 85 bpm Respiratory Rate 18 Breaths/Min Oxygen Saturation 97 % Oxygen Therapy Mode Simple mask Oxygen Flow Rate 6 Liter/Min 12/03/2020 6:30 EDT Systolic Blood Pressure 157 mmHg HI Diastolic Blood Pressure 105 mmHg HI Mean Arterial Pressure (MAP)-BMDI 116 Heart Rate Monitored 78 bpm 12/03/2020 6:15 EDT Systolic Blood Pressure 152 mmHg HI Diastolic Blood Pressure 108 mmHg HI Mean Arterial Pressure (MAP)-BMDI 119 Heart Rate Monitored 104 bpm HI 12/03/2020 6:11 EDT Systolic Blood Pressure 157 mmHg HI Diastolic Blood Pressure 101 mmHg HI Mean Arterial Pressure (MAP)-BMDI 115 Heart Rate Monitored 77 bpm 12/03/2020 6:07 EDT Heart Rate, Apical 110 bpm HI 12/03/2020 5:57 EDT Blood Pressure Location Arm, right upper Systolic Blood Pressure 185 mmHg HI Diastolic Blood Pressure 124 mmHg HI Mean Arterial Pressure (MAP)-BMDI 141 Heart Rate Monitored 93 bpm 12/03/2020 5:52 EDT Blood Pressure Location Arm, left upper Systolic Blood Pressure 192 mmHg HI Diastolic Blood Pressure 133 mmHg HI Mean Arterial Pressure (MAP)-BMDI 142 Temperature, Fahrenheit 97.3 Deg F Clinical Temperature, C 36.3 Deg C Heart Rate Monitored 105 bpm HI Respiratory Rate 18 Breaths/Min 12/03/2020 4:52 EDT Heart Rate, Apical 70 bpm 12/03/2020 3:52 EDT Systolic Blood Pressure 165 mmHg HI Diastolic Blood Pressure 114 mmHg HI Mean Arterial Pressure (MAP)-BMDI 143 Temperature, Fahrenheit 97.3 Deg F Clinical Temperature, C 36.3 Deg C Heart Rate Monitored 70 bpm Respiratory Rate 18 Breaths/Min , Measurements from flowsheet : Measurements 12/04/2020 4:00 EDT Height Source Stated Height Entry Format [place] Height/Length, SPANISH (ft) 6 ft Height/Length SPANISH 0 Inch CLINICALHEIGHT 182.88 cm Routine Weight Source Bed scale Routine Weight Entry Format [place] Routine Weight, Pounds 233 lb Routine Weight, Ounces 3 oz Routine Weight Calculation 105.99 kg Body Mass Index (BMI), Routine 31.69 kg/m2 Body Surface Area (BSA), Routine 2.28 m2 12/03/2020 4:00 EDT Height Source Stated Height Entry Format [place] Height/Length, SPANISH (ft) 6 ft Height/Length SPANISH 0 Inch CLINICALHEIGHT 182.88 cm Routine Weight Source Bed scale Routine Weight Entry Format [place] Routine Weight, Pounds 239 lb Routine Weight, Ounces 3 oz Routine Weight Calculation 108.72 kg Body Mass Index (BMI), Routine 32.51 kg/m2 Body Surface Area (BSA), Routine 2.3 m2 , Vitals Signs (last 24 hrs) Last Charted Minimum Maximum Temp 98.9 (DEC 04 05:29) 97.4 (DEC 03 10:06) 99 (DEC 03 10:50) Apical HR 78 (DEC 04 08:06) 78 (DEC 04 08:06) 100 (DEC 03 16:00) Mon HR 75 (DEC 04 06:00) 75 (DEC 04 02:01) 98 (DEC 03 20:00) Resp Rate 18 (DEC 04:29) 16 (DEC 03 10:20) 20 (DEC 03 10:10) SBP 139 (DEC 04 06:00) 105 (DEC 03 21:30) H 199 (DEC 03 20:00) DBP 90 (DEC 04 06:00) 69 (DEC 03 10:20) H 133 (DEC 03 20:00) MAP 108 (DEC 04 06:00) 83 (DEC 03 21:30) 174 (DEC 03 20:00) SpO2 96 (DEC 04:29) L 91 (DEC 03 10:20) 97 (DEC 03 10:06) General: Alert and oriented. Eye: Pupils are [...] Normal range of motion. Integumentary: Warm, Dry, [place]. Neurologic: Alert, Oriented. Psychiatric: Cooperative, Appropriate mood & affect Results Review Telemetry - 78 DEC 04 06:27 139 107 H 26 / H 120 4.3 25 H 1.40 \ Telemetry/ECG I personally reviewed the last 24 hour telemetry that shows normal sinus rhythm Cardiac echo 07/29/2020 Impression: Normal sized left [...] cm AO Root:3.14 cm LVPWd: 1.26 cm Impression and Plan IMPRESSION: *Atrial fibrillation - CHADS VASC -3 *hx SSS s/p PPM (MEDTRONIC) *HTN *DM II *HLD PLAN: 12/04/2020 Labs and telemetry reviewed. Recommend keeping K+>4.0 and Magnesium >2.0. QTc within acceptable limits. Patient should go home on following cardiac medications and doses TIKOSYN 500 mcg po BID, Eliquis 5 mg po BID, Lisinopril 20 mg po BID (decreased dose creat 1.4), Metoprolol tartrate 25 mg po BID. Meds to bed Pharmacy to arrange TIKOSYN. We will see him in clinic in 1 week. 12/03/2020 Labs and telemetry reviewed. Potassium replaced. Recommend keeping K+>4.0 and Magnesium >2.0. QTc within acceptable limits. Patient for a atrial flutter ablation this AM. Will restart Eliquis at 12 noon as long as groins stable. 2020 Labs and telemetry reviewed. Recommend keeping K+>4.0 and Magnesium >2.0. QTc within acceptable limits. Will hold Eliquis in AM for EPS/atrial flutter ablation. 12/01/2020 Labs and telemetry will be reviewed. Recommend keeping K+>4.0 and Magnesium >2.0. We along with pharmacy will manage his TIKOSYN and Eliquis dosing. We have asked [facility] physician group (Dr. Kayla Devlin) to admit [...] on filedocumented in this encounter Care Teams Business Affairs Manager Relationship Specialty Start Date End Date Barrett Devlin MD [address] [place] [address] PCP - General General Internal Medicine 12/29/21 Mary Kiran, RECOVERY ROOM NURSE [address] [facility] [address] [place] [address] Cardiology 08/23/23 documented as of this encounter
--- OUTSIDE RECORDS SUMMARY | 2024-08-07 13:14 | XMS_ITS | Encounter Summary ---
Author Organization [employer] Address [address] [place] [address] Care Team Providers Care Hyperbaric Technician Name Role Phone Barrett Devlin MD Primary Care Provider [phone] Mary Kiran CONSUMER ELECT[employer] MERCHANDISER Unavailable [phone] Encounter Details Date Type Department Care Team (Late st Contact Info) Description 02/09/2019 Transcribed Document [facility] [place] Family Medicine [address] [place] [address] ProviderAlejandrina MD [address] [place], [place] [address] Social History Tobacco Use Types Packs/Day Years Used Date Smoking Tobacco: Never Assessed Sex and Gender Information Value Date Recorded Sex Assigned at Not on file Legal Sex Male 6:49 PM CDT Gender Identity Not on file Sexual Orientation Not on file documented as of this encounter Miscellaneous Notes * Cerner Conversion Note - Alejandrina ProviderMD - 02/09/2019 5:00 AM RESCUE BOAT OPERATOR Chart Check - Review Order Profile Entered On: 02/09/2019 7:20 EST Performed On: 02/09/2019 5:00 EST by LATOYA FARLEY RN Chart Check Powerplans Initiated/Discontinued as Appropriate : Yes All Active Orders Reviewed : Yes LATOYA FARLEY RN - 02/09/2019 7:20 EST Electronically signed by [employer] [facility] Conversion Sap Business Objects Developer [employer]ner at 06/03/2022 12:19 PM CDT documented in this encounter Plan of Treatment Not on file documented as of this encounter Visit Diagnoses Not on filedocumented in this encounter Care Teams Hyperbaric Technician Relationship Specialty Start Date End Date Barrett Devlin MD [address] [place] [address] PCP - General General Internal Medicine 12/29/21 Mary Kiran, CONSUMER [employer] MERCHANDISER [address] [facility] [address] [place] [address] Cardiology 08/23/23 documented as of this encounter
--- OUTSIDE RECORDS SUMMARY | 2024-08-07 13:14 | XMS_ITS | Encounter Summary ---
Author Organization [employer] Address [address] [place] [address] Care Team Providers Care Slip Maker Name Role Phone Barrett Devlin MD Primary Care Provider [phone] Mary Kiran TOBACCO WAREHOUSE MANAGER Unavailable [phone] Encounter Details Date Type Department Care Team (Late st Contact Info) Description 12/04/2020 Transcribed Document [facility] Family Medicine [address] [place] [address] ProviderAlejandrina MD [address] [place], [place] [id number] Social History Tobacco Use Types Packs/Day Years Used Date Smoking Tobacco: Never Assessed Sex and Gender Information Value Date Recorded Sex Assigned at Not on file Legal Sex Male 6:49 PM CDT Gender Identity Not on file Sexual Orientation Not on file documented as of this encounter Miscellaneous Notes * Cerner Conversion Note - Alejandrina ProviderMD - 12/04/2020 1:52 PM CDT [address] , [place] [address] Patient Copy Patient Information: Name: ESAU RADFORD Current Date: 12/04/2020 13:52:34 : 1950 Patient Address: [address] [place] [address] Patient Attending Physician: CLARE MORA MD-CAR Primary Care Provider: BARRETT DEVLIN MD Primary Care Provider Discharge Diagnosis: HTN (hypertension) Weight on Admission: 246 lb, 5 oz Weight at Discharge: 233 lb, 3 oz Comment: Follow-up Instructions: With: Address: When: Follow up with primary care provider Within 2 to 3 days Comments: Recomend BMP With: Address: When: CLARE MORA [address] [place] [address] [address] [place], [place] [id number] Business (1) 3:15 PM Comments: Appointment has been made With: Address: When: BARRETT DEVLIN MD [address] [facility] [address] [place] [address] Within 5 to 7 days Comments: PCP follow up Discharge Instructions: Immunizations Documented During Stay: No Immunizations Found Heart Failure Discharge Instructions (if any): Stroke Related Discharge Instructions (if any): Warfarin Related Discharge Instructions (if any): Final Medication List: Other Medications apixaban (Eliquis 5 mg oral tablet) 1 Tablet(s) Oral Two Times A Day. aspirin (aspirin 81 mg oral delayed release tablet) 1 Tablet(s) Oral Every Day. canagliflozin (Invokana 300 mg oral tablet) 1 Tablet(s) Oral Every Day. cloNIDine (clonidine 0.2 mg oral tablet) 1 Tablet(s) Oral Three Times A Day. lisinopril (lisinopril 40 mg oral tablet) 1 Tablet(s) Oral Two Times A Day. lovastatin (lovastatin 40 mg oral tablet) 1 Tablet(s) Oral At Bedtime. metFORMIN (metFORMIN 1000 mg oral tablet) 1 Tablet(s) Oral Two Times A Day. metoprolol (Metoprolol Tartrate 25 mg oral tablet) 1 Tablet(s) Oral Two Times A Day. this has replaced labetalol; do NOT take both medications together. multivitamin 1 Tablet(s) Oral Every Day. potassium chloride (Klor-Con 10 mEq oral tablet, extended release) 2 Tablet(s) Oral Every Day. sildenafil (sildenafil 20 mg oral tablet) 1 Tablet(s) Oral Every Day as needed Other (See Comment). may take 1-3 tablets as directed. spironolactone (spironolactone 25 mg oral tablet) 1 Tablet(s) Oral Every Day. Patient Allergies: No Known Medication Allergies Medication Instructions: Take your medications faithfully. Do NOT skip [...] cramping, rapid heartbeat, difficulty sleeping, and nervousness. CIGARETTE SMOKING: The facts are clear, cigarette smoking will shorten your life. Smoking can cause many illnesses along the way. As a healthcare provider, we recommend that you stop smoking. Assistance with quitting is available by contacting 8-477-CKOL-NOW. This is a free resource providing counseling, support, and referral. Or you may contact your personal physician. 4 WAYS TO GET AHEAD OF SEPSIS SEPSIS is a MEDICAL EMERGENCY. Time matters! Infections put you and your family at risk for a life-threatening condition called sepsis. Sepsis is the body???s extreme response to an infection. It is life-threatening, and without timely treatment, sepsis can rapidly lead to tissue damage, organ failure, and . Sepsis happens when an infection you already have???in your skin, lungs, urinary tract or somewhere else???triggers a chain reaction throughout your body. 1 [...] sepsis or if you have an infection that???s not getting better or is getting worse. To learn more about sepsis and how to prevent infections, visit www.cdc.gov/sepsis. STROKE is an EMERGENCY Every Minute Counts ACT F.A.S.T! FACE ?? Facial droop ?? Uneven smile ARM ?? Arm numbness ?? Arm weakness SPEECH ?? Slurred speech ?? Difficulty speaking or understanding TIME ?? Call 911 and get to the hospital immediately Have the ambulance go to the nearest stroke center. STROKE Risk Factors High blood pressure High cholesterol Heart Disease Diabetes Smoking Heavy alcohol use Physical inactivity and obesity Atrial Fibrillation (irregular heartbeat) Family history of stroke Reminder: Be sure to sign up for the [facility] patient portal, which gives you 06/09 access to your medical information ??? including these discharge instructions ??? using your computer, smartphone, or tablet. Just go to [email or web address] to get started. Questions? Call . [facility] would like to thank you for allowing us to assist you with your healthcare needs. AMY Early DONALD P, (or electroplating sales representative) have received the above patient education materials/instructions and have verbalized understanding: Patient Signature _ Date/Time Patient Surgical Services Director Signature (if needed) Date/Time Clinician/Hospital Surgical Services Director Signature (if needed) Date/Time documented in this encounter Plan of Treatment Not on file documented as of this encounter Visit Diagnoses Not on filedocumented in this encounter Care Teams Slip Maker Relationship Specialty Start Date End Date Barrett Devlin MD [address] [place] [address] PCP - General General Internal Medicine 12/29/21 Mary Kiran, TOBACCO WAREHOUSE MANAGER [address] [facility] [address] [place] [address] Cardiology 08/23/23 documented as of this encounter
--- OUTSIDE RECORDS SUMMARY | 2024-08-07 13:14 | XMS_ITS | Encounter Summary ---
Author Organization [employer] Address [address] [place] [address] Care Team Providers Care Certified Court Interpreter Name Role Phone Barrett Devlin MD Primary Care Provider [phone] Mary Kiran PLATE CORRECTOR Unavailable [phone] Encounter Details Date Type Department Care Team (Late st Contact Info) Description 12/04/2020 Transcribed Document [facility] Family Medicine [address] [place] [address] ProviderAlejandrina MD [address] [place], [place] [address] Social History Tobacco Use Types Packs/Day Years Used Date Smoking Tobacco: Never Assessed Sex and Gender Information Value Date Recorded Sex Assigned at Not on file Legal Sex Male 6:49 PM CDT Gender Identity Not on file Sexual Orientation Not on file documented as of this encounter Miscellaneous Notes * Cerner Conversion Note - Alejandrina ProviderMD - 12/04/2020 2:21 PM CDT Stroke/Warfarin Instructions Entered On: 12/04/2020 14:21 EDT Performed On: 12/04/2020 14:21 EDT by Yana Montero RN Stroke/Warfarin Instructions Stroke/TIA Discharge Ins : N/A Warfarin Discharge Ins : N/A Yana Montero RN - 12/04/2020 14:21 EDT documented in this encounter Plan of Treatment Not on file documented as of this encounter Visit Diagnoses Not on filedocumented in this encounter Care Teams Certified Court Interpreter Relationship Specialty Start Date End Date Barrett Devlin MD [address] [place] [address] PCP - General General Internal Medicine 12/29/21 Mary Kiran, PLATE CORRECTOR [address] [facility] [address] [place] [address] Cardiology 08/23/23 documented as of this encounter
--- OUTSIDE RECORDS SUMMARY | 2024-08-07 13:14 | XMS_ITS | Encounter Summary ---
Author Organization [employer] Address [address] [place] [address] Care Team Providers Care Photographic Restorer Name Role Phone Barrett Devlin MD Primary Care Provider Mary Kiran RELOCATION SPECIALIST Unavailable [phone] Encounter Details Date Type Department Care Team (Late st Contact Info) Description 02/09/2019 Transcribed Document [facility] [place] Medicine [address] [place] [address] ProviderAlejandrina MD [address] [place] [address] Social History Tobacco Use Types Packs/Day Years Used Date Smoking Tobacco: Never Assessed Sex and Gender Information Value Date Recorded Sex Assigned at Not on file Legal Sex Male 6:49 PM CDT Gender Identity Not on file Sexual Orientation Not on file documented as of this encounter Miscellaneous Notes * Cerner Conversion Note - Alejandrina Turk MD - 02/09/2019 9:14 AM WAITER AND CASHIER Consult Phone Call Documentation Entered On: 02/09/2019 10:59 EST Performed On: 02/09/2019 9:14 EST by Karen White Phone Call for Consults Consult Phone Call/Page Attempt : First call Consult Reason : recurrent syncope event monitor shows no pauses Physician Requesting Consult : DARIUSZ CABERRA MD Physician Requested for Consult : SOURAV MICHAEL MD Provider Service Notified Name : Neurology Date and Time Call Returned : 02/09/2019 10:59 EST Consult, Additional Information : spoke to doctor Karen Brice - 02/09/2019 10:58 EST Electronically signed by Teja, [facility] Conversion Piano Builder Cerner at 06/03/2022 12:36 PM CDT documented in this encounter Plan of Treatment Not on file documented as of this encounter Visit Diagnoses Not on filedocumented in this encounter Care Teams Photographic Restorer Relationship Specialty Start Date End Date Barrett Devlin MD [address] [place] [address] PCP - General General Internal Medicine 12/29/21 Mary Kiran, RELOCATION SPECIALIST [address] [facility] [address] [place] [address] Cardiology 08/23/23 documented as of this encounter
--- OUTSIDE RECORDS SUMMARY | 2024-08-07 13:14 | XMS_ITS | Encounter Summary ---
Author Organization [employer] Address [address] [place] [address] Care Team Providers Care Bandoleer Packer Name Role Phone Barrett Devlin MD Primary Care Provider [phone] Mary Kiran APRN Unavailable [phone] Encounter Details Date Type Department Care Team (Late st Contact Info) Description 02/10/2019 Transcribed Document [facility] [place] [address] ProviderAlejandrina MD [address] [place] [address] Social History Tobacco Use Types Packs/Day Years Used Date Smoking Tobacco: Never Assessed Sex and Gender Information Value Date Recorded Sex Assigned at Not on file Legal Sex Male 6:49 PM CDT Gender Identity Not on file Sexual Orientation Not on file documented as of this encounter Miscellaneous Notes * Cerner Conversion Note - Historical ProviderMD - 02/10/2019 2:16 PM RESTORATION SILVERSMITH Patient: ESAU RADFORD Age: 68 Years Sex: Male : 1950 Subjective no change, no new syncope. Review of Systems no change except as in Subjective Physical Exam Mental Status: normal Orientation to time place person, Attention, Speech naming, repetition, spontaneous, Language, memory recent and remote, Fund of knowledge Cranial Nerves: II through XII intact and symmetric Motor: Strength 5/5 bilateral, normal tone and mass Sensory: Normal to light touch, pain, proprioception Reflexes symmetric 2=, toes down Cerebellar: Normal FF movements, no abnormal movements Gait: not tested due to pt condition Psychiatric: negative Musculoskeletal: negative Lab B12 181 Studies personally reviewed Imaging CT head mild atrophy Studies personally reviewed Assessment 68yo male with three Cardiogenic syncopal spells, two recently while sitting. He has B12 deficiency and a normal CT head. No further Neurological workup is needed. He needs to follow up for the B12 deficiency and Cardiogenic syncope. I will sign off. There are no characteristics of seizure to these spells. CT head did not show sig structural lesions that might contribute to his susceptibility to syncope. I will defer to Cardiology for further workup. He has an elevated WBC that was dropping. He should not drive until these spells are diagnosed and controlled and he is cleared by Cardiology. The above evaluation and recommendations were explained to patient and family present, understanding and agreement was expressed. Electronically signed by Aniket Lezama Conversion Health Information Specialist Cerner at 06/03/2022 12:12 PM CDT documented in this encounter Plan of Treatment Not on file documented as of this encounter Visit Diagnoses Not on filedocumented in this encounter Care Teams Bandoleer Packer Relationship Specialty Start Date End Date Barrett Devlin MD [address] [place] [address] PCP - General General Internal Medicine 12/29/21 Mary Kiran, MARIBEL [address] [facility] [address] [place] [address] Cardiology 08/23/23 documented as of this encounter
--- OUTSIDE RECORDS SUMMARY | 2024-08-07 13:14 | XMS_ITS | Encounter Summary ---
Author Organization [employer] Address [address] [place] [address] Care Team Providers Care Maintenance Custodian Name Role Phone Barrett Devlin MD Primary Care Provider [phone] Mary Kiran OTR VAN CDL TRUCK DRIVER Unavailable [phone] Encounter Details Date Type Department Care Team (Late st Contact Info) Description 08/13/2020 Transcribed Document [facility] Family Medicine [address] [place] [address] ProviderAlejandrina MD [address] [place] [address] Social History Tobacco Use Types Packs/Day Years Used Date Smoking Tobacco: Never Assessed Sex and Gender Information Value Date Recorded Sex Assigned at Not on file Legal Sex Male 6:49 PM CDT Gender Identity Not on file Sexual Orientation Not on file documented as of this encounter Miscellaneous Notes * Cerner Conversion Note - Alejandrina Turk MD - 08/13/2020 10:54 AM CDT [facility] [place] [address] AMY ESAU P :1950 Visit Time:08/13/2020 Your Visit Summary Your Care Team Admitting Physician - CLARE MORA MD-CAR Attending Physician - CLARE MORA MD-CAR Primary Care Physician - BARRETT DEVLIN (REF)MD-INT Referring Physician - ELAYI, CLARE C, MD-CAR Your Diagnosis Other persistent atrial fibrillation, Other persistent atrial fibrillation Discharge Vitals Temperature 36.6 ??C Heart Rate (Monitored) 78 Respiratory Rate 21 Blood Pressure 151/100 What to do next Instructions From Your Care Team Diet after Discharge: Resume usual diet as tolerated Activity after Discharge: Rest and relax today, No strenuous activity, Driving Restrictions: No driving for 24 hours. Showering/Bathing: May shower., Medications: No changes to your current home medications., Follow-Up Appointments Follow Up with CLARE MORA MD-ANGELES When 09/09/2020 09:00 AM EDT Comments Appointment has been made Where: Medications What How Much When Instructions Next Dose apixaban (Eliquis 5 mg oral tablet) 1 Tablet(s) Oral Two Times A Day aspirin (aspirin 81 mg oral delayed release tablet) 1 Tablet(s) Oral Every Day canagliflozin (Invokana 300 mg oral tablet) 1 Tablet(s) Oral Every Day cloNIDine 0.2 Milligram(s) Oral Three Times A Day labetalol 100 Milligram(s) Oral Every Day lisinopril (lisinopril 40 mg oral tablet) 1 Tablet(s) Oral Two Times A Day lovastatin 40 Milligram(s) Oral At Bedtime metFORMIN (metFORMIN 1000 mg oral tablet) 2 Tablet(s) Oral Two Times A Day metoprolol (Metoprolol Tartrate 25 mg oral tablet) 1 Tablet(s) Oral Two Times A Day multivitamin Every Day potassium chloride (Klor-Con 10 mEq oral tablet, extended release) 2 Tablet(s) Oral Two Times A Day sildenafil [...] This Visit No Immunizations Found Education Materials Electrical Cardioversion Electrical cardioversion is the delivery of a jolt of electricity to restore a normal rhythm to the heart. A rhythm that is too fast or is not regular keeps the heart from pumping well. In this procedure, sticky patches or metal paddles are placed on the chest to deliver electricity to the heart from a device. This procedure may be done in an emergency if: ??? There is low or no blood pressure as a result of the heart rhythm. ??? Normal rhythm must be restored as fast as possible to protect the brain and heart from further damage. ??? It may save a life. This may also be a scheduled procedure for irregular or fast heart rhythms that are not immediately life-threatening. Tell a health care provider about: ??? Any allergies you have. ??? All medicines you are taking, including vitamins, herbs, eye drops, creams, and hknh-ijy-ahvsxkg medicines. ??? Any problems you or family members have had with anesthetic medicines. ??? Any blood disorders you have. ??? Any surgeries you have had. ??? Any medical conditions you have. ??? Whether you are or may be . What are the risks? Generally, this is a safe procedure. However, problems may occur, including: ??? Allergic reactions to medicines. ??? A blood clot that breaks free and travels to other parts of your body. ??? The possible return of an abnormal heart rhythm within hours or days after the procedure. ??? Your heart stopping (cardiac arrest). This is rare. What happens before the procedure? Medicines ??? Your health care provider may have you start taking: ? Blood-thinning medicines (anticoagulants) so your blood does not clot as easily. ? Medicines to help stabilize your heart rate and rhythm. ??? Ask your health care provider about: ? Changing or stopping your regular medicines. This is especially important if you are taking diabetes medicines or blood thinners. ? Taking medicines such as aspirin and ibuprofen. These medicines can thin your blood. Do not take these medicines unless your health care provider tells you to take them. ? Taking gxlq-zcd-ctdpduv medicines, vitamins, herbs, and supplements. General instructions [...] provider what steps will be taken to help prevent infection. These may include washing your skin with a germ-killing soap. What happens during the procedure? An IV will be inserted into one of your veins. ??? Sticky patches (electrodes) or metal paddles may be placed on your chest. ??? You will be given a medicine to help you relax (sedative). ??? An electrical shock will be delivered. The procedure may vary among health care providers and hospitals. What can I expect after the procedure? Your blood pressure, heart rate, breathing rate, and blood oxygen level will be monitored until you leave the hospital or clinic. ??? Your heart rhythm will be watched to make sure it does not change. ??? You may have some redness on the skin where the shocks were given. Follow these instructions at home: ??? Do not drive for 24 hours if you were given a sedative during your procedure. ??? Take ramz-npy-ecdmika and prescription medicines only as told by your health care provider. ??? Ask your health care provider how to check your pulse. Check it often. ??? Rest for 48 hours after the procedure or as told by your health care provider. ??? Avoid or limit your caffeine use as told by your health care provider. ??? Keep all follow-up visits as told by your health care provider. This is important. Contact a health care provider if: ??? You feel like your heart is beating too quickly or your pulse is not regular. ??? You have a serious muscle cramp that does not go away. Get help right away if: ??? You have discomfort in your chest. ??? You are dizzy or you feel faint. ??? You have trouble breathing or you are short of breath. ??? Your speech is slurred. ??? You have trouble moving an arm or leg on one side of your body. ??? Your fingers or toes turn cold or blue. Summary ??? Electrical cardioversion is the delivery of a jolt of electricity to restore a normal rhythm to the heart. ??? This procedure may be done right away in an emergency or may be a scheduled procedure if the condition is not an emergency. ??? Generally, this is a safe procedure. ??? After the procedure, check your pulse often as told by your health care provider. This information is not intended to replace advice given to you by your health care provider. Make sure you discuss any questions you have with your health care provider. Document Revised: 09/03/2019 Document Reviewed: 09/03/2019 [email or web address] Patient Education ?? 2020 [employer]. Atrial Fibrillation Atrial fibrillation is a type [...] these instructions at home: Medicines ??? Take afzg-gmo-hopanip and prescription medicines only as told by [...] provider. Document Revised: 07/25/2019 Document Reviewed: 07/25/2019 [email or web address] Patient Education ?? 2020 [employer]. Moderate Conscious Sedation, Adult, Care After These [...] you are awake and alert. ??? Take xrez-wym-aouieaj and prescription medicines only as told by [...] with your health care provider. Document Revised: 01/13/2018 Document Reviewed: 05/22/2016 [employer] Patient Education ?? 2020 [employer]. Emergency Awareness and Preventative Care STROKE is [...] Assistance with quitting is available by contacting 2-185-EREL-NOW. This is a free resource providing counseling, [...] This Visit (last charted value for your 08/13/2020 visit) No Laboratory or Other Results This Visit Patient Name:ESAU RADFORD I have received and understand this information and was given the opportunity to ask questions. Patient/Welder And Fitter Name: Patient/Welder And Fitter Signature: Relationship to Patient: Clinician/Hospital Welder And Fitter Signature: Date: Electronically signed by Aniket Lezama Conversion Time Study Statistician Jose Juanner at 06/03/2022 1:11 PM CDT documented in this encounter Plan of Treatment Not on file documented as of this encounter Visit Diagnoses Not on filedocumented in this encounter Care Teams Maintenance Custodian Relationship Specialty Start Date End Date Barrett Devlin MD [address] [place] [address] PCP - General General Internal Medicine 12/29/21 Mary Kiran, OTR VAN CDL TRUCK DRIVER [address] [facility] [address] [place] [address] Cardiology 08/23/23 documented as of this encounter
--- OUTSIDE RECORDS SUMMARY | 2024-08-07 13:14 | XMS_ITS | Encounter Summary ---
Author Organization [employer] Address [address] [place] [address] Care Team Providers Care Control Systems Designer Name Role Phone Barrett Devlin MD Primary Care Provider [phone] Mary Kiran INSURANCE SPECIALIST Unavailable [phone] Encounter Details Date Type Department Care Team (Late st Contact Info) Description 02/09/2019 Transcribed Document [facility] [place] Family Medicine [address] [place] [address] ProviderAlejandrina MD [address] [place], [place] [id number] Social History Tobacco Use Types Packs/Day Years Used Date Smoking Tobacco: Never Assessed Sex and Gender Information Value Date Recorded Sex Assigned at Not on file Legal Sex Male 6:49 PM CDT Gender Identity Not on file Sexual Orientation Not on file documented as of this encounter Miscellaneous Notes * Cerner Conversion Note - Historical ProviderMD - 02/09/2019 4:24 PM INVESTIGATIVE REPORTER Event Note Entered On: 02/09/2019 16:24 EST Performed On: 02/09/2019 16:24 EST by HERBER LONGORIA RN-Care Management Event Note Event Date/Time : 02/09/2019 16:24 EST Description of Event : Attempted to perform initial assessment, and pt not in room, off floor for CT head HERBER LONGORIA RN-Care Management - 02/09/2019 16:24 EST Electronically signed by Teja [facility] Conversion Admitting Coordinator Cerner at 06/03/2022 12:32 PM CDT documented in this encounter Plan of Treatment Not on file documented as of this encounter Visit Diagnoses Not on filedocumented in this encounter Care Teams Control Systems Designer Relationship Specialty Start Date End Date Barrett Devlin MD [address] [place] [address] PCP - General General Internal Medicine 12/29/21 Mary Kiran, INSURANCE SPECIALIST [address] [facility] [address] [place] [address] Cardiology 08/23/23 documented as of this encounter
--- OUTSIDE RECORDS SUMMARY | 2024-08-07 13:14 | XMS_ITS | Encounter Summary ---
Author Organization [employer] Address [address] [place] [address] Care Team Providers Care Senior Quantity Surveyor Name Role Phone Barrett Devlin MD Primary Care Provider [phone] Mary Kiran APRN Unavailable [phone] Encounter Details Date Type Department Care Team (Late st Contact Info) Description 08/13/2020 Transcribed Document [facility] [place] Family Medicine [address] [place] [address] ProviderAlejandrina MD [address] [place] [address] Social History Tobacco Use Types Packs/Day Years Used Date Smoking Tobacco: Never Assessed Sex and Gender Information Value Date Recorded Sex Assigned at Not on file Legal Sex Male 6:49 PM CDT Gender Identity Not on file Sexual Orientation Not on file documented as of this encounter Miscellaneous Notes * Cerner Conversion Note - Alejandrina ProviderMD - 08/13/2020 7:52 AM CDT Pre Procedure Adult Entered On: 08/13/2020 7:56 EDT Performed On: 08/13/2020 7:52 EDT by JASON KEENE RN Height and Weight, Clinical Dosing Height Source : Stated Height Entry Format : [place] Height, Feet : 6 ft(Converted to: 183 cm, 72 Inch) Height, Inches : 0 Inch(Converted to: 0 ft 0 Inch, 0.00 cm) Clinical Height : 182.88 cm Weight Source : Standing scale Weight Entry Format : [place]en Clinical Dosing Weight : 107.27 kg Weight, Pounds : 236 lb Body Surface Area (BSA) : 2.29 m2 Body Mass Index : 32.1 kg/m2 (HI) [place] Body Weight : 77 kg JASON KEENEARNOL - 08/13/2020 7:52 EDT Health Histories Smoking Status : Never (less than 100 in lifetime; none in last 30 days) Smokeless Tobacco Status : Never JASON KEENEARNOL - 08/13/2020 7:52 EDT Social History (As Of: 08/13/2020 07:56:08 EDT) Tobacco: Never (less than 100 in [...] by Cintia Roblero RN-TRAVELER) Infectious Disease History Has the patient ever been tested for COVID-19? : No, Screening today for COVID-19 Date of COVID-19 test known? : No Does patient have symptoms of COVID-19? : No COVID19 Screening : No Experiencing Infectious Disease Symptoms : No symptoms Physical contact outside [place] in the last 30 days : No Infectious Disease History : Chicken pox/Shingles Tuberculosis Symptoms : None JASON KEENE RN - 08/13/2020 7:52 EDT COVID19 PreProcedure Screening Is this an Emergent or Add on Procedure? : No Date PreProcedure COVID-19 test known? : No Has patient been isolated since the test : N/A - PreProcedure, in-person visit Exposed to COVID19 symptoms since test? : No COVID-19 PreProcedure Screening Comment : patient states he has been vaccinated for covid JASON KEENE RN - 08/13/2020 7:52 EDT Anesthesia/Transfusion History Family History of Anesthesia Reaction : No prior transfusion(s) Transfusion History : Prior anesthesia without reaction Family History of Anesthesia Reaction : None JASON KEENE RN - 08/13/2020 7:52 EDT Functional Assessment Living Situation : Home Patient Lives With : Spouse Current Home Treatments : CPAP JASON KEENE RN - 08/13/2020 7:52 EDT [place] Suicide Severity Rating Scale (C-SSRS) CSSRS Past Month Wish to be : No CSSRS Past Month Suicidal Thoughts : No CSSRS Lifetime Suicide Behavior : No Suicide Severity Rating Score : 0 Suicide Severity Rating : No Additional Care Required at this time JASON KEENE RN - 08/13/2020 7:52 EDT Psychosocial History Currently in Unsafe Situation : No JASON KEENE RN - 08/13/2020 7:52 EDT Advance Directive Patient has Advance Directive *Q : No, patient refuses Advance Directive information JASON KEENE RN - 08/13/2020 7:52 EDT Teaching/Learning Assessment Barriers To Learning : None evident Individuals Taught : Patient, Spouse JASON KEENE RN - 08/13/2020 7:52 EDT Education Topics, Periop Preadmission Perioperative Education Grid Arrival Time/Place : Verbalizes understanding Falls : Verbalizes understanding Infection Control : Verbalizes understanding IV's : Verbalizes understanding NPO Status/Directions : Verbalizes understanding Pain Management : Verbalizes understanding Postoperative Care Preparations : Verbalizes understanding Preprocedure Preparations : Verbalizes understanding Preprocedure Tests/Labs : Verbalizes understanding Responsible Adult : Verbalizes understanding JASON KEENE RN - 08/13/2020 7:52 EDT General Info Legal Guardian : No Support Person/Pt Rep Name : Tonie radford, spouse Support Person/Pt Rep Contact Information : [phone] Want Family/Rep/Phys Notified of Admit : No Emergency Contact #1 : . Emergency Contact #1 Phone Number : . Emergency Contact #1 Relationship : . Emergency Contact #2 : . Emergency Contact #2 Phone Number : . Emergency Contact #2 Relationship : . Primary Language : Thai Preferred Communication Mode : Verbal Communication Barrier : None Director Telemetry Needed : No JASON KEENE RN - 08/13/2020 7:52 EDT Sleep Apnea Risk Assmt BiPAP/CPAP Ordered for Home Use : Yes Hx of Obstructive Sleep Apnea Diagnosis : Yes BiPAP/CPAP Used at Home : Yes Age over 50 Years Old : Yes Gender Male : Yes JASON KEENE RN - 08/13/2020 7:52 EDT Edis Scale Edis Sensory Perception : No impairment Edis Moisture : Rarely moist Edis Activity : Walks frequently Edis Mobility : No limitation Edis Nutrition : Adequate Edis Friction and Shear : No apparent problem Edis Score : 22 JASON KEENE RN - 08/13/2020 7:52 EDT Pain Assessment Pain Assessment : Initial assessment Pain Scale Used : 0-10 Scale JASON KEENE RN - 08/13/2020 7:52 EDT Fall Risk Scales ABCs Fall Injury Risk Identification : None JEFFERY Hx Falls Immediate/Within 3 Months : No [place] Secondary Diagnosis : Yes JEFFERY Use of Ambulatory Aid : None JEFFERY IV Therapy or IV Access : Yes [place] Gait/Transferring : Normal, bedrest, immobile [place]ery Mental Status : Oriented to own ability [place] Fall Risk Score : 35 JEFFERY Fall Scale Risk Level : 25-45 Medium Risk [place] Fall Interventions : Adequate lighting, Assistive devices within reach, Bed in low position, Personal items within reach, Reinforced to call for assistance before getting out of bed JASON KEENE RN - 08/13/2020 7:52 EDT Valuables and Belongings Valuables and Belongings : Clothing Clothing : Common streetwear Clothing Disposition : Bedside JASON KEENE RN - 08/13/2020 7:52 EDT Pain Scale Intensity : 0 JASON KEENE RN - 08/13/2020 7:52 EDT Image 4 - Images currently included in the form version of this document have not been included in the text rendition version of the form. Electronically signed by Teja, [facility] Conversion Inspector Assembly Cerner at 06/03/2022 12:48 PM CDT documented in this encounter Plan of Treatment Not on file documented as of this encounter Visit Diagnoses Not on filedocumented in this encounter Care Teams Senior Quantity Surveyor Relationship Specialty Start Date End Date Barrett Devlin MD [address] [place] [address] PCP - General General Internal Medicine 12/29/21 Mary Kiran, ALUMINA REFINERY OPERATOR [address] [facility] [address] [place] [address] Cardiology 08/23/23 documented as of this encounter
--- OUTSIDE RECORDS SUMMARY | 2024-08-07 13:14 | XMS_ITS | Encounter Summary ---
Author Organization [employer] Address [address] [place] [address] Care Team Providers Care Vp Biology Name Role Phone Barrett Devlin MD Primary Care Provider [phone] Mary Kiran RATE EXAMINER Unavailable [phone] Encounter Details Date Type Department Care Team (Late st Contact Info) Description 02/10/2019 Transcribed Document [facility] [place] [address] Alejandrina Turk MD [address] [place] [address] Social History Tobacco Use Types Packs/Day Years Used Date Smoking Tobacco: Never Assessed Sex and Gender Information Value Date Recorded Sex Assigned at Not on file Legal Sex Male 6:49 PM CDT Gender Identity Not on file Sexual Orientation Not on file documented as of this encounter Miscellaneous Notes * Cerner Conversion Note - Alejandrina Tukr MD - 02/10/2019 11:14 AM [employer]OD [employer] FARM HAND Nursing Discharge Summary Entered On: 02/10/2019 11:14 EST Performed On: 02/10/2019 11:14 EST by MARTHA CHAVARRIA RN Discharge Documentation Discharge Date/Time : 02/10/2019 11:14 EST Patient Disposition, General : Discharge Discharge To : Home with ambulatory/outpatient follow-up Mode Of Departure, General Discharge : Private vehicle Accompanied By, Discharge : Spouse IV Discontinued : Yes Medications Given to Patient : No Personal Belongings With Patient : Yes Pt's Own Supply of Medications Returned : No Prescriptions Given to Patient : Electronically sent Discharge Instructions Reviewed With, Opportunity For Questions Given : Patient, Spouse Patient Education Completed : Yes Teaching Method : Explanation Teaching Evaluation : Verbalizes understanding MARTHA CHAVARRIA RN - 02/10/2019 11:14 EST Electronically signed by Teja [facility] Conversion Physical Therapy Assistant Instructor Cerner at 06/03/2022 12:15 PM CDT documented in this encounter Plan of Treatment Not on file documented as of this encounter Visit Diagnoses Not on filedocumented in this encounter Care Teams Vp Biology Relationship Specialty Start Date End Date Barrett Devlin MD [address] [place] [address] PCP - General General Internal Medicine 12/29/21 Mary Kiran, RATE EXAMINER [address] [facility] [address] [place] [address] Cardiology 08/23/23 documented as of this encounter
--- OUTSIDE RECORDS SUMMARY | 2024-08-07 13:14 | XMS_ITS | Encounter Summary ---
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 Name Role Phone Barrett Devlin MD Primary Care Provider [phone] Mary Kiran CONSULTING SERVICES ASSOCIATE Unavailable [phone] Encounter Details Date Type Department Care Team (Late st Contact Info) Description 02/10/2019 Transcribed Document [facility] Family Medicine [address] [place] [address] Alejandrina Turk MD [address] [place] [id number] Social History Tobacco Use Types Packs/Day Years Used Date Smoking Tobacco: Never Assessed Sex and Gender Information Value Date Recorded Sex Assigned at Not on file Legal Sex Male 6:49 PM CDT Gender Identity Not on file Sexual Orientation Not on file documented as of this encounter Miscellaneous Notes * Cerner Conversion Note - Alejandrina Turk MD - 02/10/2019 11:21 AM 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 [address] ESAU RADFORD :1950 Visit Time:02/07/2019 Your Visit Summary Your Care Team Admitting Physician - DARIUSZ CABRERA MD PHY, UNKNOWN BRIANA AGUILERA MD Attending Physician - DARIUSZ CABRERA MD SLOAN, MARK, MD Primary Care Physician - BARRETT DEVLIN (REF), -INT Referring Physician - BRIANA AGUILERA MD Your Diagnosis Atrial fibrillation, new onset Bradycardia Syncope, Syncope and collapse, Syncope and collapse Syncope/Near syncope Discharge Vitals Heart Rate (Monitored) 64 Blood Pressure 142/94 What to do next Instructions From Your Care Team Community Services: [facility] @ [address] [place] [address] . They have your information & will be making contact with you about your appointment time. Thank you. Please STOP taking Labetalol and Lovastatin NO LIFTING MORE THAN 5 POUNDS FOR ONE WEEK !!! DO NOT SUBMERGE AFFECTED ARM AND LEG FOR THREE DAYS!! DO NOT APPLY ANY OINTMENTS TO SITE !!! IF DRESSING BECOMES WET TAKE OFF AND LEAVE SITE OPEN TO AIR!!! NO DRIVING UNTIL EPISODES RESOLVED!!! 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 Where: [address] [place] [address] [address] [place] [address]- Business (1) Medications What How Much When Instructions Next Dose apixaban (apixaban 5 mg oral tablet) 1 Tablet(s) Oral Interval Every 12 Hours Pickup at [facility] [place], [place] atorvastatin (atorvastatin 10 mg oral tablet) 0.5 Tablet(s) Oral At Bedtime Pickup at [facility] [place] cyanocobalamin (cyanocobalamin 1000 mcg oral tablet, extended release) 1 Tablet(s) Oral Every Day Pickup at [facility] [place] metoprolol (Metoprolol Tartrate 25 mg oral tablet) 0.5 Tablet(s) Oral Two Times A Day Pickup at [facility] [place] canagliflozin (Invokana 300 mg oral tablet) 1 Tablet(s) Oral Every Day dilTIAZem (Dilt-XR 240 mg/ 24 hours oral capsule, extended release) 1 Capsule(s) Oral Every Day lisinopril (lisinopril 40 mg oral tablet) 1 Tablet(s) Oral Every Day metFORMIN (metFORMIN 1000 mg oral tablet) 1 Tablet(s) Oral Two Times A Day potassium chloride (potassium chloride 10 mEq oral tablet, extended release) 2 Tablet(s) Oral Every Day sildenafil (sildenafil 20 mg oral tablet) 3 Tablet(s) Oral Every Day as needed for Other (See Comment) use as directed aspirin (aspirin 81 mg oral delayed release tablet) 1 Tablet(s) Oral Every Day cloNIDine (clonidine 0.1 mg oral tablet) 1 Tablet(s) Oral Three Times A Day spironolactone (spironolactone 25 mg oral tablet) 1 Tablet(s) Oral Every Day Pharmacy Information [facility] [place], [place]: [address] [facility] [address] [phone] Take your medications faithfully. Do NOT skip [...] This Visit No Immunizations Found Education Materials Syncope Syncope is when you lose temporarily pass out (faint). Signs that you may be about to pass out include: ??? Feeling dizzy or light-headed. ??? Feeling sick to your stomach (nauseous). ??? Seeing all white or all black. ??? Having cold, clammy skin. If you passed out, get help right away. Call your local emergency services (911 in the [place] Do not drive yourself to the hospital. Follow these instructions at home: Pay attention to any changes in your symptoms. Take these actions to help with your condition: ??? Have someone stay with you until you feel stable. ??? Do not drive, use machinery, or play sports until your doctor says it is okay. ??? Keep all follow-up visits as told by your doctor. This is important. ??? If you start to feel like you might pass out, lie down right away and raise (elevate) your feet above the level of your heart. Breathe deeply and steadily. Wait until all of the symptoms are gone. ??? Drink enough fluid to keep your pee (urine) clear or pale yellow. ??? If you are taking blood pressure or heart medicine, get up slowly and spend many minutes getting ready to sit and then stand. This can help with dizziness. ??? Take ttzj-zad-niuhffu and prescription medicines only as told by your doctor. Get help right away if: ??? You have a very bad headache. ??? You have unusual pain in your chest, tummy, or back. ??? You are bleeding from your mouth or rectum. ??? You have black or tarry poop (stool). ??? You have a very fast or uneven heartbeat (palpitations). ??? It hurts to breathe. ??? You pass out once or more than once. ??? You have jerky movements that you cannot control (seizure). ??? You are confused. ??? You have trouble walking. ??? You are very weak. ??? You have vision problems. These symptoms may be an emergency. Do [...] with your health care provider. Document Released: 07/19/2008 Document Revised: 07/08/2016 Document Reviewed: 10/15/2015 [employer] Interactive Patient Education ?? 2019 [employer] Fall Prevention in the Home, Adult Falls can cause injuries. They can happen to people of all ages. There are many things you can do to make your home safe and to help prevent falls. Ask for help when making these changes, if needed. What actions can I take to prevent falls? General Instructions ??? Use good lighting in all rooms. Replace any light bulbs that burn out. ??? Turn on the lights when you go into a dark area. Use night-lights. ??? Keep items that you use often in elux-oc-mtmzs places. Lower the shelves around your home if necessary. ??? Set up your furniture so you have a clear path. Avoid moving your furniture around. ??? Do not have throw rugs and other things on the floor that can make you trip. ??? Avoid walking on wet floors. ??? If any of your floors are uneven, fix them. ??? Add color or contrast paint or tape to clearly briana and help you see: ? Any grab bars or handrails. ? First and last steps of stairways. ? Where the edge of each step is. ??? If you use a stepladder: ? Make sure that it is fully opened. Do not climb a closed stepladder. ? Make sure that both sides of the stepladder are locked into place. ? Ask someone to hold the stepladder for you while you use it. ??? If there are any pets around you, be aware of where they are. What can I do in the bathroom? Keep the floor dry. Clean up any water that spills onto the floor as soon as it happens. ??? Remove soap buildup in the tub or shower regularly. ??? Use non-skid mats or decals on the floor of the tub or shower. ??? Attach bath mats securely with double-sided, non-slip rug tape. ??? If you need to sit down in the shower, use a plastic, non-slip stool. ??? Install grab bars by the toilet and in the tub and shower. Do not use towel bars as grab bars. What can I do in the bedroom? Make sure that you have a light by your bed that is easy to reach. ??? Do not use any sheets or blankets that are too big for your bed. They should not hang down onto the floor. ??? Have a firm chair that has side arms. You can use this for support while you get dressed. What can I do in the kitchen? Clean up any spills right away. ??? If you need to reach something above you, use a strong step stool that has a grab bar. ??? Keep electrical cords out of the way. ??? Do not use floor jordanian or wax that makes floors slippery. If you must use wax, use non-skid floor wax. What can I do with my stairs? Do not leave any items on the stairs. ??? Make sure that you have a light switch at the top of the stairs and the bottom of the stairs. If you do not have them, ask someone to add them for you. ??? Make sure that there are handrails on both sides of the stairs, and use them. Fix handrails that are broken or loose. Make sure that handrails are as long as the stairways. ??? Install non-slip stair treads on all stairs in your home. ??? Avoid having throw rugs at the top or bottom of the stairs. If you do have throw rugs, attach them to the floor with carpet tape. ??? Choose a carpet that does not hide the edge of the steps on the stairway. ??? Check any carpeting to make sure that it is firmly attached to the stairs. Fix any carpet that is loose or worn. What can I do on the outside of my home? Use bright outdoor lighting. ??? Regularly fix the edges of walkways and driveways and fix any cracks. ??? Remove anything that might make you trip as you walk through a door, such as a raised step or threshold. ??? Trim any bushes or trees on the path to your home. ??? Regularly check to see if handrails are loose or broken. Make sure that both sides of any steps have handrails. ??? Install guardrails along the edges of any raised decks and porches. ??? Clear walking paths of anything that might make someone trip, such as tools or rocks. ??? Have any leaves, snow, or ice cleared regularly. ??? Use sand or salt on walking paths during winter. ??? Clean up any spills in your garage right away. This includes grease or oil spills. What other actions can I take? Wear shoes that: ? Have a low heel. Do not wear high heels. ? Have rubber bottoms. ? Are comfortable and fit you well. ? Are closed at the toe. Do not wear open-toe sandals. ??? Use tools that help you move around (mobility aids) if they are needed. These include: ? Canes. ? Walkers. ? Scooters. ? Crutches. ??? Review your medicines with your doctor. Some medicines can make you feel dizzy. This can increase your chance of falling. Ask your doctor what other things you can do to help prevent falls. Where to find more information ??? Centers for Disease Control and Prevention, [employer]AD[employer]: https://cdc.gov ??? National [place] on Aging: https://up7gcld.helen.nih.gov Contact a doctor if: ??? You are afraid of falling at home. ??? You feel weak, drowsy, or dizzy at home. ??? You fall at home. Summary ??? There are many simple things that you can do to make your home safe and to help prevent falls. ??? Ways to make your home safe include removing tripping hazards and installing grab bars in the bathroom. ??? Ask for help when making these changes in your home. This information is not intended to replace advice given to you by your health care provider. Make sure you discuss any questions you have with your health care provider. Document Released: 11/27/2009 Document Revised: 09/15/2017 Document Reviewed: 09/15/2017 [employer] Interactive Patient Education ?? 2019 [employer] Radial Site Care Refer to this sheet in the next few weeks. These instructions provide you with information about [...] the procedure? After your procedure, it is typical to have the following: ??? Bruising at the radial site that usually fades within 1???2 weeks. ??? Blood collecting in the tissue (hematoma) that may be painful to the touch. It should usually decrease in size and tenderness within 1???2 weeks. Follow these instructions at home: ??? Take medicines only as directed by your health care provider. ??? You may shower 24???48 hours after the procedure or as directed by your health care provider. Remove the bandage (dressing) and gently wash the site with plain soap and water. Pat the area dry with a clean towel. Do not rub the site, because this may cause bleeding. ??? Do not take baths, swim, or use a hot tub until your health care provider approves. ??? Check your insertion site every day for redness, swelling, or drainage. ??? Do not apply powder or lotion to the site. ??? Do not flex or bend the affected arm for 24 hours or as directed by your health care provider. ??? Do not push or pull heavy objects with the affected arm for 24 hours or as directed by your health care provider. ??? Do not lift over 10 lb (4.5 kg) for 5 days after your procedure or as directed by your health care provider. ??? Ask your health care provider when it is okay to: ? Return to work or school. ? Resume usual physical activities or sports. ? Resume sexual activity. ??? Do not drive home if you are discharged the same day as the procedure. Have someone else drive you. ??? You may drive 24 hours after the procedure unless otherwise instructed by your health care provider. ??? Do not operate machinery or power tools for 24 hours after the procedure. ??? If your procedure was done as an outpatient procedure, which means that you went home the same day as your procedure, a responsible adult should be with you for the first 24 hours after you arrive home. ??? Keep all follow-up visits as directed by your health care provider. This is important. Contact a health care provider if: ??? You have a fever. ??? You have chills. ??? You have increased bleeding from the radial site. Hold pressure on the site. Get help right away if: ??? You have unusual pain at the radial site. ??? You have redness, warmth, or swelling at the radial site. ??? You have drainage (other than a small amount of blood on the dressing) from the radial site. ??? The radial site is bleeding, and the bleeding does not stop after 30 minutes of holding steady pressure on the site. ??? Your arm or hand becomes pale, cool, tingly, or numb. This information is not intended to replace advice given to you by your health care provider. Make sure you discuss any questions you have with your health care provider. Document Released: 03/05/2011 Document Revised: 07/08/2016 Document Reviewed: 08/19/2014 [employer] Interactive Patient Education ?? 2019 [employer]. Angiogram, Care After This sheet gives you information about how to care for yourself after your procedure. Your doctor may also give you more specific instructions. If you have problems or questions, contact your doctor. Follow these instructions at home: Insertion site care ??? Follow instructions from your doctor about how to take care of your long, thin tube (catheter) insertion area. Make sure you: ? Wash your hands with soap and water before you change your bandage (dressing). If you cannot use soap and water, use hand baggage and mail agent. ? Change your bandage as told by your doctor. ? Leave stitches (sutures), skin glue, or skin tape (adhesive) strips in place. They may need to stay in place for 2 weeks or longer. If tape strips get loose and curl up, you may trim the loose edges. Do not remove tape strips completely unless your doctor says it is okay. ??? Do not take baths, swim, or use a hot tub until your doctor says it is okay. ??? You may shower 24???48 hours after the procedure or as told by your doctor. ? Gently wash the area with plain soap and water. ? Pat the area dry with a clean towel. ? Do not rub the area. This may cause bleeding. ??? Do not apply powder or lotion to the area. Keep the area clean and dry. ??? Check your insertion area every day for signs of infection. Check for: ? More redness, swelling, or pain. ? Fluid or blood. ? Warmth. ? Pus or a bad smell. Activity ??? Rest as told by your doctor, usually for 1???2 days. ??? Do not lift anything that is heavier than 10 lbs. (4.5 kg) or as told by your doctor. ??? Do not drive for 24 hours if you were given a medicine to help you relax (sedative). ??? Do not drive or use heavy machinery while taking prescription pain medicine. General instructions ??? Go back to your normal activities as told by your doctor, usually in about a week. Ask your doctor what activities are safe for you. ??? If the insertion area starts to bleed, lie flat and put pressure on the area. If the bleeding does not stop, get help right away. This is an emergency. ??? Drink enough fluid to keep your pee (urine) clear or pale yellow. ??? Take lfjh-kpq-cojehxh and prescription medicines only as told by your doctor. ??? Keep all follow-up visits as told by your doctor. This is important. Contact a doctor if: ??? You have a fever. ??? You have chills. ??? You have more redness, swelling, or pain around your insertion area. ??? You have fluid or blood coming from your insertion area. ??? The insertion area feels warm to the touch. ??? You have pus or a bad smell coming from your insertion area. ??? You have more bruising around the insertion area. ??? Blood collects in the tissue around the insertion area (hematoma) that may be painful to the touch. Get help right away if: ??? You have a lot of pain in the insertion area. ??? The insertion area swells very fast. ??? The insertion area is bleeding, and the bleeding does not stop after holding steady pressure on the area. ??? The area near or just beyond the insertion area becomes pale, cool, tingly, or numb. These symptoms may be an emergency. Do not wait to see if the symptoms will go away. Get medical help right away. Call your local emergency services (911 in the [place] Do not drive yourself to the hospital. Summary ??? After the procedure, it is common to have bruising and tenderness at the long, thin tube insertion area. ??? After the procedure, it is important to rest and drink plenty of fluids. ??? Do not take baths, swim, or use a hot tub until your doctor says it is okay to do so. You may shower 24???48 hours after the procedure or as told by your doctor. ??? If the insertion area starts to bleed, lie flat and put pressure on the area. If the bleeding does not stop, get help right away. This is an emergency. This information is not intended to replace advice given to you by your health care provider. Make sure you discuss any questions you have with your health care provider. Document Released: 04/29/2009 Document Revised: 01/25/2017 Document Reviewed: 01/25/2017 [employer] Interactive Patient Education ?? 2019 [employer]. Aspirin and Your Heart Aspirin is a medicine that affects the way blood clots. Aspirin can be used to help reduce the risk of blood clots, heart attacks, and other heart-related problems. Should I take aspirin? Your health care provider will help you determine whether it is safe and beneficial for you to take aspirin daily. Taking aspirin daily may be beneficial if you: ??? Have had a heart attack or chest pain. ??? Have undergone open heart surgery such as coronary artery bypass surgery (CABG). ??? Have had coronary angioplasty. ??? Have experienced a stroke or transient ischemic attack (TIA). ??? Have peripheral vascular disease (PVD). ??? Have chronic heart rhythm problems such as atrial fibrillation. Are there any risks of taking aspirin daily? Daily use of aspirin can increase your risk of side effects. Some of these include: ??? Bleeding. Bleeding problems can be minor or serious. An example of a minor problem is a cut that does not stop bleeding. An example of a more serious problem is stomach bleeding or bleeding into the brain. Your risk of bleeding is increased if you are also taking non-steroidal anti-inflammatory medicine (NSAIDs). ??? Increased bruising. ??? Upset stomach. ??? An allergic reaction. People who have nasal polyps have an increased risk of developing an aspirin allergy. What are some guidelines I should follow when taking aspirin? Take aspirin only as directed by your health care provider. Make sure you understand how much you should take and what form you should take. The two forms of aspirin are: ? Ejk-jlugrqw-fftkni. This type of aspirin does not have a coating and is absorbed quickly. Eon-cjmkbpq-hstosd aspirin is usually recommended for people with chest pain. This type of aspirin also comes in a chewable form. ? Enteric-coated. This type of aspirin has a special coating that releases the medicine very slowly. Enteric-coated aspirin causes less stomach upset than vuw-hlfrxtj-pychhj aspirin. This type of aspirin should not be chewed or crushed. ??? Drink alcohol in moderation. Drinking alcohol increases your risk of bleeding. When should I seek medical care? You have unusual bleeding or bruising. ??? You have stomach pain. ??? You have an allergic reaction. Symptoms of an allergic reaction include: ? Hives. ? Itchy skin. ? Swelling of the lips, tongue, or face. ??? You have ringing in your ears. When should I seek immediate medical care? Your bowel movements are bloody, dark red, or black in color. ??? You vomit or cough up blood. ??? You have blood in your urine. ??? You cough, wheeze, or feel short of breath. If you have any of the following symptoms, this is an emergency. Do not wait to see if the pain will go away. Get medical help at once. Call your local emergency services (911 in the [place] Do not drive yourself to the hospital. ??? You have severe chest pain, especially if the pain is crushing or pressure-like and spreads to the arms, back, neck, or jaw. ??? You have stroke-like symptoms, such as: ? Loss of vision. ? Difficulty talking. ? Numbness or weakness on one side of your body. ? Numbness or weakness in your arm or leg. ? Not thinking clearly or feeling confused. This information is not intended to replace advice given to you by your health care provider. Make sure you discuss any questions you have with your health care provider. Document Released: 01/13/2009 Document Revised: 06/09/2016 Document Reviewed: 05/08/2014 [employer] Interactive Patient Education ?? 2018 [employer]. atorvastatin (a TOR va sta tin) Lipitor What is the most important information I should know about atorvastatin? You should not take atorvastatin if you are or breast-feeding, or if you have liver disease. Stop taking this medication and tell your doctor right away if you become . Tell your doctor about all your current medicines and any you start or stop using. Many drugs can interact, and some drugs should not be used together. Atorvastatin can cause the breakdown of muscle tissue, which can lead to kidney failure. Call your doctor right away if you have unexplained muscle pain, tenderness, or weakness especially if you also have fever, unusual tiredness, or dark urine. What is atorvastatin? Atorvastatin is used together with diet to lower blood levels of 'bad' cholesterol (low-density lipoprotein, or LDL), to increase levels of 'good' cholesterol (high-density lipoprotein, or HDL), and to lower triglycerides (a type of fat in the blood). Atorvastatin is used to treat high cholesterol, and to lower the risk of stroke, heart attack, or other heart complications in people with type 2 diabetes, coronary heart disease, or other risk factors. Atorvastatin is used in adults and children who are at least 10 years old. Atorvastatin may also be used for purposes not listed in this medication guide. What should I discuss with my healthcare provider before taking atorvastatin? You should not use atorvastatin if you are allergic to it, or if you have: ?? liver disease; or ?? if you are or breast-feeding. This medicine can harm an unborn baby or cause defects. Do not use if you are . Stop taking atorvastatin and tell your doctor right away if you become Use effective control to prevent while you are taking this medicine. Do not breast-feed while you are taking atorvastatin. Tell your doctor if you have ever had: ?? liver problems; ?? muscle pain or weakness; ?? kidney disease; ?? diabetes; ?? a thyroid disorder; or ?? if you drink more than 2 alcoholic beverages daily. Atorvastatin can cause the breakdown of muscle tissue, which can lead to kidney failure. This happens more often in women, in older adults, or people who have kidney disease or poorly controlled hypothyroidism (underactive thyroid). Atorvastatin is not approved for use by anyone younger than 10 years old. How should I take atorvastatin? Follow all directions on your prescription label and read all medication guides or instruction sheets. Your doctor may occasionally change your dose. Use the medicine exactly as directed. Take the medicine at the same time each day, with or without food. Do not break an atorvastatin tablet before taking it. You may need to stop using atorvastatin for a short time if you have: ?? uncontrolled seizures; ?? an electrolyte imbalance (such as high or low potassium levels in your blood); ?? severely low blood pressure; ?? a severe infection or illness; or ?? surgery or a medical emergency. It may take up to 2 weeks before your cholesterol levels improve, and you may need frequent blood tests. Even if you have no symptoms, tests can help your doctor determine if this medicine is effective. Atorvastatin is only part of a complete treatment program that may also include diet, exercise, and weight control. Follow your doctor's instructions very closely. Store at room temperature away from moisture, heat, and light. What happens if I miss a dose? Use the medicine as soon as you can, but skip the missed dose if you are more than 12 hours late for the dose. Do not use two doses at one time. What happens if I overdose? Seek emergency medical attention or call the Poison Help line at . What should I avoid while taking atorvastatin? Avoid eating foods high in fat or cholesterol, or atorvastatin will not be as effective. Avoid drinking alcohol. It can raise triglyceride levels and may increase your risk of liver damage. Grapefruit may interact with atorvastatin and lead to unwanted side effects. Avoid drinking more than 1 liter of grapefruit juice while taking atorvastatin. What are the possible side effects of atorvastatin? Get emergency medical help if you have signs of an allergic reaction: hives; difficulty breathing; swelling of your face, lips, tongue, or throat. In rare cases, atorvastatin can cause a condition that results in the breakdown of skeletal muscle tissue, leading to kidney failure. Call your doctor right away if you have unexplained muscle pain, tenderness, or weakness especially if you also have fever, unusual tiredness, and dark colored urine. Also call your doctor at once if you have: ?? pain or burning when you urinate; ?? liver problems--upper stomach pain, weakness, tired feeling, loss of appetite, dark urine, jaundice (yellowing of the skin or eyes); or ?? kidney problems--little or no urinating, swelling in your feet or ankles, feeling tired or short of breath. Common side effects may include: ?? joint pain; ?? stuffy nose, sore throat; ?? diarrhea; or ?? pain in your arms or legs. This is not a complete list of side effects and others may occur. Call your doctor for medical advice about side effects. You may report side effects to FDA at 4-429-JGM-2762. What other drugs will affect atorvastatin? Certain other drugs can increase your risk of serious muscle problems, and it is very important that your doctor knows if you are using any of them. Tell your doctor about all your current medicines and any you start or stop using, especially: ?? antibiotic or antifungal medicine; ?? control pills; ?? other cholesterol-lowering medication; ?? heart medication; or ?? medicine to treat HIV or AIDS. This list is not complete. Other drugs may affect atorvastatin, including prescription and cfet-sly-uacetgk medicines, vitamins, and herbal products. Not all possible drug interactions are listed here. Where can I get more information? Your pharmacist can provide more information about atorvastatin. Remember, keep this and all other medicines out of the reach of children, never share your medicines with others, and use this medication only for the indication prescribed. Every effort has been made to ensure that the information provided by [employer]. ('[employer]') is accurate, up-to-date, and complete, but no guarantee is made to that effect. Drug information contained herein may be time sensitive. [employer] information has been compiled for use by healthcare practitioners and consumers in the [place] and therefore [employer] does not warrant that uses outside of the [place] are appropriate, unless specifically indicated otherwise. [facility] drug information does not endorse drugs, diagnose patients or recommend therapy. [employer] drug information is an informational resource designed [...] effective or appropriate for any given patient. [employer] does not assume any responsibility for any aspect of healthcare administered with the aid of information [employer] provides. The information contained herein is not intended to cover all possible uses, directions, precautions, warnings, drug interactions, allergic reactions, or adverse effects. If you have questions about the drugs you are taking, check with your doctor, nurse or pharmacist. Copyright 4378-9981 [employer]. Version: 20.02. Revision Date: 11/10/2018. apixaban (a PIX a ban) Alejandro What is the most important information I should know about apixaban? Apixaban increases your risk of severe or fatal bleeding, especially if you take certain medicines at the same time (including some cygf-epk-ohnmria medicines). It is very important to tell your doctor about all medicines you have recently used. Call your doctor at once if you have signs of bleeding such as: swelling, pain, feeling very weak or dizzy, bleeding gums, nosebleeds, heavy menstrual periods or abnormal vaginal bleeding, blood in your urine, bloody or tarry stools, coughing up blood or vomit that looks like coffee grounds, or any bleeding that will not stop. Apixaban can cause a very serious blood clot around your spinal cord if you undergo a spinal tap or receive spinal anesthesia (epidural), especially if you have a genetic spinal defect, if you have a spinal catheter in place, if you have a history of spinal surgery or repeated spinal taps, or if you are also using other drugs that can affect blood clotting. This type of blood clot can lead to long-term or permanent paralysis. Get emergency medical help if you have symptoms of a spinal cord blood clot such as back pain, numbness or muscle weakness in your lower body, or loss of bladder or bowel control. Do not stop taking apixaban unless your doctor tells you to. Stopping suddenly can increase your risk of blood clot or stroke. What is apixaban? Apixaban is used to lower the risk of stroke caused by a blood clot in people with a heart rhythm disorder called atrial fibrillation. Apixaban is also used after hip or knee replacement surgery to prevent a type of blood clot called deep vein thrombosis (DVT), which can lead to blood clots in the lungs (pulmonary embolism). Apixaban is also used to treat DVT or pulmonary embolism (PE), and to lower your risk of having a repeat DVT or PE. Apixaban may also be used for purposes not listed in this medication guide. What should I discuss with my healthcare provider before taking apixaban? You should not take apixaban if you are allergic to it, or if you have active bleeding from a surgery, injury, or other cause. Apixaban may cause you to bleed more easily, especially if you have a bleeding disorder that is inherited or caused by disease. Tell your doctor if you have an artificial heart valve, or if you have ever had: ?? liver or kidney disease; ?? if you are older than 80; or ?? if you weigh less than 132 pounds (60 kilograms). Apixaban can cause a very serious blood clot around your spinal cord if you undergo a spinal tap or receive spinal anesthesia (epidural). This type of blood clot could cause long-term paralysis, and may be more likely to occur if: ?? you have a spinal catheter in place or if a catheter has been recently removed; ?? you have a history of spinal surgery or repeated spinal taps; ?? you have recently had a spinal tap or epidural anesthesia; ?? you are taking an NSAID (nonsteroidal anti-inflammatory drug)--aspirin, ibuprofen (Advil, Motrin), naproxen (Aleve), diclofenac, indomethacin, meloxicam, and others; or ?? you are using other medicines to treat or prevent blood clots. Taking apixaban may increase the risk of bleeding while you are or during your delivery. Tell your doctor if you are or plan to become . You should not breast-feed while using this medicine. How should I take apixaban? Follow all directions on your prescription label and read all medication guides or instruction sheets. Your doctor may occasionally change your dose. Use the medicine exactly as directed. You may take apixaban with or without food. If you cannot swallow a tablet whole, crush and mix it with water, apple juice, or a spoonful of applesauce. Swallow the mixture right away without chewing. Do not save it for later use. A crushed tablet mixture may also be given through a nasogastric (NG) feeding tube. Read and carefully follow any Instructions for Use provided with your medicine. Ask your doctor or pharmacist if you do not understand these instructions. Apixaban can make it easier for you to bleed, even from a minor injury. Seek medical attention if you have bleeding that will not stop. If you need surgery or dental work, tell the doctor or dentist ahead of time if you have taken apixaban within the past 24 hours. You may need to stop taking apixaban for a short time. Do not stop taking apixaban unless your doctor tells you to. Stopping suddenly can increase your risk of blood clot or stroke. If you stop taking apixaban for any reason, your doctor may prescribe another medication to prevent blood clots until you start taking apixaban again. Store at room temperature away from moisture and heat. What happens if I miss a dose? Take the missed dose on the same day you remember it. Take your next dose at the regular time and stay on your twice-daily schedule. Do not take two doses at one time. Get your prescription refilled before you run out of medicine completely. What happens if I overdose? Seek emergency medical attention or call the Poison Help line at . What should I avoid while taking apixaban? Avoid activities that may increase your risk of bleeding or injury. Use extra care to prevent bleeding while shaving or brushing your teeth. What are the possible side effects of apixaban? Get emergency medical help if you have signs of an allergic reaction: hives; chest pain, wheezing, difficult breathing; feeling light-headed; swelling of your face, lips, tongue, or throat. Also seek emergency medical attention if you have symptoms of a spinal blood clot: back pain, numbness or muscle weakness in your lower body, or loss of bladder or bowel control. Call your doctor at once if you have: ?? easy bruising, unusual bleeding (nose, mouth, vagina, or rectum), bleeding from wounds or needle injections, any bleeding that will not stop; ?? heavy menstrual periods; ?? headache, dizziness, weakness, feeling like you might pass out; ?? urine that looks red, pink, or brown; or ?? black or bloody stools, coughing up blood or vomit that looks like coffee grounds. This is not a complete list of side effects and others may occur. Call your doctor for medical advice about side effects. You may report side effects to FDA at 3-269-QYC-9407. What other drugs will affect apixaban? Sometimes it is not safe to use certain medications at the same time. Some drugs can affect your blood levels of other drugs you take, which may increase side effects or make the medications less effective. Many other drugs (including some pkuw-zau-ubvaipo medicines) can increase your risk of bleeding or blood clots, or your risk of developing blood clots around the brain or spinal cord during a spinal tap or epidural. It is very important to tell your doctor about all medicines you have recently used, especially: ?? any other medicines to treat or prevent blood clots; ?? a blood thinner such as heparin or warfarin (Coumadin, Jantoven); ?? an antidepressant; or ?? an NSAID (nonsteroidal anti-inflammatory drug) used long term care pharmacist. This list is not complete and many other drugs may affect apixaban. This includes prescription and hwos-npr-pjvjiut medicines, vitamins, and herbal products. Not all possible drug interactions are listed here. Where can I get more information? Your pharmacist can provide more information about apixaban. Remember, keep this and all other medicines out of the reach of children, never share your medicines with others, and use this medication only for the indication prescribed. Every effort has been made to ensure that the information provided by [employer]') is accurate, up-to-date, and complete, but no guarantee is made to that effect. Drug information contained herein may be time sensitive. [employer] information has been compiled for use by healthcare practitioners and consumers in the [place] and therefore [employer] does not warrant that uses outside of the [place] are appropriate, unless specifically indicated otherwise. [employer] drug information does not endorse drugs, diagnose patients or recommend therapy. [facility] drug information is an informational resource designed [...] effective or appropriate for any given patient. [employer] does not assume any responsibility for any aspect of healthcare administered with the aid of information [employer] provides. The information contained herein is not intended to cover all possible uses, directions, precautions, warnings, drug interactions, allergic reactions, or adverse effects. If you have questions about the drugs you are taking, check with your doctor, nurse or pharmacist. Copyright 2916-4963 [employer]. Version: 4.01. Revision Date: 08/04/2018. cyanocobalamin (oral) (serge LAWSON bhargav margaret BINH myla mai) B-12, Eligen B12, Vitamin B12 What is the most important information I should know about oral cyanocobalamin? You should not use this medicine if you are allergic to cobalt, or if you have Halima's disease. What is oral cyanocobalamin? Cyanocobalamin is a man-made form of vitamin B12. Vitamin B12 is important for growth, cell reproduction, blood formation, and protein and tissue synthesis. Cyanocobalamin is used to treat vitamin B12 deficiency in people with pernicious anemia and other conditions. Cyanocobalamin may also be used for purposes not listed in this medication guide. What should I discuss with my healthcare provider before taking oral cyanocobalamin? You should not use this medicine if you are allergic to cobalt, or if you have Halima's disease. Cyanocobalamin can lead to optic nerve damage (and possibly blindness) in people with Halima's disease. Tell your doctor if you have ever had: ?? heart disease; ?? diabetes; ?? a bleeding or blood clotting disorder; ?? gout; ?? an iron or folic acid deficiency; ?? low levels of potassium in your blood; or ?? an intestinal disorder such as ulcerative colitis. Tell your doctor if you are or breast-feeding. Do not give this medicine to a child without medical advice. How should I take oral cyanocobalamin? Follow all directions on your prescription label and read all medication guides or instruction sheets. Use the medicine exactly as directed. Carefully follow instructions about whether to take your cyanocobalamin with or without food. Your dose needs may change if you become , if you breast-feed, or if you eat a vegetarian diet. Tell your doctor about any changes in your diet or medical condition. Do not swallow a lozenge or sublingual tablet whole. Allow it to dissolve in your mouth without chewing. The sublingual tablet should be placed under your tongue. Do not crush, chew, or break an extended-release tablet. Swallow it whole with a full glass of water. You may need frequent medical tests to help your doctor determine how long to treat you with cyanocobalamin. To treat pernicious anemia, you will have to use cyanocobalamin on a regular basis for the rest of your life. Not using the medication can lead to irreversible nerve damage in your spinal cord. Pernicious anemia is also treated with folic acid to help maintain red blood cells. However, folic acid will not treat Vitamin B12 deficiency and will not prevent possible damage to the spinal cord. Take all of your medications as directed. Store at room temperature away from moisture, heat, and light. What happens if I miss a dose? Take the medicine as soon as you can, but skip the missed dose if it is almost time for your next dose. Do not take two doses at one time. What happens if I overdose? Seek emergency medical attention or call the Poison Help line at . What should I avoid while taking oral cyanocobalamin? Avoid drinking large amounts of alcohol. Heavy drinking can make it harder for your body to absorb cyanocobalamin. What are the possible side effects of oral cyanocobalamin? Get emergency medical help if you have signs of an allergic reaction: hives; difficulty breathing; swelling of your face, lips, tongue, or throat. Call your doctor at once if you have: ?? shortness of breath (even with mild exertion), swelling, rapid weight gain; ?? cough, chest pain; or ?? low potassium level--leg cramps, constipation, irregular heartbeats, fluttering in your chest, increased thirst or urination, numbness or tingling, muscle weakness or limp feeling. Common side effects may include diarrhea. ?? diarrhea; ?? numbness or tingling; ?? fever; ?? joint pain; ?? swollen tongue; or ?? itching or rash. This is not a complete list of side effects and others may occur. Call your doctor for medical advice about side effects. You may report side effects to FDA at 3-669-GAB-4729. What other drugs will affect oral cyanocobalamin? Tell your doctor about all your other medicines, especially: ?? an antibiotic; ?? drugs that weaken the immune system such as cancer medicine, or steroids; ?? medicine to reduce stomach acid such as cimetidine, omeprazole, lansoprazole, Nexium, Prilosec, or Zantac; ?? oral diabetes medicine that contains metformin; or ?? seizure medication. This list is not complete. Other drugs may affect cyanocobalamin, including prescription and dxgy-kdy-zqdjeiy medicines, vitamins, and herbal products. Not all possible drug interactions are listed here. Where can I get more information? Your pharmacist can provide more information about oral cyanocobalamin. Remember, keep this and all other medicines out of the reach of children, never share your medicines with others, and use this medication only for the indication prescribed. Every effort has been made to ensure that the information provided by [employer]. [employer]') is accurate, up-to-date, and complete, but no guarantee is made to that effect. Drug information contained herein may be time sensitive. [employer] information has been compiled for use by healthcare practitioners and consumers in the [place] and therefore [employer] does not warrant that uses outside of the [place] are appropriate, unless specifically indicated otherwise. [employer] drug information does not endorse drugs, diagnose patients or recommend therapy. [employer] drug information is an informational resource designed [...] effective or appropriate for any given patient. [employer] does not assume any responsibility for any aspect of healthcare administered with the aid of information [employer] provides. The information contained herein is not intended to cover all possible uses, directions, precautions, warnings, drug interactions, allergic reactions, or adverse effects. If you have questions about the drugs you are taking, check with your doctor, nurse or pharmacist. Copyright 0746-7380 [employer]. Version: 7.01. Revision Date: 08/29/2017. metoprolol (oral/injection) (me TOE pro lol) Kapspargo Sprinkle, Lopressor, Metoprolol Succinate ER, Metoprolol Tartrate, Toprol-XL What is the most important information I should know about metoprolol? You should not use this medicine if you have a serious heart problem (heart block, sick sinus syndrome, slow heart rate), severe circulation problems, severe heart failure, or a history of slow heart beats that caused fainting. What is metoprolol? Metoprolol is a beta-[place] that affects the heart and circulation (blood flow through arteries and veins). Metoprolol is used to treat angina (chest pain) and hypertension (high blood pressure). It is also used to lower your risk of or needing to be hospitalized for heart failure. Metoprolol injection is used during the early phase of a heart attack to lower the risk of . Metoprolol may also be used for other purposes not listed in this medication guide. What should I discuss with my healthcare provider before taking metoprolol? You should not use this medicine if you are allergic to metoprolol, or other beta-blockers (atenolol, carvedilol, labetalol, nadolol, nebivolol, propranolol, sotalol, and others), or if you have: ?? a serious heart problem such as heart block, sick sinus syndrome, or slow heart rate; ?? severe circulation problems; ?? severe heart failure (that required you to be in the hospital); or ?? a history of slow heart beats that have caused you to faint. Tell your doctor if you have ever had: ?? asthma, chronic obstructive pulmonary disease (COPD), sleep apnea, or other breathing disorder; ?? diabetes (taking metoprolol may make it harder for you to tell when you have low blood sugar); ?? liver disease; ?? congestive heart failure; ?? problems with circulation (such as Raynaud's syndrome); ?? a thyroid disorder; or ?? pheochromocytoma (tumor of the adrenal gland). Do not give this medicine to a child without medical advice. Tell your doctor if you are or plan to become . It is not known whether metoprolol will harm an unborn baby. However, having high blood pressure during may cause complications such as diabetes or eclampsia (dangerously high blood pressure that can lead to medical problems in both mother and baby). The benefit of treating hypertension may outweigh any risks to the baby. Ask a doctor before using this medicine if you are breast-feeding. Metoprolol can pass into breast milk and may cause dry skin, dry mouth, diarrhea, constipation, or slow heartbeats in your baby. How should I take metoprolol? Follow all directions on your prescription label and read all medication guides or instruction sheets. Your doctor may occasionally change your dose. Use the medicine exactly as directed. Metoprolol should be taken with a meal or just after a meal. Take the medicine at the same time each day. Swallow the capsule whole and do not crush, chew, break, or open it. A Toprol XL tablet can be divided in half if your doctor has told you to do so. Swallow the half-tablet whole, without chewing or crushing. Measure liquid medicine carefully. Use the dosing syringe provided, or use a medicine dose-measuring device (not a kitchen spoon). You will need frequent medical tests, and your blood pressure will need to be checked often. If you need surgery, tell the surgeon ahead of time that you are using metoprolol. You should not stop using metoprolol suddenly. Stopping suddenly may make your condition worse. If you have high blood pressure, keep using this medicine even if you feel well. High blood pressure often has no symptoms. You may need to use metoprolol for the rest of your life. Store at room temperature away from moisture and heat. Metoprolol injection is given as an infusion into a vein. A healthcare provider will give you this injection in a medical setting where your heart and blood pressure can be monitored. Metoprolol injections are given for only a short time before switching you to the oral form of this medicine. What happens if I miss a dose? Skip the missed dose and use your next dose at the regular time. Do not use two doses at one time. What happens if I overdose? Seek emergency medical attention or call the Poison Help line at . What should I avoid while taking metoprolol? Avoid driving or hazardous activity until you know how this medicine will affect you. Your reactions could be impaired. Drinking alcohol can increase certain side effects of metoprolol. What are the possible side effects of metoprolol? Get emergency medical help if you have signs of an allergic reaction: hives; difficulty breathing; swelling of your face, lips, tongue, or throat. Call your doctor at once if you have: ?? very slow heartbeats; ?? a light-headed feeling, like you might pass out; ?? shortness of breath (even with mild exertion), swelling, rapid weight gain; or ?? cold feeling in your hands and feet. Common side effects may include: ?? dizziness, tired feeling; ?? depression, confusion, memory problems; ?? nightmares, trouble sleeping; ?? diarrhea; or ?? mild itching or rash. This is not a complete list of side effects and others may occur. Call your doctor for medical advice about side effects. You may report side effects to FDA at 2-390-HHG-0103. What other drugs will affect metoprolol? Tell your doctor about all your current medicines. Many drugs can affect metoprolol, especially: ?? any other heart or blood pressure medications; ?? epinephrine (Epi-Pen); ?? an antidepressant; ?? an ergot medicine--dihydroergotamine, ergonovine, ergotamine, methylergonovine; or ?? an MAO inhibitor--isocarboxazid, linezolid, phenelzine, rasagiline, selegiline, tranylcypromine. This list is not complete and many other drugs may affect metoprolol. This includes prescription and lidz-lvj-alxcsig medicines, vitamins, and herbal products. Not all possible drug interactions are listed here. Where can I get more information? Your pharmacist can provide more information about metoprolol. Remember, keep this and all other medicines out of the reach of children, never share your medicines with others, and use this medication only for the indication prescribed. Every effort has been made to ensure that the information provided by [employer]. ('[employer]') is accurate, up-to-date, and complete, but no guarantee is made to that effect. Drug information contained herein may be time sensitive. [employer] information has been compiled for use by healthcare practitioners and consumers in the [place] and therefore [employer] does not warrant that uses outside of the [place] are appropriate, unless specifically indicated otherwise. [employer] drug information does not endorse drugs, diagnose patients or recommend therapy. [employer] drug information is an informational resource designed [...] effective or appropriate for any given patient. [employer] does not assume any responsibility for any aspect of healthcare administered with the aid of information [facility] provides. The information contained herein is not intended to cover all possible uses, directions, precautions, warnings, drug interactions, allergic reactions, or adverse effects. If you have questions about the drugs you are taking, check with your doctor, nurse or pharmacist. Copyright 2275-5529 [facility] Center[facility]. Version: 17.03. Revision Date: 07/12/2018. Emergency Awareness and Preventative Care STROKE is [...] Assistance with quitting is available by contacting 3-672-MUXSNunook InteractiveNOW. This is a free resource providing counseling, [...] the recommended vaccines. 2 PRACTICE GOOD HYGIENE documented in this encounter Plan of Treatment Not on file documented as of this encounter Visit Diagnoses Not on filedocumented in this encounter Care Teams Restrictive Preparation Operator Relationship Specialty Start Date End Date Barrett Devlin MD [address] [place] [id number] PCP - General General Internal Medicine 12/29/21 Mary Kiran, CONSULTING SERVICES ASSOCIATE [address] [facility] [place] [address] Cardiology 08/23/23 documented as of this encounter
--- OUTSIDE RECORDS SUMMARY | 2024-08-07 13:14 | XMS_ITS | Encounter Summary ---
Author Organization [employer] Address [address] [place] [address] Care Team Providers Care Process Development Manager Name Role Phone Barrett Devlin MD Primary Care Provider [phone] Mary Kiran APRN Unavailable [phone] Encounter Details Date Type Department Care Team (Late st Contact Info) Description 12/04/2020 Transcribed Document [facility] [place] [address] [place] [address] ProviderAlejandrina MD [address] [place], [place] [address] Social History Tobacco Use Types Packs/Day Years Used Date Smoking Tobacco: Never Assessed Sex and Gender Information Value Date Recorded Sex Assigned at Not on file Legal Sex Male 6:49 PM CDT Gender Identity Not on file Sexual Orientation Not on file documented as of this encounter Miscellaneous Notes * Cerner Conversion Note - Alejandrina Turk MD - 12/04/2020 8:58 AM CDT Patient: ESAU RADFORD Age: 70 years Sex: Male : 1950 Associated Diagnoses: None Author: Joaquin Bennett, Pharmacist-Resident 69 y/o M admitted for tikosyn initiation with ablation scheduled 12/03 Consult: Tikosyn initiation Consulting: Dr. Matson Indication: afib Vitals Signs (last 24 hrs) Last Charted Minimum Maximum Temp 98.9 (OCT 21 05:29) 97.4 (OCT 20 10:06) 99 (OCT 20 10:50) Apical HR 78 (OCT 21 08:06) 78 (OCT 21 08:06) 100 (OCT 20 16:00) Mon HR 75 (OCT 21 06:00) 75 (OCT 21 02:01) 98 (OCT 20 20:00) Resp Rate 18 (DEC 04 05:29) 16 (OCT 20 10:20) 20 (OCT 20 10:10) SBP 139 (OCT 21 06:00) 105 (OCT 20 21:30) H 199 (OCT 20 20:00) DBP 90 (OCT 21 06:00) 69 (OCT 20 10:20) H 133 (OCT 20 20:00) MAP 108 (OCT 21 06:00) 83 (OCT 20 21:30) 174 (OCT 20 20:00) SpO2 96 (DEC 04 05:29) L 91 (OCT 20 10:20) 97 (OCT 20 10:06) Labs (Last four charted values) WBC H 10.1 (OCT 20) 8.9 (OCT 19) HB 15.3 (OCT 20) 13.9 (OCT 19) HCT 47.1 (OCT 20) 42.0 (OCT 19) Plt 203 (OCT 20) 196 (OCT 19) Na 139 (OCT 21) 136 (OCT 20) 139 (OCT 19) 145 (OCT 18) K 4.3 (OCT 21) 3.9 (OCT 20) 4.5 (OCT 19) L 3.4 (OCT 18) Cl 107 (OCT 21) 105 (OCT 20) 111 (OCT 19) H 116 (OCT 18) CO2 25 (OCT 21) 23 (OCT 20) 22 (OCT 19) 22 (OCT 18) BUN H 26 (OCT 21) 21 (OCT 20) 19 (OCT 19) 18 (OCT 18) Cr H 1.40 (OCT 21) 1.10 (OCT 20) 1.20 (OCT 19) 1.20 (OCT 18) Glu R H 120 (OCT 21) H 176 (OCT 20) H 143 (OCT 19) H 135 (OCT 18) Ca 8.7 (OCT 21) 9.1 (OCT 20) 8.8 (OCT 19) L 7.3 (OCT 18) Est Crcl: 65-70ml/min Drug interactions: No major interactions noted with documented home medications Date 12/01 12/02 12/03 12/04 Baseline 443 QTc- AM 496 482 QTc- PM 494 508 483 Mag 1.6 2.3 2.2 2.3 A/P: 1. Tikosyn 500mcg BID started 12/01 PM -EKG ordered 2 hours after each dose 2. No significant DDI noted 3. K>4, mag >2 per cardiology -12/03- 40meq K given x1. 4. Ablation complete 12/03, apixaban held following dose 12/02 PM- now resumed 5. Scr increase to 1.4 6. HTN requiring PRN medications, lisinopril started at 20mg BID. (home dose 40mg BID) 7.Planned discharge 12/04, tikosyn 500mcg BID, metoprolol tartrate 25mg BID, lisinopril 20mg BID (dose reduction), apixaban 5mg BID Thank you for this consult. Juan José Bennett PharmD [phone] Electronically signed by Teja, [facility] Conversion Biostatistics Director Cerner at 06/03/2022 12:58 PM CDT documented in this encounter Plan of Treatment Not on file documented as of this encounter Visit Diagnoses Not on filedocumented in this encounter Care Teams Process Development Manager Relationship Specialty Start Date End Date Barrett Devlin MD [address] [facility] [address] [place] [address] PCP - General General Internal Medicine 12/29/21 Mary Kiran, DISTRICT LEADER [address] [facility] [address] [place] [address] Cardiology 08/23/23 documented as of this encounter
--- OUTSIDE RECORDS SUMMARY | 2024-08-07 13:14 | XMS_ITS | Encounter Summary ---
Author Organization [employer] Address [address] [place] [address] Care Team Providers Care Corduroy Brusher Operator Name Role Phone Barrett Devlin MD Primary Care Provider [phone] Mary Kiran BODY DESIGNER Unavailable [phone] Encounter Details Date Type Department Care Team (Late st Contact Info) Description 12/04/2020 Transcribed Document [facility] [place] Family Medicine [address] [place] [address] ProviderAlejandrina MD [address] [place], [place] [id number] Social History Tobacco Use Types Packs/Day Years Used Date Smoking Tobacco: Never Assessed Sex and Gender Information Value Date Recorded Sex Assigned at Not on file Legal Sex Male 6:49 PM CDT Gender Identity Not on file Sexual Orientation Not on file documented as of this encounter Miscellaneous Notes * Cerner Conversion Note - Alejandrina ProviderMD - 12/04/2020 1:53 PM CDT [address] , [place] [address] Patient Copy Patient Information: Name: ESAU RADFORD Current Date: 12/04/2020 13:53:38 : 1950 Patient Address: [address] [place] [address] Patient Attending Physician: CLARE MORA MD-CAR Primary Care Provider: BARRETT DEVLIN MD Primary Care Provider Discharge Diagnosis: HTN (hypertension) Weight on Admission: 246 lb, 5 oz Weight at Discharge: 233 lb, 3 oz Comment: Follow-up Instructions: With: Address: When: Follow up with primary care provider Within 2 to 3 days Comments: Recomend BMP With: Address: When: CLARE MORA [address] [place] [address] [address] [place], [place] [id number] Business (1) 3:15 PM Comments: Appointment has been made With: Address: When: BARRETT DEVLIN MD [address] [facility] [address] [place] [address] Within 5 to 7 days Comments: PCP follow up Discharge Instructions: Immunizations Documented During Stay: No Immunizations Found Heart Failure Discharge Instructions (if any): Stroke Related Discharge Instructions (if any): Warfarin Related Discharge Instructions (if any): Final Medication List: [facility], [address] [place] [phone], [phone] dofetilide (Tikosyn 500 mcg oral capsule) 1 Capsule(s) Oral Two Times A Day for 30 Day(s). Refills: 0. lisinopril (lisinopril 20 mg oral tablet) 1 Tablet(s) Oral Two Times A Day for 30 Day(s). Refills: 0. Other Medications apixaban (Eliquis 5 mg oral tablet) 1 Tablet(s) Oral Two Times A Day. canagliflozin (Invokana 300 mg oral tablet) 1 Tablet(s) Oral Every Day. cloNIDine (clonidine 0.2 mg oral tablet) 1 Tablet(s) Oral Three Times A Day. lovastatin (lovastatin 40 mg oral tablet) 1 Tablet(s) Oral At Bedtime. metoprolol (Metoprolol Tartrate 25 mg oral tablet) 1 Tablet(s) Oral Two Times A Day. this has replaced labetalol; do NOT take both medications together. multivitamin 1 Tablet(s) Oral Every Day. sildenafil (sildenafil 20 [...] Assistance with quitting is available by contacting 4-943-MRVT-NOW. This is a free resource providing counseling, [...] Be sure to sign up for the [employer] patient portal, which gives you 06/09 access to your medical information ??? including these discharge instructions ??? using your computer, smartphone, or tablet. Just go to [employer] to get started. Questions? Call . [facility] would like to thank you for allowing us to assist you with your healthcare needs. AMY Early DONALD P, (or personal financial representative) have received the above patient education materials/instructions and have verbalized understanding: Patient Signature _ Date/Time Patient [employer] Wiring Technician Signature (if needed) Date/Time Clinician/Hospital [employer] Wiring Technician Signature (if needed) Date/Time documented in this encounter Plan of Treatment Not on file documented as of this encounter Visit Diagnoses Not on filedocumented in this encounter Care Teams Corduroy Brusher Operator Relationship Specialty Start Date End Date Barrett Devlin MD [address] [place] [address] PCP - General General Internal Medicine 12/29/21 Mary Kiran, BODY DESIGNER [address] [facility] [address] [place] [address] Cardiology 08/23/23 documented as of this encounter
--- OUTSIDE RECORDS SUMMARY | 2024-08-07 13:14 | XMS_ITS | Encounter Summary ---
Author Organization [email or web address] Address [address] [place] [address] Care Team Providers Care Media Monitor Name Role Phone Barrett Devlin MD Primary Care Provider [phone] Mary Kiran FIELD STAFF Unavailable [phone] Encounter Details Date Type Department Care Team (Late st Contact Info) Description 02/09/2019 Transcribed Document [facility] Cardiology [address] [place], [place] [id number] [place] [address] [place] [address] [address] [place] [address] Social History Tobacco Use Types Packs/Day Years Used Date Smoking Tobacco: Never Assessed Sex and Gender Information Value Date Recorded Sex Assigned at Not on file Legal Sex Male 6:49 PM CDT Gender Identity Not on file Sexual Orientation Not on file documented as of this encounter Miscellaneous Notes * Cerner Conversion Note - Francisco Cervantes MD - 02/09/2019 9:02 AM EST Patient: ESAU RADFORD Age: 68 years Sex: Male : 1950 Associated Diagnoses: None Author: FRANCISCO CERVANTES MD-CAR Subjective NAD, no further syncope Health Status Allergies: Allergic Reactions (Selected) No Known Medication Allergies Current medications: (Selected) Inpatient Medications Ordered Lipitor: 5 mg, Oral, At Bedtime Normal Saline Flush: 10 mL, IV Push, Q12H Normal Saline Flush: 10 mL, IV Push, Q12H Normal Saline Flush: 10 mL, IV Push, See Comment, PRN: IV Use Normal Saline Flush: 10 mL, IV Push, See Comment, PRN: IV Use Prevnar 13: 0.5 mL, IntraMuscular, 1-Time Tylenol: 650 mg, Oral, Q4H, PRN: Pain (Mild 1-3) Zofran: 4 mg, IV Push, Q4H, PRN: Nausea acetaminophen-HYDROcodone 325 mg-5 mg oral tablet: 1 Tab, Oral, Q6H, PRN: Pain (Severe 7-10) apixaban: 5 mg, Oral, [id number] aspirin: 81 mg, Oral, Daily cloNIDine: 0.1 mg, Oral, BID hydrALAZINE: 10 mg, IV Push, Q4H, PRN: Hypertension insulin lispro greater than 101 kg: greater than 101 kg scale, SubCutaneous, AC and at Bedtime metoprolol tartrate: 25 mg, Oral, BID spironolactone: 25 mg, Oral, Daily Documented Medications Documented Dilt-XR 240 mg/24 hours oral capsule, extended release: 1 Cap, Oral, Daily, 0 Refill(s) Invokana 300 mg oral tablet: 1 Tab, Oral, Daily, 0 Refill(s) aspirin 81 mg oral delayed release tablet: 1 Tab, Oral, Daily, 30 Tab, 0 Refill(s) clonidine 0.1 mg oral tablet: 1 Tab, Oral, TID, 0 Refill(s) labetalol 200 mg oral tablet: 0.5 Tab, Oral, Daily, 0 Refill(s) lisinopril 40 mg oral tablet: 1 Tab, Oral, Daily, 0 Refill(s) lovastatin 20 mg oral tablet: 1 Tab, Oral, At Bedtime, 0 Refill(s) metFORMIN 1000 mg oral tablet: 1 Tab, Oral, BID, 0 Refill(s) potassium chloride 10 mEq oral tablet, extended release: 2 Tab, Oral, Daily, 0 Refill(s) sildenafil 20 mg oral tablet: 3 Tab, Oral, Daily, use as directed, PRN: Other (See Comment) spironolactone 25 mg oral tablet: 1 Tab, Oral, Daily, 30 Tab, 0 Refill(s) Problem list: All Problems History of obstructive sleep apnea / IMO [id number] / Confirmed, Active Problems (1) History of obstructive sleep apnea Objective Intake and Output 24 hour intake, 24 hour output VS/Measurements Vitals Signs (last 24 hrs) Last Charted Minimum Maximum Temp 98.3 (FEB 09 06:00) 97.7 (FEB 09 04:10) 98.3 (FEB 09 06:00) Apical HR H 105 (FEB 08 22:09) 89 (FEB 08 12:22) H 120 (FEB 08 21:03) Mon HR 77 (FEB 09 06:00) 55 (FEB 08 13:50) 104 (FEB 08 11:00) Resp Rate 15 (FEB 09 06:00) 15 (FEB 09 06:00) 18 (FEB 08 11:00) SBP 133 (FEB 09 06:00) 119 (FEB 08 14:15) H 173 (FEB 08 19:30) DBP H 92 (FEB 09 06:00) 80 (FEB 08 14:00) H 113 (FEB 08 12:15) MAP 102 (FEB 09 06:00) 87 (FEB 08 14:00) 133 (FEB 08 22:44) SpO2 L 93 (FEB 09 06:00) L 73 (FEB 08 19:45) 99 (FEB 08 13:30) General: Alert and oriented, No acute distress. Eye: Normal conjunctiva, Vision unchanged. HENT: Oral mucosa is moist, No pharyngeal erythema. Neck: Supple, Non-tender, No carotid bruit. Respiratory: Lungs are clear to auscultation, Respirations are non-labored, Breath sounds are equal. Cardiovascular: Normal rate, Irregularly irregular rhythm, No murmur, No edema. Gastrointestinal: Soft, Non-tender. Musculoskeletal: Normal range of motion, Normal strength. Integumentary: Warm, Dry, Poca, Intact. Neurologic: Alert, Oriented. Psychiatric: Cooperative, Appropriate mood & affect. Results Review Telemetry Admission Weight Todays Weight FEB 09 03:18 \ 15.2 / H 12.1 300 / 44.8 \ [id number] -- 02/07/2019 16:50 CR Chest 1 Vw Portable (02/07/2019 14:11) Result: PORTABLE CHEST 02/07/2019 2:05 PM HISTORY: Syncope.COMPARISON: None.FINDINGS: The heart is normal in size . An electronic device overliesthe left upper lung. There is scarring at the lung bases. No focalconsolidation or effusion is seen. There is no pneumothorax . Theosseous structures are unremarkable . IMPRESSION: No acute cardiopulmonary process .Images reviewed, interpreted, and dictated by Dr. Fred Villarreal.Transcribed by Sander Munoz PA-C.I have personally viewed, interpreted and dictated the examination. Ihave read and agree with the above final transcribed report. ECHO 02/01/19 Impression: Normal sized left ventricle. Mild left ventricular hypertrophy. Visually estimated ejection fraction 60% +/- 5%. Normal left ventricular systolic function with normal systolic strain pattern. Normal left ventricular diastolic function. No hemodynamically significant valvular dysfunction. No masses or thrombi are seen. Measurements Summary: LVEDd: 4.33 cm LVESd: 2.78 cm IVSEd: 1.36 cm AO Root:2.56 cm LVPWd: 1.09 cm Impression and Plan MPRESSION: Syncope- recurrent New onset Afib with SVR- now CVR LVEF 60%, valves ok per echo 02/01 No pauses on event monitor interrogation on Cardizem and Labetalol at home CAD- RCA CYLINDER LOADER per [facility] 02/08/19 HTN PLAN; 02/09/19 Consult neurology for further evaluation of recurrent syncope. Continue to wear event monitor until 30 days is up Re-start home Diltiazem, continue Metoprolol Eliquis 5mg BID for anticoagulation Will sign off today, follow up with Dr. Bonner/Bill Solis in 2 weeks 02/08/[address] [facility] [address] Bonner. CYLINDER LOADER of RCA, tx medically. 02/07/19 Get event monitor results tomorrow hold any AV robbie blocking agents monitor on telemetry Heparin gtt for anticoagulation Keep NPO after mn for [facility] +/- PCI tomorrow documented in this encounter Plan of Treatment Not on file documented as of this encounter Visit Diagnoses Not on filedocumented in this encounter Care Teams Media Monitor Relationship Specialty Start Date End Date Barrett Devlin MD [address] [place] [id number] PCP - General General Internal Medicine 12/29/21 Mary Kiran, FIELD STAFF [address] [facility] [address] [place] [address] Cardiology 08/23/23 documented as of this encounter
--- OUTSIDE RECORDS SUMMARY | 2024-08-07 13:14 | XMS_ITS | Encounter Summary ---
Author Organization [employer] Address [address] [place] [address] Care Team Providers Care Hydrant Setter Name Role Phone Barrett Devlin MD Primary Care Provider [phone] Mary Kiran HABITAT MANAGEMENT COORDINATOR Unavailable Encounter Details Date Type Department Care Team (Late st Contact Info) Description 08/13/2020 Transcribed Document [facility] [place] [address] [place] [address] Alejandrina Turk MD [address] [place] [address] Social History Tobacco Use Types Packs/Day Years Used Date Smoking Tobacco: Never Assessed Sex and Gender Information Value Date Recorded Sex Assigned at Not on file Legal Sex Male 6:49 PM CDT Gender Identity Not on file Sexual Orientation Not on file documented as of this encounter Miscellaneous Notes * Cerner Conversion Note - Alejandrina Turk MD - 08/13/2020 8:30 AM CDT Patient Education Materials Follows: Atrial Fibrillation Atrial fibrillation is a type [...] these instructions at home: Medicines ??? Take diii-dvr-bwldrmd and prescription medicines only as told by [...] provider. Document Revised: 07/25/2019 Document Reviewed: 07/25/2019 [email or web address] Patient Education ? 2020 [employer]. Emergency Medicine Electrical Cardioversion Electrical cardioversion is the delivery [...] including vitamins, herbs, eye drops, creams, and crug-phz-gqxowib medicines. ??? Any problems you or family [...] tells you to take them. ? Taking jorp-llf-jtboxfw medicines, vitamins, herbs, and supplements. General instructions [...] a sedative during your procedure. ??? Take bdyz-uhi-jmbsrft and prescription medicines only as told by [...] provider. Document Revised: 09/03/2019 Document Reviewed: 09/03/2019 [email or web address] Patient Education ? 2020 [email or web address] Pharmacology Moderate Conscious Sedation, Adult, Care After These [...] you are awake and alert. ??? Take ofwz-wpp-cdwxldg and prescription medicines only as told by [...] provider. Document Revised: 01/13/2018 Document Reviewed: 05/22/2016 [email or web address] Patient Education ? 2020 [employer]. documented in this encounter Plan of Treatment Not on file documented as of this encounter Visit Diagnoses Not on filedocumented in this encounter Care Teams Hydrant Setter Relationship Specialty Start Date End Date Barrett Devlin MD [address] [place] [address] PCP - General General Internal Medicine 12/29/21 Mary Kiran, HABITAT MANAGEMENT COORDINATOR [address] [facility] [address] [place] [address] Cardiology 08/23/23 documented as of this encounter
--- OUTSIDE RECORDS SUMMARY | 2024-08-07 13:14 | XMS_ITS | Encounter Summary ---
Author Organization [employer] Address [address] [place] [address] Care Team Providers Care Garbage Truck Helper Name Role Phone Barrett Devlin MD Primary Care Provider [phone] Mary Kiran APRN Unavailable [phone] Encounter Details Date Type Department Care Team (Late st Contact Info) Description 12/01/2020 Transcribed Document [facility] [place] Family Medicine [address] [place] [address] ProviderAlejandrina MD [address] [place] [address] Social History Tobacco Use Types Packs/Day Years Used Date Smoking Tobacco: Never Assessed Sex and Gender Information Value Date Recorded Sex Assigned at Not on file Legal Sex Male 6:49 PM CDT Gender Identity Not on file Sexual Orientation Not on file documented as of this encounter Miscellaneous Notes * Cerner Conversion Note - Historical ProviderMD - 12/01/2020 1:32 PM CDT Valuables and Belongings Entered On: 12/01/2020 15:52 EDT Performed On: 12/01/2020 13:32 EDT by Hayder Patterson Lpn Valuables and Belongings Valuables and Belongings : Clothing, Personal devices, Personal items, Respiratory devices Clothing : Common streetwear Clothing Disposition : With patient Personal Device Disposition : With patient Personal Devices : Glasses Personal Items : Cell phone Personal Items Disposition : With patient Respiratory Devices : CPAP Respiratory Device Disposition : With patient Hayder Patterson Lpn - 12/01/2020 15:52 EDT documented in this encounter Plan of Treatment Not on file documented as of this encounter Visit Diagnoses Not on filedocumented in this encounter Care Teams Garbage Truck Helper Relationship Specialty Start Date End Date Barrett Devlin MD [address] [place] [address] PCP - General General Internal Medicine 12/29/21 Mary Kiran, DECORATOR LIGHTING FIXTURES [address] [facility] [address] [place] [address] Cardiology 08/23/23 documented as of this encounter
--- OUTSIDE RECORDS SUMMARY | 2024-08-07 13:14 | XMS_ITS | Encounter Summary ---
Author Organization [employer] iatives Address [address] [place] [address] Care Team Providers Care Pediatric Genetic Counselor Name Role Phone Barrett Devlin MD Primary Care Provider [phone] Mary Kiran LUBRICATION WORKER Unavailable [phone] Encounter Details Date Type Department Care Team (Late st Contact Info) Description 02/09/2019 Transcribed Document [facility] Family Medicine [address] [place] [address] ProviderAlejandrina MD [address] [place] [address] Social History Tobacco Use Types Packs/Day Years Used Date Smoking Tobacco: Never Assessed Sex and Gender Information Value Date Recorded Sex Assigned at Not on file Legal Sex Male 6:49 PM CDT Gender Identity Not on file Sexual Orientation Not on file documented as of this encounter Miscellaneous Notes * Cerner Conversion Note - Historical MD Burke - 02/09/2019 1:02 PM HUMAN SERVICES CASE MANAGER Patient: ESAU RADFORD Age: 68 Years Sex: Male : 1950 Chief Complaint 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 +diaphoretic, +N/V. Reason for Consultation syncope History of Present Illness 68yo male with syncope. He has had three spells, two recently. He has a warning, feels off, turns klein and passes out for a minute or so. There is a brief period of mild confusion that clears within a minute or so. There is no shaking with the spells. He has intermittent ankle edema. He is in the middle of 30 days cardiac monitoring. Cardiology is seeing him. He did have new arrhythmia on admission. He denies hx of LOC with head injury, stroke, or personal or family history of seizure. He is a good historian. His also contributes to the hx. She has witnessed all the spells and did not see shaking. The patient has medical problems that complicates care and evaluation, and puts him in a higher risk category, see Medical problems and HPI. Complex set of medical issues requiring an elevated level of medical decision making. There is significant risk for further morbidity. Review of Systems ROS negative 10 system complete review except for symptoms in HPI Vital Signs T: 37 ??C TMIN: 36.5 ??C TMAX: 37 ??C HR: 105(Monitored) RR: 15 BP: 118/74 SpO2: 96% Oxygen Settings (Last) Oxygen Therapy Mode: Room air (02/09/19 06:00:00) Physical Exam Eyes, ENT-negative Pulmonary clear Cardiac without murmur Mental Status: normal Orientation to time place [...] to pt condition Psychiatric: negative Musculoskeletal: negative Assessment/Plan 68yo male with three syncopal spells, two recently while sitting. There are no characteristics of seizure to these spells. It would be prudent to obtain CT head to make sure there are no sig structural lesions that might contribute to his susceptibility to syncope. I will also obtain B12. I will review and barring abnormal findings would defer to Cardiology for further workup. He has an elevated WBC that needs to be addressed. He should not drive until these spells are diagnosed and controlled. The above evaluation and recommendations were explained to patient and family present, understanding and agreement was expressed. Orders: CT Head WO Vitamin B12 Level VTE Prophylaxis - Medical Apixaban 5 mg, Oral, Tab, [id number], Routine, Start 02/08/19 11:00:00 EST (CHRISTIN STONE, MARIBEL-INT) Sequential Compression Device Start: 02/07/19 16:57:00 EST, Bilateral, Length: Knee High, While patient is in bed, Continuous Order (DARIUSZ CABRERA) Provider Information Primary Care Physician - BARRETT DEVLIN MD Attending Physician - DARIUSZ CABRERA MD Admitting Physician - DARIUSZ CABRERA MD Consulting Physician - RAMYA CERVANTES MD-CAR Consulting Physician - BIANCA, INEZ Rodriguez MD-KATHERINE - recurrent syncope, event monitor shows no pauses Consulting Physician - SOURAV MICHAEL MD Referring Physician - BRIANA AGUILERA MD Problem List/Past Medical History Ongoing History of obstructive sleep apnea Historical No qualifying data Medications Inpatient acetaminophen-HYDROcodone 325 mg-5 mg oral tablet, 1 Tab, Oral, Q6H, PRN apixaban, 5 mg= 1 Tab, Oral, Q19PYuq aspirin, 81 mg= 1 Tab, Oral, Daily [...] mg= 2 mL, IV Push, Q4H, PRN Home aspirin 81 mg oral delayed release tablet, 81 mg= 1 Tab, Oral, Daily clonidine 0.1 mg oral tablet, 0.1 mg= 1 Tab, Oral, TID Dilt-XR 240 mg/24 hours oral capsule, extended release, 240 mg= 1 Cap, Oral, Daily Invokana 300 mg oral tablet, 300 mg= 1 Tab, Oral, Daily labetalol 200 mg oral tablet, 100 mg= 0.5 Tab, Oral, Daily lisinopril 40 mg oral tablet, 40 mg= 1 Tab, Oral, Daily lovastatin 20 mg oral tablet, 20 mg= 1 Tab, Oral, At Bedtime metFORMIN 1000 mg oral tablet, 1000 mg= 1 Tab, Oral, BID potassium chloride 10 mEq oral tablet, extended release, 20 mEq= 2 Tab, Oral, Daily sildenafil 20 mg oral tablet, 60 mg= 3 Tab, Oral, Daily, PRN spironolactone 25 mg oral tablet, 25 mg= 1 Tab, Oral, Daily Allergies No Known Medication Allergies Social History lives with spouse Family History No significant Family History Immunizations Non contributory Diagnostic Results Lab WBC 13.1 Lab Results Test Name Test Result Date/Time [...] POC2 166 mg/dL (High) 02/08/2019 15:53 EST WBC 12.1 K/uL (High) 02/09/2019 03:18 [...] Lymph # 2.36 x10(3)/uL 02/09/2019 03:18 EST Wagoner % 7.4 % 02/09/2019 03:18 EST Wagoner # 0.89 K/uL 02/09/2019 03:18 EST Eos [...] Antibody Screen Negative ABSC 02/08/2019 14:34 EST Electronically signed by [facility], [facility] Conversion Principal Accounts Clerk Cerner at 06/03/2022 12:40 PM CDT documented in this encounter Plan of Treatment Not on file documented as of this encounter Visit Diagnoses Not on filedocumented in this encounter Care Teams Pediatric Genetic Counselor Relationship Specialty Start Date End Date Barrett Devlin MD [address] [place] [address] PCP - General General Internal Medicine 12/29/21 Mary Kiran, LUBRICATION WORKER [address] [facility] [place] [address] Cardiology 08/23/23 documented as of this encounter
--- OUTSIDE RECORDS SUMMARY | 2024-08-07 13:14 | XMS_ITS | Encounter Summary ---
Author Organization [employer]atives Address [address] [place] [address] Care Team Providers Care Conveyor Technician Name Role Phone Barrett Devlin MD Primary Care Provider [phone] Mary Kiran HAZARDOUS SUBSTANCES ENGINEER Unavailable [phone] Encounter Details Date Type Department Care Team (Late st Contact Info) Description 02/22/2019 Transcribed Document [facility] [place] [address] [place] [address] Alejandrina Turk MD [address] [place], [place] [address] Social History Tobacco Use Types Packs/Day Years Used Date Smoking Tobacco: Never Assessed Sex and Gender Information Value Date Recorded Sex Assigned at Not on file Legal Sex Male 6:49 PM CDT Gender Identity Not on file Sexual Orientation Not on file documented as of this encounter Miscellaneous Notes * Cerner Conversion Note - Alejandrina Turk MD - 02/22/2019 2:33 PM DYEING MACHINE FEEDER Patient: ESAU RADFORD Age: 68 years Sex: Male : 1950 Associated Diagnoses: None Author: ZEKE WAGNER MD Admit Date 02/12/2019 04:01 Discharge Date 02/16/2019 12:43 Discharge Diagnosis Arrhythmia 02/12/2019 I49.9 ICD-10-CM Syncope 02/12/2019 R55 ICD-10-CM Consulting Physicians Discharge Medications (11) Active aspirin 81 mg oral delayed release tablet 81 mg = 1 Tab, Oral, Daily clonidine 0.1 mg oral tablet 0.1 mg = 1 Tab, Oral, TID Eliquis 5 mg oral tablet 5 mg = 1 Tab, Oral, BID Invokana 300 mg oral tablet 300 mg = 1 Tab, Oral, Daily Lipitor 10 mg oral tablet 5 mg = 0.5 Tab, Oral, Daily lisinopril 40 mg oral tablet 40 mg = 1 Tab, Oral, Daily metFORMIN 1000 mg oral tablet 1,000 mg = 1 Tab, Oral, BID Metoprolol Tartrate 25 mg oral tablet 12.5 mg = 0.5 Tab, Oral, BID sildenafil 20 mg oral tablet 60 mg = 3 Tab, PRN, Oral, Daily spironolactone 25 mg oral tablet 25 mg = 1 Tab, Oral, Daily Vitamin B12 1000 mcg oral tablet 1,000 mcg = 1 Tab, Oral, Daily Discharge Follow Up JULIO C ROBLERO - Within 1 to 2 weeks BARRETT DEVLIN MD - Within 1 week CAROLIN BONNER - Within 1 month Discharge DME No DME on Record Hospital Course This is a 68-year-old male with history of arrhythmia. The patient was recently admitted to [facility], was diagnosed with new onset of atrial fibrillation and hypertension. The patient was discharged on beta-houston, calcium channel houston, Eliquis and Holter monitor. The patient came in because he had syncopal episode. The patient has been evaluated in the ER. Blood work shows acute renal failure and dehydration. The patient was admitted to the hospital for cardiology 1. 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 on metoprolol and lisinopril 3. Acute renal failure. Avoid nephrotoxic medication. resolved 4. Diabetes mellitus, home regimen 5. Hyperlipidemia, on statin 6. Obesity, recommend diet and exercise. PCP follow up Hospital stay uncomplicated. Discharged in stable condition back to home. The patient underwent successful uncomplicated implantation of Medtronic MRI safe DDDR pacemaker. He is to be followed in Dr. Bonner's office but will have a wound check with me in 1-2 weeks. From pacemaker standpoint, may be discharged any time if chest x-ray okay. Would recommend waiting 2-3 days before restarting Eliquis. Condition on Discharge Vitals Signs (last 24 hrs) Last Charted Minimum Maximum Temp 98 (FEB 15 15:45) 97.8 (FEB 15 14:00) 98.2 (FEB 14 21:00) Apical HR 92 (FEB 15 14:50) 92 (FEB 15 14:50) H 104 (FEB 14 21:09) Mon HR 90 (FEB 15 16:45) 75 (FEB 15 03:31) 104 (FEB 14 21:00) Resp Rate 16 (FEB 15 14:00) 16 (FEB 15 05:12) 20 (FEB 14 21:00) SBP 121 (FEB 15 15:45) 121 (FEB 15 15:45) H 160 (FEB 15 03:30) DBP 87 (FEB 15 15:45) 87 (FEB 15 15:45) H 110 (FEB 15 03:30) MAP 99 (FEB 15 15:45) 99 (FEB 15 15:45) 126 (FEB 15 03:31) SpO2 97 (FEB 15 16:45) 96 (FEB 15 13:45) 98 (FEB 14 21:00) General: Alert and oriented, No acute distress. Eye: Extraocular movements are intact, Normal conjunctiva. HENT: Normocephalic, Oral mucosa is moist. Neck: Supple, Non-tender, No jugular venous distention. Respiratory: Lungs are clear to auscultation. Cardiovascular: Normal rate, Regular rhythm, No murmur, Normal peripheral perfusion, No edema. Gastrointestinal: Soft, Non-tender, Normal bowel sounds. Genitourinary: No costovertebral angle tenderness. Musculoskeletal: Normal range of motion. Integumentary: Intact. Neurologic: Alert, Oriented, No focal deficits. Psychiatric: Cooperative, Appropriate mood & affect. PT/OT Recommended Discharge Location Home independently (02/13/2019) time spent 35 minutes documented in this encounter Plan of Treatment Not on file documented as of this encounter Visit Diagnoses Not on filedocumented in this encounter Care Teams Conveyor Technician Relationship Specialty Start Date End Date Barrett Devlin MD [address] [place] [id number] PCP - General General Internal Medicine 12/29/21 Mary Kiran, HAZARDOUS SUBSTANCES ENGINEER [address] [place] [address] Cardiology 08/23/23 documented as of this encounter
--- OUTSIDE RECORDS SUMMARY | 2024-08-07 13:14 | XMS_ITS | Encounter Summary ---
Author Organization [employer] Address [address] [place] [address] Care Team Providers Care Auditor Name Role Phone Barrett Devlin MD Primary Care Provider [phone] Mary Kiran APRN Unavailable [phone] Encounter Details Date Type Department Care Team (Late st Contact Info) Description 08/13/2020 Transcribed Document [facility] [place] [facility] [place] [address] Alejandrina Turk MD [address] [place] [address] Social History Tobacco Use Types Packs/Day Years Used Date Smoking Tobacco: Never Assessed Sex and Gender Information Value Date Recorded Sex Assigned at Not on file Legal Sex Male 6:49 PM CDT Gender Identity Not on file Sexual Orientation Not on file documented as of this encounter Miscellaneous Notes * Cerner Conversion Note - Alejandrina Turk MD - 08/13/2020 8:36 AM CDT Patient: ESAU RADFORD Age: 69 Years Sex: Male : 1950 Certified Substance Abuse Counselor: Chencho Matson MD Indication: Persistent symptomatic atrial fibrillation since march properly anticoagulated with Eliquis Procedure report: After written informed consent was obtained, the patient was brought to the holding area in a fasting state. Defibrillation pads were placed in an anteroposterior fashion. Appropriate sedation was given intravenously incremental doses of fentanyl and midazolam as needed. A 200 J biphasic shock restored normal sinus rhythm with one attempt. Moderate sedation was given and monitored by physician with IV versed and IV fentanyl given. Monitoring time was approximately 15 minutes and patient was hemodynamically stable throughout the procedure. Complications: No immediate complications were observed. Conclusion: Successful cardioversion The dual chamber pacemaker will be reprogrammed to DDDR 80 bpm MVP with suppresion therapy and aashish Electronically signed by Teja, [facility] Conversion Composite Mechanic Cerner at 06/03/2022 1:04 PM CDT documented in this encounter Plan of Treatment Not on file documented as of this encounter Visit Diagnoses Not on filedocumented in this encounter Care Teams Auditor Relationship Specialty Start Date End Date Barrett Devlin MD [address] [place] [address] PCP - General General Internal Medicine 12/29/21 Mary Kiran, POLICY LOAN CALCULATOR [address] [facility] [address] [place] [address] Cardiology 08/23/23 documented as of this encounter
--- OUTSIDE RECORDS SUMMARY | 2024-08-07 13:15 | XMS_ITS | Encounter Summary ---
Author Organization [employer] Address [address] [place] [address] Care Team Providers Care Microbiology Lab Technician Name Role Phone Barrett Devlin MD Primary Care Provider [phone] Mary Kiran DYE TUB OPERATOR Unavailable [phone] Encounter Details Date Type Department Care Team (Late st Contact Info) Description 02/12/2019 Transcribed Document [facility] [place] Replaced by [facility] [place] [address] Alejandrina Turk MD [address] [place] [address] Social History Tobacco Use Types Packs/Day Years Used Date Smoking Tobacco: Never Assessed Sex and Gender Information Value Date Recorded Sex Assigned at Not on file Legal Sex Male 6:49 PM CDT Gender Identity Not on file Sexual Orientation Not on file documented as of this encounter Miscellaneous Notes * Cerner Conversion Note - Alejandrina Turk MD - 02/12/2019 5:18 AM FROG OR 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 Travis Devlin. CHIEF COMPLAINT: Syncope and fall. HISTORY OF PRESENT ILLNESS: This is a 68-year-old male with history of arrhythmia. The patient was recently admitted to [facility], was diagnosed with new onset of atrial fibrillation and hypertension. The patient was discharged on beta-houston, calcium channel houston, Eliquis and Holter monitor. The patient came in because he had syncopal episode. The patient has been evaluated in the ER. Blood work shows acute renal failure and dehydration. The patient was admitted to the hospital for cardiology evaluation and the patient is lying in bed, awake, alert, and oriented. SYSTEMIC REVIEW: GENERAL: No fever or chills. HEENT: Head, no headache or dizziness. Eyes, no change of vision. Ears, no earache. Nose, no epistaxis. Throat, no sore throat. RESPIRATORY: Positive for shortness of breath, no cough. CARDIAC: No chest pain. GI: No nausea or vomiting. URINARY: No hematuria. MUSCULOSKELETAL: Weakness. NEUROLOGICAL: Positive for syncope. SKIN: No new rashes. ENDOCRINE: No heat or cold intolerance. PAST MEDICAL HISTORY: 1. History of new onset of atrial fibrillation. 2. Ejection fraction of 60%. 3. Hypertension. 4. Obesity. 5. Diabetes mellitus. 6. Hyperlipidemia. SOCIAL HISTORY: The patient is a nonsmoker. No alcohol or drug abuse. FAMILY HISTORY: No significant family history. ALLERGIES: No known drug allergies. HOME MEDICATIONS: 1. Eliquis 5 mg twice daily. 2. Aspirin 81 mg daily. 3. Lipitor 10 mg daily. 4. Invokana 300 mg daily. 5. Clonidine 0.1 mg 3 times daily. 6. Vitamin B12 daily. 7. Diltiazem 240 mg daily. 8. Lisinopril 40 mg daily. 9. Metformin 1000 mg twice daily. 10. Metoprolol 25 mg twice daily. 11. Potassium chloride 10 mEq daily. 12. Spironolactone 25 mg daily. PHYSICAL EXAMINATION: VITAL SIGNS: Blood pressure 110/74, temperature 97.7, heart rate 70, and respiratory rate 19. HEENT: Head, atraumatic and normocephalic. Pupils round and reactive. Eyes, no conjunctival injection or discharge. Ears, no discharge. Nose, no bleeding or discharge. Mouth dry. NECK: Supple, full range of motion. CHEST: Poor inspiratory effort. Diminished air entry. Mild expiratory wheeze. No respiratory muscle retraction. HEART: S1 and S2 heard. Regular rate and rhythm. ABDOMEN: Obese, soft, audible bowel sounds. No tenderness. No guarding. No rebound tenderness. EXTREMITIES: Trace of edema. No erythema or tenderness. NEUROLOGICAL: No apparent focal motor or sensory deficit. The patient is alert, awake, and oriented x3. Intact cranial nerves. PSYCHIATRIC: Positive for anxiety. SKIN: No apparent rashes or induration. ENDOCRINE: No thyromegaly or tenderness. GENERAL: The patient is lying in bed, anxious. at bedside. LABORATORY DATA AND STUDIES: Sodium 137, potassium 4.4, chloride 107, CO2 25, glucose 180, BUN 29, creatinine 1.6, calcium 8.6, protein 7.0, albumin 3.5, globulin 3.5, bilirubin 0.2, alkaline phosphatase 104, AST 22, ALT 23, lipase 97. Troponin 0.015. White blood cells 9.0, hemoglobin 13.8, hematocrit 41.7, and platelets 224. ASSESSMENT AND PLAN: 1. Syncope, rule out arrhythmia. The patient was admitted to the hospital for cardiology evaluation. We will start symptomatic treatment and heparin drip. The patient with history of atrial fibrillation. The patient may need pacemaker. 2. History of atrial fibrillation. We will hold all medications at this point and start heparin drip. The patient will be n.p.o. for cardiology evaluation. 3. Acute renal failure. Avoid nephrotoxic medication. We will monitor kidney function. Monitor input and output. 4. Diabetes mellitus, we will start sliding scale. 5. Hyperlipidemia, on statin, to be continued. 6. Obesity, recommend diet and exercise. 7. Gastrointestinal prophylaxis, Pepcid. 8. Deep venous prophylaxis. The patient will start heparin drip. The patient will be monitored closely. Cardiology will be consulted. The patient may need pacemaker. Plan discussed in detail with the ER physician, with the patient, with the at bedside, chart was reviewed. Time spent, 55 minutes. /[id number] MD NIALL Silva/AQ / NIALL / MODL CC: Dr. Travis Devlin Electronically signed by [facility], [facility] Conversion Powdered Sugar Pulverizer Operator Cerner at 06/03/2022 12:30 PM CDT documented in this encounter Plan of Treatment Not on file documented as of this encounter Visit Diagnoses Not on filedocumented in this encounter Care Teams Microbiology Lab Technician Relationship Specialty Start Date End Date Barrett Devlin MD [address] [place] [address] PCP - General General Internal Medicine 12/29/21 Mary Kiran, DYE TUB OPERATOR [address] [facility] [place] [address] Cardiology 08/23/23 documented as of this encounter
--- OUTSIDE RECORDS SUMMARY | 2024-08-07 13:15 | XMS_ITS | Encounter Summary ---
Author Organization [employer] Address [address] [place] [address] Care Team Providers Care Word Processing Supervisor Name Role Phone Barrett Devlin MD Primary Care Provider [phone] Mary Kiran APRN Unavailable [phone] Encounter Details Date Type Department Care Team (Late st Contact Info) Description 12/03/2020 Transcribed Document [facility] [place] [address] [place] [address] Alejandrina Turk MD [address] [place] [address] Social History Tobacco Use Types Packs/Day Years Used Date Smoking Tobacco: Never Assessed Sex and Gender Information Value Date Recorded Sex Assigned at Not on file Legal Sex Male 6:49 PM CDT Gender Identity Not on file Sexual Orientation Not on file documented as of this encounter Miscellaneous Notes * Cerner Conversion Note - Alejandrina Turk MD - 12/03/2020 11:43 AM CDT Patient: ESAU RADFORD Age: 70 years Sex: Male : 1950 Associated Diagnoses: None Author: JORDEN SALDANA MD Subjective seen and examined BP elevated underwent ablations this am Review of Systems Denies fever or chills No nausea or vomiting No SOB or CP Health Status Allergies: Allergic Reactions (Selected) No [...] Shortness of Breath Eliquis: 5 mg, Oral, [id number] Milk of Magnesia 8% oral suspension: 30 mL, Oral, Daily, PRN: Constipation Norvasc: 5 mg, Oral, 1-Time Pepcid: 20 mg, Oral, Q12H Phenergan: 6.25 mg, IntraVENous, Q6H, PRN: Nausea Roxicodone: 5 mg, Oral, Q4H, PRN: Pain (Moderate 4-6) Tikosyn: 500 mcg, Oral, BID Tylenol: 650 mg, Oral, Q4H, PRN: Pain (Mild 1-3) cloNIDine: 0.2 mg, Oral, TID fentaNYL: 25 mcg, IV Push, Q10Min, PRN: Pain (Moderate 4-6) glucagon: 1 mg, IntraMuscular, Q15Min, PRN: Other (See Comment) glucose 4 g oral tablet, chewable: 16 Gram, 4 Tab, Chew, Q15Min, PRN: Other (See Comment) glucose 40% oral gel: 15 Gram, 37.5 mL, Oral, Q15Min, PRN: Other (See Comment) hydrALAZINE: 10 mg, IV Push, Q6H, PRN: Hypertension insulin lispro sliding scale: Scale A:, SubCutaneous, AC and at Bedtime potassium chloride 10 mEq oral tablet, extended release: 40 mEq, 4 Tab, Oral, 1-Time Documented Medications Documented Eliquis 5 mg oral [...] Oral, Daily, 30 Tab, 0 Refill(s), Medications (22) Active Scheduled: (7) amLODIPine 5 mg tab 5 mg 1 Tab, Oral, 1-Time apixaban 5 mg tab 5 mg 1 Tab, Oral, [id number] cloNIDine 0.2 mg tab 0.2 mg 1 Tab, Oral, TID dofetilide 500 mcg cap 500 mcg 1 Cap, Oral, BID famotidine 20 mg tab 20 mg 1 Tab, Oral, Q12H insulin lispro 1 unit/0.01 mL inj Scale A:, SubCutaneous, AC and at Bedtime potassium chloride CR 10 mEq tab 40 mEq 4 Tab, Oral, 1-Time Continuous: (0) PRN: (15) acetaminophen 325 mg tab 650 mg 2 [...] 12.5 Gram 25 mL, IV Push, Q15Min fentaNYL 100 mcg/2 mL inj 25 mcg 0.5 mL, IV Push, Q10Min glucagon 1 mg/1 mL inj 1 mg [...] mg 0.25 mL, IntraVENous, Q6H Problem list: Medical History of obstructive sleep apnea / IMO [id number] / Confirmed Atrial fibrillation / SNOMED CT 95663066 / Confirmed HTN - Hypertension / SNOMED CT 2356268611 / Confirmed Type 2 diabetes mellitus / SNOMED CT 741675706 / Confirmed, Active Problems (8) Atrial fibrillation Bradycardia H/O syncope History of obstructive sleep apnea HTN - Hypertension Hyperlipidemia Low vitamin B12 level Type 2 diabetes mellitus Objective VS/Measurements Vitals Signs (last 24 hrs) Last Charted Minimum Maximum Temp 99 (OCT 20 10:50) 97.4 (OCT 20 10:06) 99 (OCT 20 10:50) Apical HR H 110 (OCT 20 06:07) 70 (OCT 20 04:52) H 110 (OCT 20 06:07) Mon HR 87 (OCT 20 11:10) 70 (OCT 19 15:27) 105 (OCT 20 05:52) Resp Rate 16 (OCT 20 11:10) 16 (OCT 20 10:20) 20 (OCT 20 10:10) SBP H 162 (OCT 20 11:30) 115 (OCT 20 10:20) H 192 (OCT 20 05:52) DBP H 110 (OCT 20 11:30) 69 (OCT 20 10:20) H 133 (OCT 20 05:52) MAP 129 (OCT 20 11:30) 86 (OCT 20 10:20) 143 (OCT 20 03:52) SpO2 97 (OCT 20 11:10) L 91 (OCT 20 10:20) 97 (OCT 19 18:38) General: Alert and oriented, No acute distress. Eye: Extraocular movements are intact, Normal conjunctiva. HENT: Normocephalic, No pharyngeal erythema. Neck: Supple, Non-tender, No lymphadenopathy. Respiratory: Lungs are clear to auscultation, Breath sounds are equal. Cardiovascular: Normal rate, No murmur, Good pulses equal in all extremities. Gastrointestinal: Soft, Non-tender, Non-distended, Normal bowel sounds. Musculoskeletal: Normal range of motion, No tenderness. Integumentary: Warm, No rash. Neurologic: Alert, Oriented, No focal deficits. Psychiatric: Cooperative, Appropriate mood & affect. Review / Management DEC 03 06:32 136 105 21 / H 176 3.9 23 1.10 \ DEC 03 06:32 \ 15.3 / H 10.1 203 / 47.1 \ No Radiology Results Found Results review: Labs (Last four charted values) WBC H 10.1 (DEC 03) 8.9 (DEC 02) HB 15.3 (DEC 03) 13.9 (DEC 02) HCT 47.1 (DEC 03) 42.0 (DEC 02) Plt 203 (DEC 03) 196 (DEC 02) Na 136 (DEC 03) 139 (OCT ) 145 (OCT 18) K 3.9 (OCT 20) 4.5 (OCT 19) L 3.4 (NOV 18) Cl 105 (DEC 03) 111 (DEC 02) H 116 (NOV 18) CO2 23 (DEC 03) 22 (OCT ) 22 (NOV 18) BUN 21 (DEC 03) 19 (OCT 19) 18 (OCT 18) Cr 1.10 (DEC 03) 1.20 (OCT 19) 1.20 (OCT 18) Glu R H 176 (DEC 03) H 143 (DEC 02) H 135 (NOV 18) Ca 9.1 (DEC 03) 8.8 (OCT ) L 7.3 (DEC 01) . Impression and Plan #A Fib S/P ablation 12/02 Telemetry Monitoring keep potassium > 4, magnesium >2 Tikosyn , Monitor QTC Restart Eliquis per cardiology Cardiology following #HTN, uncontrolled on Clonidine and Lisinopril at home IV hydrazine PRN Monitor #DMII hold oral hypoglycemic agents SSI Monitor #Hypokalemia replaced check in am #Hypomagnesemia Replaced check in am #FABRICE CPAP at night and with sleep #Obesity Complicate all clinical aspect of care DVT prophylaxis Eliquis Full code Labs, PMH, medications reviewed Discussed with patient, RN Discussed with at bedside Time spent 22 min Disposition: S/P ablation hopefully discharge home tomorrow Electronically signed by Interface, [facility] Conversion Fundraising Coordinator Cerner at 06/03/2022 1:17 PM CDT documented in this encounter Plan of Treatment Not on file documented as of this encounter Visit Diagnoses Not on filedocumented in this encounter Care Teams Word Processing Supervisor Relationship Specialty Start Date End Date Barrett Devlin MD [address] [place] [address] PCP - General General Internal Medicine 12/29/21 Mary Kiran, POLISHER AND SANDER [address] [facility] [address] [place] [address] Cardiology 08/23/23 documented as of this encounter
--- OUTSIDE RECORDS SUMMARY | 2024-08-07 13:15 | XMS_ITS | Encounter Summary ---
Author Organization [employer] Address [address] [place] [address] Care Team Providers Care Nutrition Helper Name Role Phone Barrett Devlin MD Primary Care Provider [phone] Mary Kiran SPRAY DRIER Unavailable [phone] Encounter Details Date Type Department Care Team (Late st Contact Info) Description 2020 Transcribed Document [facility] [place] Medicine [address] [place] [address] ProviderAlejandrina MD [address] [place] [address] Social History Tobacco Use Types Packs/Day Years Used Date Smoking Tobacco: Never Assessed Sex and Gender Information Value Date Recorded Sex Assigned at Not on file Legal Sex Male 6:49 PM CDT Gender Identity Not on file Sexual Orientation Not on file documented as of this encounter Miscellaneous Notes * Cerner Conversion Note - Historical ProviderMD - 2020 2:13 PM CDT Therapy Screen, OT Entered On: 2020 14:13 EDT Performed On: 2020 14:13 EDT by ALYSSA GOMEZ OTR/L Therapy Screen, OT Medical Chart Reviewed : Yes Screen Completed : Yes Therapy Screen Findings, OT : Patient at functional baseline Additional Therapy Screen Comment : Pt has no OT concerns. Defer ALYSSA GOMEZ OTR/L - 2020 14:13 EDT Electronically signed by Teja [facility] Conversion Costume Design Teacher Cerner at 06/03/2022 1:11 PM CDT documented in this encounter Plan of Treatment Not on file documented as of this encounter Visit Diagnoses Not on filedocumented in this encounter Care Teams Nutrition Helper Relationship Specialty Start Date End Date Barrett Devlin MD [address] [place] [address] PCP - General General Internal Medicine 12/29/21 Mary Kiran, SPRAY DRIER [address] [facility] [address] [place] [address] Cardiology 08/23/23 documented as of this encounter
--- OUTSIDE RECORDS SUMMARY | 2024-08-07 13:15 | XMS_ITS | Encounter Summary ---
Author Organization [email or web address] Address [address] [place] [address] Care Team Providers Care Mobile Manager Name Role Phone Barrett Devlin MD Primary Care Provider Mary Kiran DIRECTOR BUILDING Unavailable [phone] Encounter Details Date Type Department Care Team (Late st Contact Info) Description 02/14/2019 Transcribed Document [facility] [place] Family Medicine [address] [place] [address] ProviderAlejandrina MD [address] [place] [address] Social History Tobacco Use Types Packs/Day Years Used Date Smoking Tobacco: Never Assessed Sex and Gender Information Value Date Recorded Sex Assigned at Not on file Legal Sex Male 6:49 PM CDT Gender Identity Not on file Sexual Orientation Not on file documented as of this encounter Miscellaneous Notes * Cerner Conversion Note - Alejandrina ProviderMD - 02/14/2019 2:00 AM PET HANDLER Managed Care Manager Details Entered On: 02/14/2019 4:47 EST Performed On: 02/14/2019 2:00 EST by Jacques Abarca RN-TRAVELER Order Details Transport Mode Order Detail : Wheelchair Isolation Precautions Order Detail : Standard Precautions Order Detail : N/A IV Order Detail : 1 Oxygen Order Detail : 0 Nurse Collect Order Detail : 0 Lift/Transfer : Independent Central Line Order Detail : No Room Service : Appropriate Arterial Line : No Jacques Abarca RN-TRAVELER - 02/14/2019 4:47 EST Electronically signed by Teja [facility] Conversion Gift Shop Clerk Cerner at 06/03/2022 12:43 PM CDT documented in this encounter Plan of Treatment Not on file documented as of this encounter Visit Diagnoses Not on filedocumented in this encounter Care Teams Mobile Manager Relationship Specialty Start Date End Date Barrett Devlin MD [address] [place] [address] PCP - General General Internal Medicine 12/29/21 Mary Kiran, DIRECTOR BUILDING [address] [facility] [address] [place] [address] Cardiology 08/23/23 documented as of this encounter
--- OUTSIDE RECORDS SUMMARY | 2024-08-07 13:15 | XMS_ITS | Encounter Summary ---
Author Organization [employer] Address [address] [place] [address] Care Team Providers Care Moving Picture Producer Name Role Phone Barrett Devlin MD Primary Care Provider [phone] Mary Kiran PURCHASING INTERNSHIP Unavailable [phone] Encounter Details Date Type Department Care Team (Late st Contact Info) Description 02/12/2019 Transcribed Document [facility] [place] Medicine [address] [place] [address] Alejandrina Turk MD [address] [place] [address] Social History Tobacco Use Types Packs/Day Years Used Date Smoking Tobacco: Never Assessed Sex and Gender Information Value Date Recorded Sex Assigned at Not on file Legal Sex Male 6:49 PM CDT Gender Identity Not on file Sexual Orientation Not on file documented as of this encounter Miscellaneous Notes * Cerner Conversion Note - Alejandrina Turk MD - 02/12/2019 6:47 AM TAPE MAKER RX Interventions Entered On: 02/12/2019 8:51 EST Performed On: 02/12/2019 8:48 EST by Ava Murphy, Pharmacist Clinical Interventions Heparin Per Weight-Based Protocol : Yes Ava Murphy Pharmacist - 02/12/2019 8:48 EST Heparin Per Weight-Based Protocol Heparin Per Wgt-Based Protocol, Order : Spoke with RN to confirm heparin initiation dosing. Indication is Atrial fibrillation and patient weight is 102.27 kg. Initial bolus is 8000 units and initial infusion rate is 18 mL/hr. Heparin Per Wgt-Based Protocol, Response : Accepted Heparin Per Wgt-Based Protocol, Value : 177 Dollar Heparin Per Wgt-Based Protocol, Time : 20 Minute(s) Ava Murphy, Pharmacist - 02/12/2019 8:48 EST Electronically signed by [facility] Conversion Reimbursement Analyst Cerner at 06/03/2022 12:42 PM CDT documented in this encounter Plan of Treatment Not on file documented as of this encounter Visit Diagnoses Not on filedocumented in this encounter Care Teams Moving Picture Producer Relationship Specialty Start Date End Date Barrett Devlin MD [address] [place] [address] PCP - General General Internal Medicine 12/29/21 Mary Kiran, PURCHASING INTERNSHIP [address] [facility] [address] [place] [address] Cardiology 08/23/23 documented as of this encounter
--- OUTSIDE RECORDS SUMMARY | 2024-08-07 13:15 | XMS_ITS | Encounter Summary ---
Author Organization [employer] Address [address] [place] [address] Care Team Providers Care Plant Electrical Engineer Name Role Phone Barrett Devlin MD Primary Care Provider [phone] Mary Kiran SUPERVISOR SLITTING AND SHIPPING Unavailable [phone] Encounter Details Date Type Department Care Team (Late st Contact Info) Description 02/13/2019 Transcribed Document [facility] [place] Family Medicine [address] [place] [address] ProviderAlejandrina MD [address] [place] [address] Social History Tobacco Use Types Packs/Day Years Used Date Smoking Tobacco: Never Assessed Sex and Gender Information Value Date Recorded Sex Assigned at Not on file Legal Sex Male 6:49 PM CDT Gender Identity Not on file Sexual Orientation Not on file documented as of this encounter Miscellaneous Notes * Cerner Conversion Note - Alejandrina ProviderMD - 02/13/2019 2:00 AM INDUSTRIAL ROBOTICS MECHANIC Drafter Castings Details Entered On: 02/14/2019 4:47 EST Performed On: 02/13/2019 2:00 EST by Jacques Abarca RN-TRAVELER Order Details Transport Mode Order Detail : Bed (including specialty) Isolation Precautions Order Detail : Standard Precautions Order Detail : N/A IV Order Detail : 1 Oxygen Order Detail : 0 Nurse Collect Order Detail : 0 Lift/Transfer : Independent Central Line Order Detail : No Room Service : Appropriate Arterial Line : No Jacques Abarca RN-TRAVELER - 02/14/2019 4:46 EST Electronically signed by Teja [facility] Conversion Honing Machine Operator Cerner at 06/03/2022 12:18 PM CDT documented in this encounter Plan of Treatment Not on file documented as of this encounter Visit Diagnoses Not on filedocumented in this encounter Care Teams Plant Electrical Engineer Relationship Specialty Start Date End Date Barrett Devlin MD [address] [place] [address] PCP - General General Internal Medicine 12/29/21 Mary Kiran, SUPERVISOR SLITTING AND SHIPPING [address] [facility] [address] [place] [address] Cardiology 08/23/23 documented as of this encounter
--- OUTSIDE RECORDS SUMMARY | 2024-08-07 13:15 | XMS_ITS | Encounter Summary ---
Author Organization [facility] [employer] Address [address] [place] [address] Care Team Providers Care Manager Relationship Name Role Phone Barrett Devlin MD Primary Care Provider [phone] Mary Kiran INSURANCE BILLING CLERK Unavailable [phone] Encounter Details Date Type Department Care Team (Late st Contact Info) Description 2020 Transcribed Document [facility] [place] [address] [place] [address] ProviderAlejandrina MD [address] [place] [address] Social History Tobacco Use Types Packs/Day Years Used Date Smoking Tobacco: Never Assessed Sex and Gender Information Value Date Recorded Sex Assigned at Not on file Legal Sex Male 6:49 PM CDT Gender Identity Not on file Sexual Orientation Not on file documented as of this encounter Miscellaneous Notes * Cerner Conversion Note - Historical ProviderMD - 2020 12:08 PM CDT Discharge Summary, PT Entered On: 2020 12:11 EDT Performed On: 2020 12:08 EDT by VICKI SAMAYOA PT Student Discharge Summary Reason for Discharge : Other: Patient is IND. Discharged to, Therapy : Other: Remains in [facility]. Discharge Equipment, PT : None VICKI SAMAYOA, PT Student - 2020 12:08 EDT Discharge Summary Comment, PT : Patient is to be D/C'd today due to being close to PLOF with mobility and strength. He demonstrated no observable strength deficits, and 5 sit to stands without and s/s of distress, but his high BP contraindicates ambulation at this time. He is safe to ambulate to bathroom without assistance, but is not medically stable. Due to pt being close to PLOF, pt is not an apporpriate candidate fo skilled acute care therapy. If change in medical status occurs, new orders for PT/OT eval needed. PT has reviewed and agrees with note. PEGGY SIMPSON, PT - 2020 15:27 EDT Electronically signed by Teja, [facility] Conversion Director Of Dementia Operations Cerner at 06/03/2022 1:09 PM CDT documented in this encounter Plan of Treatment Not on file documented as of this encounter Visit Diagnoses Not on filedocumented in this encounter Care Teams Manager Relationship Relationship Specialty Start Date End Date Barrett Devlin MD [address] [place] [address] PCP - General General Internal Medicine 12/29/21 Mary Kiran, INSURANCE BILLING CLERK [address] [facility] [address] [place] [address] Cardiology 08/23/23 documented as of this encounter
--- OUTSIDE RECORDS SUMMARY | 2024-08-07 13:15 | XMS_ITS | Encounter Summary ---
Author Organization [employer] Address [address] [place] [address] Care Team Providers Care Garment Patternmaker Name Role Phone Barrett Devlin MD Primary Care Provider [phone] Mary Kiran CUSTOMER CARE PROFESSIONAL Unavailable [phone] Encounter Details Date Type Department Care Team (Late st Contact Info) Description 2020 Transcribed Document [facility] [place] [address] [place] [address] ProviderAlejandrina MD [address] [place] [address] Social History Tobacco Use Types Packs/Day Years Used Date Smoking Tobacco: Never Assessed Sex and Gender Information Value Date Recorded Sex Assigned at Not on file Legal Sex Male 6:49 PM CDT Gender Identity Not on file Sexual Orientation Not on file documented as of this encounter Miscellaneous Notes * Cerner Conversion Note - Alejandrina ProviderMD - 2020 1:02 PM CDT UM Authorization Entered On: 2020 13:06 EDT Performed On: 2020 13:02 EDT by ZACK HANSON Rn-Utilization Review Primary Insurance Authorization Authorization and Policy Numbers : Insurance 1 Health Plan: [employer] P[employer] Policy Number: [id number] Authorization Number: Insurance Primary Name : [employer] PPO Policy Number: [id number] Authorization Status-Primary : Notification only Reference Number-Primary : [id number] Authorization Number-Primary : [id number] Authorized Service Begin Date-Primary : 12/01/2020 EDT Authorization Comments-Primary : Per Availity, Inpt auth Certified in total for Tikosyn admit Historical Authorization Comments-Primary : No Authorization Comments Found ZACK HANSON Rn-Utilization Review - 2020 13:02 EDT Electronically signed by [facility], [facility] Conversion Recording Clerk Cerner at 06/03/2022 12:59 PM CDT documented in this encounter Plan of Treatment Not on file documented as of this encounter Visit Diagnoses Not on filedocumented in this encounter Care Teams Garment Patternmaker Relationship Specialty Start Date End Date Barrett Devlin MD [address] [place] [address] PCP - General General Internal Medicine 12/29/21 Mary Kiran, CUSTOMER CARE PROFESSIONAL [address] [facility] [address] [place] [address] Cardiology 08/23/23 documented as of this encounter
--- OUTSIDE RECORDS SUMMARY | 2024-08-07 13:15 | XMS_ITS | Encounter Summary ---
Author Organization [employer] iatives Address [address] [place] [address] Care Team Providers Care Heel Scorer Name Role Phone Barrett Devlin MD Primary Care Provider [phone] Mary Kiran ROLLER PRESSER OPERATOR Unavailable [phone] Encounter Details Date Type Department Care Team (Late st Contact Info) Description 2020 Transcribed Document [facility] Family Medicine [address] [place] [address] Alejandrina Turk MD [address] [place] [address] Social History Tobacco Use Types Packs/Day Years Used Date Smoking Tobacco: Never Assessed Sex and Gender Information Value Date Recorded Sex Assigned at Not on file Legal Sex Male 6:49 PM CDT Gender Identity Not on file Sexual Orientation Not on file documented as of this encounter Miscellaneous Notes * Cerner Conversion Note - Alejandrina Turk MD - 2020 10:37 AM CDT Patient: ESAU RADFORD Age: 70 years Sex: Male : 1950 Associated Diagnoses: None Author: CLARE MORA MD-CAR Subjective NAD Health Status Allergies: Allergic Reactions (Selected) No [...] Shortness of Breath Eliquis: 5 mg, Oral, 1-Time Milk of Magnesia 8% oral suspension: 30 mL, Oral, Daily, PRN: Constipation Normal Saline Flush: 10 mL, IV Push, Q12H Normal Saline Flush: 10 mL, IV Push, See Comment, PRN: IV Use Pepcid: 20 mg, Oral, Q12H Phenergan: 6.25 [...] mL, Oral, Q15Min, PRN: Other (See Comment) insulin lispro sliding scale: Scale A:, SubCutaneous, AC and at Bedtime Documented Medications Documented Eliquis 5 mg oral [...] = 1 Tab, Oral, Daily , Medications (20) Active Scheduled: (6) #NaCl 0.9% *FLUSH* inj 10 mL 10 mL, IV Push, Q12H apixaban 5 mg tab 5 mg 1 Tab, Oral, 1-Time cloNIDine 0.2 mg tab 0.2 mg 1 Tab, Oral, TID dofetilide 500 mcg cap 500 mcg 1 Cap, Oral, BID famotidine 20 mg tab 20 mg 1 Tab, Oral, Q12H insulin lispro 1 unit/0.01 mL inj Scale A:, SubCutaneous, AC and at Bedtime Continuous: (0) PRN: (14) #NaCl 0.9% *FLUSH* inj 10 mL 10 mL, IV Push, See Comment acetaminophen 325 mg tab 650 mg 2 [...] g 15 Gram 37.5 mL, Oral, Q15Min magnesium hydroxide 8% liq 30 mL 30 mL, Oral, Daily oxyCODONE 5 mg tab 5 mg 1 Tab, Oral, Q4H promethazine 25 mg/1 mL inj 6.25 mg 0.25 mL, IntraVENous, Q6H Problem list: All Problems Atrial fibrillation / SNOMED CT 54128891 / Confirmed Bradycardia / SNOMED CT 04846514 / Confirmed Low vitamin B12 level / SNOMED CT 027255210 / Confirmed History of obstructive sleep apnea / IMO 42013583 / Confirmed H/O syncope / SNOMED CT 8717597920 / Confirmed HTN - Hypertension / SNOMED CT 0351138530 / Confirmed Hyperlipidemia / SNOMED CT 01807350 / Confirmed Type 2 diabetes mellitus / SNOMED CT 150219479 / Confirmed, Active Problems (8) Atrial fibrillation Bradycardia H/O syncope History of obstructive sleep apnea HTN - Hypertension Hyperlipidemia Low vitamin B12 level Type 2 diabetes mellitus Objective Intake and Output 24 hour intake, 24 hour output VS/Measurements Vitals Signs (last 24 hrs) Last Charted Minimum Maximum Temp 97.6 (DEC 02 05:40) L 96.7 (DEC 01 18:27) 97.4 (DEC 01 22:45) Apical HR 77 (OCT 19 10:23) 64 (NOV 19 03:13) H 102 (NOV 18 20:32) Mon HR 91 (NOV 19 05:40) 64 (OCT 19 03:13) 91 (NOV 19 05:40) Resp Rate 18 (NOV 18 22:45) 18 (OCT 18 18:27) 18 (OCT 18 18:27) SBP H 144 (OCT 19 05:40) H 144 (OCT 19 05:40) H 188 (OCT 18 19:59) DBP H 107 (NOV 19 05:40) H 105 (NOV 18 22:45) H 133 (OCT 18 18:27) MAP 118 (OCT 19 05:40) 118 (OCT 19 05:40) 147 (OCT 18 18:27) SpO2 98 (DEC 01 22:45) L 91 (NOV 18 19:59) 98 (NOV 18 22:45) General: Alert and oriented. Eye: Pupils are [...] Normal range of motion. Integumentary: Warm, Dry, [place]. Neurologic: Alert, Oriented. Psychiatric: Cooperative, Appropriate mood & affect. Results Review Telemetry - atrial fib DEC 02 06:32 139 111 19 / H 143 4.5 22 1.20 \ DEC 02 06:32 \ 13.9 / 8.9 196 / 42.0 \ Telemetry/ECG I personally reviewed the last 24 hour telemetry that shows atrial fibrillation Cardiac echo 07/29/2020 Impression: Normal [...] PPM (MEDTRONIC) *HTN *DM II *HLD PLAN: 2020 Labs and telemetry reviewed. Recommend keeping [...] on filedocumented in this encounter Care Teams Heel Scorer Relationship Specialty Start Date End Date Barrett Devlin MD [address] [place] [address] PCP - General General Internal Medicine 12/29/21 Mary Kiran, ROLLER PRESSER OPERATOR [address] [facility] [address] [place] [address] Cardiology 08/23/23 documented as of this encounter
--- OUTSIDE RECORDS SUMMARY | 2024-08-07 13:15 | XMS_ITS | Encounter Summary ---
Author Organization [employer] Address [address] [place] [address] Care Team Providers Care Warp Tying Machine Knotter Name Role Phone Barrett Devlin MD Primary Care Provider [phone] Mary Kiran APRN Unavailable [phone] Encounter Details Date Type Department Care Team (Late st Contact Info) Description 12/03/2020 Transcribed Document [facility] Family Medicine [address] [place] [address] ProviderAlejandrina MD [address] [place] [address] Social History Tobacco Use Types Packs/Day Years Used Date Smoking Tobacco: Never Assessed Sex and Gender Information Value Date Recorded Sex Assigned at Not on file Legal Sex Male 6:49 PM CDT Gender Identity Not on file Sexual Orientation Not on file documented as of this encounter Miscellaneous Notes * Cerner Conversion Note - Alejandrina ProviderMD - 12/03/2020 8:00 AM CDT [facility] Main OR PACU Summary Primary Physician: CLARE MORA MD-CAR Finalized Date/Time: 12/03/20 12:42:43 Pt. Name: AMYESAU Esme LudwigB./Sex: 1950 Male Med Rec #: [id number] Physician: CLARE MORA MD-CAR Financial #: [id number] Pt. Type: C Room/Bed: / Admit/Disch: 12/01/20 13:33:00 - 12/01/20 23:59:00 Institution: [facility] Main OR PACU I Case Times Entry 1 In PACU I 12/03/20 10:06:00 Ready for PACU 12/03/20 11:15:00 Discharge Discharge from PACU 12/03/20 11:15:00 I Last Modified By: MANPREET BLAKE RN 12/03/20 12:42:32 Finalized By: MANPREET BLAKE, RN Document Signatures Signed By: MANPREET BLAKE RN 12/03/20 12:42 Electronically signed by Teja [facility] Conversion List Of First Job Ideas Cerner at 06/03/2022 12:47 PM CDT documented in this encounter Plan of Treatment Not on file documented as of this encounter Visit Diagnoses Not on filedocumented in this encounter Care Teams Warp Tying Machine Knotter Relationship Specialty Start Date End Date Barrett Devlin MD [address] [place] [address] PCP - General General Internal Medicine 12/29/21 Mary Kiran, YARN MAN [address] [facility] [address] [place] [address] Cardiology 08/23/23 documented as of this encounter
--- OUTSIDE RECORDS SUMMARY | 2024-08-07 13:15 | XMS_ITS | Encounter Summary ---
Author Organization [employer] Address [address] [place] [address] Care Team Providers Care Fitness Assistant Name Role Phone Barrett Devlin MD Primary Care Provider [phone] Mary Kiran CAR WORKER Unavailable [phone] Encounter Details Date Type Department Care Team (Late st Contact Info) Description 02/07/2019 Transcribed Document [facility] Family Medicine [address] [place] [address] ProviderAlejandrina MD [address] [place] [address] Social History Tobacco Use Types Packs/Day Years Used Date Smoking Tobacco: Never Assessed Sex and Gender Information Value Date Recorded Sex Assigned at Not on file Legal Sex Male 6:49 PM CDT Gender Identity Not on file Sexual Orientation Not on file documented as of this encounter Miscellaneous Notes * Cerner Conversion Note - Alejandrina Turk MD - 02/07/2019 8:25 PM LOOM FIXER APPRENTICE ED Discharge Entered On: 02/07/2019 20:26 EST Performed On: 02/07/2019 20:25 EST by Viky Gillis RN Discharge Process Patient Disposition : Discharge Personal Belongings With Patient : Yes Patient Education Completed : Yes Teaching Evaluation : Verbalizes understanding IV Discontinued : No Nursing Documentation Completed : Yes Viky Gillis RN - 02/07/2019 20:25 EST Admission, ED Nurse Report Accepted By : ARNOL Ng `Nurse Report (Hand Off) : Called Fluids/Drips Continued on Admission : Yes Fluids/Drips Continued on Admission, Comment : heparin Mode Of Departure : Viky Talley RN - 02/07/2019 20:25 EST Electronically signed by [facility], [facility] Conversion Watch Parts Inspector Cerner at 06/03/2022 12:13 PM CDT documented in this encounter Plan of Treatment Not on file documented as of this encounter Visit Diagnoses Not on filedocumented in this encounter Care Teams Fitness Assistant Relationship Specialty Start Date End Date Barrett Devlin MD [address] [place] [address] PCP - General General Internal Medicine 12/29/21 Mary Kiran, CAR WORKER [address] [facility] [address] [place] [address] Cardiology 08/23/23 documented as of this encounter
--- OUTSIDE RECORDS SUMMARY | 2024-08-07 13:15 | XMS_ITS | Encounter Summary ---
Author Organization [employer] Address [address] [place] [address] Care Team Providers Care Precision Agriculture Specialist Name Role Phone Barrett Devlin MD Primary Care Provider [phone] Mary Kiran BILLING AND QUALITY TECHNICIAN Unavailable [phone] Encounter Details Date Type Department Care Team (Late st Contact Info) Description 02/12/2019 Transcribed Document [facility] Family Medicine [address] [place] [address] ProviderAlejandrina MD [address] [place] [address] Social History Tobacco Use Types Packs/Day Years Used Date Smoking Tobacco: Never Assessed Sex and Gender Information Value Date Recorded Sex Assigned at Not on file Legal Sex Male 6:49 PM CDT Gender Identity Not on file Sexual Orientation Not on file documented as of this encounter Miscellaneous Notes * Cerner Conversion Note - Alejandrina ProviderMD - 02/12/2019 2:52 PM ODD TICKET CLERK UM Authorization Entered On: 02/12/2019 14:56 EST Performed On: 02/12/2019 14:52 EST by SARITA BARAJAS, Dispatch Machine Runner Primary Insurance Authorization Authorization and Policy Numbers : Insurance 1 Health Plan: [employer] Novalact PPO Policy Number: [id number] Authorization Number: Insurance Primary Name : [employer] Choice [id number] Authorization Status-Primary : Notification only Authorization Number-Primary : [id number] Authorized Service Begin Date-Primary : 02/12/2019 EST Authorization Comments-Primary : received fax from [employer] 02/12/19 admit DOS 02/12/19 auth# [id number] Historical Authorization Comments-Primary : No Authorization Comments Found SARITA BARAJAS, Dispatch Machine Runner - 02/12/2019 14:52 EST Electronically signed by Teja [facility] Conversion Clinical Research Technician Cerner at 06/03/2022 12:43 PM CDT documented in this encounter Plan of Treatment Not on file documented as of this encounter Visit Diagnoses Not on filedocumented in this encounter Care Teams Precision Agriculture Specialist Relationship Specialty Start Date End Date Barrett Devlin MD [address] [place] [address] PCP - General General Internal Medicine 12/29/21 Mary Kiran, BILLING AND QUALITY TECHNICIAN [address] [facility] [address] [place] [address] Cardiology 08/23/23 documented as of this encounter
--- OUTSIDE RECORDS SUMMARY | 2024-08-07 13:15 | XMS_ITS | Encounter Summary ---
Author Organization [employer] Address [address] [place] [address] Care Team Providers Care Welcome Desk Agent Name Role Phone Barrett Devlin MD Primary Care Provider [phone] Mary Kiran APRN Unavailable [phone] Encounter Details Date Type Department Care Team (Late st Contact Info) Description 02/12/2019 Transcribed Document [facility] Family Medicine [address] [place] [address] ProviderAlejandrina MD [address] [place] [address] Social History Tobacco Use Types Packs/Day Years Used Date Smoking Tobacco: Never Assessed Sex and Gender Information Value Date Recorded Sex Assigned at Not on file Legal Sex Male 6:49 PM CDT Gender Identity Not on file Sexual Orientation Not on file documented as of this encounter Miscellaneous Notes * Cerner Conversion Note - Alejandrina Turk MD - 02/12/2019 5:07 AM STUDY COORDINATOR Pain Assessment Entered On: 02/15/2019 23:53 EST Performed On: 02/15/2019 22:50 EST by KRYSTLE JO RN Intervention Information: acetaminophen Performed by KRYSTLE JO RN on 02/15/2019 21:50:00 EST acetaminophen,650mg Oral,Other (See Comment) Pain Assessment Pain Assessment : Follow-up assessment Pain Scale Goal : 3 Pain Improved by Intervention : Yes Pain Comment : Asleep KRYSTLE JO RN - 02/15/2019 23:53 EST Electronically signed by Teja [facility] Conversion Operations/Dispatch Cerner at 06/03/2022 12:39 PM CDT documented in this encounter Plan of Treatment Not on file documented as of this encounter Visit Diagnoses Not on filedocumented in this encounter Care Teams Welcome Desk Agent Relationship Specialty Start Date End Date Barrett Devlin MD [address] [place] [address] PCP - General General Internal Medicine 12/29/21 Mary Kiran, UPPERS EDGE BURNISHER [address] [facility] [address] [place] [address] Cardiology 08/23/23 documented as of this encounter
--- OUTSIDE RECORDS SUMMARY | 2024-08-07 13:15 | XMS_ITS | Encounter Summary ---
Author Organization [employer] Address [address] [place] [address] Care Team Providers Care Leather Novelty Parts Cutter Name Role Phone Barrett Devlin MD Primary Care Provider [phone] Mary Kiran B2B SALES PROFESSIONAL Unavailable [phone] Encounter Details Date Type Department Care Team (Late st Contact Info) Description 02/07/2019 Transcribed Document [facility] Family Medicine [address] [place] [address] ProviderAlejandrina MD [address] [place] [address] Social History Tobacco Use Types Packs/Day Years Used Date Smoking Tobacco: Never Assessed Sex and Gender Information Value Date Recorded Sex Assigned at Not on file Legal Sex Male 6:49 PM CDT Gender Identity Not on file Sexual Orientation Not on file documented as of this encounter Miscellaneous Notes * Cerner Conversion Note - Alejandrina ProviderMD - 02/07/2019 1:50 PM ANDROID IOS DEVELOPER ED Triage Entered On: 02/07/2019 13:57 EST Performed On: 02/07/2019 13:50 EST by BRIAN CEJA ED Triage Across the Room Chief Complaint : pt had syncopal epiosde LEVEL VIAL GRINDER, wearing a 30 day monitor for these episodes, packing house supervisor Tayler. +diaphoretic, +N/V. Triage Date/Time : 02/07/2019 13:50 EST BRIAN CEJA - 02/07/2019 13:54 EST DCP GENERIC CODE Tracking Acuity : 2 - Emergent Tracking Group : [facility] ED BRIAN CEJA - 02/07/2019 13:54 EST Mode of Arrival : Ambulatory Transported to ED by : Private vehicle To Room Via : Wheelchair Accompanied By : Spouse ED Vital Signs : Document Height & Weight : Document ED Allergies : Document ED Reason for Visit : Document BRIAN CEJA - 02/07/2019 13:54 EST Infectious Disease History Infectious Disease History : Chicken pox/Shingles Fever/Chills Last 48 Hours : No Travel To Regions with Travel Advisories : No Travel Outside [place] Within Last 30 Days : No Contact With Traveler to Advisory Region : No Tuberculosis Symptoms : None BRIAN CEJA - 02/07/2019 13:54 EST Vital Signs ED ED Pain : No Oxygen Therapy Mode : Room air Peripheral Pulse Rate : 60 bpm Respiratory Rate : 20 Breaths/Min Systolic Blood Pressure : 140 mmHg Diastolic Blood Pressure : 92 mmHg (HI) Oxygen Saturation : 96 % BRIAN CEJA - 02/07/2019 13:54 EST Allergy (As Of: 02/07/2019 13:57:04 EST) Allergies (Active) No Known Medication Allergies Estimated Onset Date: Unspecified ; Created By: BRIAN CEJA; Reaction Status: Active ; Category: Drug ; Substance: No Known Medication Allergies ; Type: Allergy ; Updated By: BRIAN CEJA; Reviewed Date: 02/07/2019 13:56 EST Diagnosis Control ED (As Of: 02/07/2019 13:57:04 EST) Diagnoses(Active) Syncope/Near syncope Date: 02/07/2019 ; Diagnosis Type: Reason For Visit ; Confirmation: Complaint of ; Clinical Dx: Syncope/Near syncope ; Classification: Medical ; Clinical Service: Emergency medicine ; Code: PNED ; Probability: 0 ; Diagnosis Code: [id number] ED Height and Weight Height Source : Stated Height Entry Format : [place] Height, Feet : 6 ft(Converted to: 183 cm, 72 Inch) Height, Inches : 0 Inch(Converted to: 0 ft 0 Inch, 0.00 cm) Clinical Height : 182.88 cm Weight Source, ED : Critical estimated dosing weight Weight Entry Format : [place] Weight, Pounds : 225 lb Clinical Dosing Weight : 102.27 kg Body Surface Area (BSA) : 2.24 m2 Body Mass Index : 30.6 kg/m2 (HI) [place] Body Weight (IBW) : 76.59 kg MARCIALBRIAN Jennifer - 02/07/2019 13:54 EST documented in this encounter Plan of Treatment Not on file documented as of this encounter Visit Diagnoses Not on filedocumented in this encounter Care Teams Leather Novelty Parts Cutter Relationship Specialty Start Date End Date Barrett Devlin MD [address] [place] [address] PCP - General General Internal Medicine 12/29/21 Mary Kiran, B2B SALES PROFESSIONAL [address] [facility] [address] [place] [address] Cardiology 08/23/23 documented as of this encounter
--- OUTSIDE RECORDS SUMMARY | 2024-08-07 13:15 | XMS_ITS | Encounter Summary ---
Author Organization [employer] Address [address] [place] [address] Care Team Providers Care Mixing Place Supervisor Name Role Phone Barrett Devlin MD Primary Care Provider [phone] Mary Kiran TAX EXAMINING TECHNICIAN Unavailable [phone] Encounter Details Date Type Department Care Team (Late st Contact Info) Description 02/13/2019 Transcribed Document [facility] Family Medicine [place] [address] Alejandrina Turk MD [address] [place] [address] Social History Tobacco Use Types Packs/Day Years Used Date Smoking Tobacco: Never Assessed Sex and Gender Information Value Date Recorded Sex Assigned at Not on file Legal Sex Male 6:49 PM CDT Gender Identity Not on file Sexual Orientation Not on file documented as of this encounter Miscellaneous Notes * Cerner Conversion Note - Alejandrina Turk MD - 02/13/2019 12:05 PM ORDER ANALYST On Going Discharge Planning Entered On: 02/13/2019 12:06 EST Performed On: 02/13/2019 12:05 EST by MORGAN CHOW, ARNOL-Storage Center ManagerQuality Control Representative Progress Note Discharge Arrangements : Patient Post-Acute Information Patient Name: ESAU RADFORD Gender: Male : [birth year] Age: 68 Years No Post-Acute Placement(s) Listed No Post-Acute Service(s) Listed No [place] Referral(s) Listed Discharge Plan Comment : Home w/fam MORGAN CHOW, RN-Storage Center Manager - 02/13/2019 12:05 EST Narrative Progress Note Narrative Progress Note : CM met w/pt @ BS. He lives home w/, works PT @ [employer]. uses CPAP nightly. informed him of CM services. Will continue to follow MORGAN CHOW RN-Storage Center Manager - 02/13/2019 12:05 EST Electronically signed by [facility], [facility] Conversion Newscast Director Cerner at 06/03/2022 12:42 PM CDT documented in this encounter Plan of Treatment Not on file documented as of this encounter Visit Diagnoses Not on filedocumented in this encounter Care Teams Mixing Place Supervisor Relationship Specialty Start Date End Date Barrett Devlin MD [address] [facility] [address] [place] [address] PCP - General General Internal Medicine 12/29/21 Mary Kiran, TAX EXAMINING TECHNICIAN [address] [facility] [address] [place] [address] Cardiology 08/23/23 documented as of this encounter
--- OUTSIDE RECORDS SUMMARY | 2024-08-07 13:15 | XMS_ITS | Encounter Summary ---
Author Organization [employer] Address [address] [place] [address] Care Team Providers Care Receiving Checker Name Role Phone Barrett Devlin MD Primary Care Provider [phone] Mary Kiran BOATING SAFETY OFFICER Unavailable [phone] Encounter Details Date Type Department Care Team (Late st Contact Info) Description 02/10/2019 Transcribed Document [facility] Family Medicine [facility] [place] [address] Alejandrina Turk MD [address] [place] [address] Social History Tobacco Use Types Packs/Day Years Used Date Smoking Tobacco: Never Assessed Sex and Gender Information Value Date Recorded Sex Assigned at Not on file Legal Sex Male 6:49 PM CDT Gender Identity Not on file Sexual Orientation Not on file documented as of this encounter Miscellaneous Notes * Cerner Conversion Note - Alejandrina Turk MD - 02/10/2019 9:12 AM RECYCLER FORKLIFT DRIVER TRUCK DRIVER Final Discharge Planning Entered On: 02/10/2019 9:14 EST Performed On: 02/10/2019 9:12 EST by JOSS TRUJILLO CSW Final Discharge Planning Discharge Arrangements : Patient Post-Acute Information Patient Name: ESAU RADFORD Gender: Male : [birth year] Age: 68 Years No Post-Acute Placement(s) Listed No Post-Acute Service(s) Listed No [place] Referral(s) Listed Patient Offered Choice/Affiliations Explained : No Designation of Choice Signed : No Important Medicare Message Reviewed With : Patient Important Medicare Message Reviewed D/T : 02/10/2019 9:30 EST Transportation Needs : Family/Friend Follow Up Appointment Scheduled : No Is Patient High/Moderate Readmission Risk? : No Discharge Medication Arrangements : Eliquis card given & pt assistance application. Pt.'s copay will be 26.00 Is Patient Ready for Discharge? : Yes Physician Notified Patient is Ready for Discharge? : Yes Discharge To Care Management : Home/Residential/Fdc or Self Care -01 JOSS TRUJILLO, MANAGER LVN - 02/10/2019 9:12 EST Final Narrative Note Final Narrative Note : Cardiac Rehab referral has been sent to [facility]. Pt & BS RN, aware. CASSANDRA Floyd TIYA H., [facility] - 02/10/2019 9:12 EST Electronically signed by [facility], [facility] Conversion Produce Buyer Cerner at 06/03/2022 12:42 PM CDT documented in this encounter Plan of Treatment Not on file documented as of this encounter Visit Diagnoses Not on filedocumented in this encounter Care Teams Receiving Checker Relationship Specialty Start Date End Date Barrett Devlin MD [address] [place] [address] PCP - General General Internal Medicine 12/29/21 Mary Kiran, BOATING SAFETY OFFICER [address] [facility] [address] [place] [address] Cardiology 08/23/23 documented as of this encounter
--- OUTSIDE RECORDS SUMMARY | 2024-08-07 13:15 | XMS_ITS | Encounter Summary ---
Author Organization [employer] Address [address] [place] [address] Care Team Providers Care Roller Leveler Operator Name Role Phone Barrett Devlin MD Primary Care Provider [phone] Mary Kiran CURRICULUM CONSULTANT Unavailable [phone] Encounter Details Date Type Department Care Team (Late st Contact Info) Description 2020 Transcribed Document [facility] [place] Family Medicine [address] [place] [address] ProviderAlejandrina MD [address] [place], [place] [id number] Social History Tobacco Use Types Packs/Day Years Used Date Smoking Tobacco: Never Assessed Sex and Gender Information Value Date Recorded Sex Assigned at Not on file Legal Sex Male 6:49 PM CDT Gender Identity Not on file Sexual Orientation Not on file documented as of this encounter Miscellaneous Notes * Cerner Conversion Note - Historical ProviderMD - 2020 2:[address] [facility] [place] OT Charges Entered On: 2020 14:13 EDT Performed On: 2020 14:13 EDT by ALYSSA GOMEZ OTR/Lisa Garg OT Charges Screen For Coding Machine Operator : 1 ALYSSA GOMEZ OTR/Lisa - 2020 14:13 EDT documented in this encounter Plan of Treatment Not on file documented as of this encounter Visit Diagnoses Not on filedocumented in this encounter Care Teams Roller Leveler Operator Relationship Specialty Start Date End Date Barrett Devlin MD [address] [place] [address] PCP - General General Internal Medicine 12/29/21 Mary Kiran, CURRICULUM CONSULTANT [address] [facility] [address] [place] [address] Cardiology 08/23/23 documented as of this encounter
--- OUTSIDE RECORDS SUMMARY | 2024-08-07 13:15 | XMS_ITS | Encounter Summary ---
Author Organization [employer] Address [address] [place] [address] Care Team Providers Care Detail Sergeant Name Role Phone Barrett Devlin MD Primary Care Provider [phone] Mary Kiran APRN Unavailable [phone] Encounter Details Date Type Department Care Team (Late st Contact Info) Description 02/13/2019 Transcribed Document [facility] [place] Family Medicine [address] [place] [address] Alejandrina Turk MD [address] [place] [address] Social History Tobacco Use Types Packs/Day Years Used Date Smoking Tobacco: Never Assessed Sex and Gender Information Value Date Recorded Sex Assigned at Not on file Legal Sex Male 6:49 PM CDT Gender Identity Not on file Sexual Orientation Not on file documented as of this encounter Miscellaneous Notes * Cerner Conversion Note - Alejandrina Turk MD - 02/13/2019 9:02 AM MEDIA ASSOCIATE Patient: ESAU RADFORD Age: 68 years Sex: Male : 1950 Associated Diagnoses: None Author: ZEKE WAGNER MD Basic Information no acute event reported no complains blood pressure poorly controlled Review of Systems Constitutional: No fever, No fatigue. Eye: No visual disturbances. Ear/Nose/Mouth/Throat: No sore throat. Respiratory: No shortness of breath. Cardiovascular: No chest pain. Gastrointestinal: No nausea. Genitourinary: No dysuria. Neurologic: Alert and oriented X4. Psychiatric: No anxiety. Health Status Current medications: Medications by Classification Cardiovascular metoprolol (metoprolol tartrate) - 12.5 mg, Oral, Tab, BID, Routine labetalol - 10 mg, IV Push, Inj, Q2H, PRN for Hypertension, Routine atorvastatin - 5 mg, Oral, Tab, At Bedtime, Routine Respiratory albuterol-ipratropium (DuoNeb 0.5 mg-2.5 mg/3 mL inhalation - 3 mL, Nebulized Inhalation, Inh, Q6H, PRN for Shortness of Breath, Routine promethazine (Phenergan) - 6.25 mg, IntraVENous, Inj, Q6H, PRN for Nausea, Routine GI ondansetron (Zofran) - 4 mg, IV Push, Inj, Q4H, PRN for Nausea, Routine famotidine (Pepcid) - 20 mg, Oral, Tab, Daily, Routine Endocrine insulin lispro (insulin lispro 76 kg - 100 kg) - 76 kg - 100 kg scale, SubCutaneous, Inj, AC and at Bedtime, Routine Pain Meds morphine - 2 mg, IV Push, Inj, Q2H, PRN for Pain (Severe 7-10), Routine aspirin - 81 mg, Oral, EC Tab, Daily acetaminophen (Tylenol) - 650 mg, Oral, Tab, Q4H, PRN for Other (See Comment), Routine Undefined Medications heparin 25,000 Units + NaCl 0.45% Premix Diluent 250 mL (hep - 250 mL, Bag Volume (mL) = 250, IntraVENous hydrALAZINE - 10 mg, IV Push, Inj, Q6H, PRN for Hypertension, Routine Problem list: Active Problems (4) Atrial fibrillation History of obstructive sleep apnea HTN - Hypertension Type 2 diabetes mellitus Physical Examination VS/Measurements Vitals Signs (last 24 hrs) Last Charted Minimum Maximum Temp 99.1 (FEB 13 00:00) 98.6 (FEB 12 18:23) 99.1 (FEB 12 20:17) Apical HR H 137 (FEB 12 22:47) 80 (FEB 12 16:10) H 137 (FEB 12 22:47) Mon HR 97 (FEB 13 05:00) 59 (FEB 12 15:56) 147 (FEB 12 20:01) Resp Rate 16 (FEB 13 05:00) 16 (FEB 12 15:00) 20 (FEB 12 11:00) SBP H 156 (FEB 13 05:00) 137 (FEB 12 21:00) H 157 (FEB 12 15:56) DBP H 101 (FEB 13 05:00) 87 (FEB 13 01:00) H 112 (FEB 12 15:00) MAP 114 (FEB 13 05:00) 100 (FEB 12 21:00) 125 (FEB 12 11:00) SpO2 98 (FEB 13 05:00) 94 (FEB 12 23:00) 99 (FEB 12 11:00) General: Alert and oriented, No acute distress. Eye: Extraocular movements are intact, Normal conjunctiva. HENT: Normocephalic, Oral mucosa is moist. Neck: Supple, Non-tender, No jugular venous distention. Respiratory: Lungs are clear to auscultation. Cardiovascular: Normal rate, No murmur, Normal peripheral perfusion, No edema, irregularly irregular. Gastrointestinal: Soft, Non-tender, Normal bowel sounds. Genitourinary: No costovertebral angle tenderness. Musculoskeletal: Normal range of motion. Integumentary: Intact. Neurologic: Alert, Oriented, No focal deficits. Psychiatric: Cooperative, Appropriate mood & affect. Review / Management Results review: Labs (Last four charted values) WBC 5.6 (FEB 13) 7.6 (FEB 12) 9.0 (FEB 12) HB 14.9 (FEB 13) 13.7 (FEB 12) 13.8 (FEB 12) HCT 44.7 (FEB 13) L 39.9 (FEB 12) 41.7 (FEB 12) Plt 226 (FEB 13) 218 (FEB 12) 224 (FEB 12) Na 136 (FEB 13) 137 (FEB 12) K 4.1 (FEB 13) 4.4 (FEB 12) Cl 105 (FEB 13) 107 (FEB 12) CO2 21 (FEB 13) 25 (FEB 12) BUN 22 (FEB 13) H 29 (FEB 12) Cr 1.20 (FEB 13) H 1.60 (FEB 12) Glu R H 147 (FEB 13) H 180 (FEB 12) Ca 8.8 (FEB 13) 8.6 (FEB 12) PT 10.6 (FEB 12) INR 1.0 (FEB 12) PTT H 60.1 (FEB 12) AST 22 (FEB 12) ALT 23 (FEB 12) ALK P 104 (FEB 12) T Bili 0.2 (FEB 12) PTN 7.0 (FEB 12) ALB 3.5 (FEB 12) Lipase 96 (FEB 12) Troponin <0.015 (FEB 12) . Radiology results Radiology Results (Last 48 hours) [id number] -- 02/12/2019 04:01 CR Chest 1 Vw Portable (02/12/2019 03:46) Result: PORTABLE CHEST 02/12/2019 3:33 AM HISTORY: Syncope.COMPARISON: February 07, 2019.FINDINGS: The heart is normal in size . The mediastinum isunremarkable . Diffuse interstitial changes are probably chronic . Thelungs are otherwise clear . There is no pneumothorax . The osseousstructures are unremarkable . There is an electronic device overlyingthe left side of the chest.IMPRESSION: No acute cardiopulmonary process . Continued follow-up is recommended .Images reviewed, interpreted, and dictated by Dr. Sandhya Senior.Transcribed by Jacob Astudillo PA-C.I have personally viewed, interpreted and dictated the examination. Ihave read and agree with the above final transcribed report. CT Head WO (02/12/2019 03:52) Result: CT HEAD WITHOUT CONTRASTHISTORY: Altered mental status of unclear cause.TECHNIQUE: Multiple thin-section axial images were obtained throughoutthe head without the administration of contrast. This study wasperformed with techniques to keep radiation doses as low as reasonablyachievable, (ALARA). Individualized dose reduction techniques usingautomated exposure control or adjustment of mA and/or kV according tothe patient size were employed.COMPARISON: 02/09/2019FINDINGS: Bone windows demonstrate no abnormalities.. The visualizedparanasal sinuses and mastoid air cells demonstrate minimal rightmaxillary mucosal thickening. The visualized orbits and globesdemonstrate no abnormalities. There is mild generalized cerebralatrophy. There is decreased attenuation in the periventricular whitematter, consistent with minimal small vessel chronic ischemic changes.The ventricles and basal cisterns are unremarkable. There is nohemorrhage. There are no extra-axial fluid collections. There is nomass, mass effect or midline shift. There is no evidence of corticaledema or acute ischemia.IMPRESSION: Mild atrophy with minimal small vessel chronic ischemic changes.No acute intracranial abnormality. Impression and Plan 1. SSS new onset AFib katerine pauses symptomatic with syncope 2. CAD GAMBRELER RCA 03/12/2018 PPM placement by EPS likely tomorrow need to be off Eliquis for 2 days 2.BHETN-not controlled. on metoprolol will resume home lisinopril. monitor 3. Acute renal failure. Avoid nephrotoxic medication. We will monitor kidney function. Monitor input and output. 4. Diabetes mellitus, we will start sliding scale. 5. Hyperlipidemia, on statin, to be continued. 6. Obesity, recommend diet and exercise. 7. Gastrointestinal prophylaxis, Pepcid. VTE Prophylaxis - Medical Sequential Compression Device Start: 02/12/19 5:07:00 EST, Bilateral, Length: Knee High, While patient is in bed, Continuous Order (NAHEED LESTER) Activity-no mobility issues time spent 35 minutes Electronically signed by Teja [facility] Conversion Boat Crew Deck Hand Cerner at 06/03/2022 12:40 PM CDT documented in this encounter Plan of Treatment Not on file documented as of this encounter Visit Diagnoses Not on filedocumented in this encounter Care Teams Detail Sergeant Relationship Specialty Start Date End Date Barrett Devlin MD [address] [place] [address] PCP - General General Internal Medicine 12/29/21 Mary Kiran, RESIDENTIAL SALES [address] [facility] [address] [place] [address] Cardiology 08/23/23 documented as of this encounter
--- OUTSIDE RECORDS SUMMARY | 2024-08-07 13:15 | XMS_ITS | Encounter Summary ---
Author Organization [employer] Address [address] [place] [address] Care Team Providers Care Automotive General Manager Name Role Phone Barrett Devlin MD Primary Care Provider [phone] Mary Kiran CAR CARDER Unavailable [phone] Encounter Details Date Type Department Care Team (Late st Contact Info) Description 02/13/2019 Transcribed Document [facility] [place] Family Medicine [address] [place] [address] ProviderAlejandrina MD [address] [place] [address] Social History Tobacco Use Types Packs/Day Years Used Date Smoking Tobacco: Never Assessed Sex and Gender Information Value Date Recorded Sex Assigned at Not on file Legal Sex Male 6:49 PM CDT Gender Identity Not on file Sexual Orientation Not on file documented as of this encounter Miscellaneous Notes * Cerner Conversion Note - Alejandrina ProviderMD - 02/13/2019 5:00 AM INVOICING SPECIALIST Chart Check - Review Order Profile Entered On: 02/14/2019 4:47 EST Performed On: 02/13/2019 5:00 EST by Jacquse Abarca RN-TRAVELER Chart Check Powerplans Initiated/Discontinued as Appropriate : Yes All Active Orders Reviewed : Yes Jacques Abarca RN-TRAVELER - 02/14/2019 4:47 EST Electronically signed by Aniket Lezama Conversion Nuclear Medicine Technologist Cerner at 06/03/2022 12:40 PM CDT documented in this encounter Plan of Treatment Not on file documented as of this encounter Visit Diagnoses Not on filedocumented in this encounter Care Teams Automotive General Manager Relationship Specialty Start Date End Date Barrett Devlin MD [address] [place] [address] PCP - General General Internal Medicine 12/29/21 Mary Kiran, CAR CARDER [address] [facility] [address] [place] [address] Cardiology 08/23/23 documented as of this encounter
--- OUTSIDE RECORDS SUMMARY | 2024-08-07 13:15 | XMS_ITS | Encounter Summary ---
Author Organization [employer] Address [address] [place] [address] Care Team Providers Care Machine Tracer Name Role Phone Barrett Devlin MD Primary Care Provider [phone] Mary Kiran APRN Unavailable [phone] Encounter Details Date Type Department Care Team (Late st Contact Info) Description 2020 Transcribed Document [facility] [place] [address] [place] [address] Alejandrina Turk MD [address] [place] [address] Social History Tobacco Use Types Packs/Day Years Used Date Smoking Tobacco: Never Assessed Sex and Gender Information Value Date Recorded Sex Assigned at Not on file Legal Sex Male 6:49 PM CDT Gender Identity Not on file Sexual Orientation Not on file documented as of this encounter Miscellaneous Notes * Cerner Conversion Note - Alejandrina Turk MD - 2020 9:20 AM CDT Patient: ESAU RADFORD Age: 70 years Sex: Male : 1950 Associated Diagnoses: None Author: JORDEN SALDANA MD Subjective seen and examined BP elevated Plan for ablation tomorrow Review of Systems Denies fever or chills [...] Klor-Con 10 mEq oral tablet, extended release: 1 Tab, Oral, BID, 0 Refill(s) Metoprolol Tartrate [...] Oral, Daily, 30 Tab, 0 Refill(s), Medications (20) Active Scheduled: (6) #NaCl 0.9% [...] History of obstructive sleep apnea / IMO [id number] / Confirmed Atrial fibrillation / SNOMED CT 08761088 / Confirmed HTN - Hypertension / SNOMED CT 6408069598 / Confirmed Type 2 diabetes mellitus / SNOMED CT 671230902 / Confirmed, Active Problems (8) Atrial fibrillation Bradycardia H/O syncope History of obstructive sleep apnea HTN - Hypertension Hyperlipidemia Low vitamin B12 level Type 2 diabetes mellitus Objective VS/Measurements Vitals Signs (last 24 hrs) Last Charted Minimum Maximum Temp 97.6 (OCT 19 05:40) L 96.7 (OCT 18 18:27) 97.4 (OCT 18 22:45) Apical HR 64 (OCT 19 03:13) 64 (OCT 19 03:13) H 102 (OCT 18 20:32) Mon HR 91 (OCT 19 05:40) 64 (OCT 19 03:13) 91 (OCT 19 05:40) Resp Rate 18 (OCT 18 22:45) 18 (OCT 18 18:27) 18 (OCT 18 18:27) SBP H 144 (OCT 19 05:40) H 144 (OCT 19 05:40) H 188 (OCT 18 19:59) DBP H 107 (OCT 19 05:40) H 105 (OCT 18 22:45) H 133 (OCT 18 18:27) MAP 118 (OCT 19 05:40) 118 (OCT 19 05:40) 147 (OCT 18 18:27) SpO2 98 (OCT 18 22:45) L 91 (OCT 18 19:59) 98 (OCT 18 22:45) General: Alert and oriented, No acute distress. [...] mood & affect. Review / Management DEC 02 06:32 139 111 19 / H 143 4.5 22 1.20 \ DEC 02 06:32 \ 13.9 / 8.9 196 / 42.0 \ No Radiology Results Found Results review: Labs (Last four charted values) WBC 8.9 (DEC 02) HB 13.9 (DEC 02) HCT 42.0 (DEC 02) Plt 196 (DEC 02) Na 139 (DEC 02) 145 (DEC 01) K 4.5 (DEC 02) L 3.4 (DEC 01) Cl 111 (DEC 02) H 116 (DEC 01) CO2 22 (DEC 02) 22 (DEC 01) BUN 19 (DEC 02) 18 (DEC 01) Cr 1.20 (DEC 02) 1.20 (DEC 01) Glu R H 143 (DEC 02) H 135 (DEC 01) Ca 8.8 (DEC 02) L 7.3 (DEC 01) . Impression and Plan #A Fib Telemetry Monitoring keep potassium > 4, magnesium >2 Tikosyn per EP cardiology Eliquis for DVT prophylaxis Plan for EPS and ablation 12/03 Cardiology following #HTN, uncontrolled on Clonidine and Lisinopril at home IV hydrazine PRN Monitor #DMII hold oral hypoglycemic agents SSI Monitor #Hypokalemia replaced check in am #Hypomagnesemia Replaced check in am #FABRICE CPAP at night and with sleep #Obesity Complicate all clinical aspect of care DVT prophylaxis Eliquis Full code Labs, PMH, medications reviewed Discussed with patient, RN Time spent 22 min Disposition: started Tikosyn, plan for ablation tomorrow, hopefully discharge home 12/04 Electronically signed by Aniket Lezama Conversion Medical Instrument Technician Jose Juanner at 06/03/2022 12:48 PM CDT documented in this encounter Plan of Treatment Not on file documented as of this encounter Visit Diagnoses Not on filedocumented in this encounter Care Teams Machine Tracer Relationship Specialty Start Date End Date Barrett Devlin MD [address] [place] [address] PCP - General General Internal Medicine 12/29/21 Mary Kiran, SECRETARY TO BOARD OF COMMISSIONERS [address] [facility] [address] [place] [address] Cardiology 08/23/23 documented as of this encounter
--- OUTSIDE RECORDS SUMMARY | 2024-08-07 13:15 | XMS_ITS | Encounter Summary ---
Author Organization [employer] Address [address] [place] [address] Care Team Providers Care Senior Benefits Specialist Name Role Phone Barrett Devlin MD Primary Care Provider [phone] Mary Kiran APRN Unavailable [phone] Encounter Details Date Type Department Care Team (Late st Contact Info) Description 12/05/2020 Transcribed Document [facility] [place] Family Medicine [address] [place] [address] Alejandrina Turk MD [address] [place] [address] Social History Tobacco Use Types Packs/Day Years Used Date Smoking Tobacco: Never Assessed Sex and Gender Information Value Date Recorded Sex Assigned at Not on file Legal Sex Male 6:49 PM CDT Gender Identity Not on file Sexual Orientation Not on file documented as of this encounter Miscellaneous Notes * Cerner Conversion Note - Alejandrina Turk MD - 12/05/2020 8:59 AM CDT Final Discharge Planning Entered On: 12/05/2020 8:59 EDT Performed On: 12/05/2020 8:59 EDT by RACHANA LONG Social Worker Final Discharge Planning Follow Up Appointment Scheduled : Yes Is Patient High/Moderate Readmission Risk? : No Patient/Family Notified of Plan : Yes RACHANA LONG Social Worker - 12/05/2020 9:00 EDT Discharge Arrangements : Patient Post-Acute Information Patient Name: ESAU RADFORD Gender: Male : [birth year] Age: 70 Years No Post-Acute Placement(s) Listed No Post-Acute Service(s) Listed No [place] Referral(s) Listed Transportation Needs : Car Discharge To Care Management : Home/Residential/Jail or Self Care -01 RACHANA LONG, Mechanotherapist - 12/05/2020 8:59 EDT Electronically signed by [facility] Conversion Bulwark Carpenter Cerner at 06/03/2022 1:07 PM CDT documented in this encounter Plan of Treatment Not on file documented as of this encounter Visit Diagnoses Not on filedocumented in this encounter Care Teams Senior Benefits Specialist Relationship Specialty Start Date End Date Barrett Devlin MD [address] [place] [address] PCP - General General Internal Medicine 12/29/21 Mary Kiran, SEA CAPTAIN [address] [facility] [address] [place] [address] Cardiology 08/23/23 documented as of this encounter
--- OUTSIDE RECORDS SUMMARY | 2024-08-07 13:15 | XMS_ITS | Encounter Summary ---
Author Organization [employer] Address [address] [place] [address] Care Team Providers Care Petrography Teacher Name Role Phone Barrett Devlin MD Primary Care Provider [phone] Mary Kiran CUTTER OUT Unavailable [phone] Encounter Details Date Type Department Care Team (Late st Contact Info) Description 02/14/2019 Transcribed Document [facility] [place] Family Medicine [address] [place] [address] ProviderAlejandrina MD [address] [place], [place] [address] Social History Tobacco Use Types Packs/Day Years Used Date Smoking Tobacco: Never Assessed Sex and Gender Information Value Date Recorded Sex Assigned at Not on file Legal Sex Male 6:49 PM CDT Gender Identity Not on file Sexual Orientation Not on file documented as of this encounter Miscellaneous Notes * Cerner Conversion Note - Alejandrina ProviderMD - 02/14/2019 5:00 AM CHIEF CONTROLLER Chart Check - Review Order Profile Entered On: 02/14/2019 4:48 EST Performed On: 02/14/2019 5:00 EST by Jacques Abarca RN-TRAVELER Chart Check Powerplans Initiated/Discontinued as Appropriate : Yes All Active Orders Reviewed : Yes Jacques Abarca RN-TRAVELER - 02/14/2019 4:48 EST documented in this encounter Plan of Treatment Not on file documented as of this encounter Visit Diagnoses Not on filedocumented in this encounter Care Teams Petrography Teacher Relationship Specialty Start Date End Date Barrett Devlin MD [address] [place] [address] PCP - General General Internal Medicine 12/29/21 Mary Kiran, CUTTER OUT [address] [facility] [address] [place] [address] Cardiology 08/23/23 documented as of this encounter
--- OUTSIDE RECORDS SUMMARY | 2024-08-07 13:15 | XMS_ITS | Encounter Summary ---
Author Organization [employer] Address [address] [place] [address] Care Team Providers Care Cottrell Blower Name Role Phone Barrett Devlin MD Primary Care Provider [phone] Mary Kiran BALL THREAD MACHINE TENDER Unavailable [phone] Encounter Details Date Type Department Care Team (Late st Contact Info) Description 12/04/2020 Transcribed Document [facility] [place] [address] [place] [address] ProviderAlejandrina MD [address] [place] [address] Social History Tobacco Use Types Packs/Day Years Used Date Smoking Tobacco: Never Assessed Sex and Gender Information Value Date Recorded Sex Assigned at Not on file Legal Sex Male 6:49 PM CDT Gender Identity Not on file Sexual Orientation Not on file documented as of this encounter Miscellaneous Notes * Cerner Conversion Note - Alejandrina ProviderMD - 12/04/2020 4:00 AM CDT Height and Weight, Routine Entered On: 12/04/2020 5:33 EDT Performed On: 12/04/2020 4:00 EDT by Marilee Soto Rn-Traveler Height and Weight, Routine Routine Weight Source : Bed scale Routine Weight Entry Format : [place] Routine Weight, Pounds : 233 lb Routine Weight, Ounces : 3 oz Routine Weight Calculation : 105.99 kg Height Source : Stated Height Entry Format : [place] Height, Feet : 6 ft Height, Inches : 0 Inch Clinical Height : 182.88 cm Body Surface Area (BSA), Routine : 2.28 m2 Body Mass Index (BMI), Routine : 31.69 kg/m2 Marilee Soto Rn-Traveler - 12/04/2020 5:32 EDT documented in this encounter Plan of Treatment Not on file documented as of this encounter Visit Diagnoses Not on filedocumented in this encounter Care Teams Cottrell Blower Relationship Specialty Start Date End Date Barrett Devlin MD [address] [place] [address] PCP - General General Internal Medicine 12/29/21 Mary Kiran, BALL THREAD MACHINE TENDER [address] [facility] [address] [place] [address] Cardiology 08/23/23 documented as of this encounter
--- OUTSIDE RECORDS SUMMARY | 2024-08-07 13:15 | XMS_ITS | Encounter Summary ---
Author Organization [employer] Address [address] [place] [address] Care Team Providers Care Fuel Storage Technician Name Role Phone Barrett Devlin MD Primary Care Provider [phone] Mary Kiran HYPOID GEAR GENERATOR Unavailable [phone] Encounter Details Date Type Department Care Team (Late st Contact Info) Description 12/03/2020 Transcribed Document [facility] [place] Family Medicine [address] [place] [address] ProviderAlejandrina MD [address] [place] [address] Social History Tobacco Use Types Packs/Day Years Used Date Smoking Tobacco: Never Assessed Sex and Gender Information Value Date Recorded Sex Assigned at Not on file Legal Sex Male 6:49 PM CDT Gender Identity Not on file Sexual Orientation Not on file documented as of this encounter Miscellaneous Notes * Cerner Conversion Note - Historical ProviderMD - 12/03/2020 4:00 AM CDT Height and Weight, Routine Entered On: 12/03/2020 7:45 EDT Performed On: 12/03/2020 4:00 EDT by Marilee Soto Rn-Traveler Height and Weight, Routine Routine Weight Source : Bed scale Routine Weight Entry Format : [place] Routine Weight, Pounds : 239 lb Routine Weight, Ounces : 3 oz Routine Weight Calculation : 108.72 kg Height Source : Stated Height Entry Format : [place] Height, Feet : 6 ft Height, Inches : 0 Inch Clinical Height : 182.88 cm Body Surface Area (BSA), Routine : 2.3 m2 Body Mass Index (BMI), Routine : 32.51 kg/m2 Marilee Soto Rn-Traveler - 12/03/2020 7:45 EDT Electronically signed by Teja [facility] Conversion Licensed Electrician Cerner at 06/03/2022 1:01 PM CDT documented in this encounter Plan of Treatment Not on file documented as of this encounter Visit Diagnoses Not on filedocumented in this encounter Care Teams Fuel Storage Technician Relationship Specialty Start Date End Date Barrett Devlin MD [address] [place] [address] PCP - General General Internal Medicine 12/29/21 Mary Kiran, HYPOID GEAR GENERATOR [address] [facility] [address] [place] [address] Cardiology 08/23/23 documented as of this encounter
--- OUTSIDE RECORDS SUMMARY | 2024-08-07 13:15 | XMS_ITS | Encounter Summary ---
Author Organization [employer] Address [address] [place] [address] Care Team Providers Care Office Professionals Name Role Phone Barrett Devlin MD Primary Care Provider [phone] Mary Kiran APRN Unavailable [phone] Encounter Details Date Type Department Care Team (Late st Contact Info) Description 02/14/2019 Transcribed Document [facility] [place] Family Medicine [address] [place] [address] ProviderAlejandrina MD [address] [place] [address] Social History Tobacco Use Types Packs/Day Years Used Date Smoking Tobacco: Never Assessed Sex and Gender Information Value Date Recorded Sex Assigned at Not on file Legal Sex Male 6:49 PM CDT Gender Identity Not on file Sexual Orientation Not on file documented as of this encounter Miscellaneous Notes * Cerner Conversion Note - Alejandrina Turk MD - 02/14/2019 10:34 AM NON LICENSED NUCLEAR PLANT OPERATOR Patient: ESAU RADFORD Age: 68 years Sex: Male : 1950 Associated Diagnoses: None Author: ZEKE WAGNER MD Basic Information no acute event reported no complains blood pressure poorly controlled tachycardia ongoing towards restroom Review of Systems Constitutional: No fever, No [...] Push, Inj, Q2H, PRN for Hypertension, Routine lisinopril - 40 mg, Oral, Tab, Daily, Routine atorvastatin - 5 mg, Oral, Tab, [...] Q4H, PRN for Other (See Comment), Routine Vitamins cyanocobalamin - 1,000 mcg, Oral, Tab, Daily, Routine Undefined Medications heparin 25,000 Units + [...] 24 hrs) Last Charted Minimum Maximum Temp 98.2 (FEB 14 05:57) 97.8 (FEB 14 03:04) 98.5 (FEB 13 20:42) Apical HR H 105 (FEB 14 09:50) H 105 (FEB 14 09:50) H 126 (FEB 13 11:15) Mon HR 102 (FEB 14 05:57) 51 (FEB 13 11:00) 120 (FEB 13 20:42) Resp Rate 18 (FEB 14 05:00) 16 (FEB 13 11:00) 18 (FEB 13 17:49) SBP H 151 (FEB 14 09:50) 126 (FEB 14 05:57) H 176 (FEB 13 17:49) DBP H 99 (FEB 14 09:50) H 93 (FEB 14 05:57) H 110 (FEB 13 22:00) MAP 106 (FEB 14 05:57) 106 (FEB 14 05:57) 140 (FEB 14 03:04) SpO2 95 (FEB 14 03:04) 95 (FEB 13 17:49) 97 (FEB 13 11:00) General: Alert and oriented, No acute [...] review: Labs (Last four charted values) WBC 5.3 (FEB 14) 5.6 (FEB 13) 7.6 (FEB 12) 9.0 (FEB 12) HB 15.5 (FEB 14) 14.9 (FEB 13) 13.7 (FEB 12) 13.8 (FEB 12) HCT 46.4 (FEB 14) 44.7 (FEB 13) L 39.9 (FEB 12) 41.7 (FEB 12) Plt 216 (FEB 14) 226 (FEB 13) 218 (FEB 12) 224 [...] Troponin <0.015 (FEB 12) . Radiology results No Radiology Results Found Impression and Plan 1. SSS new onset AFib katerine pauses symptomatic with syncope 2. 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 PPM placement by EPS-likely tomorrow need to be off Eliquis for [...] time spent 35 minutes Electronically signed by [facility], [facility] Conversion Shearing Shed Worker Cerner at 06/03/2022 12:23 PM CDT documented in this encounter Plan of Treatment Not on file documented as of this encounter Visit Diagnoses Not on filedocumented in this encounter Care Teams Office Professionals Relationship Specialty Start Date End Date Barrett Devlin MD [address] [place] [address] PCP - General General Internal Medicine 12/29/21 Mary Kiran, LEAD BURNER APPRENTICE [address] [facility] [address] [place] [address] Cardiology 08/23/23 documented as of this encounter
--- OUTSIDE RECORDS SUMMARY | 2024-08-07 13:15 | XMS_ITS | Encounter Summary ---
Author Organization [employer] Address [address] [place] [address] Care Team Providers Care Waste Management Engineer Name Role Phone Barrett Devlin MD Primary Care Provider [phone] Mary Kiran DETECTIVE BUREAU CHIEF Unavailable [phone] Encounter Details Date Type Department Care Team (Late st Contact Info) Description 02/12/2019 Transcribed Document [facility] [place] [facility] [place] [address] Alejandrina Turk MD [address] [place] [id number] Social History Tobacco Use Types Packs/Day Years Used Date Smoking Tobacco: Never Assessed Sex and Gender Information Value Date Recorded Sex Assigned at Not on file Legal Sex Male 6:49 PM CDT Gender Identity Not on file Sexual Orientation Not on file documented as of this encounter Miscellaneous Notes * Cerner Conversion Note - Alejandrina Turk MD - 02/12/2019 3:31 AM METAL SPRAYER PROTECTIVE COATING Patient: ESAU RADFORD Age: 68 years Sex: Male : 1950 Associated Diagnoses: Syncope; Arrhythmia Author: JUAN C LLANES MD Basic Information Time seen: Date & time 02/12/2019 03:32:00. History source: Patient. Arrival mode: Private vehicle. History limitation: None. Additional information: Chief Complaint from Nursing Triage Note : Chief Complaint 02/12/2019 3:21 EST Chief Complaint up to bathroom, heard a thump in bathroom, found patient in floor unresponsive for approx 1-2 min; abrasion to rt flank area . History of Present Illness This is a 68-year-old male with a past medical history significant for hypertension, hyperlipidemia, diabetes, atrial fibrillation on Eliquis who presents to the emergency department for evaluation of an episode of syncope that occurred just prior to arrival. He went to go to the bathroom, was sitting on the toilet and fell backwards, hitting his head on the wall. He denies any prodromal symptoms. He does not currently have any symptoms and feels in his baseline health. He does not have any chest pain, shortness of breath. He has not had any recent fevers or vomiting. He was just discharged from the hospital 2 days ago with a negative workup for similar symptoms. He has been wearing a monitor worker and I was called by cardiology who was informed by the [employer] that he did just have a 12 second pause that correlates with his episode of syncope. Cardiology has recommended admission. Review of Systems Additional review of systems information: 10 point review of systems reviewed and negative except as stated in history of present illness . Health Status Allergies: Allergic Reactions (Selected) No Known Medication Allergies . Medications: (Selected) Prescriptions Prescribed Metoprolol Tartrate 25 mg oral tablet: 0.5 Tab, Oral, BID, 30 Tab, 0 Refill(s) apixaban 5 mg oral tablet: 1 Tab, Oral, [id number], 60 Tab, 0 Refill(s) atorvastatin 10 mg oral tablet: 0.5 Tab, Oral, At Bedtime, 15 Tab, 0 Refill(s) cyanocobalamin 1000 mcg oral tablet, extended release: 1 Tab, Oral, Daily, 30 Tab, 0 Refill(s) Documented Medications Documented Dilt-XR 240 mg/24 hours [...] tablet: 1 Tab, Oral, Daily, 0 Refill(s) metFORMIN 1000 mg oral tablet: 1 Tab, Oral, BID, 0 Refill(s) potassium chloride 10 mEq oral tablet, extended release: 2 Tab, Oral, Daily, 0 Refill(s) sildenafil 20 mg oral tablet: 3 Tab, Oral, Daily, use as directed, PRN: Other (See Comment) spironolactone 25 mg oral tablet: 1 Tab, Oral, Daily, 30 Tab, 0 Refill(s) , per nurse's notes. Immunizations: Per nurse's notes. Past Medical/ Family/ Social History Medical history Reviewed as documented in chart. Surgical history: Reviewed as documented in chart. Family history: Reviewed as documented in chart. Social history: Reviewed as documented in chart. Problem list: Active Problems (1) History of obstructive sleep apnea , per nurse's notes. Physical Examination Vital Signs Vital Signs/Vital Measures 02/12/2019 3:45 EST Oxygen Therapy Mode Room air 02/12/2019 3:21 EST Blood Pressure Location Arm, right upper Blood Pressure Source Non-Invasive BP Device Systolic Blood Pressure 121 mmHg Diastolic Blood Pressure 80 mmHg Temperature Source Oral Temperature Mode Fahrenheit Temperature, Fahrenheit 97.7 Deg F Clinical Temperature, C 36.5 Deg C Peripheral Pulse Rate 74 bpm Respiratory Rate 18 Breaths/Min Oxygen Saturation 98 % Oxygen Therapy Mode Room air . Per nurse's notes. General: Alert, no acute distress. Skin: Warm, dry. Head: Normocephalic, atraumatic. Neck: Supple. Eye: Pupils are equal, round and reactive to light, extraocular movements are intact. Ears, nose, mouth and throat: Oral mucosa moist. Cardiovascular: Regular rate and rhythm, No murmur. Respiratory: Lungs are clear to auscultation, respirations are non-labored, breath sounds are equal. Gastrointestinal: Soft, Nontender, Non distended. Neurological: Alert and oriented to person, place, time, and situation, normal speech observed, normal coordination observed. Psychiatric: Cooperative. Medical Decision Making Documents reviewed: Emergency department nurses' notes, prior records. Electrocardiogram: Time 02/12/2019 03:27:00, rate 69, EP Interp, Atrial fibrillation, no STEMI, normal QRS and QTc. Chest X-Ray: No acute disease process, interpretation by Emergency Physician. Impression and Plan Diagnosis Syncope - Discharge, Medical Arrhythmia - Discharge, Medical Plan Condition: Stable. Disposition: Admit Admit/Transfer/Discharge: Admit to Inpatient (Order): Start: 02/12/2019 4:01 EST, Admit reason: syncope, arrhythmia, Estimated length of stay 2 Midnights or LONGER, Level of Care: Telemetry unit, Admitting: NAHEED LESTER MD-[facility] . documented in this encounter Plan of Treatment Not on file documented as of this encounter Visit Diagnoses Not on filedocumented in this encounter Care Teams Waste Management Engineer Relationship Specialty Start Date End Date Barrett Devlin MD [address] [place] [address] PCP - General General Internal Medicine 12/29/21 Mary Kiran, MARIBEL [address] [facility] [address] [place] [address] Cardiology 08/23/23 documented as of this encounter
--- OUTSIDE RECORDS SUMMARY | 2024-08-07 13:15 | XMS_ITS | Encounter Summary ---
Author Organization [employer] Address [address] [place] [address] Care Team Providers Care Manager Library Name Role Phone Barrett Devlin MD Primary Care Provider [phone] Mary Kiran APRN Unavailable [phone] Encounter Details Date Type Department Care Team (Late st Contact Info) Description 2020 Transcribed Document [facility] [place] Family Medicine [address] [place] [address] ProviderAlejandrina MD [address] [place], [place] [id number] Social History Tobacco Use Types Packs/Day Years Used Date Smoking Tobacco: Never Assessed Sex and Gender Information Value Date Recorded Sex Assigned at Not on file Legal Sex Male 6:49 PM CDT Gender Identity Not on file Sexual Orientation Not on file documented as of this encounter Miscellaneous Notes * Cerner Conversion Note - Alejandrina ProviderMD - 2020 7:51 AM CDT Patient: ESAU RADFORD Age: 70 [...] (OCT 18 19:59) 98 (OCT 18 22:45) Labs (Last four charted values) WBC 8.9 (OCT 19) HB 13.9 (OCT 19) HCT 42.0 (OCT 19) Plt 196 (OCT 19) Na 139 (OCT 19) 145 (OCT 18) K 4.5 (OCT 19) L 3.4 (OCT 18) Cl 111 (OCT 19) H 116 (OCT 18) CO2 22 (OCT 19) 22 (OCT 18) BUN 19 (OCT 19) 18 (OCT 18) Cr 1.20 (OCT 19) 1.20 (OCT 18) Glu R H 143 (OCT 19) H 135 (OCT 18) Ca 8.8 (OCT 19) L 7.3 (OCT 18) Est Crcl: 65-80ml/min Drug interactions: No major interactions noted with documented home medications Date 12/01 12/02 Baseline 443 QTc- AM 496 QTc- PM 494 Mag 1.6 2.3 A/P: 1. Tikosyn 500mcg BID started 12/01 PM -EKG ordered 2 hours after each dose -Rec dose reduction if QTc increases by 15% or greater, increased 12% since initiation 2. No significant DDI noted 3. K>4, mag >2 per cardiology 4. Ablation planned 12/03, apixaban to be held following dose 12/02 PM Thank you for this consult. Juan José Bennett PharmD [phone] documented in this encounter Plan of Treatment Not on file documented as of this encounter Visit Diagnoses Not on filedocumented in this encounter Care Teams Manager Library Relationship Specialty Start Date End Date Barrett Devlin MD [address] [place] [address] PCP - General General Internal Medicine 12/29/21 Mary Kiran, DATA ANALYSIS INTERN [address] [facility] [address] [place] [address] Cardiology 08/23/23 documented as of this encounter
--- OUTSIDE RECORDS SUMMARY | 2024-08-07 13:15 | XMS_ITS | Encounter Summary ---
Author Organization [employer] Address [address] [place] [address] Care Team Providers Care Front Desk Officer Name Role Phone Barrett Devlin MD Primary Care Provider [phone] Mary Kiran CLOTH INSPECTOR Unavailable [phone] Encounter Details Date Type Department Care Team (Late st Contact Info) Description 02/12/2019 Transcribed Document [facility] [place] Family Medicine [address] [place] [address] ProviderAlejandrina MD [address] [place] [address] Social History Tobacco Use Types Packs/Day Years Used Date Smoking Tobacco: Never Assessed Sex and Gender Information Value Date Recorded Sex Assigned at Not on file Legal Sex Male 6:49 PM CDT Gender Identity Not on file Sexual Orientation Not on file documented as of this encounter Miscellaneous Notes * Cerner Conversion Note - Alejandrina ProviderMD - 02/12/2019 9:00 AM HOME DECORATOR Consult Phone Call Documentation Entered On: 02/13/2019 8:04 EST Performed On: 02/12/2019 9:00 EST by Vale Fuentes Care Asst-Health Unit Coord Phone Call for Consults Consult Phone Call/Page Attempt : First call Consult Reason : syncope Physician Requesting Consult : NAHEED LESTER MD-[facility] Physician Requested for Consult : MEKHI AGUILAR MD-[facility] Provider Service Notified Name : Cardiology Date and Time Call Returned : 02/13/2019 8:04 EST Consult, Additional Information : spoke to Stevan in the office Vale Fuentes Care Asst-Health Unit Coord - 02/13/2019 8:02 EST Electronically signed by [facility], [facility] Conversion Director Radiation Oncology Cerner at 06/03/2022 12:31 PM CDT documented in this encounter Plan of Treatment Not on file documented as of this encounter Visit Diagnoses Not on filedocumented in this encounter Care Teams Front Desk Officer Relationship Specialty Start Date End Date Barrett Devlin MD [address] [place] [address] PCP - General General Internal Medicine 12/29/21 Mary Kiran, CLOTH INSPECTOR [address] [facility] [address] [place] [address] Cardiology 08/23/23 documented as of this encounter
--- OUTSIDE RECORDS SUMMARY | 2024-08-07 13:15 | XMS_ITS | Encounter Summary ---
Author Organization [email or web address] Address [address] [place] [address] Care Team Providers Care Crushing Foreman Name Role Phone Barrett Devlin MD Primary Care Provider [phone] Mary Kiran TELEVISION ENGINEER Unavailable [phone] Encounter Details Date Type Department Care Team (Late st Contact Info) Description 02/10/2019 Transcribed Document [facility] [place] Family Medicine [facility] [place] [address] Alejandrina Turk MD [address] [place], [place] [address] Social History Tobacco Use Types Packs/Day Years Used Date Smoking Tobacco: Never Assessed Sex and Gender Information Value Date Recorded Sex Assigned at Not on file Legal Sex Male 6:49 PM CDT Gender Identity Not on file Sexual Orientation Not on file documented as of this encounter Miscellaneous Notes * Cerner Conversion Note - Alejandrina Turk MD - 02/10/2019 11:21 AM ARCHITECTURAL DESIGN LECTURER Patient Education Materials Follows: Syncope Syncope is when you lose temporarily [...] This can help with dizziness. ??? Take shto-usg-bfybsvm and prescription medicines only as told by [...] 07/19/2008 Document Revised: 07/08/2016 Document Reviewed: 10/15/2015 [employer] Interactive Patient Education ? 2019 [employer] Fall Prevention in the Home, Adult [...] Keep items that you use often in kujf-pp-ozjut places. Lower the shelves around your home [...] or contrast paint or tape to clearly shruthi and help you see: ? Any grab [...] the way. ??? Do not use floor emirati or wax that makes floors slippery. If [...] Control and Prevention, [place]: https://cdc.gov ??? National [place] on Aging: https://wx4gako.helen.nih.gov Contact a doctor if: ??? You are [...] 11/27/2009 Document Revised: 09/15/2017 Document Reviewed: 09/15/2017 [employer] Interactive Patient Education ? 2019 [employer] Radial Site Care Refer to this [...] the radial site that usually fades within 1?2 weeks. ??? Blood collecting in the tissue (hematoma) that may be painful to the touch. It should usually decrease in size and tenderness within 1?2 weeks. Follow these instructions at home: ??? Take medicines only as directed by your health care provider. ??? You may shower 24?48 hours after the procedure or as directed [...] 03/05/2011 Document Revised: 07/08/2016 Document Reviewed: 08/19/2014 [employer] Interactive Patient Education ? 2019 [employer]. Angiogram, Care After This sheet gives you [...] cannot use soap and water, use hand smoking pipe maker. ? Change your bandage as told by [...] it is okay. ??? You may shower 24?48 hours after the procedure or as told [...] as told by your doctor, usually for 1?2 days. ??? Do not lift anything that [...] (urine) clear or pale yellow. ??? Take uacn-gld-kkeagen and prescription medicines only as told by [...] okay to do so. You may shower 24?48 hours after the procedure or as told [...] 04/29/2009 Document Revised: 01/25/2017 Document Reviewed: 01/25/2017 [employer] Interactive Patient Education ? 2019 [employer]. Pharmacology Aspirin and Your Heart Aspirin is a [...] The two forms of aspirin are: ? Icw-uyclkuc-dvwtlk. This type of aspirin does not have a coating and is absorbed quickly. Ftr-vdtqgpf-gqvzec aspirin is usually recommended for people with chest pain. This type of aspirin also comes in a chewable form. ? Enteric-coated. This type of aspirin has a special coating that releases the medicine very slowly. Enteric-coated aspirin causes less stomach upset than fpw-umnyjdv-ropedz aspirin. This type of aspirin should not [...] 01/13/2009 Document Revised: 06/09/2016 Document Reviewed: 05/08/2014 [employer] Interactive Patient Education ? 2018 [employer] documented in this encounter Plan of Treatment Not on file documented as of this encounter Visit Diagnoses Not on filedocumented in this encounter Care Teams Crushing Foreman Relationship Specialty Start Date End Date Barrett Devlin MD [address] [place] [address] PCP - General General Internal Medicine 12/29/21 Mary Kiran, TELEVISION ENGINEER [address] [facility] [address] [place] [address] Cardiology 08/23/23 documented as of this encounter
--- OUTSIDE RECORDS SUMMARY | 2024-08-07 13:15 | XMS_ITS | Encounter Summary ---
Author Organization [employer] Address [address] [place] [address] Care Team Providers Care Furniture Sprayer Name Role Phone Barrett Devlin MD Primary Care Provider Mary Kiran APRN Unavailable [phone] Encounter Details Date Type Department Care Team (Late st Contact Info) Description 02/07/2019 Transcribed Document [facility] [place] [address] [place] [address] ProviderAlejandrina MD [address] [place] [address] Social History Tobacco Use Types Packs/Day Years Used Date Smoking Tobacco: Never Assessed Sex and Gender Information Value Date Recorded Sex Assigned at Not on file Legal Sex Male 6:49 PM CDT Gender Identity Not on file Sexual Orientation Not on file documented as of this encounter Miscellaneous Notes * Cerner Conversion Note - Alejandrina ProviderMD - 02/07/2019 8:43 PM SHIPPING MANAGER Spiritual Care Assessment Entered On: 02/08/2019 9:11 EST Performed On: 02/08/2019 9:00 EST by LARA GRACIA CHAPLAIN General Information Initial Visit : Yes Referred by : Patient Referral Reason Comment : Advanced Directive notarized Ministry Provided to : Patient Spiritual/Emotional Acuity : No Concern LARA GRACIA CHAPLAIN - 02/08/2019 9:08 EST Spiritual Assessment Patient's Community/Relationship : Unknown Supportive/Healthy Relationships : Yes Patient's Sense of Meaning : Unknown Patient's Concept of God/the Sacred : Unknown Spiritual Assessment Comment/Summary Points : This was a referral visit. Pt needed an Advanced Directive. Electrical Experimental Mechanic facilitated the filling out of the form, notarized it and put a copy in the pt's chart. Electrical Experimental Mechanic gave the original and a copy to the pt. No other needs at this time. Spirital Assessment Comment/Summary Report : SPIRITUAL ASSESSMENT COMMENT/SUMMARY No qualifying data available. LARA GRACIA CHAPLAIN - 02/08/2019 9:08 EST Interventions Emotional Support : Empathic/Engaged listening, Information provided LARA GRACIA CHAPLAIN - 02/08/2019 9:08 EST Electronically signed by Teja, [facility] Conversion General Machinist Cerner at 06/03/2022 12:17 PM CDT documented in this encounter Plan of Treatment Not on file documented as of this encounter Visit Diagnoses Not on filedocumented in this encounter Care Teams Furniture Sprayer Relationship Specialty Start Date End Date Barrett Devlin MD [address] [place] [address] PCP - General General Internal Medicine 12/29/21 Mary Kiran, ENTRY LEVEL JAVA DEVELOPER [address] [facility] [address] [place] [address] Cardiology 08/23/23 documented as of this encounter
--- OUTSIDE RECORDS SUMMARY | 2024-08-07 13:15 | XMS_ITS | Encounter Summary ---
Author Organization [employer] Address [address] [place] [address] Care Team Providers Care Color Laboratory Technician Name Role Phone Barrett Devlin MD Primary Care Provider [phone] Mary Kiran MANAGER FOOD Unavailable [phone] Encounter Details Date Type Department Care Team (Late st Contact Info) Description 02/12/2019 Transcribed Document [facility] [place] [address] [place] [address] ProviderAlejandrina MD [address] [place] [address] Social History Tobacco Use Types Packs/Day Years Used Date Smoking Tobacco: Never Assessed Sex and Gender Information Value Date Recorded Sex Assigned at Not on file Legal Sex Male 6:49 PM CDT Gender Identity Not on file Sexual Orientation Not on file documented as of this encounter Miscellaneous Notes * Cerner Conversion Note - Alejandrina ProviderMD - 02/12/2019 6:13 AM AGRICULTURAL SCIENCE PROFESSOR Consult Phone Call Documentation Entered On: 02/13/2019 7:59 EST Performed On: 02/12/2019 6:13 EST by Vale Fuentes, Net Development Manager-Health Unit Coord Phone Call for Consults Consult Phone Call/Page Attempt : First call Consult Reason : SSS-eval for PPM, 12 sec pause overnightn on outpatient event monitor Physician Requested for Consult : ENOC HANSON MD-CAR Date and Time Call Returned : 02/13/2019 7:56 EST Consult, Additional Information : spoke to Windy Astudillo in nurses station Vale Fuentes, Net Development Manager-Health Unit Coord - 02/13/2019 7:55 EST Electronically signed by Teja, [facility] Conversion Pin Inserter Regulator Cerner at 06/03/2022 12:40 PM CDT documented in this encounter Plan of Treatment Not on file documented as of this encounter Visit Diagnoses Not on filedocumented in this encounter Care Teams Color Laboratory Technician Relationship Specialty Start Date End Date Barrett Devlin MD [address] [place] [address] PCP - General General Internal Medicine 12/29/21 Mary Kiran, MANAGER FOOD [address] [facility] [address] [place] [address] Cardiology 08/23/23 documented as of this encounter
--- OUTSIDE RECORDS SUMMARY | 2024-08-07 13:15 | XMS_ITS | Encounter Summary ---
Author Organization [employer] Address [address] [place] [address] Care Team Providers Care Portable Feed Mill Operator Name Role Phone Barrett Devlin MD Primary Care Provider [phone] Mary Kiran IRONMOLDER Unavailable [phone] Encounter Details Date Type Department Care Team (Late st Contact Info) Description 02/15/2019 Transcribed Document [facility] [place] Family Medicine Formerly [facility] [place] [address] Alejandrina Turk MD [address] [place] [address] Social History Tobacco Use Types Packs/Day Years Used Date Smoking Tobacco: Never Assessed Sex and Gender Information Value Date Recorded Sex Assigned at Not on file Legal Sex Male 6:49 PM CDT Gender Identity Not on file Sexual Orientation Not on file documented as of this encounter Miscellaneous Notes * Cerner Conversion Note - Alejandrina Turk MD - 02/15/2019 11:47 AM COMBINATION MACHINE TENDER DATE OF PROCEDURE: 02/15/2019 SURGEON: Herbert Meneses MD PROCEDURE PERFORMED: Implantation of permanent DDDR Medtronic MRI safe pacemaker. PREPROCEDURE DIAGNOSIS: Syncope with documented prolonged bradycardia. POSTPROCEDURE DIAGNOSIS: Syncope with documented prolonged bradycardia. INDICATION: The patient with several episodes of documented syncope associated with severe bradycardia noted to be a 12-second pause on outpatient study. Pacemaker was recommended. PROCEDURE IN DETAIL: After obtained informed consent, the patient was prepped and draped in the usual sterile fashion. Under 1% local Xylocaine anesthesia, micropuncture technique used to cannulate the left subclavian vein. The guidewire was then fluoroscopically positioned. A 4 cm transverse incision was then made in the left subclavicular area. Utilizing blunt and sharp dissection, pocket was constructed. The previous guidewire was pulled through into the pocket. A 6-Slovak sheath placed. That wire was removed and two separate guidewires were fluoroscopically positioned. Two 7-Slovak SafeSheath was then placed. Under fluoroscopy, active fixation ventricular and atrial leads were placed. The leads were tested and sutured in place, retested, and then connected to the pacer device. The site received antibiotic wash. The pacer was then inserted into the pocket which was closed with a deep layer of silk, two layers of 4-0 Vicryl with a last layer subcuticular. Dermal adhesive and Aquacel patch applied. Fluoroscopy revealed no evidence of pneumothorax and good lead and device position. Needle and sponge count correct. ADVERSE EVENTS: None. SEDATION: Conscious sedation for approximately 45 minutes with fentanyl/Versed. IMPLANT DATA: Implanted device was a [email or web address] MRI safe DDDR pacemaker, serial number [id number]. The right atrial lead was serial number [id number]. RA sensing was 2.8 mV with impedance of 532 ohms, capture threshold 0.7 V at 0.5 milliseconds pulse width. The right ventricular lead was serial number [id number]. R-wave sensing was 6.6 mV, impedance 710 ohms, capture threshold 0.6 V at 0.5 milliseconds pulse width. /[id number] Herbert eMneses MD JCS/AQ / JCS / MODL /[id number] CC: MD Penny Walton MD documented in this encounter Plan of Treatment Not on file documented as of this encounter Visit Diagnoses Not on filedocumented in this encounter Care Teams Portable Feed Mill Operator Relationship Specialty Start Date End Date Barrett Devlin MD [address] [place] [address] PCP - General General Internal Medicine 12/29/21 Mary Kiran, IRONMOLDER [address] [facility] [address] [place] [address] Cardiology 08/23/23 documented as of this encounter
--- OUTSIDE RECORDS SUMMARY | 2024-08-07 13:15 | XMS_ITS | Encounter Summary ---
Author Organization [employer] Address [address] [place] [address] Care Team Providers Care Die Repair Name Role Phone Barrett Devlin MD Primary Care Provider [phone] Mary Kiran WASH OIL COOLER OPERATOR Unavailable [phone] Encounter Details Date Type Department Care Team (Late st Contact Info) Description 02/15/2019 Transcribed Document [facility] [place] Family Medicine [address] [place] [address] ProviderAlejandrina MD [address] [place] [address] Social History Tobacco Use Types Packs/Day Years Used Date Smoking Tobacco: Never Assessed Sex and Gender Information Value Date Recorded Sex Assigned at Not on file Legal Sex Male 6:49 PM CDT Gender Identity Not on file Sexual Orientation Not on file documented as of this encounter Miscellaneous Notes * Cerner Conversion Note - Alejandrina Turk MD - 02/15/2019 1:55 PM [facility]ILDREN[facility] AUTHOR Patient: ESAU RADFORD Age: 68 years Sex: Male : 1950 Associated Diagnoses: None Author: ZEKE WAGNER MD Basic Information patient will have PPM today he is resting comfortably no acute events Health Status Current medications: Medications by Classification [...] - 1,000 mcg, Oral, Tab, Daily, Routine sodium chloride (Normal Saline Flush) - 10 mL, IV Push, Inj, Q12H, Routine sodium chloride (Normal Saline Flush) - 10 mL, IV Push, Inj, See Comment, PRN for IV Use, Routine Undefined Medications hydrALAZINE - 10 mg, IV Push, Inj, [...] review: Labs (Last four charted values) WBC 4.8 (FEB 15) 5.3 (FEB 14) 5.6 (FEB 13) 7.6 (FEB 12) HB 14.9 (FEB 15) 15.5 (FEB 14) 14.9 (FEB 13) 13.7 (FEB 12) HCT 45.0 (FEB 15) 46.4 (FEB 14) 44.7 (FEB 13) L 39.9 (FEB 12) Plt 193 (FEB 15) 191 (FEB 15) 216 (FEB 14) 226 (FEB 13) Na 136 (FEB 13) 137 (FEB 12) [...] Radiology results Radiology Results (Last 48 hours) [id number] -- 02/12/2019 04:01 CR Chest 1 Vw Portable (02/15/2019 12:06) Result: PORTABLE CHEST; 02/15/2019 11:42 AMHISTORY: Post pacemaker, rule out pneumothorax.COMPARISON: February 12, 2019.FINDINGS: The cardiac silhouette is proper size. The aortic contours arenormal. The mediastinal and hilar structures are unremarkable. Decreasedinspiratory effort is present; no acute infiltrate seen. Two-leadpacemaker has been placed since the prior exam. There is nopneumothorax. There is evidence of old calcified granulomatous disease. IMPRESSION: Interval placement of left pacemaker with no pneumothoraxidentified. Impression and Plan 1. SSS new onset AFib katerine pauses symptomatic with syncope 2. 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 on metoprolol will resume home [...] (NAHEED LESTER) Activity-no mobility issues time spent 33 minutes Electronically signed by Sammy Lezama Conversion Business Communications Instructor Cerner at 06/03/2022 12:16 PM CDT documented in this encounter Plan of Treatment Not on file documented as of this encounter Visit Diagnoses Not on filedocumented in this encounter Care Teams Die Repair Relationship Specialty Start Date End Date Barrett Devlin MD [address] [place] [address] PCP - General General Internal Medicine 12/29/21 Mary Kiran, WASH OIL COOLER OPERATOR [address] [facility] [place] [address] Cardiology 08/23/23 documented as of this encounter
--- OUTSIDE RECORDS SUMMARY | 2024-08-07 13:15 | XMS_ITS | Encounter Summary ---
Author Organization [employer] Address [address] [place] [address] Care Team Providers Care Automotive Mechanical Engineer Name Role Phone Barrett Devlin MD Primary Care Provider [phone] Mary Kiran APRN Unavailable [phone] Encounter Details Date Type Department Care Team (Late st Contact Info) Description 12/03/2020 Transcribed Document [facility] [place] [address] [place] [address] Alejandrina Turk MD [address] [place] [address] Social History Tobacco Use Types Packs/Day Years Used Date Smoking Tobacco: Never Assessed Sex and Gender Information Value Date Recorded Sex Assigned at Not on file Legal Sex Male 6:49 PM CDT Gender Identity Not on file Sexual Orientation Not on file documented as of this encounter Miscellaneous Notes * Cerner Conversion Note - Alejandrina Turk MD - 12/03/2020 11:07 AM CDT On Going Discharge Planning Entered On: 12/03/2020 11:08 EDT Performed On: 12/03/2020 11:07 EDT by RACHANA LONG Typing Office Worker Care Management Progress Note Discharge Arrangements : Patient Post-Acute Information Patient Name: ESAU RADFORD Gender: Male : [birth year] Age: 70 Years No Post-Acute Placement(s) Listed No Post-Acute Service(s) Listed No [place] Referral(s) Listed Discharge Options Discussed with Patient : Home Health Barriers to Discharge Identified : Clinical Condition of Patient, Follow-Up appointments needed Patient Discharge Goal : Home Is the Patient Meeting Medical Necessity : Yes RACHANA LONG Typing Office Worker - 12/03/2020 11:07 EDT Narrative Progress Note Narrative Progress Note : HD 2/ELOS 2/RRS low- on 2 liters O2 (96%), WBC=10.1, patient discharged from PT- at baseline - per ED plan for patient to undergo Ablation today. DCP: home with family support. CM will continue to follow. RACHANA LONG Typing Office Worker - 12/03/2020 11:07 EDT Electronically signed by Teja [facility] Conversion Primary Operator Cerner at 06/03/2022 1:09 PM CDT documented in this encounter Plan of Treatment Not on file documented as of this encounter Visit Diagnoses Not on filedocumented in this encounter Care Teams Automotive Mechanical Engineer Relationship Specialty Start Date End Date Barrett Devlin MD [address] [place] [address] PCP - General General Internal Medicine 12/29/21 Mary Kiran, SELLING UNDERWRITER [address] [facility] [address] [place] [address] Cardiology 08/23/23 documented as of this encounter
--- OUTSIDE RECORDS SUMMARY | 2024-08-07 13:15 | XMS_ITS | Encounter Summary ---
Author Organization [employer] Address [address] [place] [address] Care Team Providers Care Filling And Stapling Machine Operator Name Role Phone Barrett Devlin MD Primary Care Provider [phone] Mary Kiran SLEEPING CAR PORTER Unavailable [phone] Encounter Details Date Type Department Care Team (Late st Contact Info) Description 02/12/2019 Transcribed Document [facility] [place] Family Medicine [address] [place] [address] ProviderAlejandrina MD [address] [place] [address] Social History Tobacco Use Types Packs/Day Years Used Date Smoking Tobacco: Never Assessed Sex and Gender Information Value Date Recorded Sex Assigned at Not on file Legal Sex Male 6:49 PM CDT Gender Identity Not on file Sexual Orientation Not on file documented as of this encounter Miscellaneous Notes * Cerner Conversion Note - Alejandrina Turk MD - 02/12/2019 3:16 AM CALCIMINER ED Assessment Entered On: 02/12/2019 3:48 EST Performed On: 02/12/2019 3:45 EST by Keely Colindres RN ED Quick Look Assessment Level of Consciousness : Alert, Awake Affect/Behavior : Appropriate, Calm Orientation : Oriented x 4 Skin Color : Robert Skin Temperature : Warm Skin Description : Normal for ethnicity Keely Colindres RN - 02/12/2019 3:45 EST ED General-Functional Assess Information Obtained From : Patient Preferred Communication Mode : Verbal Communication Barrier : None Primary Language : Malaysian Any Spiritual/Cultural Needs or Requests : No Currently in Unsafe Situation : No Keely Colindres RN - 02/12/2019 3:45 EST Social Habits Smoking Status : 10 or more cigarettes (1/2 pack or more)/day in last 30 days Smokeless Tobacco Status : Never Desires Tobacco Cessation Medication : No Reason for No Tobacco Cessation Medication : ED/procedural patient only Desires Tobacco Cessation Calc : 1 Keely Colindres RN - 02/12/2019 3:45 EST Social History (As Of: 02/12/2019 03:48:12 EST) EENT Assessment EENT Assessment WDL : Keely Leavitt RN - 02/12/2019 3:45 EST Cardiovascular ASMT, ED Cardiovascular Assessment WDL : WDL with exceptions EKG Completed by : Karen Leroy [facility] EKG Time Completed : 02/12/2019 3:27 EST EKG Communicated to Provider : JUAN C LLANES MD EKG Time Communicated to Provider : 02/12/2019 3:30 EST Keely Colindres RN - 02/12/2019 3:45 EST Respiratory Respiratory Assessment WDL : WDLisa with exceptions Cough : Dry, Non-productive Respiratory Pattern Description : Regular Sputum Amount : None Keely Colindres RN - 02/12/2019 3:45 EST Oxygen Therapy Oxygen Therapy Mode : Room air Keely Colindres RN - 02/12/2019 3:45 EST Gastrointestinal ED Gastrointestinal Assessment WDL : Keely Leavitt RN - 02/12/2019 3:45 EST Genitourinary Assessment, ED Genitourinary Assessment WDL : Keely Leavitt RN - 02/12/2019 3:45 EST Musculoskeletal Musculoskeletal Assessment WDL : Keely Leavitt RN - 02/12/2019 3:45 EST Integumentary Assessment Integumentary Assessment WDL : Keely Leavitt RN - 02/12/2019 3:45 EST Neurologic ASMT, ED Neurologic Assessment WDL : Keely Leavitt RN - 02/12/2019 3:45 EST documented in this encounter Plan of Treatment Not on file documented as of this encounter Visit Diagnoses Not on filedocumented in this encounter Care Teams Filling And Stapling Machine Operator Relationship Specialty Start Date End Date Barrett Devlin MD [address] [place] [address] PCP - General General Internal Medicine 12/29/21 Mary Kiran, SLEEPING CAR PORTER [address] [facility] [address] [place] [address] Cardiology 08/23/23 documented as of this encounter
--- OUTSIDE RECORDS SUMMARY | 2024-08-07 13:15 | XMS_ITS | Encounter Summary ---
Author Organization [employer] Address [address] [place] [address] Care Team Providers Care Appliance Technician Name Role Phone Barrett Devlin MD Primary Care Provider [phone] Mary Kiran EXECUTIVE VICE PRESIDENT OF SALES Unavailable [phone] Encounter Details Date Type Department Care Team (Late st Contact Info) Description 02/10/[address] [facility] [place] Family Medicine [address] [place] [address] Alejandrina Turk MD [address] [place] [address] Social History Tobacco Use Types Packs/Day Years Used Date Smoking Tobacco: Never Assessed Sex and Gender Information Value Date Recorded Sex Assigned at Not on file Legal Sex Male 6:49 PM CDT Gender Identity Not on file Sexual Orientation Not on file documented as of this encounter Miscellaneous Notes * Cerner Conversion Note - Alejandrina Turk MD - 02/10/2019 11:18 AM HEALTH CARE SOCIAL WORKER [facility] [place] [address] ESAU RADFORD :1950 Visit Time:02/07/2019 Your Visit Summary Your Care Team Admitting Physician - DARIUSZ CABRERA MD PHY, UNKNOWN SHRUTHI AGUILERA MD Attending Physician - DARIUSZ CABRERA MD SLOAN, MARK, MD Primary Care Physician - BARRETT DEVLIN (REF), -INT Referring Physician - SHRUTHI AGUILERA MD Your Diagnosis Atrial fibrillation, new onset Bradycardia Syncope, Syncope and collapse, Syncope and collapse Syncope/Near syncope Discharge Vitals Heart Rate (Monitored) 64 Blood Pressure 142/94 What to do next Instructions From Your Care Team Community Services: Cardiac Rehab @ [address] [place] [address] . They have your information [...] OFF AND LEAVE SITE OPEN TO AIR!!! Discharge Activity: Discharge Activity: Activity as tolerated Diet: Discharge Diet: Resume usual diet as tolerated Follow-Up Appointments Follow Up with Follow up with primary care provider When Within 2 to 3 days Comments Call for follow up appointment Follow Up with CAROLIN HARRELL When Within 2 to 4 weeks Comments To discuss posible PCI of LEAD BURNER as an outpatient at a later date. Where: [address] [place] [address] [address] [facility] (1) Medications What How Much When Instructions Next Dose apixaban (apixaban 5 mg oral tablet) 1 Tablet(s) Oral Interval Every 12 Hours Pickup at [facility] [place], [place] atorvastatin (atorvastatin 10 mg oral tablet) 0.5 Tablet(s) Oral At Bedtime Pickup at [place], [place] cyanocobalamin (cyanocobalamin 1000 mcg oral tablet, extended release) 1 Tablet(s) Oral Every Day Pickup at [facility] [place] metoprolol (Metoprolol Tartrate 25 mg oral tablet) 0.5 Tablet(s) Oral Two Times A Day Pickup at [place], [place] canagliflozin (Invokana 300 mg oral tablet) [...] Oral Every Day Pharmacy Information [facility] [place], [place]: [address] [facility] [address] [facility] [place] [phone] Take your medications faithfully. Do NOT skip [...] This Visit No Immunizations Found Education Materials Fall Prevention in the Home, Adult Falls [...] Keep items that you use often in xpdr-nx-rmkdw places. Lower the shelves around your home [...] the way. ??? Do not use floor khmer or wax that makes floors slippery. If [...] Control and Prevention, STEADI: https://cdc.gov ??? National Sinking Spring on Aging: https://tl7nwcm.helen.nih.gov Contact a doctor if: ??? You are [...] 11/27/2009 Document Revised: 09/15/2017 Document Reviewed: 09/15/2017 [employer]r Interactive Patient Education ?? 2019 [employer]. Radial Site Care Refer to this [...] 03/05/2011 Document Revised: 07/08/2016 Document Reviewed: 08/19/2014 [employer] Interactive Patient Education ?? 2019 [employer]. Angiogram, Care After This sheet gives you [...] cannot use soap and water, use hand orthodontic treatment coordinator. ? Change your bandage as told by [...] (urine) clear or pale yellow. ??? Take koby-dah-awcajoa and prescription medicines only as told by [...] 04/29/2009 Document Revised: 01/25/2017 Document Reviewed: 01/25/2017 [employer] Interactive Patient Education ?? 2019 [employer]. Aspirin and Your Heart Aspirin is a [...] The two forms of aspirin are: ? Dhj-bmxgogg-hnoscx. This type of aspirin does not have a coating and is absorbed quickly. Mqm-ccpethl-qlowvg aspirin is usually recommended for people with chest pain. This type of aspirin also comes in a chewable form. ? Enteric-coated. This type of aspirin has a special coating that releases the medicine very slowly. Enteric-coated aspirin causes less stomach upset than ojd-qvububi-wbmybq aspirin. This type of aspirin should not [...] 01/13/2009 Document Revised: 06/09/2016 Document Reviewed: 05/08/2014 [employer]r Interactive Patient Education ?? 2018 [employer]. atorvastatin (a TOR va sta tin) Lipitor [...] may report side effects to FDA at 9-530-ZKT-8222. What other drugs will affect atorvastatin? Certain [...] drugs may affect atorvastatin, including prescription and ogzk-wwx-hibyjbb medicines, vitamins, and herbal products. Not all [...] to ensure that the information provided by [employer]. ('Multum') is accurate, up-to-date, and complete, but no guarantee is made to that effect. Drug information contained herein may be time sensitive. jaja.tv information has been compiled for use by healthcare practitioners and consumers in the [place] and therefore jaja.tv does not warrant that uses outside of the [place] are appropriate, unless specifically indicated otherwise. Yowzas drug information does not endorse drugs, diagnose patients or recommend therapy. Yowzas drug information is an informational resource designed [...] effective or appropriate for any given patient. jaja.tv does not assume any responsibility for any aspect of healthcare administered with the aid of information jaja.tv provides. The information contained herein is not intended to cover all possible uses, directions, precautions, warnings, drug interactions, allergic reactions, or adverse effects. If you have questions about the drugs you are taking, check with your doctor, nurse or pharmacist. Copyright 9491-3107 [employer]. Version: 20.02. Revision Date: 11/10/2018. apixaban (a PIX a ban) Alejandro What is the most important information I should know about apixaban? Apixaban increases your risk of severe or fatal bleeding, especially if you take certain medicines at the same time (including some bmfk-ykg-wtmcdns medicines). It is very important to tell [...] may report side effects to FDA at 3-766-KHT-0755. What other drugs will affect apixaban? Sometimes it is not safe to use certain medications at the same time. Some drugs can affect your blood levels of other drugs you take, which may increase side effects or make the medications less effective. Many other drugs (including some dmgv-upx-pugvfbk medicines) can increase your risk of bleeding [...] ?? an NSAID (nonsteroidal anti-inflammatory drug) used group home. This list is not complete and many other drugs may affect apixaban. This includes prescription and gvxc-cmo-rezncwp medicines, vitamins, and herbal products. Not all [...] to ensure that the information provided by [employer]. ('Multum') is accurate, up-to-date, and complete, but no guarantee is made to that effect. Drug information contained herein may be time sensitive. jaja.tv information has been compiled for use by healthcare practitioners and consumers in the [place] and therefore jaja.tv does not warrant that uses outside of the [place] are appropriate, unless specifically indicated otherwise. Yowzas drug information does not endorse drugs, diagnose patients or recommend therapy. Yowzas drug information is an informational resource designed [...] effective or appropriate for any given patient. jaja.tv does not assume any responsibility for any aspect of healthcare administered with the aid of information jaja.tv provides. The information contained herein is not intended to cover all possible uses, directions, precautions, warnings, drug interactions, allergic reactions, or adverse effects. If you have questions about the drugs you are taking, check with your doctor, nurse or pharmacist. Copyright 4262-3351 [employer]. Version: 4.01. Revision Date: 08/04/2018. cyanocobalamin (oral) (sye AN oh koe BAL a min) B-12, Eligen B12, Vitamin B12 What is [...] may report side effects to FDA at 5-852-EXM-5029. What other drugs will affect oral cyanocobalamin? [...] drugs may affect cyanocobalamin, including prescription and mjff-jfk-kurkpmj medicines, vitamins, and herbal products. Not all [...] to ensure that the information provided by [employer]. ('Multum') is accurate, up-to-date, and complete, but no guarantee is made to that effect. Drug information contained herein may be time sensitive. jaja.tv information has been compiled for use by healthcare practitioners and consumers in the [place] and therefore jaja.tv does not warrant that uses outside of the [place] are appropriate, unless specifically indicated otherwise. Yowzas drug information does not endorse drugs, diagnose patients or recommend therapy. Razz drug information is an informational resource designed [...] effective or appropriate for any given patient. jaja.tv does not assume any responsibility for any aspect of healthcare administered with the aid of information jaja.tv provides. The information contained herein is not intended to cover all possible uses, directions, precautions, warnings, drug interactions, allergic reactions, or adverse effects. If you have questions about the drugs you are taking, check with your doctor, nurse or pharmacist. Copyright 1399-1530 [employer]. Version: 7.01. Revision Date: 08/29/2017. metoprolol (oral/injection) [...] may report side effects to FDA at 1-442-UXS-1539. What other drugs will affect metoprolol? Tell [...] may affect metoprolol. This includes prescription and nvvu-kmc-titkmiy medicines, vitamins, and herbal products. Not all [...] to ensure that the information provided by [employer]. ('Multum') is accurate, up-to-date, and complete, but no guarantee is made to that effect. Drug information contained herein may be time sensitive. jaja.tv information has been compiled for use by healthcare practitioners and consumers in the [place] and therefore jaja.tv does not warrant that uses outside of the [place] are appropriate, unless specifically indicated otherwise. jaja.tv's drug information does not endorse drugs, diagnose patients or recommend therapy. Yowzas drug information is an informational resource designed [...] effective or appropriate for any given patient. jaja.tv does not assume any responsibility for any aspect of healthcare administered with the aid of information jaja.tv provides. The information contained herein is not intended to cover all possible uses, directions, precautions, warnings, drug interactions, allergic reactions, or adverse effects. If you have questions about the drugs you are taking, check with your doctor, nurse or pharmacist. Copyright 4979-4974 [employer]. Version: 17.03. Revision Date: 07/12/2018. Emergency Awareness [...] Assistance with quitting is available by contacting 9-833-HBOBNOW. This is a free resource providing counseling, support, and referral. Or you may contact your personal physician. HowStuffWorks Suicide Prevention Lifeline: The National Suicide Prevention [...] This Visit (last charted value for your 02/07/2019 visit) Hematology 02/10/2019 5:43 AM WBC: 10.2 K/uL -- Normal range between ( 3.6 and 9.5 ) RBC: 4.78 Million/uL -- Normal range between ( 4.20 and 5.70 ) Hct: 43.8 % -- Normal range between ( 40.1 and 51.0 ) Hgb: 14.9 g/dL -- Normal range between ( 13.5 and 17.3 ) Platelet Count: 244 K/uL -- Normal range between ( 163 and 369 ) MCH: 31.2 pg -- Normal range between ( 25.6 and 32.2 ) MCHC: 34.0 Gram/dL -- Normal range between ( 32.2 and 36.5 ) MCV: 91.6 fL -- Normal range between ( 79.0 and 94.8 ) Slide Review: No Eos %: 1.4 % -- Normal range between ( 0.0 and 7.0 ) [place] #: 0.77 K/uL -- Normal range between ( 0.16 and 1.00 ) Eos #: 0.14 x10(3)/uL -- Normal range between ( 0.00 and 0.80 ) [place] %: 7.5 % -- Normal range between ( 3.0 and 9.0 ) Baso %: 0.5 % -- Normal range between ( 0.0 and 1.5 ) Baso #: 0.05 x10(3)/uL -- Normal range between ( 0.00 and 0.20 ) RDW: 12.4 % -- Normal range between ( 11.7 and 14.9 ) Neut %: 77.8 % -- Normal range between ( 34.0 and 71.0 ) Neut #: 7.96 K/uL -- Normal range between ( 1.56 and 6.13 ) Lymph %: 12.3 % -- Normal range between ( 19.3 and 53.1 ) Lymph #: 1.26 x10(3)/uL -- Normal range between ( 1.00 and 3.90 ) MPV: 10.2 fL -- Normal range between ( 9.4 and 12.4 ) IG#: 0.05 x10(3)/uL -- Normal range between ( 0.00 and 0.05 ) IG%: 0.50 % -- Normal range between ( 0.00 and 0.60 ) Blood Bank 02/08/2019 2:34 PM ABO/Rh (ECHO): O POS Antibody Screen: Negative ABSC 02/08/2019 1:03 AM ABO/Rh Repeat: O POS General Chemistry 02/10/2019 5:46 AM documented in this encounter Plan of Treatment Not on file documented as of this encounter Visit Diagnoses Not on filedocumented in this encounter Care Teams Appliance Technician Relationship Specialty Start Date End Date Barrett Devlin MD [address] [place] [address] PCP - General General Internal Medicine 12/29/21 Mary Kiran, EXECUTIVE VICE PRESIDENT OF SALES [address] [facility] [address] [place] [address] Cardiology 08/23/23 documented as of this encounter
--- OUTSIDE RECORDS SUMMARY | 2024-08-07 13:15 | XMS_ITS | Encounter Summary ---
Author Organization [employer] Address [address] [place] [address] Care Team Providers Care Spout Tender Name Role Phone Barrett Devlin MD Primary Care Provider [phone] Mary Kiran WAX POURER Unavailable [phone] Encounter Details Date Type Department Care Team (Late st Contact Info) Description 12/03/2020 Transcribed Document [facility] [place] Family Medicine [address] [place] [address] ProviderAlejandrina MD [address] [place] [address] Social History Tobacco Use Types Packs/Day Years Used Date Smoking Tobacco: Never Assessed Sex and Gender Information Value Date Recorded Sex Assigned at Not on file Legal Sex Male 6:49 PM CDT Gender Identity Not on file Sexual Orientation Not on file documented as of this encounter Miscellaneous Notes * Cerner Conversion Note - Historical ProviderMD - 12/03/2020 7:44 AM CDT Event Note Entered On: 12/03/2020 7:45 EDT Performed On: 12/03/2020 7:44 EDT by Marilee Soto Rn-Traveler Event Note Description of Event : patient wanted to send his valuables with the security*- so security came and took his valuables. Marilee Soto Rn-Traveler - 12/03/2020 7:44 EDT documented in this encounter Plan of Treatment Not on file documented as of this encounter Visit Diagnoses Not on filedocumented in this encounter Care Teams Spout Tender Relationship Specialty Start Date End Date Barrett Devlin MD [address] [place] [address] PCP - General General Internal Medicine 12/29/21 Mary Kiran, WAX POURER [address] [facility] [address] [place] [address] Cardiology 08/23/23 documented as of this encounter
--- OUTSIDE RECORDS SUMMARY | 2024-08-07 13:15 | XMS_ITS | Encounter Summary ---
Author Organization [employer] Address [address] [place] [address] Care Team Providers Care Wallpaper Hanger Name Role Phone Barrett Devlin MD Primary Care Provider [phone] Mary Kiran APRN Unavailable [phone] Encounter Details Date Type Department Care Team (Late st Contact Info) Description 12/03/2020 Transcribed Document [facility] [place] Medicine [address] [place] [address] ProviderAlejandrina MD [address] [place], [place] [id number] Social History Tobacco Use Types Packs/Day Years Used Date Smoking Tobacco: Never Assessed Sex and Gender Information Value Date Recorded Sex Assigned at Not on file Legal Sex Male 6:49 PM CDT Gender Identity Not on file Sexual Orientation Not on file documented as of this encounter Miscellaneous Notes * Cerner Conversion Note - Alejandrina ProviderMD - 12/03/2020 1:18 PM CDT Patient: ESAU RADFORD Age: 70 years Sex: Male : 1950 Associated Diagnoses: None Author: Joaquin Bennett, Pharmacist-Resident 69 y/o M admitted for tikosyn initiation with ablation scheduled 12/03 Consult: Tikosyn initiation Consulting: Dr. Matson Indication: afib Vitals Signs (last 24 hrs) Last Charted Minimum Maximum Temp 99 (OCT 20 10:50) 97.4 (OCT 20 10:06) 99 (OCT 20 10:50) Apical HR 90 (OCT 20 11:57) 70 (OCT 20 04:52) H 110 (OCT 20 06:07) Mon HR 90 (OCT 20 11:57) 70 (OCT 19 15:27) 105 (OCT 20 05:52) Resp Rate 16 (OCT 20 11:10) 16 (OCT 20 10:20) 20 (OCT 20 10:10) SBP H 170 (OCT 20 11:57) 115 (OCT 20 10:20) H 192 (OCT 20 05:52) DBP H 116 (OCT 20 11:57) 69 (OCT 20 10:20) H 133 (OCT 20 05:52) MAP 129 (OCT 20 11:30) 86 (OCT 20 10:20) 143 (OCT 20 03:52) SpO2 97 (OCT 20 11:10) L 91 (OCT 20 10:20) 97 (OCT 19 18:38) Labs (Last four charted values) WBC H 10.1 (OCT 20) 8.9 (OCT 19) HB 15.3 (OCT 20) 13.9 (OCT 19) HCT 47.1 (OCT 20) 42.0 (OCT 19) Plt 203 (OCT 20) 196 (OCT 19) Na 136 (OCT 20) 139 (OCT 19) 145 (OCT 18) K 3.9 (OCT 20) 4.5 (OCT 19) L 3.4 (OCT 18) Cl 105 (OCT 20) 111 (OCT 19) H 116 (OCT 18) CO2 23 (OCT 20) 22 (OCT 19) 22 (OCT 18) BUN 21 (OCT 20) 19 (OCT 19) 18 (OCT 18) Cr 1.10 (OCT 20) 1.20 (OCT 19) 1.20 (OCT 18) Glu R H 176 (OCT 20) H 143 (OCT 19) H 135 (OCT 18) Ca 9.1 (OCT 20) 8.8 (OCT 19) L 7.3 (OCT 18) Est Crcl: 65-80ml/min Drug interactions: No major interactions noted with documented home medications Date 12/01 12/02 12/03 Baseline 443 QTc- AM 496 QTc- PM 494 508 Mag 1.6 2.3 2.2 A/P: 1. Tikosyn 500mcg BID started 12/01 PM -EKG ordered 2 hours after each dose -12/03 AM tikosyn given after ablation - awaiting EKG 2. No significant DDI noted 3. K>4, mag >2 per cardiology -12/03- 40meq K given x1. 4. Ablation complete 12/03, apixaban to be held following dose 12/02 PM Thank you for this consult. Juan José Bennett PharmD [phone] documented in this encounter Plan of Treatment Not on file documented as of this encounter Visit Diagnoses Not on filedocumented in this encounter Care Teams Wallpaper Hanger Relationship Specialty Start Date End Date Barrett Devlin MD [address] [facility] [address] [place] [address] PCP - General General Internal Medicine 12/29/21 Mary Kiran, DRAW FIRE OPERATOR [address] [facility] [address] [place] [address] Cardiology 08/23/23 documented as of this encounter
--- OUTSIDE RECORDS SUMMARY | 2024-08-07 13:15 | XMS_ITS | Encounter Summary ---
Author Organization [employer] Address [address] [place] [address] Care Team Providers Care Pocket Setter Name Role Phone Barrett Devlin MD Primary Care Provider [phone] Mary Kiran APRN Unavailable [phone] Encounter Details Date Type Department Care Team (Late st Contact Info) Description 02/13/2019 Transcribed Document [facility] [place] Family Medicine [address] [place] [address] ProviderAlejandrina MD [address] [place] [address] Social History Tobacco Use Types Packs/Day Years Used Date Smoking Tobacco: Never Assessed Sex and Gender Information Value Date Recorded Sex Assigned at Not on file Legal Sex Male 6:49 PM CDT Gender Identity Not on file Sexual Orientation Not on file documented as of this encounter Miscellaneous Notes * Cerner Conversion Note - Alejandrina ProviderMD - 02/13/2019 12:03 PM BREWERY PUMPER Initial Discharge Planning Entered On: 02/13/2019 12:05 EST Performed On: 02/13/2019 12:03 EST by MORGAN CHOW, RN-Scheduling Analyst Initial Assessment I Previously Documented Living Environment : No qualifying data available. Living Situation : Home Patient Lives With : Spouse Is the Patient a Caregiver at Home? 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 : Yes Medical Durable Power of Utility Supervisor [employer] Name : on chart Legal Guardian : No Is Guardianship Needed : No MORGAN CHOW RN-Scheduling Analyst - 02/13/2019 12:03 EST Initial Assessment II Sensory and Motor Deficits : None Current Home Treatments and Equipment : Blood glucose monitor, Blood pressure monitor, CPAP MORGAN CHOW RN-Scheduling Analyst - 02/13/2019 12:03 EST Discharge Needs I Anticipated Discharge To, CM : Home independently Current Home Treatment/Equipment : Current Home Treatment/Equipment No qualifying data available. Documentation Status Complete : Yes MORGAN CHOW RN-Scheduling Analyst - 02/13/2019 12:03 EST Discharge Needs II Professional Skilled Services : Professional Skilled Services No qualifying data available. Needs Assistance with Transportation : No MORGAN CHOW RN-Scheduling Analyst - 02/13/2019 12:03 EST Narrative Note Narrative Note : CM met w/pt @ [facility]. He lives home w/, works PT @ [employer]. uses CPAP nightly. informed him of CM services. Will continue to follow MORGAN CHOW RN-Scheduling Analyst - 02/13/2019 12:03 EST documented in this encounter Plan of Treatment Not on file documented as of this encounter Visit Diagnoses Not on filedocumented in this encounter Care Teams Pocket Setter Relationship Specialty Start Date End Date Barrett Devlin MD [address] [place] [address] PCP - General General Internal Medicine 12/29/21 Mary Kiran, MAINTENANCE TECHNICIAN 2ND SHIFT [address] [facility] [address] [place] [address] Cardiology 08/23/23 documented as of this encounter
--- OUTSIDE RECORDS SUMMARY | 2024-08-07 13:15 | XMS_ITS | Encounter Summary ---
Author Organization [employer] Address [address] [place] [address] Care Team Providers Care Therapy Manager Name Role Phone Barrett Devlin MD Primary Care Provider [phone] Mary Kiran MANUFACTURING CHIEF ENGINEER Unavailable [phone] Encounter Details Date Type Department Care Team (Late st Contact Info) Description 02/14/2019 Transcribed Document [facility] [place] Family Medicine [address] [place] [address] ProviderAlejandrina MD [address] [place], [place] [address] Social History Tobacco Use Types Packs/Day Years Used Date Smoking Tobacco: Never Assessed Sex and Gender Information Value Date Recorded Sex Assigned at Not on file Legal Sex Male 6:49 PM CDT Gender Identity Not on file Sexual Orientation Not on file documented as of this encounter Miscellaneous Notes * Cerner Conversion Note - Alejandrina ProviderMD - 02/14/2019 5:00 PM STONECUTTER HAND Chart Check - Review Order Profile Entered On: 02/14/2019 17:33 EST Performed On: 02/14/2019 17:00 EST by Yana Montero RN Chart Check Powerplans Initiated/Discontinued as Appropriate : Yes All Active Orders Reviewed : Yes Yana Montero RN - 02/14/2019 17:33 EST Electronically signed by Teja [facility] Conversion Journeyman Welder Cerner at 06/03/2022 12:46 PM CDT documented in this encounter Plan of Treatment Not on file documented as of this encounter Visit Diagnoses Not on filedocumented in this encounter Care Teams Therapy Manager Relationship Specialty Start Date End Date Barrett Devlin MD [address] [place] [address] PCP - General General Internal Medicine 12/29/21 Mary Kiran, MANUFACTURING CHIEF ENGINEER [address] [facility] [address] [place] [address] Cardiology 08/23/23 documented as of this encounter
--- OUTSIDE RECORDS SUMMARY | 2024-08-07 13:15 | XMS_ITS | Encounter Summary ---
Author Organization [employer] Address [address] [place] [address] Care Team Providers Care Metal Tile Lather Name Role Phone Barrett Devlin MD Primary Care Provider [phone] Mary Kiran BODY MAKE UP ARTIST Unavailable [phone] Encounter Details Date Type Department Care Team (Late st Contact Info) Description 12/03/2020 Transcribed Document [facility] [place] Family Medicine [address] [place] [address] ProviderAlejandrina MD [address] [place] [address] Social History Tobacco Use Types Packs/Day Years Used Date Smoking Tobacco: Never Assessed Sex and Gender Information Value Date Recorded Sex Assigned at Not on file Legal Sex Male 6:49 PM CDT Gender Identity Not on file Sexual Orientation Not on file documented as of this encounter Miscellaneous Notes * Cerner Conversion Note - Alejandrina Turk MD - 12/03/2020 6:13 AM CDT Provider Notification Entered On: 12/03/2020 6:14 EDT Performed On: 12/03/2020 6:13 EDT by Marilee Soto Rn-Traveler Provider Notification Provider Notified of Concerns/Results : Hypertension Provider Notified of : Nurse concerns Provider Response : Orders received Provider Notified Name : SHEA BARRON MD Results to Provider Comment : inj labetalol 10mg iv stat Marilee Soto Rn-Traveler - 12/03/2020 6:13 EDT documented in this encounter Plan of Treatment Not on file documented as of this encounter Visit Diagnoses Not on filedocumented in this encounter Care Teams Metal Tile Lather Relationship Specialty Start Date End Date Barrett Devlin MD [address] [place] [address] PCP - General General Internal Medicine 12/29/21 Mary Kiran, BODY MAKE UP ARTIST [address] [facility] [address] [place] [address] Cardiology 08/23/23 documented as of this encounter
--- OUTSIDE RECORDS SUMMARY | 2024-08-07 13:15 | XMS_ITS | Encounter Summary ---
Author Organization [employer] Address [address] [place] [address] Care Team Providers Care Chemical Checker Name Role Phone Barrett Devlin MD Primary Care Provider [phone] Mary Kiran PER DIEM PHYSICAL THERAPIST Unavailable [phone] Encounter Details Date Type Department Care Team (Late st Contact Info) Description 02/07/2019 Transcribed Document [facility] [place] Family Medicine [address] [place] [address] Alejandrina Turk MD [address] [place] [address] Social History Tobacco Use Types Packs/Day Years Used Date Smoking Tobacco: Never Assessed Sex and Gender Information Value Date Recorded Sex Assigned at Not on file Legal Sex Male 6:49 PM CDT Gender Identity Not on file Sexual Orientation Not on file documented as of this encounter Miscellaneous Notes * Cerner Conversion Note - Alejandrina Turk MD - 02/07/2019 4:57 PM CRIMINAL INVESTIGATOR CUSTOMS RX Interventions Entered On: 02/07/2019 17:42 EST Performed On: 02/07/2019 17:40 EST by Ava Murphy, Pharmacist Clinical Interventions Heparin Per Weight-Based Protocol : Yes Ava Murphy Pharmacist - 02/07/2019 17:40 EST Heparin Per Weight-Based Protocol Heparin Per Wgt-Based Protocol, Order : Spoke with ARNOL Sparks, to confirm heparin initiation dosing. Indication is atrial fibrillation and patient weight is 102.27 kg. Initial bolus is 8000 units and initial infusion rate is 18 mL/hr. Heparin Per Wgt-Based Protocol, Response : Accepted Heparin Per Wgt-Based Protocol, Value : 177 Dollar Heparin Per Wgt-Based Protocol, Time : 20 Minute(s) Ava Murphy, Pharmacist - 02/07/2019 17:40 EST Electronically signed by Teja [facility] Conversion Wick And Base Assembler Cerner at 06/03/2022 12:16 PM CDT documented in this encounter Plan of Treatment Not on file documented as of this encounter Visit Diagnoses Not on filedocumented in this encounter Care Teams Chemical Checker Relationship Specialty Start Date End Date Barrett Devlin MD [address] [place] [address] PCP - General General Internal Medicine 12/29/21 Mary Kiran, MARIBEL [address] [facility] [address] [place] [address] Cardiology 08/23/23 documented as of this encounter
--- OUTSIDE RECORDS SUMMARY | 2024-08-07 13:15 | XMS_ITS | Encounter Summary ---
Author Organization [employer] Address [address] [place] [address] Care Team Providers Care Machine Edge Bander Name Role Phone Barrett Devlin MD Primary Care Provider [phone] Mary Kiran DIRECTOR NURSES' REGISTRY Unavailable [phone] Encounter Details Date Type Department Care Team (Late st Contact Info) Description 2020 Transcribed Document [facility] [place] Family Medicine [address] [place] [address] ProviderAlejandrina MD [address] [place] [address] Social History Tobacco Use Types Packs/Day Years Used Date Smoking Tobacco: Never Assessed Sex and Gender Information Value Date Recorded Sex Assigned at Not on file Legal Sex Male 6:49 PM CDT Gender Identity Not on file Sexual Orientation Not on file documented as of this encounter Miscellaneous Notes * Cerner Conversion Note - Alejandrina ProviderMD - 2020 5:49 AM CDT Education-Wound Care Entered On: 12/03/2020 6:42 EDT Performed On: 2020 5:49 EDT by Marilee Soto Rn-Traveler Teaching/Learning Assessment Barriers To Learning : None evident Individuals Taught : Patient Readiness to Learn : Cooperative Baseline Knowledge of Topic : None Readiness to Learn : Explanation Learning Style Preferences Patient : Verbal explanation Learning Style Preferences Family : None Marilee Soto Rn-Traveler - 12/03/2020 6:42 EDT documented in this encounter Plan of Treatment Not on file documented as of this encounter Visit Diagnoses Not on filedocumented in this encounter Care Teams Machine Edge Bander Relationship Specialty Start Date End Date Barrett Devlin MD [address] [place] [address] PCP - General General Internal Medicine 12/29/21 Mary Kiran, DIRECTOR NURSES' REGISTRY [address] [facility] [address] [place] [address] Cardiology 08/23/23 documented as of this encounter
--- OUTSIDE RECORDS SUMMARY | 2024-08-07 13:15 | XMS_ITS | Encounter Summary ---
Author Organization [employer] Address [address] [place] [address] Care Team Providers Care Credentials Specialist Name Role Phone Barrett Devlin MD Primary Care Provider [phone] Mary Kiran APRN Unavailable [phone] Encounter Details Date Type Department Care Team (Late st Contact Info) Description 12/04/2020 Transcribed Document [facility] [place] Family Medicine [address] [place] [address] Alejandrina Turk MD [address] [place] [address] Social History Tobacco Use Types Packs/Day Years Used Date Smoking Tobacco: Never Assessed Sex and Gender Information Value Date Recorded Sex Assigned at Not on file Legal Sex Male 6:49 PM CDT Gender Identity Not on file Sexual Orientation Not on file documented as of this encounter Miscellaneous Notes * Cerner Conversion Note - Alejandrina Turk MD - 12/04/2020 11:57 AM CDT On Going Discharge Planning Entered On: 12/04/2020 11:58 EDT Performed On: 12/04/2020 11:57 EDT by RACHANA LONG Welt Beater Care Management Progress Note Discharge Arrangements : [...] Meeting Medical Necessity : Yes RACHANA LONG Social Worker - 12/04/2020 11:57 EDT Narrative Progress Note Narrative Progress Note : HD 3/ELOS 2/RRS low, on 2 liters O2 (96%), BUN/Crea=26/1.4, s/p ablation per EP plan to follow up in 1 week post discharge. DCP: Home with family support, and MD follow up - should have no home needs, will continue to follow until discharge. RACHANA LONG Social Worker - 12/04/2020 11:59 EDT Historical Progress Note : HD 2/ELOS 2/RRS low- on 2 liters O2 (96%), WBC=10.1, patient discharged from PT- at baseline - per ED plan for patient to undergo Ablation today. DCP: home with family support. CM will continue to follow. RACHANA LONG Social Worker - 12/03/20 11:08:44 RACHANA LONG Social Worker - 12/04/2020 11:57 EDT documented in this encounter Plan of Treatment Not on file documented as of this encounter Visit Diagnoses Not on filedocumented in this encounter Care Teams Credentials Specialist Relationship Specialty Start Date End Date Barrett Devlin MD [address] [place] [address] PCP - General General Internal Medicine 12/29/21 Mary Kiran, INCOME TAX CONSULTANT [address] [facility] [address] [place] [address] Cardiology 08/23/23 documented as of this encounter
--- OUTSIDE RECORDS SUMMARY | 2024-08-07 13:15 | XMS_ITS | Encounter Summary ---
Author Organization [employer] Address [address] [place] [address] Care Team Providers Care Bowling Or Skating Front Desk Clerk Name Role Phone Barrett Devlin MD Primary Care Provider [phone] Mary Kiran MOLD DRESSER Unavailable [phone] Encounter Details Date Type Department Care Team (Late st Contact Info) Description 02/12/2019 Transcribed Document [facility] [place] Family Medicine [address] [place] [address] Alejandrina Turk MD [address] [place] [address] Social History Tobacco Use Types Packs/Day Years Used Date Smoking Tobacco: Never Assessed Sex and Gender Information Value Date Recorded Sex Assigned at Not on file Legal Sex Male 6:49 PM CDT Gender Identity Not on file Sexual Orientation Not on file documented as of this encounter Miscellaneous Notes * Cerner Conversion Note - Alejandrina ProviderMD - 02/12/2019 4:30 AM DAIRY HELPER Admission History, Adult Entered On: 02/12/2019 9:28 EST Performed On: 02/12/2019 4:30 EST by Cintia Roblero RN-TRAVELER Advance Directive Patient has Advance Directive *Q : Yes, Advance Directive on file Advance Directive Type : Living will Copy Advance Directive Verified/on Chart : No Cintia Roblero RN-TRAVELER - 02/12/2019 9:20 EST Anesthesia/Transfusion History Family History of Anesthesia Reaction : No prior transfusion(s) Transfusion History : Prior anesthesia without reaction Family History of Anesthesia Reaction : None Cintia Roblero RN-TRAVELER - 02/12/2019 9:20 EST Anticipated Discharge Needs Discharge To, Anticipated : Home Anticipated Discharge Needs at This Time : None Cintia Roblero RN-TRAVELER - 02/12/2019 9:20 EST Education Topics, Admission Orientation DCP GENERIC CODE Advance Directives : Verbalizes understanding Allergy Band Applied : Verbalizes understanding Assessment/Vital Signs : Verbalizes understanding Bed Control : Verbalizes understanding Call Light : Verbalizes understanding Confidentiality : Verbalizes understanding Diet/Room Service : Verbalizes understanding Fall Prevention : Verbalizes understanding Hand Hygiene : Verbalizes understanding Healthcare Provider Visit : Verbalizes understanding ID Band Applied : Verbalizes understanding Isolation Precautions : Verbalizes understanding Orientation to Room/Bathroom : Verbalizes understanding Patient Bill of Rights : Verbalizes understanding Patient Rights/Responsibilities : Verbalizes understanding Patient Safety : Verbalizes understanding Personal Privacy Code : Verbalizes understanding Rapid Response Initiated by Patient/Family : Verbalizes understanding Rounding : Verbalizes understanding Siderails use/risks : Verbalizes understanding Skin Precautions : Verbalizes understanding Smoking Policy : Verbalizes understanding Telemetry Monitoring : Verbalizes understanding Television/Phone : Verbalizes understanding Visiting Policy : Verbalizes understanding Cintia Roblero RN-TRAVELER - 02/12/2019 9:20 EST Functional Assessment Living Situation : Home JEFFERY Hx Falls Immediate/Within 3 Months : No Current Home Treatments : Blood glucose monitoring, CPAP Cintia Roblero RN-TRAVELER - 02/12/2019 9:20 EST General Info Mode of Arrival on Unit : Ambulatory Legal Guardian : Spouse Want Family/Rep/Phys Notified of Admit : No Emergency Contact #1 : Tonie Radford Emergency Contact # Emergency Contact #1 Relationship : Emergency Contact #2 : n/a Emergency Contact #2 Phone Number : n/a Emergency Contact #2 Relationship : n/a Chief Complaint : up to bathroom, heard a thump in bathroom, found patient in floor unresponsive for approx 1-2 min; abrasion to rt flank area Information Obtained From : Patient Primary Language : Mohawk Preferred Communication Mode : Verbal Communication Barrier : None Cintia Roblero RN-TRAVELER - 02/12/2019 9:20 EST Fall Risk Scales ABCs Fall Injury Risk Identification : Age, Coagulation ABC Fall Injury Risk : Moderate to high injury risk Injury Moderate to High Risk Interventions : Bed alarm on, Fall contract/letter per facility policy, High Risk for Fall Injury sign in place per policy, Patient room close to nurses station JEFFERY Hx Falls Immediate/Within 3 Months : Yes Jeffery Secondary Diagnosis : Yes JEFFERY Use of Ambulatory Aid : Bed rest/Nurse assist JEFFERY IV Therapy or IV Access : Yes Jeffery Gait/Transferring : Normal, bedrest, immobile Jeffery Mental Status : Oriented to own ability Jeffery Fall Risk Score : 60 JEFFERY Fall Scale Risk Level : 46 or > High Risk [place] Fall Interventions : Adequate lighting, Bed in low position, Call device within reach, Fall prevention handout/education per facility policy, Non-slip footwear, Personal items within reach, Reinforced to call for assistance before getting out of bed, Room free of clutter/spills, Upper side-rails up, Wheels locked, Wires/Cords secured Fall Risk Scale Calc Temp : 1 Cintia Roblero RN-TRAVELER - 02/12/2019 9:20 EST Health Histories Smoking Status : 10 or more cigarettes (1/2 pack or more)/day in last 30 days Smokeless Tobacco Status : Never Desires Tobacco Cessation Medication : No Reason for No Tobacco Cessation Medication : Refuses FDA approved medications Cintia Roblero RN-TRAVELER - 02/12/2019 9:20 EST Social History (As Of: 02/12/2019 09:28:45 EST) Tobacco: Never (less than 100 in [...] Source : Stated Height Entry Format : [place] Height, Feet : 6 ft(Converted to: 183 cm, 72 Inch) Height, Inches : 0 Inch(Converted to: 0 ft 0 Inch, 0.00 cm) Clinical Height : 182.88 cm Weight Source : Standing scale Weight Entry Format : [place]ac Clinical Dosing Weight : 102.27 kg Weight, Pounds : 225 lb Body Surface Area (BSA) : 2.24 m2 Body Mass Index : 30.6 kg/m2 (HI) [place] Body Weight : 77 kg Cintia Roblero RN-TRAVELER - 02/12/2019 9:20 EST Infectious Disease History Infectious Disease History : Chicken pox/Shingles Fever/Chills Last 48 Hours : No Travel To Regions with Travel Advisories : No Travel Outside [place] Within Last 30 Days : No Contact With Traveler to Advisory Region : No Tuberculosis Symptoms : None Cintia Roblero RN-TRAVELER - 02/12/2019 9:20 EST Tetanus Immunization Status Previous Tetanus Immunizations : No qualifying data available. Cintia Roblero RN-TRAVELER - 02/12/2019 9:20 EST Influenza Vaccine Asmt, Adult Previous Vaccines from Immunization Schedule : Previous Vaccines and Immunizations pneumococcal 13-valent vaccine: 0.5 mL (02/10/19 11:34:00) Influenza Immunization, Current Season : Yes Cintia Roblero RN-TRAVELER - 02/12/2019 9:20 EST Pneumococcal Vaccine Previous Vaccines from Immunization Schedule : Previous Vaccines and Immunizations pneumococcal 13-valent vaccine: 0.5 mL (02/10/19 11:34:00) Pneumonia Immunization Received : Yes Cintia Roblero RN-TRAVELER - 02/12/2019 9:20 EST Order Details Transport Mode Order Detail : Ambulatory Order Detail : N/A IV Order Detail : 1 Oxygen Order Detail : 0 Nurse Collect Order Detail : 0 Lift/Transfer : Independent Central Line Order Detail : No Room Service : Appropriate Arterial Line : No Cintia Roblero RN-TRAVELER - 02/12/2019 9:20 EST Nutrition History Feeding Ability : Independent Adaptive Feeding Equipment : None Adaptive Feeding Equipment : Diabetic Eating Poorly Due to Decreased Appetite : No Unplanned Weight Loss in Past 3-6 Months : No Malnutrition Screening Tool Total(mal) : 0 Malnutrition Screening Tool Risk Level : Patient not at risk Cintia Roblero RN-TRAVELER - 02/12/2019 9:20 EST [place] Suicide Severity Rating Scale (C-SSRS) CSSRS Past Month Wish to be : No CSSRS Past Month Suicidal Thoughts : No CSSRS Lifetime Suicide Behavior : No Suicide Severity Rating Score : 0 Suicide Severity Rating : No Additional Care Required at this time Cintia Roblero RN-TRAVELER - 02/12/2019 9:20 EST Psychosocial History Currently in Unsafe Situation : No Cintia Roblero RN-TRAVELER - 02/12/2019 9:20 EST Sleep Apnea Risk Assmt BiPAP/CPAP Ordered for Home Use : Yes Hx of Obstructive Sleep Apnea Diagnosis : Yes BiPAP/CPAP Used at Home : Yes Age over 50 Years Old : Yes Gender Male : Yes Cintia Roblero RN-TRAVELER - 02/12/2019 9:20 EST Spiritual/Cultural Needs Any Spiritual/Cultural Needs or Requests : No Cintia Roblero RN-TRAVELER - 02/12/2019 9:20 EST Valuables and Belongings Valuables and Belongings : Clothing, Jewelry, Personal items, No jewelry Clothing : Common streetwear Clothing Disposition : Bedside Jewelry : Ring Jewelry Disposition : Bedside Personal Items : Cell phone, Other: phone pressurised container filler Personal Items Disposition : Bedside Cintia Roblero RN-TRAVELER - 02/12/2019 9:20 EST documented in this encounter Plan of Treatment Not on file documented as of this encounter Visit Diagnoses Not on filedocumented in this encounter Care Teams Bowling Or Skating Front Desk Clerk Relationship Specialty Start Date End Date Barrett Devlin MD [address] [place] [address] PCP - General General Internal Medicine 12/29/21 Mary Kiran, MOLD DRESSER [address] [facility] [address] [address] Cardiology 08/23/23 documented as of this encounter
--- OUTSIDE RECORDS SUMMARY | 2024-08-07 13:15 | XMS_ITS | Encounter Summary ---
Author Organization [employer] Address [address] [place] [address] Care Team Providers Care Mortuary Technician Name Role Phone Barrett Devlin MD Primary Care Provider [phone] Mary Kiran APRN Unavailable [phone] Encounter Details Date Type Department Care Team (Late st Contact Info) Description 02/15/2019 Transcribed Document [facility] Family Medicine [address] [place] [address] ProviderAlejandrina MD [address] [place], [place] [address] Social History Tobacco Use Types Packs/Day Years Used Date Smoking Tobacco: Never Assessed Sex and Gender Information Value Date Recorded Sex Assigned at Not on file Legal Sex Male 6:49 PM CDT Gender Identity Not on file Sexual Orientation Not on file documented as of this encounter Miscellaneous Notes * Cerner Conversion Note - Alejandrina ProviderMD - 02/15/2019 8:42 AM MIXER CRANE OPERATOR Education-Surgery Entered On: 02/15/2019 18:58 EST Performed On: 02/15/2019 8:42 EST by ZACK BUSTILLOS, RN Teaching/Learning Assessment Barriers To Learning : None evident ZACK BUSTILLOS, RN - 02/15/2019 18:57 EST Education Topics, Day of Surgery DayofSurgery Education Grid Incentive Spirometry : Verbalizes understanding ZACK BUSTILLOS RN - 02/15/2019 18:57 EST Electronically signed by Teja [facility] Conversion Concrete Bucket Hooker Cerner at 06/03/2022 12:13 PM CDT documented in this encounter Plan of Treatment Not on file documented as of this encounter Visit Diagnoses Not on filedocumented in this encounter Care Teams Mortuary Technician Relationship Specialty Start Date End Date Barrett Devlin MD [address] [place] [address] PCP - General General Internal Medicine 12/29/21 Mary Kiran, BAND TOP MAKER [address] [facility] [address] [place] [address] Cardiology 08/23/23 documented as of this encounter
--- OUTSIDE RECORDS SUMMARY | 2024-08-07 13:15 | XMS_ITS | Encounter Summary ---
Author Organization [employer] Address [address] [place] [address] Care Team Providers Care Nurse Esthetician Name Role Phone Barrett Devlin MD Primary Care Provider [phone] Mary Kiran APRN Unavailable [phone] Encounter Details Date Type Department Care Team (Late st Contact Info) Description 12/04/2020 Transcribed Document [facility] [place] [address] [place] [address] ProviderAlejandrina MD [address] [place] [address] Social History Tobacco Use Types Packs/Day Years Used Date Smoking Tobacco: Never Assessed Sex and Gender Information Value Date Recorded Sex Assigned at Not on file Legal Sex Male 6:49 PM CDT Gender Identity Not on file Sexual Orientation Not on file documented as of this encounter Miscellaneous Notes * Cerner Conversion Note - Alejandrina Turk MD - 12/04/2020 1:47 PM CDT Patient: ESAU RADFORD Age: 70 Years Sex: Male : 1950 Admit Date 12/01/2020 13:25 Discharge Date 12/04/2020 15:15 Primary Care Provider BARRETT DEVLIN MD Discharge Diagnosis A fib Reason for Hospitalization A fib Hospital Course This is a 69 YO male with past medical history of HTN, HLD, DMII, History of A fib S/P cardioversion, on Eliquis, S/P pacemaker, he was admitted for initiation of Takyon. He reports he have History of A fib, S/P cardioversion in the past, on Eliquis, he said he have on and off shortness of breath, palpations, denies chest pain, or dizziness. will be discharged on TIKOSYN 500 mcg po BID, Eliquis 5 mg po BID, Lisinopril 20 mg po BID, Metoprolol tartrate 25 mg po BID. Cr 1.4, Metformin D/C. Lisinopril dose decreased, follow up with PCP in 2-3 days with BMP. Follow up with EP in week Vital Signs T: 37.2 ??C TMIN: 36.7 ??C TMAX: 37.2 ??C HR: 81(Monitored) HR: 81 RR: 18 BP: 122/77 SpO2: 96% HT: 182.88 cm WT: 105.99 kg BMI: 31.69 Oxygen Settings (Last) Oxygen Therapy Mode: Nasal cannula (12/04/20 05:29:00) Oxygen Flow Rate: 2 Liter/Min (12/04/20 05:29:00) Physical Exam General: [Alert and oriented, well nourished, no acute distress]. Neurologic: [Awake, alert, and oriented X3, CN II-XII intact]. Skin: [Skin is warm, dry and pink, no rashes or lesions]. Psychiatric: [Cooperative, appropriate mood and affect]. Discharge Disposition Home Discharge Follow Up Follow up with primary care provider - Within 2 to 3 days BARRETT DEVLIN MD - Within 5 to 7 days CLARE MORA - 03:15 PM Discharge Medications (10) Active clonidine 0.2 mg oral tablet 0.2 mg = 1 Tab, Oral, TID Eliquis 5 mg oral tablet 5 mg = 1 Tab, Oral, BID Invokana 300 mg oral tablet 300 mg = 1 Tab, Oral, Daily lisinopril 20 mg oral tablet 20 mg = 1 Tab, Oral, BID lovastatin 40 mg oral tablet 40 mg = 1 Tab, Oral, At Bedtime Metoprolol Tartrate 25 mg oral tablet 25 mg = 1 Tab, Oral, BID multivitamin 1 Tab, Oral, Daily sildenafil 20 mg oral tablet 20 mg = 1 Tab, PRN, Oral, Daily spironolactone 25 mg oral tablet 25 mg = 1 Tab, Oral, Daily Tikosyn 500 mcg oral capsule 500 mcg = 1 Cap, Oral, BID Code Status Start: 12/01/20 14:39:00 EDT, Full Code, Continuous Order Consulting Physicians SHU VARELA MD - TIKOSYN ADMISSION JORDEN SALDANA MD Current Diet Order Diet, Adult - Ordered -- Start: 12/03/20 23:40:00 EDT, Cardiac Diet, 60 gm carbs:7299-1206 gatito, Isolation: Standard Precautions, Instructions: Diabetic Diet Pending Labs Ordered BMP Basic Metabolic Panel Specimen Type: Blood, AM Draw collect, 12/02/20 4:00:00 EDT, Daily, Nurse Collect Magnesium Level Specimen Type: Blood, AM Draw collect, 12/02/20 4:00:00 EDT, Daily, Nurse Collect Time Spent on Discharge 33 min Electronically signed by Teja [facility] Conversion Multiple Knife Edge Trimmer Operator Cerner at 06/03/2022 1:10 PM CDT documented in this encounter Plan of Treatment Not on file documented as of this encounter Visit Diagnoses Not on filedocumented in this encounter Care Teams Nurse Esthetician Relationship Specialty Start Date End Date Barrett Devlin MD [address] [place] [address] PCP - General General Internal Medicine 12/29/21 Mary Kiran, MARIBEL [address] [facility] [address] [place] [address] Cardiology 08/23/23 documented as of this encounter
--- OUTSIDE RECORDS SUMMARY | 2024-08-07 13:15 | XMS_ITS | Encounter Summary ---
Author Organization [employer] Address [address] [place] [address] Care Team Providers Care Cyber Defense Incident Responder Name Role Phone Barrett Devlin MD Primary Care Provider [phone] Mary Kiran CONE RUNNER Unavailable [phone] Encounter Details Date Type Department Care Team (Late st Contact Info) Description 02/15/2019 Transcribed Document [facility] [place] [address] [place] [address] ProviderAlejandrina MD [address] [place], [place] [address] Social History Tobacco Use Types Packs/Day Years Used Date Smoking Tobacco: Never Assessed Sex and Gender Information Value Date Recorded Sex Assigned at Not on file Legal Sex Male 6:49 PM CDT Gender Identity Not on file Sexual Orientation Not on file documented as of this encounter Miscellaneous Notes * Cerner Conversion Note - Alejandrina ProviderMD - 02/15/2019 5:00 PM FAMILY HELPER Chart Check - Review Order Profile Entered On: 02/15/2019 18:55 EST Performed On: 02/15/2019 17:00 EST by ZACK BUSTILLOS RN Chart Check Powerplans Initiated/Discontinued as Appropriate : Yes All Active Orders Reviewed : Yes ZACK BUSTILLOS RN - 02/15/2019 18:55 EST documented in this encounter Plan of Treatment Not on file documented as of this encounter Visit Diagnoses Not on filedocumented in this encounter Care Teams Cyber Defense Incident Responder Relationship Specialty Start Date End Date Barrett Devlin MD [address] [place] [address] PCP - General General Internal Medicine 12/29/21 Mary Kiran, CONE RUNNER [address] [facility] [address] [place] [address] Cardiology 08/23/23 documented as of this encounter
--- OUTSIDE RECORDS SUMMARY | 2024-08-07 13:15 | XMS_ITS | Encounter Summary ---
Author Organization [employer] Address [address] [place] [address] Care Team Providers Care Public Housing Interviewer Name Role Phone Barrett Devlin MD Primary Care Provider Mary Kiran APRN Unavailable [phone] Encounter Details Date Type Department Care Team (Late st Contact Info) Description 02/10/2019 Transcribed Document [facility] [place] [facility] [place] [address] ProviderAlejandrina MD [address] [place] [address] Social History Tobacco Use Types Packs/Day Years Used Date Smoking Tobacco: Never Assessed Sex and Gender Information Value Date Recorded Sex Assigned at Not on file Legal Sex Male 6:49 PM CDT Gender Identity Not on file Sexual Orientation Not on file documented as of this encounter Miscellaneous Notes * Cerner Conversion Note - Alejandrina Turk MD - 02/10/2019 8:51 AM DIRECTOR OF PROGRAM MANAGEMENT Patient: ESAU RADFORD Age: 68 Years Sex: Male : 1950 Admit Date 02/07/2019 16:50 Discharge Date February 10, 2019 Primary Care Provider BARRETT DEVLIN MD Discharge Diagnosis Syncope 02/07/2019 R55 ICD-10-CM Bradycardia 02/07/2019 R00.1 ICD-10-CM Atrial fibrillation, new onset 02/07/2019 I48.91 ICD-10-CM Hospital Course Patient admitted with Atrial fibrillation and bradycardia. The atrial fibrillation is new. He had left heart catheterization on February 09, 2019 showing chronic total occlusion of the RCA. Labetalol discontinued and changed to metoprolol, continue calcium channel [place]. No pauses on event monitor. The monitors to be continued for the full 30 days and he follows up with cardiology. He has been started on oral anticoagulation as an outpatient. He has also been started on oral B12 replacement for a low B12 level. He'll follow-up with primary care physician within one week. Currently stable appropriate for discharge home. Vital Signs T: 37.1 ??C TMIN: 36.6 ??C TMAX: 37.5 ??C HR: 64(Monitored) RR: 16 BP: 142/94 SpO2: 95% Oxygen Settings (Last) Oxygen Therapy Mode: Room air (02/10/19 08:35:00) Physical Exam Heart S1-S2 no murmurs regular rate and rhythm Discharge Disposition Home Discharge Follow Up CAROLIN HARRELL - Within 2 to 4 weeks Discharge Medications (13) Active apixaban 5 mg oral tablet 5 mg = 1 Tab, Oral, [id number] aspirin 81 mg oral delayed release tablet 81 mg = 1 Tab, Oral, Daily atorvastatin 10 mg oral tablet 5 mg = 0.5 Tab, Oral, At Bedtime clonidine 0.1 mg oral tablet 0.1 mg = 1 Tab, Oral, TID cyanocobalamin 1000 mcg oral tablet, extended release 1,000 mcg = 1 Tab, Oral, Daily Dilt-XR 240 mg/24 hours oral capsule, extended release 240 mg = 1 Cap, Oral, Daily Invokana 300 mg oral tablet 300 mg = 1 Tab, Oral, Daily lisinopril 40 mg oral tablet 40 mg = 1 Tab, Oral, Daily metFORMIN 1000 mg oral tablet 1,000 mg = 1 Tab, Oral, BID Metoprolol Tartrate 25 mg oral tablet 12.5 mg = 0.5 Tab, Oral, BID potassium chloride 10 mEq oral tablet, extended release 20 mEq = 2 Tab, Oral, Daily sildenafil 20 mg oral tablet 60 mg = 3 Tab, PRN, Oral, Daily spironolactone 25 mg oral tablet 25 mg = 1 Tab, Oral, Daily Code Status Start: 02/08/19 10:28:00 EST, Full Code, Continuous Order Condition on Discharge Stable, improved Consulting Physicians INEZ VALENZUELA MD-KATHERINE - recurrent syncope, event monitor shows no pauses SOURAV MICHAEL MD Current Diet Order Diet, Adult - Ordered -- Start: 02/08/19 12:24:00 EST, Cardiac Diet, 60 gm carbs:[id number] gatito, Instructions: Diabetic Diet Patient Discharge Summary Orders Discharge Activity: Discharge Activity: Activity as tolerated Diet: Discharge Diet: Resume usual diet as tolerated Follow Up Labs/Studies Blood Gases (Current Encounter/Past 24 Hours) No Blood Gas Results Found (Past 24 Hours) Electrolytes(BMP) Results (Current Encounter/Past 24 Hours) Sodium Level 138 mmol/L 02/10/2019 06:26 Potassium Level 3.9 mmol/L 02/10/2019 06:26 Chloride Level 108 mmol/L 02/10/2019 06:26 Carbon Dioxide Level 24 mmol/L 02/10/2019 06:26 Anion Gap 10 02/10/2019 06:26 Blood Urea Nitrogen 26 mg/dL [place] 02/10/2019 06:26 Glucose Level 142 mg/dL [place] 02/10/2019 06:26 Calcium Level 8.8 mg/dL 02/10/2019 06:26 Creatinine Level 1.10 mg/dL 02/10/2019 06:26 Cardiac Markers (Current Encounter/Past 24 Hours) No Cardiac Marker Results Found (Past 24 Hours) CBC Results (Current Encounter/Past 24 Hours) WBC 10.2 K/uL [place] 02/10/2019 06:12 Hct 43.8 % 02/10/2019 06:12 Hgb 14.9 g/dL 02/10/2019 06:12 Platelet Count 244 K/uL 02/10/2019 06:12 CMP Results (Current Encounter/Past 24 Hours) eGFR >60 mL/min/1.73m2 02/10/2019 06:26 Protein Total 6.8 Gram/dL 02/10/2019 06:26 Bun/Creatinine 23.6 [place] 02/10/2019 06:26 A/G Ratio 1.1 02/10/2019 06:26 Globulin 3.3 Gram/dL 02/10/2019 06:26 eGFR NonAfrican >60 mL/min/1.73m2 02/10/2019 06:26 Creatinine Level 1.10 mg/dL 02/10/2019 06:26 Sodium Level 138 mmol/L 02/10/2019 06:26 Potassium Level 3.9 mmol/L 02/10/2019 06:26 Chloride Level 108 mmol/L 02/10/2019 06:26 Carbon Dioxide Level 24 mmol/L 02/10/2019 06:26 Anion Gap 10 02/10/2019 06:26 Alk Phos 102 Units/Liter 02/10/2019 06:26 ALT 18 Units/Liter 02/10/2019 06:26 AST 11 Units/Liter 02/10/2019 06:26 Blood Urea Nitrogen 26 mg/dL HI 02/10/2019 06:26 Glucose Level 142 mg/dL HI 02/10/2019 06:26 Albumin Level 3.5 Gram/dL 02/10/2019 06:26 Bilirubin Total 0.6 mg/dL 02/10/2019 06:26 Calcium Level 8.8 mg/dL 02/10/2019 06:26 Coagulation Results (Current Encounter/Past 24 Hours) No Coagulation Results Found (Past 24 Hours) Creatinine Clearance (Current Encounter/Past 24 Hours) Creatinine Level 1.10 mg/dL 02/10/2019 06:26 Bun/Creatinine 23.6 [place] 02/10/2019 06:26 Pending Labs Ordered CBC w/ Auto Diff Specimen Type: Blood, Routine collect, 02/08/19 15:52:00 EST, Daily, For: 3 Day(s), Stop: 02/11/19 4:00:00 EST, Nurse Collect CBC w/ Auto Diff Specimen Type: Blood, Routine collect, 02/11/19 15:52:00 EST, MoWe, Nurse Collect Time Spent on Discharge 25 minutes documented in this encounter Plan of Treatment Not on file documented as of this encounter Visit Diagnoses Not on filedocumented in this encounter Care Teams Public Housing Interviewer Relationship Specialty Start Date End Date Barrett Devlin MD [address] [place] [address] PCP - General General Internal Medicine 12/29/21 Mary Kiran, DIRECTOR OF RADIOLOGY [address] [facility] [address] [place] [address] Cardiology 08/23/23 documented as of this encounter
--- OUTSIDE RECORDS SUMMARY | 2024-08-07 13:15 | XMS_ITS | Encounter Summary ---
Author Organization [employer] Address [address] [place] [address] Care Team Providers Care Technical Program Manager Name Role Phone Barrett Devlin MD Primary Care Provider [phone] Mary Kiran STUDIO TECHNICIAN Unavailable [phone] Encounter Details Date Type Department Care Team (Late st Contact Info) Description 02/12/2019 Transcribed Document [facility] [place] Family Medicine [address] [place] [address] ProviderAlejandrina MD [address] [place] [address] Social History Tobacco Use Types Packs/Day Years Used Date Smoking Tobacco: Never Assessed Sex and Gender Information Value Date Recorded Sex Assigned at Not on file Legal Sex Male 6:49 PM CDT Gender Identity Not on file Sexual Orientation Not on file documented as of this encounter Miscellaneous Notes * Cerner Conversion Note - Alejandrina Turk MD - 02/12/2019 6:31 AM AUTOMATIC COIL MACHINE OPERATOR ED Discharge Entered On: 02/12/2019 6:31 EST Performed On: 02/12/2019 6:31 EST by Keely Colindres RN Discharge Process Patient Disposition : Admit/Observe Patient Education Completed : Yes Teaching Evaluation : Verbalizes understanding IV Discontinued : No Nursing Documentation Completed : Yes Keely Colindres RN - 02/12/2019 6:31 EST Admission, ED Nurse Report Accepted By : Jacques Nurse Report Acceptance Time : 02/12/2019 6:15 EST `Nurse Report (Hand Off) : Called Accompanied By, Discharge : Spouse Mode Of Departure : Keely Piper RN - 02/12/2019 6:31 EST Electronically signed by [facility] Conversion Aircraft Charter Dispatcher Cerner at 06/03/2022 12:44 PM CDT documented in this encounter Plan of Treatment Not on file documented as of this encounter Visit Diagnoses Not on filedocumented in this encounter Care Teams Technical Program Manager Relationship Specialty Start Date End Date Barrett Devlin MD [address] [place] [address] PCP - General General Internal Medicine 12/29/21 Mary Kiran, STUDIO TECHNICIAN [address] [facility] [address] [place] [address] Cardiology 08/23/23 documented as of this encounter
--- OUTSIDE RECORDS SUMMARY | 2024-08-07 13:15 | XMS_ITS | Encounter Summary ---
Author Organization [employer] Address [address] [place] [address] Care Team Providers Care Fine Craft Artist Name Role Phone Barrett Devlin MD Primary Care Provider [phone] Mary Kiran HEAT CURER Unavailable [phone] Encounter Details Date Type Department Care Team (Late st Contact Info) Description 12/03/2020 Transcribed Document [facility] [place] [address] [place] [address] Alejandrina Turk MD [address] [place] [address] Social History Tobacco Use Types Packs/Day Years Used Date Smoking Tobacco: Never Assessed Sex and Gender Information Value Date Recorded Sex Assigned at Not on file Legal Sex Male 6:49 PM CDT Gender Identity Not on file Sexual Orientation Not on file documented as of this encounter Miscellaneous Notes * Cerner Conversion Note - Alejandrina Turk MD - 12/03/2020 1:55 PM CDT Patient: ESAU RADFORD Age: 70 [...] Shortness of Breath Eliquis: 5 mg, Oral, [id number] Milk of Magnesia 8% oral suspension: 30 [...] Daily , Medications (20) Active Scheduled: (6) amLODIPine 5 mg tab 5 mg 1 Tab, Oral, 1-Time apixaban 5 mg tab 5 mg 1 Tab, Oral, A19ECon cloNIDine 0.2 mg tab 0.2 mg 1 Tab, Oral, TID dofetilide 500 mcg cap 500 mcg 1 Cap, Oral, BID famotidine 20 mg tab 20 mg 1 Tab, Oral, Q12H insulin lispro 1 unit/0.01 mL inj Scale A:, SubCutaneous, AC and at Bedtime Continuous: (0) PRN: (14) acetaminophen 325 mg [...] All Problems Atrial fibrillation / SNOMED CT 50047198 / Confirmed Bradycardia / SNOMED CT 03541482 / Confirmed Low vitamin B12 level / SNOMED CT 857876662 / Confirmed History of obstructive sleep apnea / IMO 13072614 / Confirmed H/O syncope / SNOMED CT 2610587410 / Confirmed HTN - Hypertension / SNOMED CT 3401964140 / Confirmed Hyperlipidemia / SNOMED CT 57767265 / Confirmed Type 2 diabetes mellitus / SNOMED CT 906316312 / Confirmed, Active Problems (8) Atrial fibrillation Bradycardia H/O syncope History of obstructive sleep apnea HTN - Hypertension Hyperlipidemia Low vitamin B12 level Type 2 diabetes mellitus Objective Intake and Output 24 hour intake, 24 hour output VS/Measurements Vitals Signs (last 24 hrs) Last Charted Minimum Maximum Temp 99 (DEC 03 10:50) 97.4 (DEC 03 10:06) 99 (DEC 03 10:50) Apical HR 90 (DEC 03 13:46) 70 (DEC 03 04:52) H 110 (DEC 03 06:07) Mon HR 90 (DEC 03 11:57) 70 (DEC 02 15:27) 105 (DEC 03 05:52) Resp Rate 16 (DEC 03 11:10) 16 (DEC 03 10:20) 20 (DEC 03 10:10) SBP H 170 (DEC 03 11:57) 115 (DEC 03 10:20) H 192 (DEC 03 05:52) DBP H 116 (DEC 03 11:57) 69 (DEC 03 10:20) H 133 (DEC 03 05:52) MAP 129 (DEC 03 11:30) 86 (DEC 03 10:20) 143 (DEC 03 03:52) SpO2 97 (DEC 03 11:10) L 91 (DEC 03 10:20) 97 (DEC 02 18:38) General: Alert and oriented. Eye: Pupils are [...] Normal range of motion. Integumentary: Warm, Dry, [place]. Neurologic: Alert, Oriented. Psychiatric: Cooperative, Appropriate mood & affect. Results Review Telemetry - atrial fib DEC 03 06:32 136 105 21 / H 176 3.9 23 1.10 \ DEC 03 06:32 \ 15.3 / H 10.1 203 / 47.1 \ Telemetry/ECG I personally reviewed the last 24 hour telemetry that shows atrial fib Cardiac echo 07/29/2020 Impression: Normal sized left [...] PPM (MEDTRONIC) *HTN *DM II *HLD PLAN: 12/03/2020 Labs and telemetry reviewed. Potassium replaced. [...] TIKOSYN and Eliquis dosing. We have asked [facility] physician group (Dr. Kayla Devlin) to [...] on filedocumented in this encounter Care Teams Fine Craft Artist Relationship Specialty Start Date End Date Barrett Devlin MD [address] [place] [id number] PCP - General General Internal Medicine 12/29/21 Mary Kiran APRN [address] [facility] [address] [place] [address] Cardiology 08/23/23 documented as of this encounter
--- OUTSIDE RECORDS SUMMARY | 2024-08-07 13:15 | XMS_ITS | Encounter Summary ---
Author Organization [employer] Address [address] [place] [address] Care Team Providers Care Composition Teacher Name Role Phone Barrett Devlin MD Primary Care Provider [phone] Mary Kiran PRACTICE NURSE Unavailable [phone] Encounter Details Date Type Department Care Team (Late st Contact Info) Description 02/07/2019 Transcribed Document [facility] [place] Family [place] [address] [place] [address] ProviderAlejandrina MD [address] [place] [address] Social History Tobacco Use Types Packs/Day Years Used Date Smoking Tobacco: Never Assessed Sex and Gender Information Value Date Recorded Sex Assigned at Not on file Legal Sex Male 6:49 PM CDT Gender Identity Not on file Sexual Orientation Not on file documented as of this encounter Miscellaneous Notes * Cerner Conversion Note - Alejandrina ProviderMD - 02/07/2019 1:50 PM BLOOD OR BLOOD BANK TECHNICIAN ED Assessment Entered On: 02/07/2019 14:38 EST Performed On: 02/07/2019 14:36 EST by BRIAN ARREGUIN RN ED Quick Look Assessment Level of Consciousness : Alert, Awake Affect/Behavior : Appropriate, Calm, Cooperative Orientation : Oriented x 4 Skin Temperature : Warm BRIAN ARREGUIN RN - 02/07/2019 14:36 EST ED General-Functional Assess Information Obtained From : Patient Communication Barrier : None Primary Language : Turkmen Any Spiritual/Cultural Needs or Requests : No Currently in Unsafe Situation : No BRIAN ARREGUIN RN - 02/07/2019 14:36 EST Social Habits Smoking Status : Never (less than 100 in lifetime; none in last 30 days) Smokeless Tobacco Status : Never Desires Tobacco Cessation Calc : 0 BRIAN ARREGUIN RN - 02/07/2019 14:36 EST Social History (As Of: 02/07/2019 14:38:33 EST) Cardiovascular ASMT, ED Cardiovascular Assessment WDL : WDL with exceptions (Comment: Pt presents to the ER following a syncopal episode. Pt is diaphoretic upon arrival. Denies chest pain or sob. [BRIAN ARREGUIN, RN - 02/07/2019 14:36 EST] ) BRIAN ARREGUIN RN - 02/07/2019 14:36 EST Electronically signed by [facility], [facility] Conversion Pot Feeder Cerner at 06/03/2022 12:13 PM CDT documented in this encounter Plan of Treatment Not on file documented as of this encounter Visit Diagnoses Not on filedocumented in this encounter Care Teams Composition Teacher Relationship Specialty Start Date End Date Barrett Devlin MD [address] [place] [address] PCP - General General Internal Medicine 12/29/21 Mary Kiran, PRACTICE NURSE [address] [facility] [address] [place] [address] Cardiology 08/23/23 documented as of this encounter
--- OUTSIDE RECORDS SUMMARY | 2024-08-07 13:15 | XMS_ITS | Encounter Summary ---
Author Organization [email or web address] Address [address] [place] [address] Care Team Providers Care Manager Immunology Name Role Phone Barrett Devlin MD Primary Care Provider [phone] Mary Kiran MECHANICAL DESIGN ENGINEER FACILITIES Unavailable [phone] Encounter Details Date Type Department Care Team (Late st Contact Info) Description 12/04/2020 Transcribed Document [facility] [place] [address] [place] [address] Alejandrina Turk MD [address] [place], [place] [address] Social History Tobacco Use Types Packs/Day Years Used Date Smoking Tobacco: Never Assessed Sex and Gender Information Value Date Recorded Sex Assigned at Not on file Legal Sex Male 6:49 PM CDT Gender Identity Not on file Sexual Orientation Not on file documented as of this encounter Miscellaneous Notes * Cerner Conversion Note - Alejandrina uTrk MD - 12/04/2020 2:46 PM CDT Patient Education Materials Follows: Atrial Fibrillation [...] these instructions at home: Medicines ??? Take rtyf-wcy-rgamfvu and prescription medicines only as told by [...] provider. Document Revised: 07/25/2019 Document Reviewed: 07/25/2019 [employer] Patient Education ? 2020 [employer] Procedures Cardiac Ablation, Care After This sheet gives [...] and water are not available, use hand clerk manager. ? Change your dressing as told by [...] safe for you. General instructions ??? Take bdxh-poo-mrfiypi and prescription medicines only as told by [...] provider. Document Revised: 12/10/2019 Document Reviewed: 12/10/2019 [employer] Patient Education ? 2020 [employer] Cardiac Ablation Cardiac ablation is a [...] be done for people who: ??? Have Santino?Parkinson?White syndrome. ??? Have fast heart rhythms (tachycardia). [...] including vitamins, herbs, eye drops, creams, and boyg-adu-hovlygy medicines. ??? Any problems you or family [...] tells you to take them. ??? Taking niwy-npk-wqntofw medicines, vitamins, herbs, and supplements. General instructions [...] provider. Document Revised: 12/10/2019 Document Reviewed: 12/10/2019 [employer] Patient Education ? 2020 [employer]. documented in this encounter Plan of Treatment Not on file documented as of this encounter Visit Diagnoses Not on filedocumented in this encounter Care Teams Manager Immunology Relationship Specialty Start Date End Date Barrett Devlin MD [address] [facility] [address] [place] [address] PCP - General General Internal Medicine 12/29/21 Mary Kiran, MECHANICAL DESIGN ENGINEER FACILITIES [address] [facility] [address] [place] [address] Cardiology 08/23/23 documented as of this encounter
--- OUTSIDE RECORDS SUMMARY | 2024-08-07 13:15 | XMS_ITS | Encounter Summary ---
Author Organization [employer] Address [address] [place] [address] Care Team Providers Care Hair Mixer Name Role Phone Barrett Devlin MD Primary Care Provider [phone] Mary Kiran APRN Unavailable [phone] Encounter Details Date Type Department Care Team (Late st Contact Info) Description 2020 Transcribed Document [facility] [place] Family Medicine [address] [place] [address] ProviderAlejandrina MD [address] [place] [address] Social History Tobacco Use Types Packs/Day Years Used Date Smoking Tobacco: Never Assessed Sex and Gender Information Value Date Recorded Sex Assigned at Not on file Legal Sex Male 6:49 PM CDT Gender Identity Not on file Sexual Orientation Not on file documented as of this encounter Miscellaneous Notes * Cerner Conversion Note - Alejandrina ProviderMD - 2020 10:08 PM CDT Initial Discharge Planning Entered On: 2020 22:13 EDT Performed On: 2020 22:08 EDT by INEZ LYN, RN-Special Events Planner ED Initial Assessment I Previously Documented Living Environment : No qualifying data available. Living Situation : Home Patient Lives With : Spouse, Other: stepdtr, son-in-law and grandson (21 yo) Is the Patient a Caregiver at Home? 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 : Yes Medical Durable Power of Front End Loader Driver Name : on chart Legal Guardian : No INEZ LYN RN-Special Events Planner ED - 2020 22:08 EDT Initial Assessment II Sensory and Motor Deficits : None Current Home Treatments and Equipment : Blood glucose monitor, Blood pressure monitor, CPAP INEZ LYN RN-Special Events Planner ED - 2020 22:08 EDT Discharge Needs I Anticipated Discharge To, CM : Home with family care Current Home Treatment/Equipment : Current Home Treatment/Equipment No qualifying data available. Documentation Status Complete : Yes INEZ LYN RN-Special Events Planner ED - 2020 22:08 EDT Discharge Needs II Professional Skilled Services : Professional Skilled Services No qualifying data available. Needs Assistance with Transportation : No Discharge Options Discussed with Patient : Home Health Patient Discharge Goal : Home INEZ LYN RN-Special Events Planner ED - 2020 22:08 EDT Narrative Note Narrative Note : Dx: afib HPI: admitted for intiation of tikosyn therapy EP following-> plan for EPS/aflutter ablation on 12/03, then hopefully d/c on 12/04. CM met with pt this evening and explained CM role. Pt resides at home with his , stepdtr, son-in-law and 21 yo grandson. PT is ADL-I and drives himself. Pt has cpap with [facility]. Pt denies the use of outpt services and is not current with . DCP will likely be to home with the support of family and for son-in-law to provide transport. No anticipated CM needs identified at this time. CM will cont to follow. INEZ LYN RN-Special Events Planner ED - 2020 22:08 EDT documented in this encounter Plan of Treatment Not on file documented as of this encounter Visit Diagnoses Not on filedocumented in this encounter Care Teams Hair Mixer Relationship Specialty Start Date End Date Barrett Devlin MD [address] [place] [address] PCP - General General Internal Medicine 12/29/21 Mary Kiran, RIPRAP WORKER [address] [facility] [address] [place] [address] Cardiology 08/23/23 documented as of this encounter
--- OUTSIDE RECORDS SUMMARY | 2024-08-07 13:15 | XMS_ITS | Encounter Summary ---
Author Organization [employer] Address [address] [place] [address] Care Team Providers Care Grocery Clerk Stocking Name Role Phone Barrett Devlin MD Primary Care Provider [phone] Mary Kiran ASPHALT PAVING SUPERINTENDENT Unavailable [phone] Reason for Visit * Reason Comments Medication Refill Encounter Details Date Type Department Care Team (Late st Contact Info) Description 02/08/2023 Refill [facility] Cardiology [address] [id number] SolisBill pereyra, ASPHALT PAVING SUPERINTENDENT [address] [facility] [address] [place] [address] Essential (primary) hypertension Social History Tobacco Use Types Packs/Day Years Used Date Smoking Tobacco: Former Cigarettes Smokeless Tobacco: Never Alcohol Use Standard Drinks/Week [...] place to sleep or slept in a nursing home (including now)? No 01/26/2022 Sex and Gender Information Value Date Recorded [...] as of this encounter Visit Diagnoses Diagnosis Essential (primary) hypertension Unspecified essential hypertension documented in this encounter Care Teams Grocery Clerk Stocking Relationship Specialty Start Date End Date Barrett Devlin MD [address] [place] [address] PCP - General General Internal Medicine 12/29/21 Mary Kiran, ASPHALT PAVING SUPERINTENDENT [address] [facility] [address] [place] [address] Cardiology 08/23/23 documented as of this encounter
--- OUTSIDE RECORDS SUMMARY | 2024-08-07 13:15 | XMS_ITS | Encounter Summary ---
Author Organization [facility] Address [address] [place] [address] Care Team Providers Care Mathematics Faculty Member Name Role Phone Barrett Devlin MD Primary Care Provider [phone] Mary Kiran MANAGER COMMUNICATION Unavailable [phone] Encounter Details Date Type Department Care Team (Late st Contact Info) Description 12/04/2020 Transcribed Document [facility] Family Medicine [address] [place] [address] ProviderAlejandrina MD [address] [place] [address] Social History Tobacco Use Types Packs/Day Years Used Date Smoking Tobacco: Never Assessed Sex and Gender Information Value Date Recorded Sex Assigned at Not on file Legal Sex Male 6:49 PM CDT Gender Identity Not on file Sexual Orientation Not on file documented as of this encounter Miscellaneous Notes * Cerner Conversion Note - Alejandrina ProviderMD - 12/04/2020 2:00 AM CDT Correctional Probation Officer Details Entered On: 12/04/2020 4:46 EDT Performed On: 12/04/2020 2:00 EDT by Marilee Soto Rn-Traveler Order Details Transport Mode Order Detail : Ambulatory Isolation Precautions Order Detail : Standard Precautions Order Detail : N/A IV Order Detail : 1 Oxygen Order Detail : 0 Nurse Collect Order Detail : 0 Lift/Transfer : Independent Central Line Order Detail : No Room Service : Appropriate Arterial Line : No Patient Needs Meds Crushed/Liquid : No Marilee Soto Rn-Traveler - 12/04/2020 4:46 EDT documented in this encounter Plan of Treatment Not on file documented as of this encounter Visit Diagnoses Not on filedocumented in this encounter Care Teams Mathematics Faculty Member Relationship Specialty Start Date End Date Barrett Devlin MD [address] [place] [address] PCP - General General Internal Medicine 12/29/21 Mary Kiran, MANAGER COMMUNICATION [address] [facility] [address] [place] [address] Cardiology 08/23/23 documented as of this encounter
--- OUTSIDE RECORDS SUMMARY | 2024-08-07 13:15 | XMS_ITS | Encounter Summary ---
Author Organization [email or web address] Address [address] [place] [address] Care Team Providers Care Laborer Tree Tapping Name Role Phone Barrett Devlin MD Primary Care Provider [phone] Mary Kiran SOCIAL WELFARE RESEARCH WORKER Unavailable [phone] Reason for Visit * Reason Comments Medication Refill Encounter Details Date Type Department Care Team (Late st Contact Info) Description 03/25/2023 Refill [facility] Cardiology [address] [place] [address] Bill Solis, SOCIAL WELFARE RESEARCH WORKER [address] [facility] [address] [place] [address] Paroxysmal atrial fibrillation (HCC); Unspecified atrial flutter (HCC) Social History Tobacco Use Types Packs/Day Years [...] place to sleep or slept in a mcc (including now)? No 01/26/2022 Interpersonal Safety Answer [...] Date Harry rded Speak language other than Welsh at home Not on file 02/24/2023 Want [...] as of this encounter Visit Diagnoses Diagnosis Paroxysmal atrial fibrillation (HCC) Atrial fibrillation Unspecified atrial flutter (HCC) documented in this encounter Care Teams Laborer Tree Tapping Relationship Specialty Start Date End Date Barrett Devlin MD [address] [place] [address] PCP - General General Internal Medicine 12/29/21 Mary Kiran, SOCIAL WELFARE RESEARCH WORKER [address] [facility] [address] [place] [address] Cardiology 08/23/23 documented as of this encounter
--- OUTSIDE RECORDS SUMMARY | 2024-08-07 13:15 | XMS_ITS | Encounter Summary ---
Author Organization [employer] Address [address] [place] [address] Care Team Providers Care Eap Consultant Name Role Phone Barrett Devlin MD Primary Care Provider [phone] Mary Kiran MANAGER CHINESE Unavailable [phone] Encounter Details Date Type Department Care Team (Late st Contact Info) Description 02/12/2019 Transcribed Document [facility] [place] [address] [place] [address] ProviderAlejandrina MD [address] [place], [place] [address] Social History Tobacco Use Types Packs/Day Years Used Date Smoking Tobacco: Never Assessed Sex and Gender Information Value Date Recorded Sex Assigned at Not on file Legal Sex Male 6:49 PM CDT Gender Identity Not on file Sexual Orientation Not on file documented as of this encounter Miscellaneous Notes * Cerner Conversion Note - Alejandrina Turk MD - 02/12/2019 3:16 AM DEPUTY SHERIFF LIEUTENANT ED Triage Entered On: 02/12/2019 3:24 EST Performed On: 02/12/2019 3:21 EST by Keely Colindres RN ED Triage Across the Room ED Vital Signs : Document Keely Colindres RN - 02/12/2019 3:25 EST Chief Complaint : up to bathroom, heard a thump in bathroom, found patient in floor unresponsive for approx 1-2 min; abrasion to rt flank area Triage Date/Time : 02/12/2019 3:21 EST Keely Colindres RN - 02/12/2019 3:21 EST DCP GENERIC CODE Tracking Group : [facility] ED Tracking Acuity : 2 - Emergent Keely ColindresANROL - 02/12/2019 3:21 EST Mode of Arrival : Ambulatory Transported to ED by : Private vehicle To Room Via : Wheelchair Accompanied By : Spouse Height & Weight : Document ED Allergies : Document ED Reason for Visit : Document Keely ColindresARNOL - 02/12/2019 3:21 EST Infectious Disease History Infectious Disease History : Chicken pox/Shingles Fever/Chills Last 48 Hours : No Travel To Regions with Travel Advisories : No Travel Outside [place] Within Last 30 Days : No Contact With Traveler to Advisory Region : No Tuberculosis Symptoms : None Bernadine KeelyARNOL - 02/12/2019 3:21 EST Vital Signs ED Temperature Source : Oral Temperature Mode : Fahrenheit Temperature, Fahrenheit : 97.7 Deg F Clinical Temperature, C : 36.5 Deg C Oxygen Therapy Mode : Room air Peripheral Pulse Rate : 74 bpm Respiratory Rate : 18 Breaths/Min Blood Pressure Location : Arm, right upper Blood Pressure Source : Non-Invasive BP Device Systolic Blood Pressure : 121 mmHg Diastolic Blood Pressure : 80 mmHg Oxygen Saturation : 98 % Keely ColindresARNOL - 02/12/2019 3:25 EST Allergy (As Of: 02/12/2019 03:24:37 EST) Allergies (Active) No Known Medication Allergies Estimated Onset Date: Unspecified ; Created By: BRIAN CEJA; Reaction Status: Active ; Category: Drug ; Substance: No Known Medication Allergies ; Type: Allergy ; Updated By: BRIAN CEJA; Reviewed Date: 02/12/2019 3:22 EST Diagnosis Control ED (As Of: 02/12/2019 03:24:37 EST) Problems(Active) History of obstructive sleep apnea (IMO :[id number] ) Name of Problem: History of obstructive sleep apnea ; Recorder: SYSTEM, SYSTEM; Confirmation: Confirmed ; Classification: Medical ; Code: [id number] ; Last Updated: 02/07/2019 20:43 EST ; Life Cycle Date: 02/07/2019 ; Life Cycle Status: Active ; Vocabulary: IMO Diagnoses(Active) Syncope/Near syncope Date: 02/12/2019 ; Diagnosis Type: Reason For Visit ; Confirmation: Complaint of ; Clinical Dx: Syncope/Near syncope ; Classification: Medical ; Clinical Service: Non-Specified ; Code: PNED ; Probability: 0 ; Diagnosis Code: [id number] ED Height and Weight Height Source : Stated Height Entry Format : [place] Height, Feet : 6 ft(Converted to: 183 cm, 72 Inch) Height, Inches : 0 Inch(Converted to: 0 ft 0 Inch, 0.00 cm) Clinical Height : 182.88 cm Weight Source, ED : Critical estimated dosing weight Weight Entry Format : [place] Weight, Pounds : 225 lb Clinical Dosing Weight : 102.27 kg Body Surface Area (BSA) : 2.24 m2 Body Mass Index : 30.6 kg/m2 (HI) [place] Body Weight (IBW) : 76.59 kg Keely Colindres RN - 02/12/2019 3:21 EST Electronically signed by Teja [facility] Conversion Sap Bi Architect Cerner at 06/03/2022 12:41 PM CDT documented in this encounter Plan of Treatment Not on file documented as of this encounter Visit Diagnoses Not on filedocumented in this encounter Care Teams Eap Consultant Relationship Specialty Start Date End Date Barrett Devlin MD [address] [place] [address] PCP - General General Internal Medicine 12/29/21 Mary Kiarn, MARIBEL [address] [facility] [address] [place] [address] Cardiology 08/23/23 documented as of this encounter
--- OUTSIDE RECORDS SUMMARY | 2024-08-07 13:16 | XMS_ITS | Encounter Summary ---
Author Organization [employer] Address [address] [place] [address] Care Team Providers Care Eight Arm Operator Name Role Phone Barrett Devlin MD Primary Care Provider [phone] Mary Kiran TOOL GRINDER OPERATOR EXTERNAL Unavailable [phone] Encounter Details Date Type Department Care Team (Late st Contact Info) Description 02/07/2019 Transcribed Document [facility] Family Medicine [address] [place] [address] ProviderAlejandrina MD [address] [place] [address] Social History Tobacco Use Types Packs/Day Years Used Date Smoking Tobacco: Never Assessed Sex and Gender Information Value Date Recorded Sex Assigned at Not on file Legal Sex Male 6:49 PM CDT Gender Identity Not on file Sexual Orientation Not on file documented as of this encounter Miscellaneous Notes * Cerner Conversion Note - Alejandrina ProviderMD - 02/07/2019 1:50 PM TURF AND GROUNDS SUPERVISOR [place] Suicide Severity Rating Scale (C-SSRS) Entered On: 02/07/2019 14:05 EST Performed On: 02/07/2019 14:04 EST by BRIAN ARREGUIN RN [place] Suicide Severity Rating Scale (C-SSRS) CSSRS Past Month Wish to be : No CSSRS Past Month Suicidal Thoughts : No CSSRS Lifetime Suicide Behavior : No Suicide Severity Rating Score : 0 Suicide Severity Rating : No Additional Care Required at this time BRIAN ARREGUIN RN - 02/07/2019 14:04 EST Electronically signed by Teja [facility] Conversion Diver'S Tender Cerner at 06/03/2022 12:34 PM CDT documented in this encounter Plan of Treatment Not on file documented as of this encounter Visit Diagnoses Not on filedocumented in this encounter Care Teams Eight Arm Operator Relationship Specialty Start Date End Date Barrett Devlin MD [address] [place] [address] PCP - General General Internal Medicine 12/29/21 Mary Kiran, TOOL GRINDER OPERATOR EXTERNAL [address] [facility] [address] [place] [address] Cardiology 08/23/23 documented as of this encounter
--- OUTSIDE RECORDS SUMMARY | 2024-08-07 13:16 | XMS_ITS | Encounter Summary ---
Author Organization [employer] Address [address] [place] [address] Care Team Providers Care Process Equipment Operator Name Role Phone Barrett Devlin MD Primary Care Provider [phone] Mary Kiran CONCRETE TILE MACHINE OPERATOR Unavailable [phone] Encounter Details Date Type Department Care Team (Late st Contact Info) Description 02/07/2019 Transcribed Document [facility] Family Medicine [facility] [place] [address] ProviderAlejandrina MD [address] [place] [address] Social History Tobacco Use Types Packs/Day Years Used Date Smoking Tobacco: Never Assessed Sex and Gender Information Value Date Recorded Sex Assigned at Not on file Legal Sex Male 6:49 PM CDT Gender Identity Not on file Sexual Orientation Not on file documented as of this encounter Miscellaneous Notes * Cerner Conversion Note - Alejandrina Turk MD - 02/07/2019 5:27 PM CLOSER ON Patient: ESAU RADFORD Age: 68 Years Sex: Male : 1950 Chief Complaint pt had syncopal epiosde DELI 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 +diaphoretic, +N/V. Primary Care Provider BARRETT DEVLIN MD History of Present Illness This is a 68-year-old male with past medical history of hypertension, type 2 diabetes, hyperlipidemia. He comes in today after being in his normal state of health and passing out for 5 seconds, using consciousness and recovering fairly quickly. He says this happens in 5 years ago, again in December of this year, and again today. Prior to passing out, he has a jittery sensation and feels unwell. Denies palpitation, chest pain, shortness of breath. He has been seeing a wood inspector Dr. Bonner for this issue with no answers yet, he does have a 30 day Holter monitor for these episodes. Today the episode occurred where he passed out for 5 seconds and regained consciousness and came to the emergency department and was noted to be bradycardic, in atrial fibrillation. He was started on heparin drip and cardiology was consulted but have yet to see him. Admitted for further workup and management Review of Systems Pertinent positives and negatives noted in the history of present illness, all other systems reviewed and are otherwise negative Vital Signs HR: 70(Monitored) RR: 18 BP: 139/86 SpO2: 97% HT: 182.88 cm WT: 102.27 kg BMI: 30.6 Oxygen Settings (Last) Oxygen Therapy Mode: Room air (02/07/19 16:00:00) Physical Exam General: Awake, alert, oriented. No acute distress. Head: Atraumatic, normocephalic Eyes: PERRL, EOMI, Anicteric sclera, [place] conjunctiva Neck: Supple, no mass palpable, no bruits heard bilaterally Heart: S1S2, irregularly irregular, no murmurs, clicks, or gallops heard Lungs: Clear to auscultation bilaterally, no rales, rhonchi or wheezes Abdomen: Soft, non tender, normal bowel sounds heard Extremities: No clubbing, cyanosis or edema. Bilateral pedal pulses strong and palpable. 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 Obtain cardiology consultation. Hold labetalol, diltiazem as these could worsen bradycardia. Monitor on telemetry. Continue home dose of aspirin Acute kidney injury versus chronic kidney disease???he denies any knowledge of kidney disease. We will start IV fluids, and see if that improves his creatinine Type 2 diabetes???start sliding scale insulin, check hemoglobin A1c Leukocytosis???mild. Likely secondary to his syncopal event today. No signs of infections. Monitor off of antibiotics. History of hypertension???resume clonidine, spironolactone Hyperlipidemia???continue statin Heparin drip for DVT prophylaxis Patient is a full code Atrial fibrillation, new onset Bradycardia Syncope Syncope/Near syncope Orders: acetaminophen, 650 mg, Oral, Tab, Q4H, PRN for Pain (Mild 1-3), Routine, Start 02/07/19 16:57:00 EST cloNIDine, 0.1 mg, Oral, Tab, TID, Routine, Start 02/07/19 16:52:00 EST heparin 25,000 Units + NaCl 0.45% Premix Diluent 250 mL, 250 mL, Bag Volume (mL) = 250, IntraVENous, start date 02/07/19 16:57:00 EST, Routine, Titrate, 2.28, m2 insulin lispro, greater than 101 kg scale, SubCutaneous, Inj, AC and at Bedtime, Routine, Start 02/07/19 21:00:00 EST ondansetron, 4 mg, IV Push, Inj, Q4H, PRN for Nausea, Routine, Start 02/07/19 16:57:00 EST Sodium Chloride 0.9% intravenous solution 1,000 mL, 1,000 mL, Bag Volume (mL) = 1,000, Rate = 75 mL/Hr, IntraVENous, start date 02/07/19 16:57:00 EST, Routine, 2.28, m2 spironolactone, 25 mg, Oral, Tab, Daily, Routine, Start 02/08/19 9:00:00 EST CBC w/ Auto Diff CMP Comprehensive Metabolic Panel Consult to Physician Diet, Adult DVT VTE Prophylaxis Education Facility Protocol Hemoglobin A1C Magnesium Level Oxygen Therapy Place in Observation Resuscitation Status Sequential Compression Device Vital Signs VTE Prophylaxis - Medical Sequential Compression Device Start: 02/07/19 16:57:00 EST, Bilateral, Length: Knee High, While patient is in bed, Continuous Order (DARIUSZ CABRERA) Problem List/Past Medical History Ongoing No qualifying data Historical No qualifying data Home Medications (14) Active aspirin 81 mg oral delayed release tablet 81 mg = 1 Tab, Oral, Daily clonidine 0.1 mg oral tablet 0.1 mg = 1 Tab, Oral, TID Dilt-XR 240 mg/24 hours oral capsule, extended release , Oral, Daily Invokana 300 mg oral tablet Invokana 300 mg oral tablet labetalol 200 mg oral tablet 200 mg = 1 Tab, Oral lisinopril 40 mg oral tablet lisinopril 40 mg oral tablet lovastatin 20 mg oral tablet lovastatin 20 mg oral tablet metFORMIN 1000 mg oral tablet See Instructions potassium chloride 10 mEq oral tablet, extended release sildenafil 20 mg oral tablet spironolactone 25 mg oral tablet 25 mg = 1 Tab, Oral, Daily Allergies No Known Medication Allergies Social History No history of tobacco alcohol or drug use Family History Reviewed but noncontributory to this admission Diagnostic Results Radiology Results (Last 48 hours) [id number] -- 02/07/2019 16:50 CR Chest 1 Vw [...] agree with the above final transcribed report. Lab Results Test Name Test Result Date/Time Sodium Level 137 mmol/L 02/07/2019 14:15 EST Potassium Level 4.4 mmol/L 02/07/2019 14:15 EST Chloride Level 107 mmol/L 02/07/2019 14:15 EST Carbon Dioxide Level 22 mmol/L 02/07/2019 14:15 EST Anion Gap 12 02/07/2019 14:15 EST Glucose Level 188 mg/dL (High) 02/07/2019 14:15 EST Blood Urea Nitrogen 28 mg/dL (High) 02/07/2019 14:15 EST Creatinine Level 1.40 mg/dL (High) 02/07/2019 14:15 EST eGFR >60 mL/min/1.73m2 02/07/2019 14:15 EST eGFR NonAfrican 50 mL/min/1.73m2 (Low) 02/07/2019 14:15 EST Bun/Creatinine 18.7 02/07/2019 14:15 EST Calcium Level 9.4 mg/dL 02/07/2019 14:15 EST Protein Total 7.6 Gram/dL 02/07/2019 14:15 EST Albumin Level 4.2 Gram/dL 02/07/2019 14:15 EST Globulin 3.4 Gram/dL 02/07/2019 14:15 EST A/G Ratio 1.2 02/07/2019 14:15 EST Bilirubin Total 0.7 mg/dL 02/07/2019 14:15 EST Alk Phos 109 Units/Liter 02/07/2019 14:15 EST AST 13 Units/Liter 02/07/2019 14:15 EST ALT 23 Units/Liter 02/07/2019 14:15 EST Troponin I Ultra <0.015 ng/mL 02/07/2019 14:15 EST WBC 11.2 K/uL (High) 02/07/2019 14:15 EST RBC 4.70 Million/uL 02/07/2019 14:15 EST Hgb 14.6 g/dL 02/07/2019 14:15 EST Hct 44.1 % 02/07/2019 14:15 EST MCV 93.8 fL 02/07/2019 14:15 EST MCH 31.1 pg 02/07/2019 14:15 EST MCHC 33.1 Gram/dL 02/07/2019 14:15 EST Platelet Count 320 K/uL 02/07/2019 14:15 EST MPV 10.2 fL 02/07/2019 14:15 EST RDW 12.5 % 02/07/2019 14:15 EST Neut % 71.1 % (High) 02/07/2019 14:15 EST Neut # 7.96 K/uL (High) 02/07/2019 14:15 EST Lymph % 20.3 % 02/07/2019 14:15 EST Lymph # 2.28 x10(3)/uL 02/07/2019 14:15 EST [place] % 6.3 % 02/07/2019 14:15 EST [place] # 0.71 K/uL 02/07/2019 14:15 EST Eos % 1.0 % 02/07/2019 14:15 EST Eos # 0.11 x10(3)/uL 02/07/2019 14:15 EST Baso % 0.8 % 02/07/2019 14:15 EST Baso # 0.09 x10(3)/uL 02/07/2019 14:15 EST Slide Review No 02/07/2019 14:15 EST IG# 0.06 x10(3)/uL (High) 02/07/2019 14:15 EST IG% 0.50 % 02/07/2019 14:15 EST PT 10.2 Second(s) 02/07/2019 14:15 EST INR 1.0 02/07/2019 14:15 EST PTT 24.0 Second(s) 02/07/2019 14:15 EST TSH 1.900 mcInt Units/mL 02/07/2019 14:15 EST Additional Documentation Code Status Start: 02/07/19 16:57:00 EST, Full Code, Continuous Order Electronically signed by [facility], [facility] Conversion Chemistry Quality Control Analyst Cerner at 06/03/2022 12:35 PM CDT documented in this encounter Plan of Treatment Not on file documented as of this encounter Visit Diagnoses Not on filedocumented in this encounter Care Teams Process Equipment Operator Relationship Specialty Start Date End Date Barrett Devlin MD [address] [place] [address] PCP - General General Internal Medicine 12/29/21 Mary Kiran, CONCRETE TILE MACHINE OPERATOR [address] [facility] [address] [place] [address] Cardiology 08/23/23 documented as of this encounter
--- OUTSIDE RECORDS SUMMARY | 2024-08-07 13:16 | XMS_ITS | Encounter Summary ---
Author Organization [email or web address] Address [address] [place] [address] Care Team Providers Care Supervisor Photocomposition Name Role Phone Barrett Devlin MD Primary Care Provider [phone] Mary Kiran APRN Unavailable [phone] Encounter Details Date Type Department Care Team (Late st Contact Info) Description 02/08/2019 Transcribed Document [facility] [place] [place] Family Medicine [address] [place] [address] ProviderAlejandrina MD [address] [place] [address] Social History Tobacco Use Types Packs/Day Years Used Date Smoking Tobacco: Never Assessed Sex and Gender Information Value Date Recorded Sex Assigned at Not on file Legal Sex Male 6:49 PM CDT Gender Identity Not on file Sexual Orientation Not on file documented as of this encounter Miscellaneous Notes * Cerner Conversion Note - Alejandrina Turk MD - 02/08/2019 12:45 PM DRINK BOX MECHANIC Pain Assessment Entered On: 02/09/2019 2:04 EST Performed On: 02/08/2019 23:09 EST by LATOYA FARLEY RN Intervention Information: acetaminophen-HYDROcodone Performed by LATOYA FARLEY RN on 02/08/2019 22:09:00 EST acetaminophen-HYDROcodone,1Tab Oral,Pain (Severe 7-10) Pain Assessment Pain Assessment : Follow-up assessment Pain Scale Goal : 3 Pain Scale Used : 0-10 Scale LATOYA FARLEY RN - 02/09/2019 2:04 EST Pain Scale Intensity : 0 LATOYA FARLEY RN - 02/09/2019 2:04 EST Image 4 - Images currently included in the form version of this document have not been included in the text rendition version of the form. documented in this encounter Plan of Treatment Not on file documented as of this encounter Visit Diagnoses Not on filedocumented in this encounter Care Teams Supervisor Photocomposition Relationship Specialty Start Date End Date Barrett Devlin MD [address] [place] [address] PCP - General General Internal Medicine 12/29/21 Mary Kiran, MARIBEL [address] [facility] [address] [place] [address] Cardiology 08/23/23 documented as of this encounter
--- OUTSIDE RECORDS SUMMARY | 2024-08-07 13:16 | XMS_ITS | Encounter Summary ---
Author Organization [facility] [employer] Address [address] [place] [address] Care Team Providers Care Honey Processor Name Role Phone Barrett Devlin MD Primary Care Provider [phone] Mary Kiran SPD TECH Unavailable [phone] Encounter Details Date Type Department Care Team (Late st Contact Info) Description 02/07/2019 Transcribed Document [facility] [place] Family Medicine [address] [place] [address] ProviderAlejandrina MD [address] [place] [address] Social History Tobacco Use Types Packs/Day Years Used Date Smoking Tobacco: Never Assessed Sex and Gender Information Value Date Recorded Sex Assigned at Not on file Legal Sex Male 6:49 PM CDT Gender Identity Not on file Sexual Orientation Not on file documented as of this encounter Miscellaneous Notes * Cerner Conversion Note - Alejandrina ProviderMD - 02/07/2019 4:57 PM STUFFING MACHINE OPERATOR Admission History, Adult Entered On: 02/07/2019 20:43 EST Performed On: 02/07/2019 20:43 EST by Luna Chowdhury RN Advance Directive Patient has Advance Directive *Q : No, patient requests information about Advance Directive Luna Chowdhury RN - 02/07/2019 20:36 EST Anesthesia/Transfusion History Family History of Anesthesia Reaction : No prior transfusion(s) Transfusion History : Prior anesthesia without reaction Family History of Anesthesia Reaction : None Luna Chowdhury RN - 02/07/2019 20:36 EST Functional Assessment Living Situation : Home Current Home Treatments : CPAP Luna Chowdhury RN - 02/07/2019 20:36 EST General Info Mode of Arrival on Unit : Ambulatory Legal Guardian : Spouse Want Family/Rep/Phys Notified of Admit : No Emergency Contact #1 : Tonie Radford Emergency Contact #1 / [phone] (cell) Emergency Contact #1 Relationship : Emergency Contact #2 : Hannah Sumner Emergency Contact #2 Emergency Contact #2 Relationship : Daughter Chief Complaint : 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 +diaphoretic, +N/V. Information Obtained From : Patient Primary Language : Panamanian Communication Barrier : None Luna Chowdhury RN - 02/07/2019 20:36 EST Fall Risk Scales ABCs Fall Injury [...] Scale Risk Level : 25-45 Medium Risk Scott Fall Interventions : Adequate lighting, Assistive devices within reach, Bed in low position, Call device within reach, Frequent orientation to call device, Frequent orientation to surroundings, Hourly comfort/safety rounds, Non-slip footwear, Personal items within reach, Reinforced to call for assistance before getting out of bed, Room free of clutter/spills, Upper side-rails up, Wheels locked, Wires/Cords secured Luna Chowdhury RN - 02/07/2019 20:36 EST Health Histories Smoking Status : Never (less than 100 in lifetime; none in last 30 days) Smokeless Tobacco Status : Never Luna Chowdhury RN - 02/07/2019 20:36 EST Social History (As Of: 02/07/2019 20:43:11 EST) Height and Weight, Clinical Dosing Height Source : Stated Height Entry Format : [place] Height, Feet : 6 ft(Converted to: 183 cm, 72 Inch) Height, Inches : 0 Inch(Converted to: 0 ft 0 Inch, 0.00 cm) Clinical Height : 182.88 cm Weight Source : Bed scale Weight Entry Format : [place] Clinical Dosing Weight : 102.27 kg Weight, Pounds : 225 lb Body Surface Area (BSA) : 2.24 m2 Body Mass Index : 30.6 kg/m2 (HI) [place] Body Weight : 77 kg Luna Chowdhury RN - 02/07/2019 20:36 EST Infectious Disease History Infectious Disease History : Chicken pox/Shingles Fever/Chills Last 48 Hours : No Travel To Regions with Travel Advisories : No Travel Outside [place] Within Last 30 Days : No Contact With Traveler to Advisory Region : No Tuberculosis Symptoms : None Luna Chowdhury RN - 02/07/2019 20:36 EST Influenza Vaccine Asmt, Adult Previous Vaccines from Immunization Schedule : No qualifying data available. Influenza Immunization, Current Season : Yes Luna Chowdhury RN - 02/07/2019 20:36 EST Pneumococcal Vaccine Previous Vaccines from Immunization Schedule : No qualifying data available. Pneumonia Immunization Received : No Pneumococcal Risk Assessment < Age 65 : N/A- Patient 65 years of age or older Pneumococcal Vaccine Contraindications : No contraindications to pneumococcal vaccine Transplant Workup/Recent Transplant : No Order for Pneumococcal Vaccine : Order for pneumococcal vaccine sent to pharmacy Luna Chowdhury RN - 02/07/2019 20:36 EST Nutrition History Eating Poorly Due to Decreased Appetite : No Unplanned Weight Loss in Past 3-6 Months : No Malnutrition Screening Tool Total(mal) : 0 Malnutrition Screening Tool Risk Level : Patient not at risk Luna Chowdhury RN - 02/07/2019 20:36 EST [place] Suicide Severity Rating Scale (C-SSRS) CSSRS Past Month Wish to be : No CSSRS Past Month Suicidal Thoughts : No CSSRS Lifetime Suicide Behavior : No Suicide Severity Rating Score : 0 Suicide Severity Rating : No Additional Care Required at this time Luna Chowdhury RN - 02/07/2019 20:36 EST Psychosocial History Currently in Unsafe Situation : No Luna Chowdhury RN - 02/07/2019 20:36 EST Sleep Apnea Risk Assmt BiPAP/CPAP Ordered for Home Use : Yes Hx of Obstructive Sleep Apnea Diagnosis : Yes BiPAP/CPAP Used at Home : Yes Age over 50 Years Old : Yes Gender Male : Yes Luna Chowdhury RN - 02/07/2019 20:36 EST Valuables and Belongings Valuables and Belongings : Clothing, Personal items Clothing : Common streetwear Clothing Disposition : Bedside, With patient Personal Items : Cell phone Personal Items Disposition : Bedside, With patient Luna Chowdhury RN - 02/07/2019 20:36 EST Electronically signed by [facility], [facility] Conversion Court Advocate Cerner at 06/03/2022 12:21 PM CDT documented in this encounter Plan of Treatment Not on file documented as of this encounter Visit Diagnoses Not on filedocumented in this encounter Care Teams Honey Processor Relationship Specialty Start Date End Date Barrett Devlin MD [address] [place] [address] PCP - General General Internal Medicine 12/29/21 Mary Kiran, SPD TECH [address] [facility] [address] [place] [address] Cardiology 08/23/23 documented as of this encounter
--- OUTSIDE RECORDS SUMMARY | 2024-08-07 13:16 | XMS_ITS | Encounter Summary ---
Author Organization [employer] Address [address] [place] [address] Care Team Providers Care Trade Analyst Name Role Phone Barrett Devlin MD Primary Care Provider [phone] Mary Kiran CERTIFIED JUVENILE PROBATION OFFICER Unavailable [phone] Encounter Details Date Type Department Care Team (Late st Contact Info) Description 12/03/2020 Transcribed Document [facility] [place] [address] [place] [address] ProviderAlejandrina MD [address] [place] [address] Social History Tobacco Use Types Packs/Day Years Used Date Smoking Tobacco: Never Assessed Sex and Gender Information Value Date Recorded Sex Assigned at Not on file Legal Sex Male 6:49 PM CDT Gender Identity Not on file Sexual Orientation Not on file documented as of this encounter Miscellaneous Notes * Cerner Conversion Note - Alejandrina ProviderMD - 12/03/2020 5:00 AM CDT Chart Check - Review Order Profile Entered On: 12/03/2020 6:43 EDT Performed On: 12/03/2020 5:00 EDT by Marilee Soto Rn-Travelevelyn Chart Check Powerplans Initiated/Discontinued as Appropriate : Yes All Active Orders Reviewed : Yes Marilee Soto Rn-Traveler - 12/03/2020 6:43 EDT documented in this encounter Plan of Treatment Not on file documented as of this encounter Visit Diagnoses Not on filedocumented in this encounter Care Teams Trade Analyst Relationship Specialty Start Date End Date Barrett Devlin MD [address] [place] [address] PCP - General General Internal Medicine 12/29/21 Mary Kiran, CERTIFIED JUVENILE PROBATION OFFICER [address] [facility] [address] [place] [address] Cardiology 08/23/23 documented as of this encounter
--- OUTSIDE RECORDS SUMMARY | 2024-08-07 13:16 | XMS_ITS | Encounter Summary ---
Author Organization [employer] Address [address] [place] [address] Care Team Providers Care Inclusion Specialist Name Role Phone Barrett Devlin MD Primary Care Provider [phone] Mary Kiran HEALTH CARE / MEDICAL JOB TITLES Unavailable [phone] Encounter Details Date Type Department Care Team (Late st Contact Info) Description 12/03/2020 Transcribed Document [facility] [place] Medicine [address] [place] [address] ProviderAlejandrina MD [address] [place] [address] Social History Tobacco Use Types Packs/Day Years Used Date Smoking Tobacco: Never Assessed Sex and Gender Information Value Date Recorded Sex Assigned at Not on file Legal Sex Male 6:49 PM CDT Gender Identity Not on file Sexual Orientation Not on file documented as of this encounter Miscellaneous Notes * Cerner Conversion Note - Alejandrina ProviderMD - 12/03/2020 2:00 AM CDT Fixture Builder Details Entered On: 12/03/2020 6:42 EDT Performed On: 12/03/2020 2:00 EDT by Marilee Soto Rn-Traveler Order [...] Crushed/Liquid : No Marilee Soto Rn-Traveler - 12/03/2020 6:42 EDT documented in this encounter Plan of Treatment Not on file documented as of this encounter Visit Diagnoses Not on filedocumented in this encounter Care Teams Inclusion Specialist Relationship Specialty Start Date End Date Barrett Devlin MD [address] [place] [address] PCP - General General Internal Medicine 12/29/21 Mary Kiran, HEALTH CARE / MEDICAL JOB TITLES [address] [facility] [address] [place] [address] Cardiology 08/23/23 documented as of this encounter
--- OUTSIDE RECORDS SUMMARY | 2024-08-07 13:16 | XMS_ITS | Encounter Summary ---
Author Organization [employer] Address [address] [place] [address] Care Team Providers Care Assembler Filters Name Role Phone Barrett Devlin MD Primary Care Provider [phone] Mary Kiran MAINTENANCE MANAGER Unavailable [phone] Encounter Details Date Type Department Care Team (Late st Contact Info) Description 02/07/2019 Transcribed Document [facility] Cardiology [address] [place], [place] [id number] [place] [address] [place] [address] [address] [place] [address] Social History Tobacco Use Types Packs/Day Years Used Date Smoking Tobacco: Never Assessed Sex and Gender Information Value Date Recorded Sex Assigned at Not on file Legal Sex Male 6:49 PM CDT Gender Identity Not on file Sexual Orientation Not on file documented as of this encounter Miscellaneous Notes * Cerner Conversion Note - Francisco Cervantes MD - 02/07/2019 6:23 PM EST Patient: ESAU RADFORD Age: 68 years Sex: Male : 1950 Associated Diagnoses: None Author: FRANCISCO CERVANTES MD-CAR Basic Information PCP: Coffee Grinder: Kailey Chief Complaint Syncope History of Present Illness Mr. Radford is a 68 y/o male with PMH of HTN who originally presented to cardiology clinic in December for a syncopal episode that occurred while sitting. His PCP put a 24 hour holter monitor on him at which point he was told it was abnormal and he needed to see a senior technical specialist. He saw Dr. Bonner who ordered an echocardiogram which was normal and placed a 30 day event monitor on, which is still currently in place. He reports sitting and eating lunch, no complaints of chest pain, dyspnea or palpitations when he had a sudden onset of feeling anxiety and then experienced a complete syncopal episode. He did not fall, and his reports LOC for approximately 1 minute. His family called EMS and he was eventually transported to [facility] for evaluation. He was found to have new onset afib, CVR to SVR. He was started on a Heparin gtt and cardiology has been consulted for further recommendation. Review of Systems Constitutional: Negative except as documented in history of present illness. Eye: Negative except as documented in history of present illness. Ear/Nose/Mouth/Throat: Negative except as documented in history of present illness. Respiratory: Negative except as documented in history of present illness. Cardiovascular: Syncope. Gastrointestinal: Nausea. Genitourinary: Negative except as documented in history [...] Known Medication Allergies None Documented Home Medications (14) Active aspirin 81 mg [...] Ordered Lipitor: 5 mg, Oral, At Bedtime Sodium Chloride 0.9% intravenous solution 1,000 mL: 75 mL/Hr, IntraVENous Tylenol: 650 mg, Oral, Q4H, PRN: Pain (Mild 1-3) Zofran: 4 mg, IV Push, Q4H, PRN: Nausea aspirin: 81 mg, Oral, Daily cloNIDine: 0.1 mg, Oral, TID heparin injection 25,000 Units + NaCl 0.45% Premix Diluent 250 mL: Titrate, IntraVENous heparin injection 25,000 Units + NaCl 0.45% Premix Diluent 250 mL: Titrate, IntraVENous insulin lispro greater than 101 kg: greater than 101 kg scale, SubCutaneous, AC and at Bedtime spironolactone: 25 mg, Oral, Daily Documented Medications Documented Dilt-XR 240 mg/24 hours oral capsule, extended release: Cap, Oral, Daily, 0 Refill(s) Invokana 300 mg oral tablet: 0 Refill(s) Invokana 300 mg oral tablet: 0 Refill(s) aspirin 81 mg oral delayed release tablet: 1 Tab, Oral, Daily, 30 Tab, 0 Refill(s) clonidine 0.1 mg oral tablet: 1 Tab, Oral, TID, 0 Refill(s) labetalol 200 mg oral tablet: 1 Tab, Oral, 1/2 daily, 0 Refill(s) lisinopril 40 mg oral tablet: 0 Refill(s) lisinopril 40 mg oral tablet: 0 Refill(s) lovastatin 20 mg oral tablet: 0 Refill(s) lovastatin 20 mg oral tablet: 0 Refill(s) metFORMIN 1000 mg oral tablet: See Instructions, 1 Tab Oral in am, 0 Refill(s) potassium chloride 10 mEq oral tablet, extended release: 0 Refill(s) sildenafil 20 mg oral tablet: TAKE 3 TABLETS BY MOUTH NEEDED OR OTHERWISE DIRECTED spironolactone 25 mg oral tablet: 1 Tab, Oral, Daily, 30 Tab, 0 Refill(s), Medications (10) Active Scheduled: (5) aspirin EC 81 mg tab 81 mg 1 Tab, Oral, Daily atorvastatin 10 mg tab 5 mg 0.5 Tab, Oral, At Bedtime cloNIDine 0.1 mg tab 0.1 mg 1 Tab, Oral, TID insulin lispro 1 unit/0.01 mL inj greater than 101 kg scale, SubCutaneous, AC and at Bedtime spironolactone 25 mg tab 25 mg 1 Tab, Oral, Daily Continuous: (3) heparin/NaCl 0.45% 25,000 Units + Premix Diluent NaCl 0.45% 250 mL 250 mL, IntraVENous heparin/NaCl 0.45% 25,000 Units + Premix Diluent NaCl 0.45% 250 mL 250 mL, IntraVENous NaCl 0.9% 1,000 mL 1,000 mL, IntraVENous, 75 mL/Hr PRN: (2) acetaminophen 325 mg tab 650 mg 2 Tab, Oral, Q4H ondansetron 4 mg/2 mL inj 4 mg 2 mL, IV Push, Q4H Problem list: No qualifying data available Histories No education data available. Social & Psychosocial Habits No Data Available Past Medical History: No active or resolved past medical history items have been selected or recorded. Family History: No family history items have been selected or recorded. Procedure history: No active procedure history items have been selected or recorded. Social History Social & Psychosocial Habits No Data Available . Physical Examination VS/Measurements Vitals Signs (last 24 hrs) Last Charted Minimum Maximum Temp 97.6 (FEB 07:50) 97.6 (FEB 07:50) 97.6 (FEB 07:50) Mon HR 70 (FEB 07 16:00) 62 (FEB 07 14:30) 70 (FEB 07 16:00) Periph HR 60 (FEB 07 13:50) 60 (FEB 07 13:50) 60 (FEB 07 13:50) Resp Rate 18 (FEB 07 16:00) 14 (FEB 07 14:00) H 21 (FEB 07 14:30) SBP 139 (FEB 07 16:00) 135 (FEB 07 14:30) H 144 (FEB 07 15:00) DBP 86 (FEB 07 16:00) 71 (FEB 07 15:30) H 100 (FEB 07 15:00) MAP 107 (FEB 07 16:00) 97 (FEB 07 15:30) 117 (FEB 07 15:00) SpO2 97 (FEB 07 16:00) 96 (FEB 07 13:50) 97 (FEB 07 14:00) General: Alert and oriented, No acute distress. Eye: Normal conjunctiva, Vision unchanged. HENT: Oral mucosa is moist, No pharyngeal erythema. Neck: Supple, Non-tender, No carotid bruit. Respiratory: Lungs are clear to auscultation, Respirations are non-labored, Breath sounds are equal. Cardiovascular: Normal rate, Irregularly irregular rhythm, No murmur, No edema. Gastrointestinal: Soft, Non-tender. Musculoskeletal: Normal range of motion, Normal strength. Integumentary: Warm, Dry, [place], Intact. Neurologic: Alert, Oriented. Psychiatric: Cooperative, Appropriate mood & affect. Review / Management FEB 07 14:15 137 107 H 28 / H 188 4.4 22 H 1.40 \ FEB 07 14:15 \ 14.6 / H 11.2 320 / 44.1 \ Cardiac Markers (Current Encounter/Past 24 Hours) No Cardiac Marker Results Found (Past 24 Hours) Blood Gases (Current Encounter/Past 24 Hours) No Blood Gas Results Found (Past 24 Hours) Radiology Results (Last 48 hours) [id number] -- 02/07/2019 16:50 CR Chest 1 Vw [...] agree with the above final transcribed report. Results review: Labs (Last four charted values) WBC H 11.2 (FEB 07) HB 14.6 (FEB 07) HCT 44.1 (FEB 07) Plt 320 (FEB 07) Na 137 (FEB 07) K 4.4 (FEB 07) Cl 107 (FEB 07) CO2 22 (FEB 07) BUN H 28 (FEB 07) Cr H 1.40 (FEB 07) Glu R H 188 (FEB 07) Ca 9.4 (FEB 07) PT 10.2 (FEB 07) INR 1.0 (FEB 07) PTT 24.0 (FEB 07) AST 13 (FEB 07) ALT 23 (FEB 07) ALK P 109 (FEB 07) T Bili 0.7 (FEB 07) PTN 7.6 (FEB 07) ALB 4.2 (FEB 07) Troponin <0.015 (FEB 07) . Impression and Plan IMPRESSION: Syncope- recurrent New onset Afib with SVR- now CVR LVEF 60%, valves ok per echo 02/01 on Cardizem and Labetalol at home HTN PLAN; Get event monitor results tomorrow hold any AV robbie blocking agents monitor on telemetry Heparin gtt for anticoagulation Keep NPO after mn for LHC +/- PCI tomorrow documented in this encounter Plan of Treatment Not on file documented as of this encounter Visit Diagnoses Not on filedocumented in this encounter Care Teams Assembler Filters Relationship Specialty Start Date End Date Barrett Devlin MD [address] [place] [address] PCP - General General Internal Medicine 12/29/21 Mary Kiran, MAINTENANCE MANAGER [address] [facility] [address] [place] [address] Cardiology 08/23/23 documented as of this encounter
--- OUTSIDE RECORDS SUMMARY | 2024-08-07 13:16 | XMS_ITS | Encounter Summary ---
Author Organization [employer] Address [address] [place] [address] Care Team Providers Care Per Assessment Nurse Name Role Phone Barrett Devlin MD Primary Care Provider [phone] Mary Kiran BERRY PICKER MACHINE OPERATOR Unavailable [phone] Encounter Details Date Type Department Care Team (Late st Contact Info) Description 02/08/2019 Transcribed Document [facility] [place] Family Medicine [address] [place] [address] ProviderAlejandrina MD [address] [place] [address] Social History Tobacco Use Types Packs/Day Years Used Date Smoking Tobacco: Never Assessed Sex and Gender Information Value Date Recorded Sex Assigned at Not on file Legal Sex Male 6:49 PM CDT Gender Identity Not on file Sexual Orientation Not on file documented as of this encounter Miscellaneous Notes * Cerner Conversion Note - Alejandrina ProviderMD - 02/08/2019 12:53 PM GUEST RELATION OFFICER UM Authorization Entered On: 02/08/2019 12:53 EST Performed On: 02/08/2019 12:53 EST by ZACK HANSON Rn-Utilization Review Primary Insurance Authorization Authorization and Policy Numbers : Insurance 1 Health Plan: [employer] PPO Policy Number: [id number] Authorization Number: Insurance Primary Name : [employer] PPO Policy Number: [id number] Authorization Status-Primary : Awaiting callback Reference Number-Primary : [id number] Authorized Service Begin Date-Primary : 02/08/2019 EST Authorization Comments-Primary : Submitted Inpt Auth on Availity. ERagland/SGreene to review. Historical Authorization Comments-Primary : No Authorization Comments Found ZACK HANSON Rn-Utilization Review - 02/08/2019 12:53 EST Electronically signed by [facility] Conversion Flight Engineer Manager Cerner at 06/03/2022 12:31 PM CDT documented in this encounter Plan of Treatment Not on file documented as of this encounter Visit Diagnoses Not on filedocumented in this encounter Care Teams Per Assessment Nurse Relationship Specialty Start Date End Date Barrett Devlin MD [address] [place] [address] PCP - General General Internal Medicine 12/29/21 Mary Kiran, BERRY PICKER MACHINE OPERATOR [address] [facility] [address] [place] [address] Cardiology 08/23/23 documented as of this encounter
--- OUTSIDE RECORDS SUMMARY | 2024-08-07 13:16 | XMS_ITS | Encounter Summary ---
Author Organization [employer] Address [address] [place] [address] Care Team Providers Care Grave Cleaner Name Role Phone Barrett Devlin MD Primary Care Provider [phone] Mary Kiran CLOUD SOLUTIONS ARCHITECT Unavailable [phone] Encounter Details Date Type Department Care Team (Late st Contact Info) Description 02/07/2019 Transcribed Document [facility] [place] [facility] [place] [address] Alejandrina Turk MD [address] [place] [id number] Social History Tobacco Use Types Packs/Day Years Used Date Smoking Tobacco: Never Assessed Sex and Gender Information Value Date Recorded Sex Assigned at Not on file Legal Sex Male 6:49 PM CDT Gender Identity Not on file Sexual Orientation Not on file documented as of this encounter Miscellaneous Notes * Cerner Conversion Note - Alejandrina ProviderMD - 02/07/2019 2:14 PM KINDERGARTEN CLASSROOM TEACHER Patient: ESAU RADFORD Age: 68 years Sex: Male : 1950 Associated Diagnoses: Syncope; Atrial fibrillation, new onset; Bradycardia Author: JOSE REDMOND DO Basic Information Time seen: Date 02/07/2019, Immediately upon arrival. History source: Patient, spouse, daughter. Arrival mode: Ambulance. History limitation: None. 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 +diaphoretic, +N/V. . History of Present Illness The patient presents with syncope. The onset was 1 hours ago. The course/duration of symptoms is improving. The location where the incident occurred was at home. The exacerbating factor is none. The relieving factor is none. Risk factors consist of hypertension. Prior episodes: rare. Therapy today: emergency medical services. Preceding symptoms: lightheaded nausea. Associated symptoms: nausea and vomiting. Associated injury to the none. Esau Radford is a 68-year-old male with history of hypertension presented today after a syncopal episode at home. He states began to feel lightheaded and flushed and proceeded to have a syncopal episode that was brief less than 5 seconds. With complete anabaptist of mental status afterwards. There is no report of seizure activity. He denies any associated chest pain shortness breath fever cough abdominal pain. He did have an episode of nausea and vomiting times one. He is currently been seen by cardiology, Dr. Bonenr and has had an echocardiogram on February 01 that was unremarkable and is currently wearing a Holter monitor. Review of Systems Additional review of systems information: All other systems reviewed and otherwise negative. Health Status Allergies: Allergic Reactions (Selected) No Known Medication Allergies. Medications: (Selected) Inpatient Medications Ordered Normal Saline Flush: 10 mL, IV Push, See Comment Sodium Chloride 0.9% bolus: 1,000 mL, 1,000 mL/Hr, IV Piggyback, 1-Time. Past Medical/ Family/ Social History Medical history Reviewed as documented in chart. Surgical history: No active procedure history items have been selected or recorded., Reviewed as documented in chart. Family history: No family history items have been selected or recorded., Reviewed as documented in chart. Social history: Social & Psychosocial Habits No Data Available , Reviewed as documented in chart. Problem list: No qualifying data available , per nurse's notes. Physical Examination Vital Signs Time: 02/07/2019 14:15:00. Vital Signs/Vital Measures 02/07/2019 13:50 EST Systolic Blood Pressure 140 mmHg Diastolic Blood Pressure 92 mmHg HI Temperature Source Oral Temperature Mode Fahrenheit Temperature, Fahrenheit 97.6 Deg F Peripheral Pulse Rate 60 bpm Respiratory Rate 20 Breaths/Min Oxygen Saturation 96 % Oxygen Therapy Mode Room air . Measurements 02/07/2019 13:50 EST Height Source Stated Height Entry Format [place] Height/Length, [place]TH [place]ORE[place] (ft) 6 ft Height/Length [place] 0 Inch CLINICALHEIGHT 182.88 cm [place] Body Weight 76.59 kg Weight Source, ED Critical estimated dosing weight Weight Entry Format [place] Weight Portuguese lb 225 lb CLINICALWEIGHT 102.27 kg Body Surface Area (BSA) 2.24 m2 Body Mass Index 30.6 kg/m2 HI . Oxygen Saturation 02/07/2019 13:50 EST Oxygen Saturation 96 % . General: Alert, no acute distress. Castella coma scale: Total score: Total score: 15. Neurological: Alert and oriented to person, place, time, and situation, No focal neurological deficit observed, CN II-XII intact, normal sensory observed, normal motor observed, normal speech observed, normal coordination observed. Skin: Warm, dry, pink, intact, no pallor, no rash, normal for ethnicity. Head: Normocephalic, atraumatic. Neck: Supple, trachea midline, no tenderness, no JVD, no carotid bruit. Eye: Pupils are equal, round and reactive to light, extraocular movements are intact, normal conjunctiva, vision unchanged. Ears, nose, mouth and throat: Tympanic membranes clear, oral mucosa moist, no pharyngeal erythema or exudate. Cardiovascular: No murmur, Normal peripheral perfusion, No edema, irregularly irregular rhythm, Bradycardia, No Regular rate and rhythm, Respiratory: Lungs are clear to auscultation, respirations are non-labored, breath sounds are equal, Symmetrical chest wall expansion. Chest wall: No tenderness, No deformity. Back: Nontender, Normal range of motion, Normal alignment, no step-offs. Musculoskeletal: Normal ROM, normal strength, no tenderness, no swelling, no deformity. Gastrointestinal: Soft, Nontender, Non distended, Normal bowel sounds, No organomegaly. Genitourinary: No tenderness. Lymphatics: No lymphadenopathy. Psychiatric: Cooperative, appropriate mood & affect, normal judgment, non-suicidal. Medical Decision Making Differential Diagnosis: Syncope, near syncope, acute myocardial infarction, dysrhythmia, anemia, gastrointestinal bleed, dehydration, seizure, orthostatic hypotension, vasovagal episode. Documents reviewed: Emergency department nurses' notes, emergency medical system run report, emergency department records, prior records. Electrocardiogram: Time 02/07/2019 14:00:00, rate 71, EP Interp, atrial fibrillation. Results review: Lab results : Lab Results 02/07/2019 14:15 EST Sodium Level 137 mmol/L Potassium Level 4.4 mmol/L Chloride Level 107 mmol/L Carbon Dioxide Level 22 mmol/L Anion Gap 12 Glucose Level 188 mg/dL HI Blood Urea Nitrogen 28 mg/dL HI Creatinine Level 1.40 mg/dL HI eGFR >60 mL/min/1.73m2 eGFR NonAfrican 50 mL/min/1.73m2 LOW Bun/Creatinine 18.7 Calcium Level 9.4 mg/dL Protein Total 7.6 Gram/dL Albumin Level 4.2 Gram/dL Globulin 3.4 Gram/dL A/G Ratio 1.2 Bilirubin Total 0.7 mg/dL Alk Phos 109 Units/Liter AST 13 Units/Liter ALT 23 Units/Liter Troponin I Ultra <0.015 ng/mL WBC 11.2 K/uL HI RBC 4.70 Million/uL Hgb 14.6 g/dL Hct 44.1 % MCV 93.8 fL MCH 31.1 pg MCHC 33.1 Gram/dL Platelet Count 320 K/uL MPV 10.2 fL RDW 12.5 % Neut % 71.1 % HI Neut # 7.96 K/uL HI Lymph % 20.3 % Lymph # 2.28 x10(3)/uL Stevens % 6.3 % Stevens # 0.71 K/uL Eos % 1.0 % Eos # 0.11 x10(3)/uL Baso % 0.8 % Baso # 0.09 x10(3)/uL Slide Review No IG# 0.06 x10(3)/uL HI IG% 0.50 % PT 10.2 Second(s) INR 1.0 PTT 24.0 Second(s) TSH 1.900 mcInt Units/mL . Chest X-Ray: Time reported 02/07/2019 14:30:00, no acute disease process, interpretation by Emergency Physician. Radiology results: Radiology Results (Last 48 hours) [id number] -- 02/07/2019 13:50 CR Chest 1 Vw Portable (02/07/2019 14:11) [...] agree with the above final transcribed report. . Impression and Plan Diagnosis Syncope - Discharge, Emergency medicine, Medical Atrial fibrillation, new onset - Discharge, Emergency medicine, Medical Bradycardia - Discharge, Emergency medicine, Medical Plan Condition: Stable. Disposition: Admit Admit/Transfer/Discharge: Place in Observation (Order): Start: 02/07/2019 16:50 EST, Observation Reason: syncope/a-fib,new/bradycardia, Unit type: Med-Surg with telemetry, Admitting: DARIUSZ CABRERA MD. Counseled: Patient. Notes: Emergency Department course, an EKG was performed demonstrating atrial fibrillation rate in the 60s. This is new onset for the patient. He is not having any symptoms with that presently. His chest x-ray is unremarkable as are his labs apart from mild renal insufficiency with a creatinine of 1.4. Of note he is on a beta [place]. In the prehospital course his EKG also demonstrated atrial fibrillation with a heart rate in the 40s.. He had no further episodes of bradycardia in the emergency department with his heart rate between 60 and 70. Currently asymptomatic. I spoke to cardiology on-call for Dr. sydney Moe he will be seeing the patient and will be starting him on heparin for his atrial fibrillation.. documented in this encounter Plan of Treatment Not on file documented as of this encounter Visit Diagnoses Not on filedocumented in this encounter Care Teams Grave Cleaner Relationship Specialty Start Date End Date Barrett Devlin MD [address] [place] [address] PCP - General General Internal Medicine 12/29/21 Mary Kiran, CLOUD SOLUTIONS ARCHITECT [address] [facility] [address] [place] [address] Cardiology 08/23/23 documented as of this encounter
--- OUTSIDE RECORDS SUMMARY | 2024-08-07 13:16 | XMS_ITS | Encounter Summary ---
Author Organization [employer] Address [address] [place] [address] Care Team Providers Care Plate Keeper Name Role Phone Barrett Devlin MD Primary Care Provider Mary Kiran CHINESE HERBALIST Unavailable [phone] Encounter Details Date Type Department Care Team (Late st Contact Info) Description 02/09/2019 Transcribed Document [facility] [place] [address] [place] [address] ProviderAlejandrina MD [address] [place], [place] [id number] Social History Tobacco Use Types Packs/Day Years Used Date Smoking Tobacco: Never Assessed Sex and Gender Information Value Date Recorded Sex Assigned at Not on file Legal Sex Male 6:49 PM CDT Gender Identity Not on file Sexual Orientation Not on file documented as of this encounter Miscellaneous Notes * Cerner Conversion Note - Alejandrina ProviderMD - 02/09/2019 2:00 AM DIRECTOR CLINICAL DATA Hearing Aid Assembly Supervisor Details Entered On: 02/09/2019 2:04 EST Performed On: 02/09/2019 2:00 EST by LATOYA FARLEY RN Order Details Transport Mode Order Detail : Stretcher/Gurney Isolation Precautions Order Detail : Standard Precautions Order Detail : N/A IV Order Detail : 1 Oxygen Order Detail : 0 Nurse Collect Order Detail : 0 Lift/Transfer : Minimal Central Line Order Detail : No Room Service : Needs Assistance Arterial Line : No LATOYA FARLEY RN - 02/09/2019 2:04 EST Electronically signed by Teja [facility] Conversion Balance Wheel Arm Burnisher Cerner at 06/03/2022 12:13 PM CDT documented in this encounter Plan of Treatment Not on file documented as of this encounter Visit Diagnoses Not on filedocumented in this encounter Care Teams Plate Keeper Relationship Specialty Start Date End Date Barrett Devlin MD [address] [place] [address] PCP - General General Internal Medicine 12/29/21 Mary Kiran, CHINESE HERBALIST [address] [facility] [address] [place] [address] Cardiology 08/23/23 documented as of this encounter
--- OUTSIDE RECORDS SUMMARY | 2024-08-07 13:16 | XMS_ITS | Encounter Summary ---
Author Organization [employer] Address [address] [place] [address] Care Team Providers Care Biological Technician Name Role Phone Barrett Devlin MD Primary Care Provider [phone] Mary Kiran SOLAR DESIGNER/INSTALLER Unavailable [phone] Encounter Details Date Type Department Care Team (Late st Contact Info) Description 02/08/2019 Transcribed Document [facility] [place] [facility] [place] [address] Alejandrina Turk MD [address] [place] [address] Social History Tobacco Use Types Packs/Day Years Used Date Smoking Tobacco: Never Assessed Sex and Gender Information Value Date Recorded Sex Assigned at Not on file Legal Sex Male 6:49 PM CDT Gender Identity Not on file Sexual Orientation Not on file documented as of this encounter Miscellaneous Notes * Cerner Conversion Note - Alejandrina Turk MD - 02/08/2019 9:16 AM BRIM FLEXER Patient: ESAU RADFORD Age: 68 Years Sex: Male : 1950 Subjective Patient seen just prior to being wheeled off to catheterization. No chest pain she lives with palpitations. No further syncopal episodes Vital Signs T: 36.7 ??C HR: 101 RR: 16 BP: 150/94 SpO2: 97% HT: 182.88 cm WT: 102.27 kg BMI: 30.6 Oxygen Settings (Last) Oxygen Therapy Mode: Room air (02/08/19 05:05:00) Intake & Output Totals Last 24 Hours (7a-7a) Input Total: 1035 mL Output Total: 0 mL Balance: 1035 mL Physical Exam General: Awake, alert, oriented. No acute distress. Head: Atraumatic, normocephalic Eyes: PERRL, EOMI, Anicteric sclera, [place] conjunctiva Neck: Supple, no mass palpable, no [...] Atrial fibrillation with bradycardia, concerning for tachybradycardia syndrome???admitted to telemetry. Hold off on labetalol and Cardizem. Seen by cardiology, event monitor results will be dialyzed today. Continue to hold AV blocking agents. Continue heparin drip. Keep nothing by mouth for left heart catheterization today. Acute kidney injury???secondary to volume depletion. Resolved. Discontinue IV fluids Type 2 diabetes???continue sliding scale insulin, hemoglobin A1c is 7.3 Leukocytosis???resolved off of antibiotics, likely secondary to stress reaction History of hypertension???resume clonidine, spironolactone Hyperlipidemia???continue statin Heparin drip for DVT prophylaxis Patient is a full code VTE Prophylaxis - Medical Sequential Compression Device Start: 02/07/19 16:57:00 EST, Bilateral, Length: Knee High, While patient is in bed, Continuous Order (DARIUSZ CABRERA) Medications aspirin, 81 mg= 1 Tab, Oral, Daily cloNIDine, 0.1 mg= 1 Tab, Oral, TID heparin injection 25,000 Units + NaCl 0.45% Premix Diluent 250 mL insulin lispro greater than 101 kg, greater than 101 kg scale, SubCutaneous, AC and at Bedtime Lipitor, 5 mg= 0.5 Tab, Oral, At Bedtime Normal Saline Flush, 10 mL, IV Push, Q12H Normal Saline Flush, 10 mL, IV Push, See Comment, PRN Prevnar 13, 0.5 mL, IntraMuscular, 1-Time Sodium Chloride 0.9% intravenous solution 1,000 mL, 1000 mL, IntraVENous spironolactone, 25 mg= 1 Tab, Oral, Daily Tylenol, 650 mg= 2 Tab, Oral, Q4H, PRN Zofran, 4 mg= 2 mL, IV Push, Q4H, PRN Diagnostic Results Radiology Results (Last 48 hours) [id number] -- 02/07/2019 16:50 CR Chest 1 Vw [...] Test Name Test Result Date/Time Sodium Level 138 mmol/L 02/08/2019 01:03 EST Sodium Level 137 mmol/L 02/07/2019 14:15 EST Potassium Level 4.2 mmol/L 02/08/2019 01:03 EST Potassium Level 4.4 mmol/L 02/07/2019 14:15 EST Chloride Level 109 mmol/L 02/08/2019 01:03 EST Chloride Level 107 mmol/L 02/07/2019 14:15 EST Carbon Dioxide Level 23 mmol/L 02/08/2019 01:03 EST Carbon Dioxide Level 22 mmol/L 02/07/2019 14:15 EST Anion Gap 10 02/08/2019 01:03 EST Anion Gap 12 02/07/2019 14:15 EST Glucose Level 131 mg/dL (High) 02/08/2019 01:03 EST Glucose Level 188 mg/dL (High) 02/07/2019 14:15 EST Blood Urea Nitrogen 23 mg/dL (High) 02/08/2019 01:03 EST Blood Urea Nitrogen 28 mg/dL (High) 02/07/2019 14:15 EST Creatinine Level 1.10 mg/dL 02/08/2019 01:03 EST Creatinine Level 1.40 mg/dL (High) 02/07/2019 14:15 EST eGFR >60 mL/min/1.73m2 02/08/2019 01:03 EST eGFR >60 mL/min/1.73m2 02/07/2019 14:15 EST eGFR NonAfrican >60 mL/min/1.73m2 02/08/2019 01:03 EST eGFR NonAfrican 50 mL/min/1.73m2 (Low) 02/07/2019 14:15 EST Bun/Creatinine 20.9 (High) 02/08/2019 01:03 EST Bun/Creatinine 18.7 02/07/2019 14:15 EST Calcium Level 8.6 mg/dL 02/08/2019 01:03 EST Calcium Level 9.4 mg/dL 02/07/2019 14:15 EST Protein Total 6.7 Gram/dL 02/08/2019 01:03 EST Protein Total 7.6 Gram/dL 02/07/2019 14:15 EST Albumin Level 3.5 Gram/dL 02/08/2019 01:03 EST Albumin Level 4.2 Gram/dL 02/07/2019 14:15 EST Globulin 3.2 Gram/dL 02/08/2019 01:03 EST Globulin 3.4 Gram/dL 02/07/2019 14:15 EST A/G Ratio 1.1 02/08/2019 01:03 EST A/G Ratio 1.2 02/07/2019 14:15 EST Bilirubin Total 0.4 mg/dL 02/08/2019 01:03 EST Bilirubin Total 0.7 mg/dL 02/07/2019 14:15 EST Alk Phos 92 Units/Liter 02/08/2019 01:03 EST Alk Phos 109 Units/Liter 02/07/2019 14:15 EST AST 14 Units/Liter 02/08/2019 01:03 EST AST 13 Units/Liter 02/07/2019 14:15 EST ALT 20 Units/Liter 02/08/2019 01:03 EST ALT 23 Units/Liter 02/07/2019 14:15 EST Magnesium Level 1.9 mg/dL 02/08/2019 01:03 EST Device Comment 1 Notified Nurse RBV 02/08/2019 06:07 EST Device Comment 1 Notified Nurse RBV 02/07/2019 21:04 EST Glucose POC2 122 mg/dL (High) 02/08/2019 06:07 EST Glucose POC2 120 mg/dL (High) 02/07/2019 21:04 EST Hgb A1C 7.3 % 02/07/2019 17:07 EST eAVG Glucose 163 mg/dL 02/07/2019 17:07 EST Troponin I Ultra <0.015 ng/mL 02/07/2019 14:15 EST WBC 8.8 K/uL 02/08/2019 01:03 EST WBC 11.2 K/uL (High) 02/07/2019 14:15 EST RBC 4.49 Million/uL 02/08/2019 01:03 EST RBC 4.70 Million/uL 02/07/2019 14:15 EST Hgb 13.9 g/dL 02/08/2019 01:03 EST Hgb 14.6 g/dL 02/07/2019 14:15 EST Hct 42.4 % 02/08/2019 01:03 EST Hct 44.1 % 02/07/2019 14:15 EST MCV 94.4 fL 02/08/2019 01:03 EST MCV 93.8 fL 02/07/2019 14:15 EST MCH 31.0 pg 02/08/2019 01:03 EST MCH 31.1 pg 02/07/2019 14:15 EST MCHC 32.8 Gram/dL 02/08/2019 01:03 EST MCHC 33.1 Gram/dL 02/07/2019 14:15 EST Platelet Count 260 K/uL 02/08/2019 01:03 EST Platelet Count 320 K/uL 02/07/2019 14:15 EST MPV 9.8 fL 02/08/2019 01:03 EST MPV 10.2 fL 02/07/2019 14:15 EST RDW 12.4 % 02/08/2019 01:03 EST RDW 12.5 % 02/07/2019 14:15 EST Neut % 60.1 % 02/08/2019 01:03 EST Neut % 71.1 % (High) 02/07/2019 14:15 EST Neut # 5.29 K/uL 02/08/2019 01:03 EST Neut # 7.96 K/uL (High) 02/07/2019 14:15 EST Lymph % 29.9 % 02/08/2019 01:03 EST Lymph % 20.3 % 02/07/2019 14:15 EST Lymph # 2.64 x10(3)/uL 02/08/2019 01:03 EST Lymph # 2.28 x10(3)/uL 02/07/2019 14:15 EST Gregg % 8.0 % 02/08/2019 01:03 EST Gregg % 6.3 % 02/07/2019 14:15 EST Gregg # 0.71 K/uL 02/08/2019 01:03 EST Gregg # 0.71 K/uL 02/07/2019 14:15 EST Eos % 1.0 % 02/08/2019 01:03 EST Eos % 1.0 % 02/07/2019 14:15 EST Eos # 0.09 x10(3)/uL 02/08/2019 01:03 EST Eos # 0.11 x10(3)/uL 02/07/2019 14:15 EST Baso % 0.7 % 02/08/2019 01:03 EST Baso % 0.8 % 02/07/2019 14:15 EST Baso # 0.06 x10(3)/uL 02/08/2019 01:03 EST Baso # 0.09 x10(3)/uL 02/07/2019 14:15 EST Slide Review No 02/08/2019 01:03 EST Slide Review No 02/07/2019 14:15 EST IG# 0.03 x10(3)/uL 02/08/2019 01:03 EST IG# 0.06 x10(3)/uL (High) 02/07/2019 14:15 EST IG% 0.30 % 02/08/2019 01:03 EST IG% 0.50 % 02/07/2019 14:15 EST PT 10.2 Second(s) 02/07/2019 14:15 EST INR 1.0 02/07/2019 14:15 EST PTT 24.0 Second(s) 02/07/2019 14:15 EST PTT Heparin 60.6 Second(s) 02/08/2019 07:44 EST PTT Heparin 38.7 Second(s) (Low) 02/08/2019 01:03 EST PTT Heparin 133.3 Second(s) (Critical) 02/07/2019 22:21 EST Cholesterol Tot 123 mg/dL 02/08/2019 01:03 EST Triglyceride 137 mg/dL 02/08/2019 01:03 EST Cholesterol HDL 37.0 mg/dL 02/08/2019 01:03 EST Cholesterol LDL Calculation 58.6 mg/dL 02/08/2019 01:03 EST Cholesterol/HDL Ratio 3.3 (High) 02/08/2019 01:03 EST LDL/HDL Ratio 1.6 02/08/2019 01:03 EST Cholesterol VLDL Calculation 27.4 mg/dL 02/08/2019 01:03 EST TSH 1.560 mcInt Units/mL 02/08/2019 01:03 EST TSH 1.900 mcInt Units/mL 02/07/2019 14:15 EST Electronically signed by Interface, [facility] Conversion Junior Sales Assistant Cerner at 06/03/2022 12:19 PM CDT documented in this encounter Plan of Treatment Not on file documented as of this encounter Visit Diagnoses Not on filedocumented in this encounter Care Teams Biological Technician Relationship Specialty Start Date End Date Barrett Devlin MD [address] [place] [address] PCP - General General Internal Medicine 12/29/21 Mary Kiran, SOLAR DESIGNER/INSTALLER [address] [facility] [address] [place] [address] Cardiology 08/23/23 documented as of this encounter
--- OUTSIDE RECORDS SUMMARY | 2024-08-07 13:16 | XMS_ITS | Encounter Summary ---
Author Organization [employer] Address [address] [place] [address] Care Team Providers Care Head Esthetician Name Role Phone Barrett Devlin MD Primary Care Provider [phone] Mary Kiran BATCH FREEZER OPERATOR Unavailable [phone] Encounter Details Date Type Department Care Team (Late st Contact Info) Description 02/07/2019 Transcribed Document [facility] [place] Family Medicine [address] [place] [address] Alejandrina Turk MD [address] [place], [place] [address] Social History Tobacco Use Types Packs/Day Years Used Date Smoking Tobacco: Never Assessed Sex and Gender Information Value Date Recorded Sex Assigned at Not on file Legal Sex Male 6:49 PM CDT Gender Identity Not on file Sexual Orientation Not on file documented as of this encounter Miscellaneous Notes * Cerner Conversion Note - Alejandrina Turk MD - 02/07/2019 7:26 PM CASING IN LINE SETTER ED Discharge Entered On: 02/07/2019 19:26 EST Performed On: 02/07/2019 19:26 EST by Laura Bravo, systems program manager Process Patient Disposition : Admit/Observe Personal Belongings With Patient : Yes Patient Education Completed : Yes Teaching Evaluation : Verbalizes understanding IV Discontinued : No Nursing Documentation Completed : Yes Laura Bravo, RN - 02/07/2019 19:26 EST Admission, ED Nurse Report Accepted By : Saray on 2E and Mariel DIE DEVELOPER; Mariel to transport patient to 5B Nurse Report Acceptance Time : 02/07/2019 19:00 EST `Nurse Report (Hand Off) : Called Laura Bravo RN - 02/07/2019 19:26 EST documented in this encounter Plan of Treatment Not on file documented as of this encounter Visit Diagnoses Not on filedocumented in this encounter Care Teams Head Esthetician Relationship Specialty Start Date End Date Barrett Devlin MD [address] [place] [address] PCP - General General Internal Medicine 12/29/21 Mary Kiran, BATCH FREEZER OPERATOR [address] [facility] [address] [place] [address] Cardiology 08/23/23 documented as of this encounter
[2024-08-07 13:23] LABS: Albumin Level 4.1 g/dl (3.5-5.0); Chloride 99 mmol/L (98-107); Potassium 4.9 mmoL/L (3.5-5.1); Sodium 136 mmol/L (136-145)
[2024-08-07 13:25] LABS: Blood Urea Nitrogen 24 mg/dl (9-20); Estimated Glomerular Filt Rate 73 ml/min (>60); GFR (African American) 88 ML/MIN (>60)
[2024-08-07 13:26] LABS: Alanine Aminotransferase 19 U/L (12-78); Albumin/Globulin Ratio 1.8 (1.1-1.8); Alkaline Phosphatase 84 U/L (38-126); Anion Gap 15.9 mEq/L (5-15); Aspartate Amino Transferase 25 U/L (17-59); Bilirubin,Total 0.9 mg/dl (0.2-1.3); Calcium 9.2 mg/dl (8.4-10.2); Carbon Dioxide 26 mmol/L (22.0-30.0); Chol/HDL Ratio 3.8 (1-3.5); Cholesterol 129 mg/dl (140-200); Globulin 2.3 g/dL (1.3-3.2); Glucose 170 mg/dl (74-100); HDL Cholesterol 34 mg/dl (40-60); Total Protein,Serum 6.4 g/dl (6.3-8.2); Triglycerides 179 mg/dl (30-150); VLDL Cholesterol 36 mg/dL (0-40)
[2024-08-07 13:37] LABS: Direct LDL Cholesterol 51.33 mg/dL (100-129)
== END 2024-08-07 23:59 | disposition home or self-care (01) ==
LOC: LAB.DROPOF 13:08
PROVIDERS: PCP Internal Medicine; Visit Provider Internal Medicine
DX: E11.42 Type 2 diabetes mellitus with diabetic polyneuropathy (principal); E78.5 Hyperlipidemia, unspecified; I10 Essential (primary) hypertension
CPT/HCPCS: 80053; 80061; 82043; 82570; 83036